=== PATIENT | male | born 1945 | race Caucasian/White ===

== ENCOUNTER 2017-07-15 05:43 | Inpatient (IN) ==
[2017-07-11 17:36] LABS: Basophils # (Auto) 0 K/mcL (0.0-0.3); Basophils % (Auto) 0.1 % (0.0-2.0); Eosinophils # (Auto) 0.5 K/mcL (0.0-0.7); Eosinophils % (Auto) 6.1 % (0.0-7.0); Granulocytes % (Auto) 73.8 % (38.0-78.0); Lymphocytes # (Auto) 0.8 K/mcL (1.5-4.8); Lymphocytes % (Auto) 9.9 % (15.5-49.0); Mean Cell Volume 88.7 fL (80.0-100.0); Mean Corpuscular HGB Conc 33.7 g/dL (31.0-36.0); Mean Corpuscular Hemoglobin 29.9 pg (26.0-34.0); Monocytes # (Auto) 0.8 K/mcL (0.1-0.9); Monocytes % (Auto) 10.1 % (1.0-12.0); Platelet Count 211 K/mcL (140-440); RBC 4.86 M/mcL (4.50-5.90); Red Cell Distribution Width 15.6 % (11.5-14.5)
[2017-07-11 18:02] LABS: Blood Urea Nitrogen 44 mg/dl (8-23)
[2017-07-12 18:26] LABS: Appearance,Urine CLEAR; Bacteria,Urine 0 /hpf (0); Bilirubin,Urine NEG (NEG); Color,Urine YELLOW; Glucose,Urine (UA) >=500 mg/dL (NEG); Leukocyte Esterase,Urine NEG /uL (NEG); Mucus,Urine FEW /hpf (0); Nitrate,Urine NEG (NEG); Protein,Urine NEG (NEG); Specific Gravity,Urine 1.013 (1.000-1.035); Urine Blood NEG mg/dL (<0.03); Urine RBC < 1 /hpf (0-1); Urine Squamous Epithelial Cell < 1 /hpf (0-4); Urine WBC 0 /hpf (0-4); Urobilinogen,Urine NEG (NEG)
[~2017-07-15 05:43] MED LIST: ACETAMINOPHEN 500 MG TABLET PO SCH; CELECOXIB 200 MG CAPSULE PO SCH; PREGABALIN 75 MG CAPSULE PO SCH; ceFAZolin 1 GM VIAL IV SCH; oxyCODONE 10 MG TAB.ER.12H PO SCH
[2017-07-15] MEDS ORDERED: KETOROLAC 30 MG, ROPIVACAINE HCL/PF 49.5 ML, EPINEPHrine 0.5 MG, 0.9 % SODIUM CHLORIDE ... IJ SCH (06:30)
[2017-07-15] MEDS ORDERED: TRANEXAMIC ACID 1,000 MG/10 ML VIAL IV ONE (10:00)
[2017-07-15] MEDS ORDERED: KETAMINE 100 MG/ML ML IV ONE (10:00)
[2017-07-15] MEDS ORDERED: PROPOFOL 200 MG/20 ML VIAL IV ONE (10:00)
[2017-07-15] MEDS ORDERED: ROPIVACAINE HCL/PF 30 ML VIAL IJ ONE (10:00)
[2017-07-15] MEDS ORDERED: ONDANSETRON 4 MG/2 ML VIAL IV ONE (10:00)
[2017-07-15] MEDS ORDERED: PHENYLEPHRINE 10 MG/ML VIAL IV ONE (10:00)
[2017-07-15] MEDS ORDERED: MIDAZOLAM 2 MG/2 ML VIAL IV ONE (10:00)
[2017-07-15] MEDS ORDERED: GLYCOPYRROLATE 0.2 MG/ML VIAL IV ONE (10:00)
[2017-07-15] MEDS ORDERED: LIDOCAINE HCL/PF 100 MG/5 ML SYRINGE IV ONE (10:00)
[2017-07-15] MEDS ORDERED: BENZOCAINE/MENTHOL 1 LOZENGE PO PRN ×2 (10:49→11:29)
[2017-07-15] MEDS ORDERED: diphenhydrAMINE 50 MG/ML VIAL IV PRN (10:49)
[2017-07-15] MEDS ORDERED: METHOCARBAMOL 1,000 MG/10 ML VIAL IV PRN (10:49)
[2017-07-15] MEDS ORDERED: ONDANSETRON 4 MG/2 ML VIAL IV PRN ×2 (10:49→11:29)
[2017-07-15] MEDS ORDERED: fentaNYL 100 MCG/2 ML VIAL IV PRN (10:49)
[2017-07-15] MEDS ORDERED: IPRATROPIUM/ALBUTEROL 3 ML AMPUL.NEB NEB PRN (10:49)
[2017-07-15] MEDS ORDERED: MEPERIDINE 25 MG/ML SYRINGE IV PRN (10:49)
[2017-07-15] MEDS ORDERED: GENTAMICIN SULFATE 800 MG/20 ML VIAL IR ONE (10:53)
[2017-07-15] MEDS ORDERED: LACTATED RINGERS 1,000 ML IV SCH (11:00)
[2017-07-15] MEDS ORDERED: HYDROcodone/APAP 10/325MG TABLET PO PRN (11:29)
[2017-07-15] MEDS ORDERED: ACETAMINOPHEN 325 MG TABLET PO PRN (11:29)
[2017-07-15] MEDS ORDERED: TRANEXAMIC ACID 1,000 MG/10 ML VIAL IV SCH (11:29)
[2017-07-15] MEDS ORDERED: HYDROmorphone 2 MG/ML SYRINGE IV PRN (11:29)
[2017-07-15] MEDS ORDERED: POLYETHYLENE GLYCOL 3350 17 GM PACKET PO PRN (11:29)
[2017-07-15] MEDS ORDERED: BISACODYL 10 MG SUPP.RECT PR PRN (11:29)
[2017-07-15] MEDS ORDERED: FLEETS ADULT ENEMA PR PRN (11:29)
[2017-07-15] MEDS ORDERED: MAGNESIUM HYDROXIDE 30 ML ORAL.SUSP PO PRN (11:29)
--- NOTE | 2017-07-15 11:29 | Brief Operative Note ---
Date of procedure: 07/15/17 Pre-op diagnosis: Left knee djd severe Post-op diagnosis: same Procedure: Left tka cemented Grafts/Implants: Yes Anesthesia: GETA Complications Description: 07/15/17 11:28 none Surgeon: Iraj Ricci [employer]spring Winder And Oiler: Navneet Glass Estimated blood loss (cc): 50 Tourniquet Time (Minutes): 45 Specimens Removed/Pathology: none sent Condition: stable Disposition: PACU
[2017-07-15] MEDS: ePHEDrine 50 MG/ML AMPUL IV PRN ×2 (12:13→12:23)
--- NOTE | 2017-07-15 12:37 | XRay Report ---
HISTORY: Reason for Exam:Post-Op Total Knee FINDINGS: There is a well positioned total knee prosthesis. No fracture is present. There is a small soft tissue calcification inferior to the patella. IMPRESSION: Well-positioned left knee prosthesis Interpreted and Authenticated by: Chacho Caballero 07/15/17
--- NOTE | 2017-07-15 13:00 | Operative Note ---
DATE OF OPERATION: 07/15/2017 PREOPERATIVE DIAGNOSIS: Left knee severe degenerative arthritis. POSTOPERATIVE DIAGNOSIS: Left knee severe degenerative arthritis. PROCEDURE: Left total knee arthroplasty, cemented components with a posterior stabilized design with ODC components. SURGEON: Iraj Ricci M.D. SUSTAINABILITY COMMUNICATOR: Navneet Glass PA-C. ANESTHESIA: General LMA anesthesia. COMPLICATIONS: None. TOTAL TOURNIQUET TIME: 45 minutes. ESTIMATED BLOOD LOSS: About 50 mL. IMPLANTS PLACED: A size 6 femur, size 6 tibial baseplate with a 10 mm thick poly with a 38 mm patellar button. DESCRIPTION OF PROCEDURE: The patient was brought to the operating room and put to sleep with general LMA anesthesia. Once asleep, the patient had the left leg sterilely prepped and draped in the usual sterile fashion after confirmed as the operative site and preop antibiotics and tranexamic acid had been given. We exsanguinated the leg and inflated the tourniquet to 250 pounds of pressure. Midline incision made, mid vastus approach performed. We subluxed the patella laterally showing severe arthritis of all three compartments. We then placed an intramedullary guide shanita, made our distal femoral cut at 9 mm and sized the knee to a size 6 component. We made anterior and posterior chamfer cuts, and the tibia was cut at neutral with a 3 degree posterior slope. Once this was done, I then removed the meniscus. Posterior osteophytes were all removed. I then made the box cut for the femur, trialed the size 6 tibial baseplate, set rotation as well as the femoral component. I irrigated thoroughly and then placed a size 10 poly. This was a little tight in extension. We then proceeded with preparing the patella. It measured 24 mm in total thickness. This was cut to 14 mm and then cemented into place a size 38 mm patellar button with a small chamfer cut laterally. I then cemented into place a size 6 tibia, size 6 femur. A 10 mm poly was placed. All excess cement was removed. On a secondary inspection we removed any additional cement. We then closed the capsule with #1 Stratafix. Two of these sutures were used. We closed the skin with 2-0 Vicryl and adhesive closure. The patient tolerated this well without complication. Tourniquet time was 45 minutes. VENKATESH:gaurav Job ID: [id number] Doc ID: [id number] Iraj Ricci MD
[2017-07-15] MEDS: 0.45 % SODIUM CHLORIDE 1,000 ML IV SCH ×2 (13:01→21:46)
[2017-07-15] MEDS: ACETAMINOPHEN 1,000 MG/100 ML BOTTLE IV SCH ×2 (14:13→19:15)
[2017-07-15] MEDS: 0.9 % SODIUM CHLORIDE 10 ML SYRINGE IV SCH ×2 (14:13→21:47)
[2017-07-15] MEDS: KETOROLAC 15 MG/ML VIAL IV SCH ×3 (14:13→23:54)
[2017-07-15] MEDS ORDERED: DEXTROSE 50% 50 ML VIAL IV PRN (16:11)
[2017-07-15] MEDS ORDERED: INSULIN LISPRO SQ SCH (17:00)
[2017-07-15] MEDS: ceFAZolin 1 GM VIAL IV SCH (17:12)
[2017-07-15] MEDS: INSULIN LISPRO 1 UNIT/0.01 ML UNIT SQ SCH ×2 (17:12→20:41)
[2017-07-15] MEDS: FISH OIL 1,000 MG CAPSULE PO SCH (20:38)
[2017-07-15] MEDS: VITAMIN E (DL,TOCOPHERYL ACET) 400 UNIT CAPSULE PO SCH (20:38)
[2017-07-15] MEDS: ASPIRIN 325 MG ENTERIC COATED TABLET PO SCH (20:40)
[2017-07-15] MEDS: ATENOLOL 50 MG TABLET PO SCH (20:40)
[2017-07-15] MEDS: DOCUSATE SODIUM 100 MG CAPSULE PO SCH (20:41)
[2017-07-15] MEDS: BRIMONIDINE OPHTH DROPS 1 GTT BOTTLE 5ML OU SCH (20:41)
[2017-07-15] MEDS: PYRIDOXINE 100 MG TABLET PO SCH (20:42)
[2017-07-15] MEDS ORDERED: SAW PALMETTO FRUIT 450 MG PO SCH (21:00)
[2017-07-15] MEDS ORDERED: ALPHA LIPOIC ACID 200 MG PO SCH (21:00)
[2017-07-15] MEDS ORDERED: RED YEAST RICE 600 MG PO SCH (21:00)
[2017-07-15] MEDS ORDERED: SENNOSIDES 1 TABLET PO SCH (21:00)
[2017-07-15] MEDS ORDERED: TEMAZEPAM 15 MG CAPSULE PO PRN (21:00)
[2017-07-15] MEDS ORDERED: UBIDECARENONE 100 MG PO SCH (21:00)
[2017-07-15] MEDS ORDERED: INSULIN GLARGINE, HUMAN 1 UNIT/0.01 ML SQ SCH (21:00)
[2017-07-15] MEDS ORDERED: LEVOCARNITINE TARTRATE 500 MG PO SCH (21:00)
[2017-07-16] MEDS: ACETAMINOPHEN 1,000 MG/100 ML BOTTLE IV SCH ×2 (01:08→08:02)
[2017-07-16] MEDS: ceFAZolin 1 GM VIAL IV SCH (01:08)
[2017-07-16] MEDS: KETOROLAC 15 MG/ML VIAL IV SCH (05:25)
[2017-07-16] MEDS: 0.9 % SODIUM CHLORIDE 10 ML SYRINGE IV SCH (05:26)
[2017-07-16] MEDS: INSULIN LISPRO 1 UNIT/0.01 ML UNIT SQ SCH (08:01)
[2017-07-16] MEDS: 0.45 % SODIUM CHLORIDE 1,000 ML IV SCH (08:03)
[2017-07-16] MEDS ORDERED: ASPIRIN 325 MG TABLET.DR PO SCH (09:00)
[2017-07-16] MEDS ORDERED: LOSARTAN 50 MG TABLET PO SCH (09:00)
[2017-07-16] MEDS ORDERED: sitaGLIPtin 50 MG TABLET PO SCH (09:00)
[2017-07-16] MEDS ORDERED: CHROMIUM PICOLINATE PO SCH (09:00)
[2017-07-16] MEDS ORDERED: CYANOCOBALAMIN (VITAMIN B-12) 500 MCG TABLET PO SCH (09:00)
[2017-07-16] MEDS ORDERED: HYDROCHLOROTHIAZIDE 25 MG TABLET PO SCH (09:00)
[2017-07-16] MEDS: FISH OIL 1,000 MG CAPSULE PO SCH (09:15)
[2017-07-16] MEDS: PYRIDOXINE 100 MG TABLET PO SCH (09:15)
[2017-07-16] MEDS: VITAMIN E (DL,TOCOPHERYL ACET) 400 UNIT CAPSULE PO SCH (09:16)
[2017-07-16] MEDS: ASPIRIN 325 MG ENTERIC COATED TABLET PO SCH (09:16)
[2017-07-16] MEDS: ATENOLOL 50 MG TABLET PO SCH (09:16)
[2017-07-16] MEDS: DOCUSATE SODIUM 100 MG CAPSULE PO SCH (09:16)
[2017-07-16] MEDS: BRIMONIDINE OPHTH DROPS 1 GTT BOTTLE 5ML OU SCH (09:18)
--- NOTE | 2017-07-16 10:40 | Discharge Summary ---
Ortho Discharge - TSA - Patient Instructions Diet: Regular Diet Activity: activity as tolerated, weight bearing as tolerated Total Shoulder Protocol: Leave immobilizer in place except for bathing and ROM. Abduction pillow. Continue to wear sling until seen by physician. Codman Pendulum : These exercises use momentum produced by your body to move your shoulder joint. Bend your knees and shift your weight to your front leg, then back, allowing your arm to swing in the same directions. Using the same technique, alternately shift your weight between your right and left legs, allowing your arm to swing from side to side. These exercises are also performed in counterclockwise and clockwise circular motions. Typically these exercises are performed several times per day, for a set number repetitions or minutes, such as 20 times in a row or 5 minutes at a time. Dressing Care: Aquacel Ag - leave on for 5 days Patient Education: Total Knee Replacement (DC) Additional Instructions: cpm for home use. Discharge Instructions: Do the exercises at home that physical therapy gave you. You are scheduled to start physical therapy at [facility] on Jul.18 at 2:00 pm, please arrive 15 minutes early for paperwork. Take your prescription, photo ID, insurance cards, and current medication list with you to your first physical therapy appointment. Take your prescription to corn picker any medication or equipment (such as walker, crutches, toilet riser or C.P.M.) Wear comfortable clothing for your physical therapy. Weight bearing as tolerated. You have Dermabond (a dressing with a mesh-like appearance), leave open to air. Do not remove this dressing. You may start showering on post op day #2. The Dermabond dressing can get wet, do not scrub dressing. Pat dry. To avoid constipation while taking any narcotic pain medication, take an over the counter stool softener/laxative. Use your Cryocuff or ice packs as directed, on for 20 minutes at a time throughout the day. This and elevation will help with pain and swelling. Call your physician for fevers above 100.5 or pain not controlled by medication. Your prescriptions are with your discharge information. Some medications were electronically transmitted to your pharmacy of choice. - Follow Up Plan Follow Up Appointments: Gerardo Bonilla MD [Physician] - (Follow up as [facility] patient at [facility]) Iraj Ricci MD [Physician] - 07/28/17 10:00 am Disposition: Home, Self-Care Prognosis: Good Rehab Potential: Good I certify that the patient requires SNF services: No Overall status at discharge: patient is progressing back to baseline - Orders For Discharge Additional Discharge Orders: Physical Therapy at Discharge - TKA Location: Determined By Patient Toilet Riser Discharge Order Location: Determined By Patient Walker Location: Determined By Patient
--- NOTE | 2017-07-16 10:54 | Discharge Summary ---
Ortho Discharge - TKA - Patient Instructions Diet: Regular Diet Activity: activity as tolerated, weight bearing as tolerated Total Knee Protocol: For Total Knee: Start ROM LESLIE with stationary bike or rocking chair. Work on gaining full extension of knee. Posterior dislocation precautions provided. Hip abductor strengthening and gait training instructions provided. Apply Cryocuff as instructed. Dressing Care: May shower in 2 days Patient Education: Total Knee Replacement (DC) Additional Instructions: cpm for home use. Discharge Instructions: Do the exercises at home that physical therapy gave you. You are scheduled to start physical therapy at [facility] on Jul.18 at 2:00 pm, please arrive 15 minutes early for paperwork. Take your prescription, photo ID, insurance cards, and current medication list with you to your first physical therapy appointment. Take your prescription to potato picker any medication or equipment (such as walker, crutches, toilet riser or C.P.M.) Wear comfortable clothing for your physical therapy. Weight bearing as tolerated. You have Dermabond (a dressing with a mesh-like appearance), leave open to air. Do not remove this dressing. You may start showering on post op day #2. The Dermabond dressing can get wet, do not scrub dressing. Pat dry. To avoid constipation while taking any narcotic pain medication, take an over the counter stool softener/laxative. Use your Cryocuff or ice packs as directed, on for 20 minutes at a time throughout the day. This and elevation will help with pain and swelling. Call your physician for fevers above 100.5 or pain not controlled by medication. Your prescriptions are with your discharge information. Some medications were electronically transmitted to your pharmacy of choice. - Follow Up Plan Follow Up Appointments: Gerardo Bonilla MD [Physician] - (Follow up as new patient at [facility]) Iraj Ricci MD [Physician] - 07/28/17 10:00 am Disposition: Home, Self-Care Prognosis: Good Rehab Potential: Good I certify that the patient requires SNF services: No - Orders For Discharge Prescriptions: Aspirin [Ecotrin] 325 mg PO DAILY #14 tab.ec oxyCODONE/APAP [Percocet 5-325 mg] 1 - 2 tab PO Q4H PRN #60 tab PRN Reason: Pain Additional Discharge Orders: Physical Therapy at Discharge - TKA Location: Determined By Patient Toilet Riser Discharge Order Location: Determined By Patient Walker Location: Determined By Patient
== END 2017-07-16 12:15 | disposition home or self-care (01) | DRG 470 ==
LOC: MEDSUR 05:43
PROVIDERS: ADMIT Orthopaedic Surgery; ATTEND Orthopaedic Surgery

== ENCOUNTER 2017-10-31 10:52 | Inpatient (IN) ==
[2017-10-25 14:25] LABS: Appearance,Urine CLEAR; Bilirubin,Urine NEG (NEG); Color,Urine YELLOW; Glucose,Urine (UA) 50 mg/dL (NEG); Leukocyte Esterase,Urine NEG /uL (NEG); Nitrate,Urine NEG (NEG); Protein,Urine NEG (NEG); Specific Gravity,Urine 1.011 (1.000-1.035); Urine Blood NEG mg/dL (<0.03); Urobilinogen,Urine NEG (NEG)
[2017-10-25 15:37] LABS: Basophils # (Auto) 0 K/mcL (0.0-0.3); Basophils % (Auto) 0 % (0.0-2.0); Eosinophils # (Auto) 0.4 K/mcL (0.0-0.7); Granulocytes % (Auto) 79.5 % (38.0-78.0); Lymphocytes # (Auto) 0.7 K/mcL (1.5-4.8); Lymphocytes % (Auto) 8.3 % (15.5-49.0); Mean Cell Volume 87.3 fL (80.0-100.0); Mean Corpuscular HGB Conc 33.1 g/dL (31.0-36.0); Mean Corpuscular Hemoglobin 28.9 pg (26.0-34.0); Monocytes # (Auto) 0.7 K/mcL (0.1-0.9); Monocytes % (Auto) 8.2 % (1.0-12.0); Platelet Count 233 K/mcL (140-440); RBC 5.08 M/mcL (4.50-5.90); Red Cell Distribution Width 15.9 % (11.5-14.5)
[2017-10-25 15:51] LABS: Blood Urea Nitrogen 33 mg/dl (8-23)
[~2017-10-31 10:52] MED LIST changes: +KETOROLAC 30 MG, ROPIVACAINE HCL/PF 49.5 ML, EPINEPHrine 0.5 MG, 0.9 % SODIUM CHLORIDE ... IJ SCH
[2017-10-31] MEDS ORDERED: BUPIVACAINE W/EPI 0.5% 50 ML VIAL IJ ONE (14:30)
[2017-10-31] MEDS ORDERED: GLYCOPYRROLATE 0.2 MG/ML VIAL IV ONE (14:30)
[2017-10-31] MEDS ORDERED: ONDANSETRON 4 MG/2 ML VIAL IV ONE (14:30)
[2017-10-31] MEDS ORDERED: TRANEXAMIC ACID 1,000 MG/10 ML VIAL IV ONE ×2 (14:30→15:56)
[2017-10-31] MEDS ORDERED: MIDAZOLAM 2 MG/2 ML VIAL IV ONE (14:30)
[2017-10-31] MEDS ORDERED: KETAMINE 100 MG/ML ML IV ONE (14:30)
[2017-10-31] MEDS ORDERED: PROPOFOL 200 MG/20 ML VIAL IV ONE (14:30)
[2017-10-31] MEDS ORDERED: LIDOCAINE HCL/PF 100 MG/5 ML SYRINGE IV ONE (14:30)
[2017-10-31] MEDS ORDERED: GENTAMICIN SULFATE 800 MG/20 ML VIAL IR ONE (14:52)
[2017-10-31] MEDS ORDERED: ePHEDrine 50 MG/ML AMPUL IV PRN (15:28)
[2017-10-31] MEDS ORDERED: ONDANSETRON 4 MG/2 ML VIAL IV PRN ×2 (15:28→15:56)
[2017-10-31] MEDS ORDERED: MEPERIDINE 25 MG/ML SYRINGE IV PRN (15:28)
[2017-10-31] MEDS ORDERED: diphenhydrAMINE 50 MG/ML VIAL IV PRN (15:28)
[2017-10-31] MEDS ORDERED: IPRATROPIUM/ALBUTEROL 3 ML AMPUL.NEB NEB PRN (15:28)
[2017-10-31] MEDS ORDERED: METHOCARBAMOL 1,000 MG/10 ML VIAL IV PRN (15:28)
[2017-10-31] MEDS ORDERED: fentaNYL 100 MCG/2 ML VIAL IV PRN (15:28)
[2017-10-31] MEDS ORDERED: LACTATED RINGERS 1,000 ML IV SCH (15:30)
[2017-10-31] MEDS ORDERED: ACETAMINOPHEN 325 MG TABLET PO PRN (15:56)
[2017-10-31] MEDS ORDERED: BISACODYL 10 MG SUPP.RECT PR PRN (15:56)
[2017-10-31] MEDS ORDERED: MAGNESIUM HYDROXIDE 30 ML ORAL.SUSP PO PRN (15:56)
[2017-10-31] MEDS ORDERED: POLYETHYLENE GLYCOL 3350 17 GM PACKET PO PRN (15:56)
[2017-10-31] MEDS ORDERED: TEMAZEPAM 15 MG CAPSULE PO PRN (15:56)
[2017-10-31] MEDS ORDERED: FLEETS ADULT ENEMA PR PRN (15:56)
[2017-10-31] MEDS ORDERED: HYDROmorphone 2 MG/ML SYRINGE IV PRN (15:56)
[2017-10-31] MEDS ORDERED: BENZOCAINE/MENTHOL 1 LOZENGE PO PRN (15:56)
--- NOTE | 2017-10-31 15:56 | Brief Operative Note ---
Date of procedure: 10/31/17 Pre-op diagnosis: right knee djd Post-op diagnosis: same Procedure: right tka with odc components Grafts/Implants: Yes Anesthesia: GETA Complications Description: 10/31/17 15:56 none Surgeon: Iraj Ricci Orthopedic Physical Therapist: Navneet Glass Estimated blood loss (cc): 50 Tourniquet Time (Minutes): 45 Specimens Removed/Pathology: none sent Condition: stable Disposition: PACU
--- NOTE | 2017-10-31 16:20 | Operative Note ---
DATE OF OPERATION: 10/31/2017 PREOPERATIVE DIAGNOSIS: Right knee degenerative arthritis. POSTOPERATIVE DIAGNOSIS: Right knee degenerative arthritis. PROCEDURE: Right total knee arthroplasty. SURGEON: Iraj Ricci M.D. SURVEY RESEARCH CENTER DIRECTOR: Navneet Glass PA-C. ANESTHESIA: General LMA anesthesia. COMPLICATIONS: None. DESCRIPTION OF PROCEDURE: The patient was brought to the operating room and put to sleep with general LMA anesthesia. Once asleep, the patient had the right leg sterilely prepped and draped in the usual sterile fashion. Once this was confirmed as the operative site, we then made a midline incision, a mid vastus approach performed. Preop antibiotics and tranexamic had been given. A midline incision made, mid vastus approach showed severe arthritis in all three compartments with cysts within the lateral tibia and posterior tibia. Once this was done, we placed an intramedullary guide shanita into the femur. Our distal femoral cut was made at 9.5 mm. We made our anterior and posterior chamfer cuts. I then placed a shanita centrally in the tibial canal. Our tibial cut was cut at 8 mm from the most prominent side which in this case was posterior medial. Once done, we then removed the bony fragments, removed the remnants of the meniscus, removed osteophytes posteriorly and curetted the cyst within the tibia. We then placed the tibial baseplate size 6. This was externally rotated in line with the medial third of the tibial tubercle. Once identified, we tapped the tibial component into place and punched the rotational alignment. Once this was done, we then prepared the femur. The box cut was created using a guide, lateralized the component as far lateral as possible. This was trialed with a size 6 femoral component. A 9 mm poly was inserted. This gave excellent stability through the range of motion in both full extension, mid flexion and flexion. It all seemed to balance nicely with 1 mm of play medially and laterally. We irrigated thoroughly and prepared the patella. It measured a total thickness of 26 mm. This was cut to 16 mm and cemented into place a 38 mm patellar button. A small chamfer cut was created. We cemented into place a 38 patella, size 6 femur, and size 6 tibial baseplate after preparing the bony surface both with irrigation, pulse lavage and CarboJet to dry the bone. A 9 mm poly was inserted. We kept the knee at 45 degrees until all cement was dried. Excess cement had been removed. We reinspected the joint, took it through the range of motion to make sure there was no impinging cement or bone. After we were satisfied with the alignment and the patellar tracking, we irrigated thoroughly and then repaired the anterior medial capsule with #1 Stratafix x2 sutures. We closed the skin with 2-0 Vicryl and adhesive closure. The patient tolerated this well without complication. RBH:gaurav Job ID: [id number] Doc ID: [id number] Iraj Ricci MD
[2017-10-31] MEDS: 0.45 % SODIUM CHLORIDE 1,000 ML IV SCH (17:00)
--- NOTE | 2017-10-31 17:01 | XRay Report ---
CLINICAL INFORMATION: Post-Op Total Knee COMPARISON: None. FINDINGS: Total knee prostheses is anatomically aligned. No osseous abnormality. Periarticular gas and soft tissue swelling seen as expected. IMPRESSION: Negative Interpreted and Authenticated by: Rashi Laguna 10/31/17
[2017-10-31] MEDS: INSULIN LISPRO 1 UNIT/0.01 ML UNIT SQ SCH ×2 (17:03→21:13)
[2017-10-31] MEDS: KETOROLAC 15 MG/ML VIAL IV SCH (17:09)
[2017-10-31] MEDS: ATENOLOL 50 MG TABLET PO SCH ×2 (18:11→21:15)
[2017-10-31] MEDS: oxyCODONE/APAP 5/325MG TABLET PO PRN (19:58)
[2017-10-31] MEDS ORDERED: SENNOSIDES 1 TABLET PO SCH (21:00)
[2017-10-31] MEDS ORDERED: INSULIN GLARGINE, HUMAN 1 UNIT/0.01 ML SQ SCH (21:00)
[2017-10-31] MEDS: DOCUSATE SODIUM 100 MG CAPSULE PO SCH (21:12)
[2017-10-31] MEDS: BRIMONIDINE OPHTH DROPS 1 GTT BOTTLE 5ML OU SCH (21:12)
[2017-10-31] MEDS: ASPIRIN 325 MG ENTERIC COATED TABLET PO SCH (21:13)
[2017-10-31] MEDS: FISH OIL 1,000 MG CAPSULE PO SCH (21:13)
[2017-10-31] MEDS: SAW PALMETTO FRUIT 450 MG PO SCH (21:14)
[2017-10-31] MEDS: UBIDECARENONE 100 MG PO SCH (21:14)
[2017-10-31] MEDS: LEVOCARNITINE TARTRATE 500 MG PO SCH (21:14)
[2017-10-31] MEDS: Red Yeast Rice 600 mg Tab PO SCH (21:14)
[2017-10-31] MEDS: PYRIDOXINE 100 MG TABLET PO SCH (21:15)
[2017-10-31] MEDS: VITAMIN E (DL,TOCOPHERYL ACET) 400 UNIT CAPSULE PO SCH (21:16)
[2017-10-31] MEDS: 0.9 % SODIUM CHLORIDE 10 ML SYRINGE IV SCH (21:16)
[2017-10-31] MEDS: ceFAZolin 1 GM VIAL IV SCH (22:10)
[2017-11-01] MEDS: KETOROLAC 15 MG/ML VIAL IV SCH ×3 (00:15→11:34)
[2017-11-01] MEDS: oxyCODONE/APAP 5/325MG TABLET PO PRN ×2 (01:53→14:17)
[2017-11-01] MEDS: 0.45 % SODIUM CHLORIDE 1,000 ML IV SCH ×2 (03:02→11:35)
[2017-11-01] MEDS: 0.9 % SODIUM CHLORIDE 10 ML SYRINGE IV SCH (05:43)
[2017-11-01] MEDS: ceFAZolin 1 GM VIAL IV SCH (05:49)
--- NOTE | 2017-11-01 07:38 | Orthopedic Progress Note ---
Subjective Patient information: Note initiated : 11/01/17 at 7:38 am Service Date, if different from initiated Date: [] Patient: Daljit Quintanilla 71 y/o M admitted on 10/31/17 for Right Total Knee Arthroplasty. Chief Complaint: [Pt is stable this morning on post operative day 1 without any significant concerns or complaints. Patients vital signs have remained stable. Patients dressing is dry and is grossly instact from a neurovascular and motor standpoint. Patients 10 point ROS is otherwise negative. ] Objective Vital signs: Vital Signs Temp Pulse Resp BP Pulse Ox 11/01/17 06:45 96.2 F L 16 142/58 93 11/01/17 04:00 97.4 F 59 L 16 164/77 94 11/01/17 00:00 97.1 F 51 L 16 148/66 96 10/31/17 20:45 95 10/31/17 20:22 98 10/31/17 19:10 97.6 F 56 L 14 157/64 97 10/31/17 18:48 55 L 152/79 96 10/31/17 18:19 53 L 139/70 97 10/31/17 18:04 182/82 98 10/31/17 17:49 167/70 99 10/31/17 17:33 169/92 96 10/31/17 17:20 186/102 96 10/31/17 17:14 96 10/31/17 17:03 193/95 97 10/31/17 16:48 172/79 97 10/31/17 16:35 97.8 F 64 16 175/54 98 10/31/17 16:20 98.4 F 71 16 175/54 100 10/31/17 16:15 98.4 F 69 13 148/76 100 10/31/17 16:10 98.4 F 76 13 148/76 100 10/31/17 16:05 98.4 F 69 13 139/75 100 10/31/17 10:54 98.4 F 48 L 18 135/76 95 10/31/17 10:52 24 H Intake and Output 10/31/17 11/01/17 11/01/17 21:59 05:59 13:59 Intake Total 2450 / 2450 1999 / 1999 800 / 800 Output Total 300 / 300 275 / 275 Balance 2150 / 2150 1725 / 1725 800 / 800 Intake: Oral 550 / 550 1999 800 / 800 IV - Manual Only 1900 Output: Void Amount 300 / 300 275 / 275 Other: Weight 334 lb Intake & Output: Intake & Output 10/31/17 11/01/17 11/01/17 21:59 05:59 13:59 Intake Total 2450 / 2450 1999 800 / 800 Output Total 300 / 300 275 / 275 Balance 2150 / 2150 1725 / 1725 800 / 800 Weight 334 lb Intake: Oral 550 / 550 1999 800 / 800 IV - Manual Only 1900 / 1900 Output: Void Amount 300 / 300 275 / 275 Incision: Yes healing Incision clean and dry: Yes Dressing: Yes clean, Yes dry Weight bearing status: as tolerated Neurological exam IM: Yes motor sensory intact, Yes neurovascular intact Extremities exam IM: Yes Foot pink and warm, Yes neurovascular intact - Labs CBC & BMP: 11/01/17 04:22 10/25/17 11:55 Labs: Orthopedic Labs 10/25/17 11:55 PT 13.6 INR 1.0 APTT 28 11/01/17 10/25/17 04:22 11:55 Hgb 14.7 Hct 38.6 L 44.3 Assessment and Plan (1) Hx of total knee arthroplasty The patient has been educated regarding dressing care, Physical Therapy recommendations, home exercises, restrictions, and follow up appointments. The patient has had all necessary DME prescribed. The patient has remained stable during their hospital course. The patient was discharge with a stable exam. Leave Dermabond patch intact until followup Status: Acute
[2017-11-01] MEDS: INSULIN LISPRO 1 UNIT/0.01 ML UNIT SQ SCH ×2 (07:40→11:45)
--- NOTE | 2017-11-01 07:41 | Discharge Summary ---
Ortho Discharge - TKA - Patient Instructions Diet: Regular Diet Activity: activity as tolerated, weight bearing as tolerated Total Knee Protocol: For Total Knee: Start ROM LESLIE with stationary bike or rocking chair. Work on gaining full extension of knee. Posterior dislocation precautions provided. Hip abductor strengthening and gait training instructions provided. Apply Cryocuff as instructed. Dressing Care: May shower in 2 days Additional Instructions: cpm for home use - Problem Maintenance (1) Hx of total knee arthroplasty Status: Acute - Follow Up Plan Disposition: Home, Self-Care Prognosis: Good Rehab Potential: Good I certify that the patient requires SNF services: No Overall status at discharge: patient is progressing back to baseline - Orders For Discharge Prescriptions: Aspirin [Ecotrin] 325 mg PO BID #60 tab.ec Docusate Sodium [Colace] 100 mg PO BID #60 cap oxyCODONE/APAP [Percocet 5-325 mg] 1 - 2 tab PO Q4HP PRN #75 tab PRN Reason: Pain Level 3-6
[2017-11-01] MEDS: ATENOLOL 50 MG TABLET PO SCH (08:19)
[2017-11-01] MEDS: ASPIRIN 325 MG ENTERIC COATED TABLET PO SCH (08:21)
[2017-11-01] MEDS: BRIMONIDINE OPHTH DROPS 1 GTT BOTTLE 5ML OU SCH (08:21)
[2017-11-01] MEDS: FISH OIL 1,000 MG CAPSULE PO SCH (08:21)
[2017-11-01] MEDS: PYRIDOXINE 100 MG TABLET PO SCH (08:21)
[2017-11-01] MEDS: DOCUSATE SODIUM 100 MG CAPSULE PO SCH (08:21)
[2017-11-01] MEDS: VITAMIN E (DL,TOCOPHERYL ACET) 400 UNIT CAPSULE PO SCH (08:21)
[2017-11-01] MEDS: UBIDECARENONE 100 MG PO SCH (08:24)
[2017-11-01] MEDS: SAW PALMETTO FRUIT 450 MG PO SCH (08:24)
[2017-11-01] MEDS: LEVOCARNITINE TARTRATE 500 MG PO SCH (08:24)
[2017-11-01] MEDS: Red Yeast Rice 600 mg Tab PO SCH (08:24)
[2017-11-01] MEDS ORDERED: LOSARTAN 50 MG TABLET PO SCH (09:00)
[2017-11-01] MEDS ORDERED: sitaGLIPtin 100 MG TABLET PO SCH (09:00)
[2017-11-01] MEDS ORDERED: HYDROCHLOROTHIAZIDE 25 MG TABLET PO SCH (09:00)
== END 2017-11-01 14:48 | disposition home or self-care (01) | DRG 470 ==
LOC: MEDSUR 10:52
PROVIDERS: ADMIT Orthopaedic Surgery; ATTEND Orthopaedic Surgery

== ENCOUNTER 2021-02-16 07:03 | Inpatient (IN) ==
[2021-02-16 07:44] LABS: POC Blood Urea Nitrogen 41 mg/dL (6-20); POC CO2 24 mmol/L (22-30); POC Calcium, Ionized 1.15 mmEq/L (1.16-1.32); POC Chloride 100 mEq/L (96-108); POC Creatinine 1.7 mg/dL (0.6-1.2); POC Glucose, Random 172 mg/dL (70-105); POC Hematocrit 39 % (41-55); POC Sodium 136 mEq/L (133-145)
--- NOTE | 2021-02-16 07:52 | Emergency Department Note ---
HPI General Chief complaint: Extremity Injury, Lower Stated complaint: right knee pain, unable to walk. Time Seen by Provider: 02/16/21 07:22 Source: patient and EMS Mode of arrival: EMS Limitations: no limitations History of Present Illness HPI Narrative: Patient is a 75-year-old gentleman who arrives to the emergency department by ambulance accompanied by his complaining of knee pain. She is provided by the patient and his . He says he started having pain in his right knee about 3 days ago. This is gradual in onset and progressively worsening. He is also been having intermittent fever and chills. This morning, when he awoke he was too weak to get out of bed. He was also having too much pain in his knee to move it. He called 911 was transported to the hospital. His suspects he may have had an aspiration event a few days ago. He denies any shortness of breath chest pain or cough at this time. He has never had anything like this before. Related Data Home Medications Medication Instructions Recorded Confirmed alpha lipoic acid 200 mg PO BID 08/29/15 10/31/17 atenolol 25 mg PO BID 08/29/15 10/31/17 chromium picolinate 800 mg PO DAILY 08/29/15 10/31/17 coenzyme Q10 100 mg PO BID 08/29/15 10/31/17 hydrochlorothiazide 25 mg PO DAILY 08/29/15 10/31/17 insulin glargine [Lantus U-100 40 unit SQ HS 08/29/15 10/31/17 Insulin] insulin lispro [Humalog KwikPen 0 unit SQ AC 08/29/15 10/25/17 Insulin] levocarnitine tartrate 500 mg PO BID 08/29/15 10/31/17 losartan 100 mg PO DAILY 08/29/15 10/31/17 omega-3 fatty acids-fish oil [Fish 1,000 mg PO BID 08/29/15 10/31/17 Oil] red yeast rice 600 mg PO BID 08/29/15 10/31/17 saw palmetto 450 mg PO BID 08/29/15 10/31/17 vitamin E succinate 400 unit PO BID 08/29/15 10/31/17 brimonidine 1 gtt OU BID 07/11/17 10/31/17 cyanocobalamin (vitamin B-12) 100 mcg PO BID 07/11/17 10/31/17 [Vitamin B-12] pyridoxine (vitamin B6) [Vitamin 100 mg PO BID 07/11/17 10/31/17 B-6] sitagliptin [Januvia] 100 mg PO DAILY 07/11/17 10/31/17 Previous Rx's Medication Instructions Recorded aspirin 325 mg PO DAILY #14 tab.ec 07/16/17 aspirin 325 mg PO BID #60 tab.ec 11/01/17 docusate sodium 100 mg PO BID #60 cap 11/01/17 oxycodone-acetaminophen 1 - 2 tab PO Q4HP PRN #75 tab 11/01/17 Allergies Allergy/AdvReac Type Severity Reaction Status Date / Time hydrocodone AdvReac Mild Itching Verified 02/16/21 07:06 Review of Systems ROS ROS Narrative: Narrative: All systems ED: reviewed and negative except as stated. Constitutional: Reports fever and chills Cardiovascular: Denies chest pain Respiratory: Denies shortness of breath Gastrointestinal: Denies abdominal pain, nausea, vomiting and diarrhea Genitourinary: Denies dysuria PFSH Narrative Patient History Narrative: Narrative: Medical/Surgical/Family History All Active Problems (Updated 02/16/21 @ 12:51 by Laz Phelan DO) Dog bite of multiple sites of hand and fingers (Acute) Bite by animal (Acute) Hip sprain (Acute) Laceration of finger (Acute) Laceration of lip (Acute) Rib fracture (Acute) Hx of total knee arthroplasty (Acute) Septic arthritis (Acute) Congestive heart failure (Acute) Medical History (Updated 02/16/21 @ 12:51 by Laz Phelan DO) Bite by animal Dog bite of multiple sites of hand and fingers Hip sprain Laceration of finger Laceration of lip Rib fracture Social History Smoking Status: Former smoker Alcohol Intake Frequency: does not drink Substance Use: does not use Exam Narrative Narrative: Gen -patient is awake and alert and in no acute distress. HEENT -head is atraumatic. There is no conjunctival pallor or scleral icterus. Mucous membranes are dry CV -S1-S2 regular rate and rhythm. Peripheral pulses are palpable. Resp -breathing is nonlabored. Lungs are clear to auscultation bilaterally. There is no cyanosis. GI - Abdomen is soft and nontender to palpation. There is no guarding or rebound tenderness. Derm -skin is warm and dry. MSK -there is a linear scar over the anterior right knee consistent with the patient's reported history of total joint arthroplasty. Patient has significantly limited flexion of the knee due to pain. There is no palpable effusion but patient's body habitus limits examination sensitivity for this. There is palpable warmth and edema to the soft tissues surrounding the knee and slight erythema of the knee. Psych -patient has appropriate affect. Neuro -patient answers questions appropriately with fluent speech. Patient moves all present extremities equally. General Limitations: no limitations Course Vital Signs Vital signs: Vital Signs Temperature 99.3 F H 02/16/21 07:04 Pulse Rate 72 02/16/21 07:04 Respiratory Rate 22 02/16/21 07:04 Blood Pressure 155/52 02/16/21 07:04 Pulse Oximetry (%) 93 02/16/21 07:04 Temperature 99.3 F H 02/16/21 07:04 Pulse Rate 58 L 02/16/21 12:31 Respiratory Rate 20 02/16/21 12:31 Blood Pressure 125/70 02/16/21 12:31 Pulse Oximetry (%) 98 02/16/21 12:31 MDM MDM Narrative Medical decision making narrative: Patient with a history of right knee arthroplasty presents with neurolysed weakness worsening knee pain fever and chills. Labs remarkable for significant leukocytosis and elevated inflammatory markers. Chest x-ray shows bibasilar infiltrates. His BNP is significantly elevated as well. As he has no other infectious symptoms such as cough or chest pain I do not think the infiltrates visualized on chest x-ray are pneumonia I think is much more likely decompensated heart failure. Given this he was given IV furosemide. He has significantly limited range of motion of his knee. I discussed his history examination diagnostic findings with Dr. Philippe who agrees with the plan to proceed with an arthrocentesis. This was performed as detailed separately. Given his need for possible washout and continued diuresis I recommended he be admitted and he is agreeable. I discussed the patient's history examination and diagnostic findings with Dr. Adler, who agrees with the plan of care and accepts admission. Lab Data Lab results reviewed: Yes I reviewed the patient's lab results. Result diagrams: 02/16/21 07:33 02/16/21 07:33 Labs: Lab Results 02/16/21 02/16/21 02/16/21 Range/Units 07:33 07:33 07:33 WBC 16.8 H (4.5-11.0) K/mcL RBC 4.17 L (4.50-5.90) M/mcL Hgb 12.6 L (13.5-16.5) g/dL Hct 38.5 L (41.0-55.0) % POC Hct 39 L (41-55) % MCV 92.3 (80.0-100.0) fL MCH 30.2 (26.0-34.0) pg MCHC 32.7 (31.0-36.0) g/dL RDW 15.0 H (11.5-14.5) % Plt Count 231 (140-440) K/mcL MPV 10.7 H (7.4-10.4) fL Neut % (Auto) 89.0 H (38.0-78.0) % Lymph % (Auto) 2.1 L (15.0-49.0) % Bee % (Auto) 8.7 (1.0-12.0) % Eos % (Auto) 0.1 (0.0-7.0) % Baso % (Auto) 0.1 (0.0-2.0) % Lymph # (Auto) 0.35 L (1.50-4.80) K/mcL Bee # (Auto) 1.47 H (0.10-0.90) K/mcL Eos # (Auto) 0.01 (0.00-0.70) K/mcL Baso # (Auto) 0.02 (0.00-0.20) K/mcL Absolute Neutrophils 14.96 H (1.80-8.00) K/mcL ESR 94 H (0-15) mm/hr VBG Lactic Acid (0.5-2.0) mmol/L POC Sodium 136 (133-145) mEq/L Sodium 134 (133-145) mmol/L POC Potassium 4.0 (3.3-5.1) mEql/L Potassium 4.0 (3.3-5.1) mmol/L POC Chloride 100 (96-108) mEq/L Chloride 99 (96-108) mmol/L Carbon Dioxide 24 (22-30) mmol/L POC Total CO2 24 (22-30) mmol/L Anion Gap 11.0 (8.0-16.0) POC BUN 41 H (6-20) mg/dL BUN 44 H (8-23) mg/dL Creatinine 1.4 H (0.7-1.2) mg/dL POC Creatinine 1.7 H (0.6-1.2) mg/dL GFR Calculation 48 Glucose 170 H (70-105) mg/dL POC Glucose 172 H (70-105) mg/dL Calcium 9.2 (8.6-10.4) mg/dL POC WB Ioniz Calcium 1.15 L (1.16-1.32) mmEq/L Total Bilirubin 1.3 H (0.1-1.0) mg/dL AST 14 (<40) U/L ALT 17 (<40) U/L Alkaline Phosphatase 104 (39-117) U/L C-Reactive Protein 33.60 H (0.03-0.80) mg/dL NT-Pro-B Natriuret Pep (<450.0) pg/mL Total Protein 6.1 (5.9-8.4) gm/dL Albumin 3.1 L (3.2-5.2) gm/dL Globulin 3.0 (2.2-3.7) gm/dL Albumin/Globulin Ratio 1.0 (1.0-2.3) Urine Color Urine Appearance (Clear) Urine pH (5.0-9.0) Ur Specific [place] (1.000-1.035) Urine Protein (Negative) mg/dL Urine Glucose (UA) (Negative) mg/dL Urine Ketones (Negative) mg/dL Urine Occult Blood (Negative) mg/dL Urine Nitrate (Negative) Urine Bilirubin (Negative) mg/dL Urine Urobilinogen mg/dL Ur Leukocyte Esterase (Negative) /ug Urine RBC (0-3) /hpf Urine WBC (0-4) /hpf Ur Squamous Epith Cells (0-4) /hpf Urine Bacteria (0) /hpf Granular Casts (0-0) /lph Urine Mucus (None) /hpf Ur Culture Indicated? 02/16/21 02/16/21 02/16/21 Range/Units 07:33 08:25 10:20 WBC (4.5-11.0) K/mcL RBC (4.50-5.90) M/mcL Hgb (13.5-16.5) g/dL Hct (41.0-55.0) % POC Hct (41-55) % MCV (80.0-100.0) fL MCH (26.0-34.0) pg MCHC (31.0-36.0) g/dL RDW (11.5-14.5) % Plt Count (140-440) K/mcL MPV (7.4-10.4) fL Neut % (Auto) (38.0-78.0) % Lymph % (Auto) (15.0-49.0) % Bee % (Auto) (1.0-12.0) % Eos % (Auto) (0.0-7.0) % Baso % (Auto) (0.0-2.0) % Lymph # (Auto) (1.50-4.80) K/mcL Bee # (Auto) (0.10-0.90) K/mcL Eos # (Auto) (0.00-0.70) K/mcL Baso # (Auto) (0.00-0.20) K/mcL Absolute Neutrophils (1.80-8.00) K/mcL ESR (0-15) mm/hr VBG Lactic Acid 1.1 (0.5-2.0) mmol/L POC Sodium (133-145) mEq/L Sodium (133-145) mmol/L POC Potassium (3.3-5.1) mEql/L Potassium (3.3-5.1) mmol/L POC Chloride (96-108) mEq/L Chloride (96-108) mmol/L Carbon Dioxide (22-30) mmol/L POC Total CO2 (22-30) mmol/L Anion Gap (8.0-16.0) POC BUN (6-20) mg/dL BUN (8-23) mg/dL Creatinine (0.7-1.2) mg/dL POC Creatinine (0.6-1.2) mg/dL GFR Calculation Glucose (70-105) mg/dL POC Glucose (70-105) mg/dL Calcium (8.6-10.4) mg/dL POC WB Ioniz Calcium (1.16-1.32) mmEq/L Total Bilirubin (0.1-1.0) mg/dL AST (<40) U/L ALT (<40) U/L Alkaline Phosphatase (39-117) U/L C-Reactive Protein (0.03-0.80) mg/dL NT-Pro-B Natriuret Pep 53960.0 H (<450.0) pg/mL Total Protein (5.9-8.4) gm/dL Albumin (3.2-5.2) gm/dL Globulin (2.2-3.7) gm/dL Albumin/Globulin Ratio (1.0-2.3) Urine Color Yellow Urine Appearance Hazy A (Clear) Urine pH 5.0 (5.0-9.0) Ur Specific [place] 1.013 (1.000-1.035) Urine Protein 100 A (Negative) mg/dL Urine Glucose (UA) Negative (Negative) mg/dL Urine Ketones Negative (Negative) mg/dL Urine Occult Blood Negative (Negative) mg/dL Urine Nitrate Negative (Negative) Urine Bilirubin Negative (Negative) mg/dL Urine Urobilinogen Negative mg/dL Ur Leukocyte Esterase Negative (Negative) /ug Urine RBC 2 (0-3) /hpf Urine WBC 3 (0-4) /hpf Ur Squamous Epith Cells 0 (0-4) /hpf Urine Bacteria None (0) /hpf Granular Casts 7 H (0-0) /lph Urine Mucus Few A (None) /hpf Ur Culture Indicated? No ED POC Tests ED POC Tests: MARIAH - SARS Antigen Negative EKG Data EKG #1: EKG attestation: Yes I reviewed and interpreted this EKG. EKG results narrative: EKG performed at 8:10 AM: Atrial fibrillation, rate 67. Normal QRS and T wave morphology. No ST segment deviation. Normal QRS and QTc duration. No old EKG immediately available for comparison. EKG was interpreted by me. Procedures Other Procedure: Arthrocentesis Right knee I discussed the risks and potential benefits of the procedure with the patient and his prior to the procedure. An effusion was palpated in the lateral joint line. The knee was prepped with Betadine and draped in a sterile fashion. Local anesthesia was provided with infiltration of 1% lidocaine. An 18-gauge needle was then advanced into the joint space and 10 mL of nonviscous cloudy yellow fluid was aspirated. A clean dressing was applied and the fluid was sent for analysis. No complications were observed. Discharge Plan Patient/Caregiver Discharge Instructions Pt seen by [employer]INE[employer]/PA only: No Clinical Impression: Septic arthritis, Congestive heart failure Patient Disposition: Xfer As Inpt ([facility]) Condition: Fair Follow up with: Vivi Jack ARNP [Primary Care Provider] - Prescriptions: No Action atenolol 25 MG Tablet 25 mg PO BID RF: 0 losartan 100 MG Tablet 100 mg PO DAILY RF: 0 hydrochlorothiazide 25 MG Tablet 25 mg PO DAILY RF: 0 insulin lispro [Humalog KwikPen Insulin] 200 UNIT/ML Insuln.Pen 0 unit SQ AC RF: 0 insulin glargine [Lantus U-100 Insulin] 1 UNIT/0.01 ML Unit 40 unit SQ HS RF: 0 saw palmetto 450 MG Capsule 450 mg PO BID RF: 0 alpha lipoic acid 200 MG Tablet 200 mg PO BID RF: 0 coenzyme Q10 50 MG Tab.Chew 100 mg PO BID RF: 0 levocarnitine tartrate 500 MG Capsule 500 mg PO BID RF: 0 omega-3 fatty acids-fish oil [Fish Oil] 1 EACH Capsule 1,000 mg PO BID RF: 0 vitamin E succinate 400 UNIT Tablet 400 unit PO BID RF: 0 chromium picolinate 400 MCG Tablet 800 mg PO DAILY RF: 0 red yeast rice 600 MG Capsule 600 mg PO BID RF: 0 cyanocobalamin (vitamin B-12) [Vitamin B-12] 100 MCG Tablet 100 mcg PO BID RF: 0 brimonidine 1 GTT Bottle 1 gtt OU BID RF: 0 sitagliptin [Januvia] 100 MG Tablet 100 mg PO DAILY RF: 0 pyridoxine (vitamin B6) [Vitamin B-6] 50 MG Capsule 100 mg PO BID RF: 0 aspirin 325 MG tablet,delayed release (DR/EC) 325 mg PO DAILY Qty: 14 RF: 0 oxycodone-acetaminophen 1 TAB tablet 1 - 2 tab PO Q4HP PRN (Reason: Pain Level 3-6) Qty: 75 RF: 0 aspirin 325 MG tablet,delayed release (DR/EC) 325 mg PO BID Qty: 60 RF: 0 docusate sodium 100 MG capsule 100 mg PO BID Qty: 60 RF: 0
--- NOTE | 2021-02-16 08:23 | XRay Report ---
HISTORY: Pneumonia FINDINGS: There is a generalized haziness lung parenchyma bilaterally, right worse than left. This could be due to widespread pneumonia or pulmonary edema. Lung volumes are normal. There is no pleural effusion. The heart is borderline enlarged but magnified by portable technique. There is a mass in the right side of the mediastinum, extending from the thoracic inlet down to the level of azygos arch. Patient has a prior history of laryngeal carcinoma and large bulky necrotic lymph nodes were seen in the right side of the neck and at the thoracic inlet on prior CT scans done on 12/31/2015 and 07/10/2013. IMPRESSION: Infiltrates in both lungs which could be due to pulmonary edema or pneumonia Lymphadenopathy in the right side of the mediastinum which may be related to the prior laryngeal cancer Interpreted and Authenticated by: Chacho Caballero 02/16/21
--- NOTE | 2021-02-16 08:27 | XRay Report ---
HISTORY: Knee pain, unable to walk, prior knee replacement four years ago FINDINGS: Patient is a well-positioned knee prosthesis. There is no fracture and no reabsorption of bone around the hardware. There may be a suprapatellar joint effusion. On the lateral view a 2 x 5 mm dystrophic soft tissue calcification is seen anterior to the distal shaft of the femur. Another small dystrophic calcification is seen lateral to the prosthetic lateral tibial plateau. There are few vascular calcifications in the upper calf. IMPRESSION: Possible joint effusion and no evidence of bone injury Interpreted and Authenticated by: Chacho Caballero 02/16/21
[2021-02-16 08:43] LABS: Basophils # (Auto) 0.02 K/mcL (0.00-0.20); Basophils % (Auto) 0.1 % (0.0-2.0); Eosinophils # (Auto) 0.01 K/mcL (0.00-0.70); Eosinophils % (Auto) 0.1 % (0.0-7.0); Hematocrit 38.5 % (41.0-55.0); Hemoglobin 12.6 g/dL (13.5-16.5); Lymphocytes # (Auto) 0.35 K/mcL (1.50-4.80); Lymphocytes % (Auto) 2.1 % (15.0-49.0); Mean Cell Volume 92.3 fL (80.0-100.0); Mean Corpuscular HGB Conc 32.7 g/dL (31.0-36.0); Mean Platelet Volume 10.7 fL (7.4-10.4); Monocytes # (Auto) 1.47 K/mcL (0.10-0.90); Monocytes % (Auto) 8.7 % (1.0-12.0); Platelet Count 231 K/mcL (140-440); RBC 4.17 M/mcL (4.50-5.90); WBC 16.8 K/mcL (4.5-11.0)
[2021-02-16 09:25] LABS: ALT/SGPT 17 U/L (<40); AST/SGOT 14 U/L (<40); Albumin 3.1 gm/dL (3.2-5.2); Alkaline Phosphatase 104 U/L (39-117); Bilirubin,Total 1.3 mg/dL (0.1-1.0); Blood Urea Nitrogen 44 mg/dL (8-23); Calcium 9.2 mg/dL (8.6-10.4); Carbon Dioxide 24 mmol/L (22-30); Chloride 99 mmol/L (96-108); Glomerular Filtration Rate 48; Glucose 170 mg/dL (70-105)
[2021-02-16 09:52] LABS: Erythrocyte Sedimentation Rate 94 mm/hr (0-15)
[2021-02-16] MEDS ORDERED: FUROSEMIDE 40 MG/4 ML VIAL IV ONE (09:52)
[2021-02-16 11:33] LABS: Appearance,Urine HAZY (Clear); Bilirubin,Urine Negative (Negative); Color,Urine YELLOW; Culture Indicated,Urine No; Glucose,Urine (UA) Negative (Negative); Ketones,Urine Negative (Negative); Leukocyte Esterase,Urine Negative /ug (Negative); Mucus,Urine FEW /hpf; Nitrate,Urine Negative (Negative); Protein,Urine 100 mg/dL (Negative); Specific Gravity,Urine 1.013 (1.000-1.035); Urine Blood Negative (Negative); Urine Granular Cast 7 /lph (0-0); Urine RBC 2 /hpf (0-3); Urine Squamous Epithelial Cell 0 /hpf (0-4); Urine WBC 3 /hpf (0-4); Urobilinogen,Urine Negative
[2021-02-16] MEDS ORDERED: cefTRIAXone 1 GM VIAL IV ONE (12:13)
[2021-02-16] MEDS ORDERED: VANCOMYCIN PER PHARMACY IV ONE (12:13)
[2021-02-16] MEDS ORDERED: VANCOMYCIN 2,000 MG in 0.9 % SODIUM CHLORIDE 500 ML IV ONE (12:30)
--- NOTE | 2021-02-16 13:01 | Internal Med History&Physical ---
HPI History of Present Illness Patient information: Note initiated : 02/16/21 at 12:58 pm Service Date, if different from initiated Date: [] Patient: Daljit Quintanilla a 75 y/o M admitted on for Rt Knee Pain, Unable To Walk. Chief Complaint: Shortness of breath/right knee pain History of present illness: Mr. Quintanilla is a 75 year old morbidly obese male with a history of HTN/A. fib/DM type II/CAD/COPD on 3 L oxygen/JOELLEN/P HTN/DJD who presents to the ER with increasing shortness of breath/fatigue/inability to function over the last 4 days. Symptoms are progressed with subjective fever since yesterday along with right knee pain swelling and difficulty ambulating and bearing weight. He denies trauma or fall. Initial work-up in the ER was consistent with right knee septic arthritis/bilateral chest infiltrates/88% sats on 4 L oxygen and a white count over 16,000. Patient underwent arthrocentesis, cultures were drawn and antibiotics initiated. Dr. Ricci orthopedics was consulted for evaluation of septic arthritis. Hospital service was requested for admission in light of above At the time of my evaluation patient is accompanied with his . He was able to answer most the questions. Is currently on 4 L oxygen. Feeling short of janett ath. Endorses history as above. Denies shaking chills or sweats but endorses to fever along with weakness fatigue and elevated function. He normally uses CPAP and has been able to perform ADLs but over the last 4 days have gradually deteriorated to the point he is unable to move around or even get out of bed due to extreme fatigue and weakness. He denies productive sputum, denies rash, diarrhea, headache photophobia Review of systems 10 point review system was performed and is negative except for ones discussed above PFSH PFSH All Active Problems (Updated 02/16/21 @ 12:51 by Laz Phelan DO) Dog bite of multiple sites of hand and fingers (Acute) Bite by animal (Acute) Hip sprain (Acute) Laceration of finger (Acute) Laceration of lip (Acute) Rib fracture (Acute) Hx of total knee arthroplasty (Acute) Septic arthritis (Acute) Congestive heart failure (Acute) Medical History (Updated 02/16/21 @ 12:51 by Laz Phelan DO) Bite by animal Dog bite of multiple sites of hand and fingers Hip sprain Laceration of finger Laceration of lip Rib fracture Social History alcohol intake frequency: does not drink substance use type: does not use MEDS/ALLERGIES Home Medications and Allergies Home Medications Medication Instructions Recorded Confirmed Type Humalog KwikPen Insulin 0 unit SQ AC 08/29/15 02/16/21 History Lantus U-100 Insulin 53 - 55 unit SQ HS 08/29/15 02/16/21 History alpha lipoic acid 200 mg PO BID 08/29/15 02/16/21 History atenolol 25 mg PO BID 08/29/15 02/16/21 History coenzyme Q10 200 mg PO BID 08/29/15 02/16/21 History levocarnitine tartrate 500 mg PO BID 08/29/15 02/16/21 History losartan 100 mg PO DAILY 08/29/15 02/16/21 History red yeast rice 120 mg PO BID 08/29/15 02/16/21 History saw palmetto 450 mg PO BID 08/29/15 02/16/21 History Januvia 100 mg PO DAILY 07/11/17 02/16/21 History albuterol sulfate 2 puff INHALATION QID PRN 02/16/21 02/16/21 History aspirin 81 mg PO DAILY 02/16/21 02/16/21 History brinzolamide-brimonidine 1 drp OPHTHALMIC (EYE) BID 02/16/21 02/16/21 History [Simbrinza] fenugreek seed extract 610 mg PO BID 02/16/21 02/16/21 History furosemide [Lasix] 40 mg PO QDAY 02/16/21 02/16/21 History latanoprost 1 drp OPHTHALMIC (EYE) QPM 02/16/21 02/16/21 History potassium chloride 20 meq PO QDAY 02/16/21 02/16/21 History spironolactone 25 mg PO QDAY 02/16/21 02/16/21 History timolol 1 drp OPHTHALMIC (EYE) BID 02/16/21 02/16/21 History tiotropium-olodaterol [Stiolto 2 puff INHALATION BID 02/16/21 02/16/21 History Respimat] aspirin 81 mg PO BID #60 tab 02/17/21 Rx docusate sodium [DOK] 100 mg PO BID #60 cap 02/17/21 Rx oxycodone-acetaminophen 1 - 2 tab PO Q4HP PRN #75 tab 02/17/21 Rx Allergies Allergy/AdvReac Type Severity Reaction Status Date / Time hydrocodone AdvReac Mild Itching Verified 02/16/21 07:06 EXAM Constitutional Vitals: Temp Pulse Resp BP Pulse Ox 99.3 F H 58 L 20 125/70 98 02/16/21 07:04 02/16/21 12:31 02/16/21 12:31 02/16/21 12:31 02/16/21 12:31 morbidly obese and anxious Head normocephalic Oral cavity moist No ear or nose discharge Eye no subconjunctival pallor, movement symmetrical Irregular rhythm Labored breathing on 4 L oxygen Pendulous abdomen Lymphedema noted bilateral lower extremity, right knee swollen and tender to passive motion. Effusion noted Skin no suspicious lesion Psych anxious but no hallucination Neuro normal higher function on limited neuro exam, GCS 15 DATA Data Completed and Pending Labs: Labs from last 24 hours 02/16/21 02/16/21 02/16/21 10:39 10:39 10:20 WBC RBC Hgb Hct POC Hct MCV MCH MCHC RDW Plt Count MPV Neut % (Auto) Lymph % (Auto) Mower % (Auto) Eos % (Auto) Baso % (Auto) Lymph # (Auto) Mower # (Auto) Eos # (Auto) Baso # (Auto) Absolute Neutrophils ESR VBG Lactic Acid POC Sodium Sodium POC Potassium Potassium POC Chloride Chloride Carbon Dioxide POC Total CO2 Anion Gap POC BUN BUN Creatinine POC Creatinine GFR Calculation Glucose POC Glucose Calcium POC WB Ioniz Calcium Total Bilirubin AST ALT Alkaline Phosphatase C-Reactive Protein NT-Pro-B Natriuret Pep Total Protein Albumin Globulin Albumin/Globulin Ratio Urine Color Yellow Urine Appearance Hazy A Urine pH 5.0 Ur Specific [place] 1.013 Urine Protein 100 A Urine Glucose (UA) Negative Urine Ketones Negative Urine Occult Blood Negative Urine Nitrate Negative Urine Bilirubin Negative Urine Urobilinogen Negative Ur Leukocyte Esterase Negative Urine RBC 2 Urine WBC 3 Ur Squamous Epith Cells 0 Urine Bacteria None Granular Casts 7 H Urine Mucus Few A Ur Culture Indicated? No Fluid Source Pending Fluid Color Pending Fluid Appearance Pending Fluid RBC Pending Fluid Nucleated Cells Pending Synovial Source Pending Synovial Color Pending Synovial Appearance Pending Synovial Nuc Cells Pending 02/16/21 02/16/2102/16/21 08:25 07:33 07:33 WBC RBC Hgb Hct POC Hct MCV MCH MCHC RDW Plt Count MPV Neut % (Auto) Lymph % (Auto) Mower % (Auto) Eos % (Auto) Baso % (Auto) Lymph # (Auto) Mower # (Auto) Eos # (Auto) Baso # (Auto) Absolute Neutrophils ESR VBG Lactic Acid 1.1 POC Sodium Sodium 134 POC Potassium Potassium 4.0 POC Chloride Chloride 99 Carbon Dioxide 24 POC Total CO2 Anion Gap 11.0 POC BUN BUN 44 H Creatinine 1.4 H POC Creatinine GFR Calculation 48 Glucose 170 H POC Glucose Calcium 9.2 POC WB Ioniz Calcium Total Bilirubin 1.3 H AST 14 ALT 17 Alkaline Phosphatase 104 C-Reactive Protein 33.60 H NT-Pro-B Natriuret Pep 68726.0 H Total Protein 6.1 Albumin 3.1 L Globulin 3.0 Albumin/Globulin Ratio 1.0 Urine Color Urine Appearance Urine pH Ur Specific [place] Urine Protein Urine Glucose (UA) Urine Ketones Urine Occult Blood Urine Nitrate Urine Bilirubin Urine Urobilinogen Ur Leukocyte Esterase Urine RBC Urine WBC Ur Squamous Epith Cells Urine Bacteria Granular Casts Urine Mucus Ur Culture Indicated? Fluid Source Fluid Color Fluid Appearance Fluid RBC Fluid Nucleated Cells Synovial Source Synovial Color Synovial Appearance Synovial Nuc Cells 02/16/21 02/16/21 07:33 07:33 WBC 16.8 H RBC 4.17 L Hgb 12.6 L Hct 38.5 L POC Hct 39 L MCV 92.3 MCH 30.2 MCHC 32.7 RDW 15.0 H Plt Count 231 MPV 10.7 H Neut % (Auto) 89.0 H Lymph % (Auto) 2.1 L Mower % (Auto) 8.7 Eos % (Auto) 0.1 Baso % (Auto) 0.1 Lymph # (Auto) 0.35 L Mower # (Auto) 1.47 H Eos # (Auto) 0.01 Baso # (Auto) 0.02 Absolute Neutrophils 14.96 H ESR 94 H VBG Lactic Acid POC Sodium 136 Sodium POC Potassium 4.0 Potassium POC Chloride 100 Chloride Carbon Dioxide POC Total CO2 24 Anion Gap POC BUN 41 H BUN Creatinine POC Creatinine 1.7 H GFR Calculation Glucose POC Glucose 172 H Calcium POC WB Ioniz Calcium 1.15 L Total Bilirubin AST ALT Alkaline Phosphatase C-Reactive Protein NT-Pro-B Natriuret Pep Total Protein Albumin Globulin Albumin/Globulin Ratio Urine Color Urine Appearance Urine pH Ur Specific [place] Urine Protein Urine Glucose (UA) Urine Ketones Urine Occult Blood Urine Nitrate Urine Bilirubin Urine Urobilinogen Ur Leukocyte Esterase Urine RBC Urine WBC Ur Squamous Epith Cells Urine Bacteria Granular Casts Urine Mucus Ur Culture Indicated? Fluid Source Fluid Color Fluid Appearance Fluid RBC Fluid Nucleated Cells Synovial Source Synovial Color Synovial Appearance Synovial Nuc Cells A/P Narrative A/P Narrative: * Right prosthetic knee septic arthritis-Gram stain/culture obtained. Await orthopedics intervention. Empiric vancomycin/Rocephin and de-escalate based on culture sensitivities. * Sepsis secondary to above-management per guidelines. Antibiotic coverage/cultures * Multifocal bibasilar pneumonia-rule out Covid, aspiration precautions. Empiric antibiotic coverage for community-acquired pathogens * Hypoxic respiratory failure on 4 L oxygen * Obstructive sleep apnea continue home CPAP * History atrial fibrillation * History of CHF continue diuresis/home medications, previous echo 55% EF 2010. Follows up with [place] [facility]. Repeat echo * History hypertension restart antihypertensives with holding parameters once sepsis resolves * DM type II continue basal prandial insulin * Chronic pain continue oxycodone * History of CAD * History of glaucoma continue brimonidine * BPH * History of thrombocytopenia. Stable * Prophylax SCDs Plan * Inpatient admission * Keep n.p.o. until surgery * Empiric antibiotic coverage * ID consult * Pre-existing medical condition management as above * Echocardiogram * PT OT Time Spent With Patient Time: Management history and physical in excess of 95 minutes on management of septic arthritis/pneumonia/sepsis and hypoxic respiratory failure
[2021-02-16 16:18] LABS: Appearance,Synovial Fluid Turbid; Color,Synovial Fluid Yellow; Neutrophils,Synovial Fluid 97 % (0-25); Nucleated Cells,Synovial Fld 215745 /cumm; Other Cells,Synovial Fluid 3 %
[2021-02-16] MEDS ORDERED: PHENYLEPHRINE 10 MG/ML VIAL ONE (16:25)
[2021-02-16] MEDS ORDERED: KETAMINE 50 MG/ML ML ONE (16:25)
[2021-02-16] MEDS ORDERED: GLYCOPYRROLATE 0.2 MG/ML VIAL IV ONE (16:25)
[2021-02-16] MEDS ORDERED: MAGNESIUM SULFATE 2 GM/50 ML BAG IV ONE (16:25)
[2021-02-16] MEDS ORDERED: HYDROmorphone 1 MG/ML SYRINGE ONE (16:25)
[2021-02-16] MEDS ORDERED: DEXAMETHASONE 10 MG/ML VIAL ONE (16:25)
[2021-02-16] MEDS ORDERED: ONDANSETRON 4 MG/2 ML VIAL ONE (16:25)
[2021-02-16] MEDS ORDERED: TRANEXAMIC ACID 1,000 MG/10 ML VIAL IV ONE ×3 (16:25→18:11)
[2021-02-16] MEDS ORDERED: ePHEDrine 50 MG/ML AMPUL IV ONE (16:25)
[2021-02-16] MEDS ORDERED: LIDOCAINE HCL/PF 100 MG/5 ML SYRINGE IV ONE (16:25)
[2021-02-16] MEDS ORDERED: PROPOFOL 200 MG/20 ML VIAL IV ONE (16:25)
[2021-02-16] MEDS ORDERED: ceFAZolin 3 GM in DEXTROSE 5% IN WATER 50 ML IV SCH (16:30)
[2021-02-16] MEDS ORDERED: GENTAMICIN SULFATE 800 MG/20 ML VIAL IR ONE (16:58)
[2021-02-16] MEDS ORDERED: POLYETHYLENE GLYCOL 3350 17 GM PACKET PO PRN ×3 (17:32→19:23)
[2021-02-16] MEDS ORDERED: oxyCODONE/APAP 5/325MG TABLET PO PRN ×2 (17:32→19:23)
[2021-02-16] MEDS ORDERED: HYDROmorphone 1 MG/ML SYRINGE IV PRN ×2 (17:32→19:23)
[2021-02-16] MEDS ORDERED: MAGNESIUM HYDROXIDE 30 ML ORAL.SUSP PO PRN ×2 (17:32→19:23)
[2021-02-16] MEDS ORDERED: TEMAZEPAM 15 MG CAPSULE PO PRN (17:32)
[2021-02-16] MEDS ORDERED: ONDANSETRON 4 MG/2 ML VIAL IV PRN ×4 (17:32→19:23)
[2021-02-16] MEDS ORDERED: BISACODYL 10 MG SUPP.RECT PR PRN ×3 (17:32→19:23)
[2021-02-16] MEDS ORDERED: FLEETS ADULT ENEMA PR PRN ×2 (17:32→19:23)
[2021-02-16] MEDS ORDERED: BENZOCAINE/MENTHOL 1 LOZENGE PO PRN ×2 (17:32→19:23)
--- NOTE | 2021-02-16 17:32 | Brief Operative Note ---
Brief Operative Note Date of procedure: 02/16/21 Pre-op diagnosis: Right septic knee Post-op diagnosis: same Procedure: right knee Incision and synovectomy and polyliner exchange revision Grafts/Implants: Yes Anesthesia: GETA Complications: none Surgeon: Iraj Ricci [employer] Driver: Navneet Glass Estimated blood loss (cc): 50 Tourniquet Time (Minutes): 40 Specimens Removed/Pathology: none sent Condition: stable Disposition: PACU
[2021-02-16] MEDS ORDERED: PROMETHAZINE 25 MG/ML VIAL IV PRN (17:33)
[2021-02-16] MEDS ORDERED: MEPERIDINE 25 MG/ML VIAL IV PRN (17:33)
[2021-02-16] MEDS ORDERED: ACETAMINOPHEN 1,000 MG/100 ML BAG IV ONE (17:33)
[2021-02-16] MEDS ORDERED: LACTATED RINGERS 250 ML IV PRN (17:33)
[2021-02-16] MEDS ORDERED: IPRATROPIUM/ALBUTEROL 3 ML AMPUL.NEB NEB PRN (17:33)
[2021-02-16] MEDS ORDERED: NALOXONE HCL 0.4 MG/ML VIAL IV PRN (17:33)
[2021-02-16] MEDS ORDERED: fentaNYL 100 MCG/2 ML VIAL IV PRN (17:33)
[2021-02-16] MEDS ORDERED: diphenhydrAMINE 50 MG/ML VIAL IV PRN (17:33)
[2021-02-16] MEDS ORDERED: LACTATED RINGERS 1,000 ML IV SCH (17:45)
[2021-02-16] MEDS ORDERED: KETOROLAC 15 MG/ML VIAL IV SCH (18:00)
[2021-02-16] MEDS ORDERED: METOPROLOL TARTRATE 5 MG/5 ML VIAL IV PRN (19:23)
[2021-02-16] MEDS ORDERED: ONDANSETRON 4 MG ODT TABLET SL PRN (19:23)
[2021-02-16] MEDS ORDERED: ACETAMINOPHEN 650 MG/65 ML BAG IV PRN (19:23)
[2021-02-16] MEDS ORDERED: DEXTROSE 31 GM ORAL.SUSP PO PRN (19:23)
[2021-02-16] MEDS ORDERED: DEXTROSE 50% 50 ML VIAL IV PRN (19:23)
[2021-02-16] MEDS ORDERED: MAGNESIUM SULFATE 2 GM/50 ML BAG IV PRN (19:23)
[2021-02-16] MEDS ORDERED: VANCOMYCIN PER PHARMACY IV SCH (19:23)
[2021-02-16] MEDS ORDERED: MELATONIN 3 MG TABLET PO PRN (19:23)
[2021-02-16] MEDS ORDERED: POTASSIUM CHLORIDE 40 MEQ in DEXTROSE 5% IN WATER 500 ML IV PRN (19:23)
[2021-02-16] MEDS ORDERED: guaiFENesin/CODEINE 10 ML UDC PO PRN (19:23)
[2021-02-16] MEDS ORDERED: cefTRIAXone 2 GM in DEXTROSE 5% IN WATER 50 ML IV SCH (19:23)
[2021-02-16] MEDS ORDERED: DOCUSATE SODIUM 100 MG CAPSULE PO SCH ×2 (21:00)
[2021-02-16] MEDS ORDERED: ASPIRIN 81 MG TAB.CHEW PO SCH (21:00)
[2021-02-16] MEDS: SENNOSIDES/DOCUSATE SODIUM 1 TAB TABLET PO SCH (21:09)
[2021-02-16] MEDS: CYANOCOBALAMIN (VITAMIN B-12) 500 MCG TABLET PO SCH (21:09)
[2021-02-16] MEDS: ASPIRIN 81 MG TAB.CHEW PO SCH (21:09)
[2021-02-16] MEDS: KETOROLAC 15 MG/ML VIAL IV SCH (21:10)
[2021-02-16] MEDS: INSULIN LISPRO 1 UNIT/0.01 ML UNIT SQ SCH (21:11)
[2021-02-16] MEDS: FUROSEMIDE 40 MG/4 ML VIAL IV SCH (21:12)
[2021-02-16] MEDS: 0.9 % SODIUM CHLORIDE 10 ML SYRINGE IV SCH (21:13)
[2021-02-16] MEDS ORDERED: 0.9 % SODIUM CHLORIDE 10 ML SYRINGE IV SCH (22:00)
[2021-02-16] MEDS ORDERED: ceFAZolin 1 GM VIAL IV SCH (22:00)
[2021-02-16] MEDS: VANCOMYCIN 1,500 MG in 0.9 % SODIUM CHLORIDE 500 ML IV SCH (22:33)
[2021-02-17] MEDS: 0.9 % SODIUM CHLORIDE 10 ML SYRINGE IV SCH ×4 (00:28→21:43)
[2021-02-17] MEDS: DOCUSATE SODIUM 100 MG CAPSULE PO SCH ×3 (00:31→21:43)
[2021-02-17] MEDS: INSULIN LISPRO 1 UNIT/0.01 ML UNIT SQ SCH ×5 (00:31→21:35)
[2021-02-17] MEDS: KETOROLAC 15 MG/ML VIAL IV SCH ×2 (04:28→04:29)
[2021-02-17 05:28] LABS: Basophils # (Auto) 0.01 K/mcL (0.00-0.20); Basophils % (Auto) 0.1 % (0.0-2.0); Eosinophils # (Auto) 0 K/mcL (0.00-0.70); Eosinophils % (Auto) 0 % (0.0-7.0); Hematocrit 39.8 % (41.0-55.0); Hemoglobin 12.1 g/dL (13.5-16.5); Lymphocytes # (Auto) 0.22 K/mcL (1.50-4.80); Lymphocytes % (Auto) 1.7 % (15.0-49.0); Mean Cell Volume 96.6 fL (80.0-100.0); Mean Corpuscular HGB Conc 30.4 g/dL (31.0-36.0); Mean Platelet Volume 10.9 fL (7.4-10.4); Monocytes # (Auto) 0.66 K/mcL (0.10-0.90); Monocytes % (Auto) 5.1 % (1.0-12.0); Neutrophils % (Auto) 93.1 % (38.0-78.0); Platelet Count 204 K/mcL (140-440); RBC 4.12 M/mcL (4.50-5.90); WBC 12.8 K/mcL (4.5-11.0)
--- NOTE | 2021-02-17 07:45 | Orthopedic Progress Note ---
SUBJECTIVE Subjective Patient information: Note initiated : 02/17/21 at 7:42 am Service Date, if different from initiated Date: [] Patient: Daljit Quintanilla 75 y/o M admitted on 02/16/21 for Rt Knee Pain, Unable To Walk. Chief Complaint: [Pt is stable this morning on post operative day without any significant concerns or complaints. Patients vital signs have remained stable. Patients dressing is dry and is grossly intact from a neurovascular and motor standpoint. Patients 10 point ROS is otherwise negative. ] Constitutional Vitals: Vital Signs Temp Pulse Resp BP Pulse Ox 98.5 F 56 L 12 139/63 100 02/16/21 20:00 02/17/21 05:45 02/17/21 05:45 02/17/21 05:31 02/17/21 05:45 Period Temp Pulse Resp BP Sys/Pichardo Pulse Ox Last 24 Hr 96.5 F-98.5 F 38-100 8-28 96-183/40-114 89-100 Intake and Output 02/16/21 02/17/21 02/17/21 21:59 05:59 13:59 Intake Total 1950 1040 Output Total 475 1100 Balance 1475 -60 Weight 360 lb 352 lb 1.6 oz Intake & Output: Intake & Output 02/16/21 02/17/21 02/17/21 21:59 05:59 13:59 Intake Total 1950 1040 Output Total 475 1100 Balance 1475 -60 Weight 360 lb 352 lb 1.6 oz Intake: IV 650 500 Vancomycin 1,500 mg In Sodium 500 500 Chloride 0.9% 500 ml @ 333.3 mls/hr IV Q12H NICKIE Rx#: [id number] Ancef 3 gm In Dextrose 5% in 50 Water 50 ml @ 100 mls/hr IV PREOP NICKIE Rx#:[id number] Oral 540 IV - Manual Only 1300 Output: Urine Catheter Amount 1100 Void Amount 475 Other: Urine Appearance Cloudy Clear Uretheral (Dobbs) Clear Urine Color Dark Yellow Dark Daya Uretheral (Dobbs) Dark Daay Extremities Exam Extremities exam: Present normal capillary refill, normal inspection, tenderness, Foot pink and warm and neurovascular intact OBJ DATA Labs CBC & Chem 7: 02/17/21 04:25 02/16/21 07:33 Labs: Abnormal Lab Results 02/17/21 02/17/21 02/16/21 04:25 04:25 19:53 WBC 12.8 H RBC 4.12 L Hgb 12.1 L Hct 39.8 L POC Hct MCHC 30.4 L RDW 15.0 H MPV 10.9 H Neut % (Auto) 93.1 H Lymph % (Auto) 1.7 L Lymph # (Auto) 0.22 L [place] # (Auto) Absolute Neutrophils 11.94 H ESR POC BUN BUN Creatinine POC Creatinine Glucose POC Glucose POC WB Ioniz Calcium Total Bilirubin C-Reactive Protein 42.10 H NT-Pro-B Natriuret Pep Albumin Procalcitonin 9.32 H Urine Appearance Urine Protein Granular Casts Urine Mucus Synovial Neutrophils 02/16/21 02/16/21 02/16/21 19:53 19:53 10:39 WBC RBC Hgb Hct POC Hct MCHC RDW MPV Neut % (Auto) Lymph % (Auto) Lymph # (Auto) [place] # (Auto) Absolute Neutrophils ESR 93 H POC BUN BUN Creatinine POC Creatinine Glucose POC Glucose POC WB Ioniz Calcium Total Bilirubin C-Reactive Protein 36.40 H NT-Pro-B Natriuret Pep Albumin Procalcitonin Urine Appearance Urine Protein Granular Casts Urine Mucus Synovial Neutrophils 97 H 02/16/21 02/16/21 02/16/21 10:20 07:33 07:33 WBC RBC Hgb Hct POC Hct MCHC RDW MPV Neut % (Auto) Lymph % (Auto) Lymph # (Auto) [place] # (Auto) Absolute Neutrophils ESR POC BUN BUN 44 H Creatinine 1.4 H POC Creatinine Glucose 170 H POC Glucose POC WB Ioniz Calcium Total Bilirubin 1.3 H C-Reactive Protein 33.60 H NT-Pro-B Natriuret Pep 12322.0 H Albumin 3.1 L Procalcitonin Urine Appearance Hazy A Urine Protein 100 A Granular Casts 7 H Urine Mucus Few A Synovial Neutrophils 02/16/21 02/16/21 07:33 07:33 WBC 16.8 H RBC 4.17 L Hgb 12.6 L Hct 38.5 L POC Hct 39 L MCHC RDW 15.0 H MPV 10.7 H Neut % (Auto) 89.0 H Lymph % (Auto) 2.1 L Lymph # (Auto) 0.35 L [place] # (Auto) 1.47 H Absolute Neutrophils 14.96 H ESR 94 H POC BUN 41 H BUN Creatinine POC Creatinine 1.7 H Glucose POC Glucose 172 H POC WB Ioniz Calcium 1.15 L Total Bilirubin C-Reactive Protein NT-Pro-B Natriuret Pep Albumin Procalcitonin Urine Appearance Urine Protein Granular Casts Urine Mucus Synovial Neutrophils Meds: Medications Acetaminophen (Acetaminophen 325 Mg Tablet) 650 mg PO Q4-6HP PRN; Protocol PRN Reason: Per Pain Protocol/Fever > 101 Aspirin (Aspirin 81 Mg Tab.Chew) 81 mg PO BID [facility] Last Admin: 02/16/21 21:09 Dose: 81 mg Documented by: Bisacodyl (Bisacodyl 10 Mg Supp.Rect) 10 mg ME Q2-3DAYS PRN PRN Reason: Constipation Cefazolin Sodium (Cefazolin 1 Gm Vial) 2 gm IV Q8H [facility]; Protocol Stop: 02/17/21 01:46 Cyanocobalamin (Cyanocobalamin (Vitamin B-12) 500 Mcg Tablet) 1,000 mcg PO BID [facility] Stop: 02/21/21 09:01 Last Admin: 02/16/21 21:09 Dose: 1,000 mcg Documented by: Dextrose (Dextrose 50% 50 Ml Vial) 0 ml IV UD PRN PRN Reason: Hypoglycemia Diagnostic Test (Pha) (Accu-Chek 1 Each Strip) 1 each FS ACHS [facility] Last Admin: 02/17/21 00:31 Dose: Not Given Documented by: Docusate Sodium (Docusate Sodium 100 Mg Capsule) 100 mg PO BID [facility] Last Admin: 02/17/21 00:31 Dose: Not Given Documented by: Furosemide (Furosemide 40 Mg/4 Ml Vial) 20 mg IV DAILY [facility] Last Admin: 02/16/21 21:12 Dose: 20 mg Documented by: Glucose (Dextrose 31 Gm Oral.Susp) 15 gm PO PRN PRN PRN Reason: Hypoglycemia Guaifenesin/Codeine Phosphate (Guaifenesin/Codeine 10 Ml Udc) 10 ml PO Q4HP PRN PRN Reason: Cough Hydromorphone HCl (Hydromorphone 1 Mg/Ml Syringe) 0.5 - 2 mg IV Q2HP PRN; Protocol PRN Reason: Per Pain Protocol Potassium Chloride 40 meq/ (Dextrose) 520 mls @ 130 mls/hr IV UD PRN PRN Reason: K+ = or < 3.5 Acetaminophen (Ofirmev) 650 mg in 65 mls @ 130 mls/hr IV Q6HP PRN; Protocol PRN Reason: Per Pain Protocol/Fever > 101 Magnesium Sulfate (Magnesium Sulfate) 2 gm in 50 mls @ 50 mls/hr IV UD PRN PRN Reason: MG = or < 1.7 Ceftriaxone Sodium 2 gm/ (Dextrose) 50 mls @ 100 mls/hr IV Q24H [facility]; Protocol Vancomycin HCl 1,500 mg/ (Sodium Chloride) 500 mls @ 333.3 mls/hr IV Q12H [facility] Last Infusion: 02/17/21 00:10 Dose: Infused Documented by: Insulin Human Lispro (Insulin Lispro 1 Unit/0.01 Ml Unit) 0 unit SQ ACHS [facility]; Protocol Last Admin: 02/17/21 00:31 Dose: Not Given Documented by: Iron Carb/Multivit/[place]/Folic Acid (Multivit,Ther Iron,Ca,Fa & Min 1 Tablet) 1 tab PO DAILY [facility] Ketorolac Tromethamine (Ketorolac 15 Mg/Ml Vial) 15 mg IV Q6 [facility] Stop: 02/18/21 12:01 Last Admin: 02/17/21 04:29 Dose: Not Given Documented by: Magnesium Hydroxide (Magnesium Hydroxide 30 Ml Oral.Susp) 30 ml PO BIDP PRN PRN Reason: Constipation Melatonin (Melatonin 3 Mg Tablet) 3 mg PO HSP PRN PRN Reason: Insomnia Metoprolol Tartrate (Metoprolol Tartrate 5 Mg/5 Ml Vial) 5 mg IV Q5M PRN PRN Reason: Heart Rate > 140 bpm Ondansetron HCl (Ondansetron 4 Mg/2 Ml Vial) 4 mg IV Q4HP PRN PRN Reason: Nausea And Vomiting Ondansetron HCl (Ondansetron 4 Mg Odt Tablet) 4 mg SL Q4-6HP PRN; Protocol PRN Reason: Nausea And Vomiting Oxycodone/Acetaminophen (Oxycodone/Apap 5/325mg Tablet) 1 - 2 tab PO Q4HP PRN; Protocol PRN Reason: Per Pain Protocol Polyethylene Glycol (Polyethylene Glycol 3350 17 Gm Packet) 17 gm PO DAILYP PRN PRN Reason: Constipation Senna/Docusate Sodium (Sennosides/Docusate Sodium 1 Tab Tablet) 1 tab PO [facility] Last Admin: 02/16/21 21:09 Dose: 1 tab Documented by: Sodium Biphosphate/Sodium Phosphate (Fleets Adult Enema) 1 dose ME Q3-4DAYS PRN PRN Reason: Constipation Sodium Chloride (0.9 % Sodium Chloride 10 Ml Syringe) 10 ml IV Q8 [facility] Last Admin: 02/17/21 04:28 Dose: 10 ml Documented by: Temazepam (Temazepam 15 Mg Capsule) 15 mg PO HSP PRN PRN Reason: Insomnia Thiamine HCl (Thiamine 100 Mg Tablet) 100 mg PO DAILY [facility] Throat Lozenges (Benzocaine/Menthol 1 Lozenge) 1 lozenge PO PRN PRN PRN Reason: Sore Throat Vancomycin HCl (Vancomycin Per Pharmacy) 1 order IV UD [facility]IE; Protocol A/P Narrative A/P Narrative: The patient has been educated regarding dressing care, Physical Therapy recommendations, home exercises, restrictions, and follow up appointments. The patient has had all necessary DME prescribed. The patient has remained relatively stable during their hospital course from an orthopaedic standpoint. Pt is admitted under hospitalist and is cleared for SNF D/C when cleared by hospitalist. Pt needs outpatient IV ABX infusion therapy and ID Consult with Dr Pugh at [facility]. Time Spent With Patient Time: Total time spent is greater than 50% in coordination of care (as documented) at patient's floor/unit and/or counseling patient: Total time spent with greater than 50% in coordination of care (as documented) at patient's floor/unit and/or counseling patient:: less than 15 minutes
[2021-02-17 07:46] LABS: ALT/SGPT 13 U/L (<40); AST/SGOT 15 U/L (<40); Albumin 2.7 gm/dL (3.2-5.2); Albumin/Globulin Ratio 0.8 (1.0-2.3); Alkaline Phosphatase 103 U/L (39-117); Bilirubin,Direct 0.3 mg/dL (<0.3); Bilirubin,Total 0.6 mg/dL (0.1-1.0); Blood Urea Nitrogen 57 mg/dL (8-23); Carbon Dioxide 24 mmol/L (22-30); Chloride 98 mmol/L (96-108); Globulin 3.6 gm/dL (2.2-3.7); Glomerular Filtration Rate 33; Glucose 222 mg/dL (70-105); Lactate Dehydrogenase 252 U/L (135-225); Phosphorous 6.4 mg/dL (2.5-4.5); Triglycerides 91 mg/dL (<150); Uric Acid 9.3 mg/dL (2.5-8.0)
--- NOTE | 2021-02-17 07:46 | Discharge Plan ---
Discharge Instructions - [facility]KA Patient Instructions Total Knee Protocol: For Total Knee: Start ROM LESLIE with stationary bike or rocking chair. Work on gaining full extension of knee. Posterior dislocation precautions provided. Hip abductor strengthening and gait training instructions provided. Apply Cryocuff as instructed. Discharge Plan Patient/Caregiver Discharge Instructions Activity: ambulate only with your walker and as per physical therapy Diet: Cardiac Prescriptions: New oxycodone-acetaminophen 5-325 mg Tablet 1 - 2 tab PO Q4HP PRN (Reason: Per Pain Protocol) Qty: 75 RF: 0 docusate sodium [DOK] 100 mg Capsule 100 mg PO BID Qty: 60 RF: 0 aspirin 81 mg Tablet,Chewable 81 mg PO BID Qty: 60 RF: 0 No Action atenolol 25 MG tablet 25 mg PO BID RF: 0 losartan 100 MG tablet 100 mg PO DAILY RF: 0 Humalog KwikPen Insulin 200 UNIT/ML insulin pen 0 unit SQ AC RF: 0 Lantus U-100 Insulin 1 UNIT/0.01 ML solution 53 - 55 unit SQ HS RF: 0 saw palmetto 450 MG capsule 450 mg PO BID RF: 0 alpha lipoic acid 200 MG tablet 200 mg PO BID RF: 0 coenzyme Q10 50 MG tablet,chewable 200 mg PO BID RF: 0 levocarnitine tartrate 500 MG capsule 500 mg PO BID RF: 0 red yeast rice 600 MG capsule 120 mg PO BID RF: 0 Januvia 100 MG tablet 100 mg PO DAILY RF: 0 aspirin 325 MG tablet,delayed release (DR/EC) 81 mg PO DAILY RF: 0 fenugreek seed extract 500 mg Capsule 610 mg PO BID RF: 0 furosemide [Lasix] 40 mg Tablet 40 mg PO QDAY RF: 0 latanoprost 0.005 % Drops, Emulsion 1 drp OPHTHALMIC (EYE) QPM RF: 0 potassium chloride 20 mEq Tablet Extended Release 20 meq PO QDAY RF: 0 Simbrinza 1-0.2 % Drops,Suspension 1 drp OPHTHALMIC (EYE) BID RF: 0 spironolactone 25 mg Tablet 25 mg PO QDAY RF: 0 Stiolto Respimat 2.5-2.5 mcg/actuation Mist 2 puff INHALATION BID RF: 0 albuterol sulfate 90 mcg/actuation Hfa Aerosol Inhaler 2 puff INHALATION QID PRN (Reason: Shortness Of Breath Or Wheezing) RF: 0 timolol 0.5 % Drops 1 drp OPHTHALMIC (EYE) BID RF: 0 Other Ambulatory Orders: CPM Discharge Order (ONCE) Location: None Selected Ordered By: Navneet Glass Physical Therapy DC - [facility]KA (Routine) Location: None Selected Ordered By: Navneet Glass Toilet Riser Discharge Order (ONCE) Location: None Selected Ordered By: Navneet Glass Walker (ONCE) Location: None Selected Ordered By: Navneet Glass Follow Up Plan Follow up with: Vivi Jack ARNP [Primary Care Provider] - Navneet Glass PA-C [Physician Plant Chief] - Patient Disposition: Xfer SNF Prognosis: Fair Rehab Potential: Fair I certify that the patient requires SNF services: Yes Overall status at discharge: patient is not back to baseline
--- NOTE | 2021-02-17 08:00 | Internal Med Progress Note ---
SUBJECTIVE Subjective Patient information: Note initiated : 02/17/21 at 7:55 am Service Date, if different from initiated Date: [] Patient: Daljit Quintanilla 75 y/o M admitted on 02/16/21 for Rt Knee Pain, Unable To Walk. Chief Complaint: [] Interval history: Mr. Quintanilla is a 75 year old morbidly obese male with a history of HTN/A. fib/DM type II/CAD/COPD on 3 L oxygen/JOELLEN/P HTN/DJD who presents to the ER with increasing shortness of breath/fatigue/inability to function over the last 4 days. Symptoms are progressed with subjective fever since yesterday along with right knee pain swelling and difficulty ambulating and bearing weight. He denies trauma or fall. Initial work-up in the ER was consistent with right knee septic arthritis/bilateral chest infiltrates/88% sats on 4 L oxygen and a white count over 16,000. Patient underwent arthrocentesis, cultures were drawn and antibiotics initiated. Dr. Ricci orthopedics was consulted for evaluation of septic arthritis. Hospital service was requested for admission in light of above At the time of my evaluation patient is accompanied with his . He was able to answer most the questions. Is currently on 4 L oxygen. Feeling short of breath. Endorses history as above. Denies shaking chills or sweats but endorses to fever along with weakness fatigue and elevated function. He no rmally uses CPAP and has been able to perform ADLs but over the last 4 days have gradually deteriorated to the point he is unable to move around or even get out of bed due to extreme fatigue and weakness. He denies productive sputum, denies rash, diarrhea, headache photophobia 02/17-patient clinically improving. Now on 2 L oxygen. White count downtrending from 16.8-12.8. Gram-positive cocci in blood cultures. Surveillance cultures pending. Echocardiogram ordered. No clear source identified except for the lower extremity sequential compressive device that he uses at home with resultant skin breakdown and leakage. Wound care/infectious disease consulted. Worsening renal function at 1.9. Nephrology consult. CRP 42. Continue Rocephin/vancomycin and de-escalate based on culture sensitivities. Constitutional Vitals: Vital Signs Temp Pulse Resp BP Pulse Ox 98.5 F 56 L 12 139/63 100 02/16/21 20:00 02/17/21 05:45 02/17/21 05:45 02/17/21 05:31 02/17/21 05:45 Period Temp Pulse Resp BP Sys/Pichardo Pulse Ox Last 24 Hr 96.5 F-98.5 F 38-100 8-28 96-183/40-114 89-100 Intake and Output 02/16/21 02/17/21 02/17/21 21:59 05:59 13:59 Intake Total 1950 1040 Output Total 475 1100 Balance 1475 -60 Weight 163.293 kg 159.71 kg Morbidly obese Nonlabored breathing currently on 2 L oxygen Manageable mental status No anxiety Intake & Output: Intake & Output 02/16/21 02/17/21 02/17/21 21:59 05:59 13:59 Intake Total 1950 1040 Output Total 475 1100 Balance 1475 -60 Weight 163.293 kg 159.71 kg Intake: IV 650 500 Vancomycin 1,500 mg In Sodium 500 500 Chloride 0.9% 500 ml @ 333.3 mls/hr IV Q12H [facility] Rx#: [id number] Ancef 3 gm In Dextrose 5% in 50 Water 50 ml @ 100 mls/hr IV PREOP NICKIE Rx#:[id number] Oral 540 IV - Manual Only 1300 Output: Urine Catheter Amount 1100 Void Amount 475 Other: Urine Appearance Cloudy Clear Uretheral (Dobbs) Clear Urine Color Dark Yellow Dark Daya Uretheral (Dobbs) Dark Daya OBJ DATA Labs CBC & Chem 7: 02/17/21 04:25 02/17/21 04:25 Labs: Abnormal Lab Results 02/17/21 02/17/21 02/16/21 04:25 04:25 19:53 WBC 12.8 H RBC 4.12 L Hgb 12.1 L Hct 39.8 L POC Hct MCHC 30.4 L RDW 15.0 H MPV 10.9 H Neut % (Auto) 93.1 H Lymph % (Auto) 1.7 L Lymph # (Auto) 0.22 L Amador # (Auto) Absolute Neutrophils 11.94 H ESR POC BUN BUN 57 H Creatinine 1.9 H POC Creatinine Glucose 222 H POC Glucose Uric Acid 9.3 H POC WB Ioniz Calcium Phosphorus 6.4 H* Total Bilirubin Direct Bilirubin 0.3 H Lactate Dehydrogenase 252 H C-Reactive Protein 42.10 H NT-Pro-B Natriuret Pep Albumin 2.7 L Albumin/Globulin Ratio 0.8 L Procalcitonin 9.32 H Urine Appearance Urine Protein Granular Casts Urine Mucus Synovial Neutrophils 02/16/21 02/16/21 02/16/21 19:53 19:53 10:39 WBC RBC Hgb Hct POC Hct MCHC RDW MPV Neut % (Auto) Lymph % (Auto) Lymph # (Auto) Amador # (Auto) Absolute Neutrophils ESR 93 H POC BUN BUN Creatinine POC Creatinine Glucose POC Glucose Uric Acid POC WB Ioniz Calcium Phosphorus Total Bilirubin Direct Bilirubin Lactate Dehydrogenase C-Reactive Protein 36.40 H NT-Pro-B Natriuret Pep Albumin Albumin/Globulin Ratio Procalcitonin Urine Appearance Urine Protein Granular Casts Urine Mucus Synovial Neutrophils 97 H 02/16/21 02/16/21 02/16/21 10:20 07:33 07:33 WBC RBC Hgb Hct POC Hct MCHC RDW MPV Neut % (Auto) Lymph % (Auto) Lymph # (Auto) Amador # (Auto) Absolute Neutrophils ESR POC BUN BUN 44 H Creatinine 1.4 H POC Creatinine Glucose 170 H POC Glucose Uric Acid POC WB Ioniz Calcium Phosphorus Total Bilirubin 1.3 H Direct Bilirubin Lactate Dehydrogenase C-Reactive Protein 33.60 H NT-Pro-B Natriuret Pep 49514.0 H Albumin 3.1 L Albumin/Globulin Ratio Procalcitonin Urine Appearance Hazy A Urine Protein 100 A Granular Casts 7 H Urine Mucus Few A Synovial Neutrophils 02/16/21 02/16/21 07:33 07:33 WBC 16.8 H RBC 4.17 L Hgb 12.6 L Hct 38.5 L POC Hct 39 L MCHC RDW 15.0 H MPV 10.7 H Neut % (Auto) 89.0 H Lymph % (Auto) 2.1 L Lymph # (Auto) 0.35 L Amador # (Auto) 1.47 H Absolute Neutrophils 14.96 H ESR 94 H POC BUN 41 H BUN Creatinine POC Creatinine 1.7 H Glucose POC Glucose 172 H Uric Acid POC WB Ioniz Calcium 1.15 L Phosphorus Total Bilirubin Direct Bilirubin Lactate Dehydrogenase C-Reactive Protein NT-Pro-B Natriuret Pep Albumin Albumin/Globulin Ratio Procalcitonin Urine Appearance Urine Protein Granular Casts Urine Mucus Synovial Neutrophils Meds: Medications Acetaminophen (Acetaminophen 325 Mg Tablet) 650 mg PO Q4-6HP PRN; Protocol PRN Reason: Per Pain Protocol/Fever > 101 Aspirin (Aspirin 81 Mg Tab.Chew) 81 mg PO BID [facility] Last Admin: 02/16/21 21:09 Dose: 81 mg Documented by: Bisacodyl (Bisacodyl 10 Mg Supp.Rect) 10 mg AK Q2-3DAYS PRN PRN Reason: Constipation Cefazolin Sodium (Cefazolin 1 Gm Vial) 2 gm IV Q8H [facility]; Protocol Stop: 02/17/21 01:46 Cyanocobalamin (Cyanocobalamin (Vitamin B-12) 500 Mcg Tablet) 1,000 mcg PO BID [facility] Stop: 02/21/21 09:01 Last Admin: 02/16/21 21:09 Dose: 1,000 mcg Documented by: Dextrose (Dextrose 50% 50 Ml Vial) 0 ml IV UD PRN PRN Reason: Hypoglycemia Diagnostic Test (Pha) (Accu-Chek 1 Each Strip) 1 each FS ACHS [facility] Last Admin: 02/17/21 00:31 Dose: Not Given Documented by: Docusate Sodium (Docusate Sodium 100 Mg Capsule) 100 mg PO BID [facility] Last Admin: 02/17/21 00:31 Dose: Not Given Documented by: Furosemide (Furosemide 40 Mg/4 Ml Vial) 20 mg IV DAILY [facility] Last Admin: 02/16/21 21:12 Dose: 20 mg Documented by: Glucose (Dextrose 31 Gm Oral.Susp) 15 gm PO PRN PRN PRN Reason: Hypoglycemia Guaifenesin/Codeine Phosphate (Guaifenesin/Codeine 10 Ml Udc) 10 ml PO Q4HP PRN PRN Reason: Cough Hydromorphone HCl (Hydromorphone 1 Mg/Ml Syringe) 0.5 - 2 mg IV Q2HP PRN; Protocol PRN Reason: Per Pain Protocol Potassium Chloride 40 meq/ (Dextrose) 520 mls @ 130 mls/hr IV UD PRN PRN Reason: K+ = or < 3.5 Acetaminophen (Ofirmev) 650 mg in 65 mls @ 130 mls/hr IV Q6HP PRN; Protocol PRN Reason: Per Pain Protocol/Fever > 101 Magnesium Sulfate (Magnesium Sulfate) 2 gm in 50 mls @ 50 mls/hr IV UD PRN PRN Reason: MG = or < 1.7 Ceftriaxone Sodium 2 gm/ (Dextrose) 50 mls @ 100 mls/hr IV Q24H [facility]; Protocol Vancomycin HCl 1,500 mg/ (Sodium Chloride) 500 mls @ 333.3 mls/hr IV Q12H [facility] Last Infusion: 02/17/21 00:10 Dose: Infused Documented by: Insulin Human Lispro (Insulin Lispro 1 Unit/0.01 Ml Unit) 0 unit SQ ACHS [facility]; Protocol Last Admin: 02/17/21 00:31 Dose: Not Given Documented by: Iron Carb/Multivit/Kettle Hand/Folic Acid (Multivit,Ther Iron,Ca,Fa & Min 1 Tablet) 1 tab PO DAILY [facility] Ketorolac Tromethamine (Ketorolac 15 Mg/Ml Vial) 15 mg IV Q6 [facility] Stop: 02/18/21 12:01 Last Admin: 02/17/21 04:29 Dose: Not Given Documented by: Magnesium Hydroxide (Magnesium Hydroxide 30 Ml Oral.Susp) 30 ml PO BIDP PRN PRN Reason: Constipation Melatonin (Melatonin 3 Mg Tablet) 3 mg PO HSP PRN PRN Reason: Insomnia Metoprolol Tartrate (Metoprolol Tartrate 5 Mg/5 Ml Vial) 5 mg IV Q5M PRN PRN Reason: Heart Rate > 140 bpm Ondansetron HCl (Ondansetron 4 Mg/2 Ml Vial) 4 mg IV Q4HP PRN PRN Reason: Nausea And Vomiting Ondansetron HCl (Ondansetron 4 Mg Odt Tablet) 4 mg SL Q4-6HP PRN; Protocol PRN Reason: Nausea And Vomiting Oxycodone/Acetaminophen (Oxycodone/Apap 5/325mg Tablet) 1 - 2 tab PO Q4HP PRN; Protocol PRN Reason: Per Pain Protocol Polyethylene Glycol (Polyethylene Glycol 3350 17 Gm Packet) 17 gm PO DAILYP PRN PRN Reason: Constipation Senna/Docusate Sodium (Sennosides/Docusate Sodium 1 Tab Tablet) 1 tab PO [facility] Last Admin: 02/16/21 21:09 Dose: 1 tab Documented by: Sodium Biphosphate/Sodium Phosphate (Fleets Adult Enema) 1 dose AK Q3-4DAYS PRN PRN Reason: Constipation Sodium Chloride (0.9 % Sodium Chloride 10 Ml Syringe) 10 ml IV Q8 [facility] Last Admin: 02/17/21 04:28 Dose: 10 ml Documented by: Temazepam (Temazepam 15 Mg Capsule) 15 mg PO HSP PRN PRN Reason: Insomnia Thiamine HCl (Thiamine 100 Mg Tablet) 100 mg PO DAILY [facility] Throat Lozenges (Benzocaine/Menthol 1 Lozenge) 1 lozenge PO PRN PRN PRN Reason: Sore Throat Vancomycin HCl (Vancomycin Per Pharmacy) 1 order IV UD [facility]IE; Protocol A/P Narrative A/P Narrative: * Right prosthetic knee septic arthritis-Gram stain/culture obtained. Status post joint washout. ID consulted * Severe sepsis with endorgan dysfunction. Continue management per guidelines. Continue antibiotic * Gram-positive bacteremia-continue surveillance cultures/echocardiogram/de- escalation of antibiotics based on cultures * Multifocal bibasilar pneumonia-Covid negative empiric antibiotic coverage for community-acquired pathogens * Hypoxic respiratory failure -secondary to pneumonia/sepsis on 1 dysfunction. Clinically improving. On 2 L oxygen * Acute kidney injury-creatinine worsened now at 1.9. Likely sepsis endorgan dysfunction. Nephrology consult. * Obstructive sleep apnea continue home CPAP * History atrial fibrillation * History of CHF continue home medications, previous echo 55% EF 2010. Follows up with [place] [facility]. Repeat echo * History hypertension restart antihypertensives with holding parameters once sepsis resolves * DM type II continue basal prandial insulin * Chronic pain continue oxycodone * History of CAD * History of glaucoma continue brimonidine * BPH * History of thrombocytopenia. Stable * Prophylax SCDs Plan * Surveillance cultures/echocardiogram * Wound care/nephrology/ID consult * Postop care per orthopedics * Empiric antibiotic coverage for GPC bacteremia * Pre-existing medical condition management as above * PT OT * Nutrition support Time Spent With Patient Time: Total time spent is greater than 50% in coordination of care (as documented) at patient's floor/unit and/or counseling patient:
--- NOTE | 2021-02-17 08:35 | Nephrology Consult Note ---
HPI Data of Consult Patient: new to practice Consult date: 02/17/21 Requesting physician: Asa Adler Primary Care Provider: Vivi Jack Consult Narrative Patient Information: Note initiated : 02/17/21 at 8:32 am Patient: Daljit Quintanilla 75 y/o M admitted on 02/16/21 for Rt Knee Pain, Unable To Walk. Chief Complaint: Right knee pain Daljit Quintanilla is a 75-year-old male with coronary artery disease, atrial fibrillation, hypertension, chronic obstructive pulmonary disease, diabetes mellitus type 2, chronic kidney disease stage 3a, morbid obesity (BMI 40), obstructive sleep apnea admitted on 02/16/21. He presented to the ED for shortness of breath and right knee pain and swelling. In ED, workup was consistent with right knee septic arthritis/bilateral chest infiltrates/88% sats on 4 L oxygen and a white count over 16,000. The patient underwent arthrocentesis. Baseline serum creatinine: 1.3 (eGFR 54) 1.3 on 10/25/17 and 1.4 (eGFR 48) on 02/16/21. Nephrology consultation was requested for acute kidney injury. Chief complaint: Right knee pain Reason for consult: Acute kidney injury cc:: CC: Asa Adler Constitutional Constitutional: Present fatigue and fever(s) EENT Nose, mouth and throat: Absent nasal discharge and sore throat Cardiovascular Cardiovascular: Present dyspnea on exertion and leg edema Respiratory Respiratory: Present dyspnea and wheezing Gastrointestinal Gastrointestinal: Absent nausea and vomiting Musculoskeletal Musculoskeletal: Present joint swelling Integumentary Integumentary: Absent rash and wounds Neurological Neurological: Present weakness; Absent confusion Psychiatric Psychiatric: Absent anxiety and panic attacks Hematologic/Lymphatic Hematologic/Lymphatic: Absent easy bleeding and easy bruising Allergic/Immunologic Allergic/Immunologic: Absent tongue swelling and uticaria PFSH PFSH All Active Problems (Updated 02/17/21 @ 08:33 by Mayank Mir MD) Acute renal failure superimposed on stage 3a chronic kidney disease (Acute) Dog bite of multiple sites of hand and fingers (Acute) Bite by animal (Acute) Hip sprain (Acute) Laceration of finger (Acute) Laceration of lip (Acute) Rib fracture (Acute) Hx of total knee arthroplasty (Acute) Septic arthritis (Acute) Congestive heart failure (Acute) Medical History (Updated 02/17/21 @ 08:33 by Mayank Mir MD) Bite by animal Dog bite of multiple sites of hand and fingers Hip sprain Laceration of finger Laceration of lip Rib fracture Social History alcohol intake frequency: does not drink substance use type: does not use MEDS/ALLERGIES Home Medications and Allergies Home Medications Medication Instructions Recorded Confirmed Type Humalog KwikPen Insulin 0 unit SQ AC 08/29/15 02/16/21 History Lantus U-100 Insulin 53 - 55 unit SQ HS 08/29/15 02/16/21 History alpha lipoic acid 200 mg PO BID 08/29/15 02/16/21 History atenolol 25 mg PO BID 08/29/15 02/16/21 History coenzyme Q10 200 mg PO BID 08/29/15 02/16/21 History levocarnitine tartrate 500 mg PO BID 08/29/15 02/16/21 History losartan 100 mg PO DAILY 08/29/15 02/16/21 History red yeast rice 120 mg PO BID 08/29/15 02/16/21 History saw palmetto 450 mg PO BID 08/29/15 02/16/21 History Januvia 100 mg PO DAILY 07/11/17 02/16/21 History albuterol sulfate 2 puff INHALATION QID PRN 02/16/21 02/16/21 History aspirin 81 mg PO DAILY 02/16/21 02/16/21 History brinzolamide-brimonidine 1 drp OPHTHALMIC (EYE) BID 02/16/21 02/16/21 History [Simbrinza] fenugreek seed extract 610 mg PO BID 02/16/21 02/16/21 History furosemide [Lasix] 40 mg PO QDAY 02/16/21 02/16/21 History latanoprost 1 drp OPHTHALMIC (EYE) QPM 02/16/21 02/16/21 History potassium chloride 20 meq PO QDAY 02/16/21 02/16/21 History spironolactone 25 mg PO QDAY 02/16/21 02/16/21 History timolol 1 drp OPHTHALMIC (EYE) BID 02/16/21 02/16/21 History tiotropium-olodaterol [Stiolto 2 puff INHALATION BID 02/16/21 02/16/21 History Respimat] aspirin 81 mg PO BID #60 tab 02/17/21 Rx docusate sodium [DOK] 100 mg PO BID #60 cap 02/17/21 Rx oxycodone-acetaminophen 1 - 2 tab PO Q4HP PRN #75 tab 02/17/21 Rx Allergies Allergy/AdvReac Type Severity Reaction Status Date / Time hydrocodone AdvReac Mild Itching Verified 02/16/21 07:06 Physical Examination Vital Signs Vital signs: Temp Pulse Resp BP Pulse Ox 98.5 F 56 L 12 139/63 100 02/16/21 20:00 02/17/21 05:45 02/17/21 05:45 02/17/21 05:31 02/17/21 05:45 General Appearance General appearance: well-developed and obese EENT EENT: mucous membranes moist Respiratory Respiratory: wheezing Cardiovascular Cardiology: edema Gastrointestinal Gastrointestinal: obese Integumentary Integumentary: no rash Neurologic Neurologic: no focal deficit and alert and oriented x3 Musculoskeletal Musculoskeletal: joint swelling Psychiatric Psychiatric: mood/affect appropriate and cooperative Results Lab Results Result Diagrams: 02/17/21 04:25 02/17/21 04:25 Lab results: Most recent lab results Calcium 9.0 mg/dL (8.6-10.4) 02/17/21 04:25 Phosphorus 6.4 mg/dL (2.5-4.5) H* 02/17/21 04:25 Magnesium 2.4 mg/dL (1.6-2.5) 02/17/21 04:25 A/P Assessment and plan (1) Acute renal failure superimposed on stage 3a chronic kidney disease: Assessment and plan: Daljit Quintanilla is a 75-year-old male with coronary artery disease, atrial fibrillation, hypertension, chronic obstructive pulmonary disease, diabetes mellitus type 2, chronic kidney disease stage 3a, morbid obesity (BMI 40), obstructive sleep apnea admitted on 02/16/21. He presented to the ED for shortness of breath and right knee pain and swelling. In ED, workup was consistent with right knee septic arthritis/bilateral chest infiltrates/88% sats on 4 L oxygen and a white count over 16,000. The patient underwent arthrocentesis. Baseline serum creatinine: 1.3 (eGFR 54) 1.3 on 10/25/17 and 1.4 (eGFR 48) on 02/16/21. Nephrology consultation was requested for acute kidney injury. Acute kidney injury on chronic kidney disease stage 3a associated with sepsis, present on arrival. There is no recent history of IV contrast administration. He took Aspirin 325 mg daily for knee pain at home and has been receiving Toradol in the hospital. There is no recent history of IV contrast administ ration. Acute postinfectious glomerulonephritis, acute interstitial nephritis or acute toxic nephropathy due to medications are considered, but unlikely per work up. Sepsis associated with right prosthetic knee septic arthritis and pneumonia. Right knee incision and synovectomy and polyliner exchange revision on 02/16/21. Work up: Urinalysis on 02/16/21: Yellow, hazy, pH 5.0, SG 1.013, protein 100, blood negative, leukocyte esterase negative. No renal imaging. Progress: Serum creatinine increased from 1.4 to 1.9 in the past 24 hours. Baseline serum creatinine: 1.3 (eGFR 54) 1.3 on 10/25/17 and 1.4 (eGFR 48) on 02/16/21. Urine output: 1,600 ml reported in the past 24 hours. No significant fluid overload. No uremic symptoms. Recommendations/Plan: No urgent acute hemodialysis need. Toradol discontinued. Diuretics as needed. Avoid NSAIDs, nephrotoxic medications and IV contrast. Hold CASI/ARB. Monitor BMP and urine output. Status: Acute Time Spent With Patient Time: Total time spent is greater than 50% in coordination of care (as documented) at patient's floor/unit and/or counseling patient:
--- NOTE | 2021-02-17 08:41 | XRay Report ---
HISTORY: Postop right knee surgery, knee pain and unable to walk FINDINGS: There is a well-positioned right total knee prosthesis. There is no reabsorption of bone around the hardware. The hardware appears unchanged from the prior x-ray done on 02/16/21. On the previous study there was a joint effusion and a small dystrophic calcification anterior to the shaft of the femur. This calcification has been removed. There is a persistent small calcification adjacent to the lateral prosthetic tibial plateau. There is no evidence of a fracture or osteomyelitis. Multiple skin benjamin are located anterior to the knee which were not present yesterday. IMPRESSION: Postoperative changes following removal of a small dystrophic calcification or loose body from the region of the suprapatellar bursa Interpreted and Authenticated by: Chacho Caballero 02/17/21
[2021-02-17] MEDS ORDERED: ASPIRIN 325 MG ENTERIC COATED TABLET PO SCH (09:00)
[2021-02-17] MEDS ORDERED: COENZYME Q10 50 MG PO SCH (09:00)
--- NOTE | 2021-02-17 10:04 | Operative Note ---
DATE OF OPERATION: 02/16/2021 PREOPERATIVE DIAGNOSIS: Right septic knee from remote cause of a total knee. POSTOPERATIVE DIAGNOSIS: Right septic knee from remote cause of a total knee. PROCEDURE: Right knee revision with poly liner exchange with incision and drainage and synovectomy, revision of one component. SURGEON: Iraj Ricci M.D. CONSULTANT RN: Navneet Glass PA-C. This providers expertise and technical skill were required throughout the case. The [facility] assisted with preoperative coordination, intraoperative retraction, wound closure, and dressing and splint application, as well as postoperative documentation and care coordination. ANESTHESIA: General LMA anesthesia. COMPLICATIONS: None. TOURNIQUET TIME: 40 minutes. ESTIMATED BLOOD LOSS: About 50 mL. No blood products given. IV ANTIBIOTICS: Given. DISPOSITION: To PACU. SPECIMENS: None. DESCRIPTION OF PROCEDURE: The patient was brought to the operating room, put to sleep with general LMA anesthesia. Once asleep, the patient had the right leg sterilely prepped and draped in the usual sterile fashion. This revealed cellulitis around the foot and ankle, chronic venous stasis, with sores on the dorsum of his toes as the most likely source. After being sterilely prepped and draped, the leg was exsanguinated and tourniquet inflated to 280 pounds of pressure. Once done, we made a midline incision through the prior scar. We performed a midvastus approach, exposing the joint and significant amount of purulent drainage was encountered. We performed a complete synovectomy of the knee, removing the poly liner, which was then replaced with another 9 mm, size 6 tibial baseplate with an e-poly liner. We thoroughly irrigated the joint with IrriSept as well as 9 liters of irrigation. Once done, we were able to place the pulse lavage throughout all compartments of the knee and closed the midvastus approach with #1 Stratafix x2, closed the skin with Stratafix and adhesive closure. The patient tolerated this well without complication. RBH:thai Job ID: [id number] Doc ID: [id number] Iraj Ricci MD
[2021-02-17] MEDS: FUROSEMIDE 40 MG/4 ML VIAL IV SCH (10:34)
[2021-02-17] MEDS: THIAMINE 100 MG TABLET PO SCH (10:34)
[2021-02-17] MEDS: ASPIRIN 81 MG TAB.CHEW PO SCH ×2 (10:34→21:30)
[2021-02-17] MEDS: CYANOCOBALAMIN (VITAMIN B-12) 500 MCG TABLET PO SCH ×2 (10:34→21:30)
[2021-02-17] MEDS: MULTIVIT,THER IRON,CA,FA & MIN 1 TABLET PO SCH (10:34)
[2021-02-17] MEDS: ATENOLOL 25 MG TABLET PO SCH ×2 (10:34→21:29)
[2021-02-17] MEDS: TIOTROPIUM OLODATEROL INH SCH (10:50)
[2021-02-17] MEDS: VANCOMYCIN 1,500 MG in 0.9 % SODIUM CHLORIDE 500 ML IV SCH ×2 (10:50→21:36)
[2021-02-17] MEDS: sitaGLIPtin 100 MG TABLET PO SCH (10:50)
[2021-02-17] MEDS: ceFAZolin 1 GM VIAL IV SCH ×3 (10:52→21:37)
[2021-02-17] MEDS: TIMOLOL 0.5% OPHTH DROPS BOTTLE 5ML OU SCH ×2 (10:53→21:37)
[2021-02-17] MEDS: BRINZOLAMIDE BRIMONIDINE OU SCH ×2 (11:24→21:29)
--- NOTE | 2021-02-17 12:19 | Internal Med Progress Note ---
SUBJECTIVE Subjective Patient information: Note initiated : 02/18/21 at 12:18 pm Service Date, if different from initiated Date: [] Patient: Daljit Quintanilla 75 y/o M admitted on 02/16/21 for Rt Knee Pain, Unable To Walk. Chief Complaint: [] Interval history: Mr. Quintanilla is a 75 year old morbidly obese male with a history of HTN/A. fib/DM type II/CAD/COPD on 3 L oxygen/JOELLEN/P HTN/DJD who presents to the ER with increasing shortness of breath/fatigue/inability to function over the last 4 days. Symptoms are progressed with subjective fever since yesterday along with right knee pain swelling and difficulty ambulating and bearing weight. He denies trauma or fall. Initial work-up in the ER was consistent with right knee septic arthritis/bilateral chest infiltrates/88% sats on 4 L oxygen and a white count over 16,000. Patient underwent arthrocentesis, cultures were drawn and antibiotics initiated. Dr. Ricci orthopedics was consulted for evaluation of septic arthritis. Hospital service was requested for admission in light of above At the time of my evaluation patient is accompanied with his . He was able to answer most the questions. Is currently on 4 L oxygen. Feeling short of breath. Endorses history as above. Denies shaking chills or sweats but endorses to fever along with weakness fatigue and elevated function. He n ormally uses CPAP and has been able to perform ADLs but over the last 4 days have gradually deteriorated to the point he is unable to move around or even get out of bed due to extreme fatigue and weakness. He denies productive sputum, denies rash, diarrhea, headache photophobia 02/17-patient clinically improving. Now on 2 L oxygen. White count downtrending from 16.8-12.8. Gram-positive cocci in blood cultures. Surveillance cultures pending. Echocardiogram ordered. No clear source identified except for the lower extremity sequential compressive device that he uses at home with resultant skin breakdown and leakage. Wound care/infectious disease consulted. Worsening renal function at 1.9. Nephrology consult. CRP 42. Continue Rocephin/vancomycin and de-escalate based on culture sensitivities. 02/18-Awaiting cultures, continues on Vancomycin IV for now.ID plans 6 weeks IV antibiotic treatment course via PICC-awaiting negative cultures before PICC placement. Awaiting ECHO report. Chest xray shows improving bilateral infiltrates. Creatinine appears to have plateaued, nephrology following. Vancomycin trough elevated so holding dose today. Head: Atraumatic, normal inspection. Eyes: normal appearance, no scleral icterus. Neck: full ROM Respiratory: on nasal canula oxygen, no respiratory distress. Cardiovascular: normal rate and rhythm, S1, S2. GI/Abdominal: central obesity, soft, nontender, no guarding. Extremities: tender right knee, bilateral lower extremity edema Neurological: CN II-XII intact, intact motor, intact sensation. Psychiatric: normal mood. Skin: warm, normal color Constitutional Vitals: Vital Signs Temp Pulse Resp BP Pulse Ox 98.2 F 55 L 16 151/76 94 02/17/21 08:57 02/17/21 08:57 02/17/21 08:57 02/17/21 08:32 02/17/21 08:57 Period Temp Pulse Resp BP Sys/Pichardo Pulse Ox Last 24 Hr 96.5 F-98.5 F 46-100 8-26 96-183/44-114 89-100 Intake and Output 02/16/21 02/17/21 02/17/21 21:59 05:59 13:59 Intake Total 1950 1040 240 Output Total 475 1100 Balance 1475 -60 240 Weight 163.293 kg 159.71 kg Intake & Output: Intake & Output 02/16/21 02/17/21 02/17/21 21:59 05:59 13:59 Intake Total 1950 1040 240 Output Total 475 1100 Balance 1475 -60 240 Weight 163.293 kg 159.71 kg Intake: IV 650 500 Vancomycin 1,500 mg In Sodium 500 500 Chloride 0.9% 500 ml @ 333.3 mls/hr IV Q12H NICKIE Rx#: [id number] Ancef 3 gm In Dextrose 5% in 50 Water 50 ml @ 100 mls/hr IV PREOP NICKIE Rx#:[id number] Oral 540 240 IV - Manual Only 1300 Output: Urine Catheter Amount 1100 Void Amount 475 Other: Meal Breakfast Percent of Meal Consumed 100% Feeding Ability Independent Urine Appearance Cloudy Clear Uretheral (Bellamy) Clear Urine Color Dark Yellow Dark Daya Uretheral (Bellamy) Dark Daya OBJ DATA Labs CBC & Chem 7: 02/18/21 06:17 02/18/21 06:17 Labs: Abnormal Lab Results 02/17/21 02/17/21 02/16/21 04:25 04:25 19:53 WBC 12.8 H RBC 4.12 L Hgb 12.1 L Hct 39.8 L POC Hct MCHC 30.4 L RDW 15.0 H MPV 10.9 H Neut % (Auto) 93.1 H Lymph % (Auto) 1.7 L Lymph # (Auto) 0.22 L Pacific # (Auto) Absolute Neutrophils 11.94 H ESR POC BUN BUN 57 H Creatinine 1.9 H POC Creatinine Glucose 222 H POC Glucose Uric Acid 9.3 H POC WB Ioniz Calcium Phosphorus 6.4 H* Total Bilirubin Direct Bilirubin 0.3 H Lactate Dehydrogenase 252 H C-Reactive Protein 42.10 H NT-Pro-B Natriuret Pep Albumin 2.7 L Albumin/Globulin Ratio 0.8 L Procalcitonin 9.32 H Urine Appearance Urine Protein Granular Casts Urine Mucus Synovial Neutrophils 02/16/21 02/16/21 02/16/21 19:53 19:53 10:39 WBC RBC Hgb Hct POC Hct MCHC RDW MPV Neut % (Auto) Lymph % (Auto) Lymph # (Auto) Pacific # (Auto) Absolute Neutrophils ESR 93 H POC BUN BUN Creatinine POC Creatinine Glucose POC Glucose Uric Acid POC WB Ioniz Calcium Phosphorus Total Bilirubin Direct Bilirubin Lactate Dehydrogenase C-Reactive Protein 36.40 H NT-Pro-B Natriuret Pep Albumin Albumin/Globulin Ratio Procalcitonin Urine Appearance Urine Protein Granular Casts Urine Mucus Synovial Neutrophils 97 H 02/16/21 02/16/21 02/16/21 10:20 07:33 07:33 WBC RBC Hgb Hct POC Hct MCHC RDW MPV Neut % (Auto) Lymph % (Auto) Lymph # (Auto) Pacific # (Auto) Absolute Neutrophils ESR POC BUN BUN 44 H Creatinine 1.4 H POC Creatinine Glucose 170 H POC Glucose Uric Acid POC WB Ioniz Calcium Phosphorus Total Bilirubin 1.3 H Direct Bilirubin Lactate Dehydrogenase C-Reactive Protein 33.60 H NT-Pro-B Natriuret Pep 28413.0 H Albumin 3.1 L Albumin/Globulin Ratio Procalcitonin Urine Appearance Hazy A Urine Protein 100 A Granular Casts 7 H Urine Mucus Few A Synovial Neutrophils 02/16/21 02/16/21 07:33 07:33 WBC 16.8 H RBC 4.17 L Hgb 12.6 L Hct 38.5 L POC Hct 39 L MCHC RDW 15.0 H MPV 10.7 H Neut % (Auto) 89.0 H Lymph % (Auto) 2.1 L Lymph # (Auto) 0.35 L Pacific # (Auto) 1.47 H Absolute Neutrophils 14.96 H ESR 94 H POC BUN 41 H BUN Creatinine POC Creatinine 1.7 H Glucose POC Glucose 172 H Uric Acid POC WB Ioniz Calcium 1.15 L Phosphorus Total Bilirubin Direct Bilirubin Lactate Dehydrogenase C-Reactive Protein NT-Pro-B Natriuret Pep Albumin Albumin/Globulin Ratio Procalcitonin Urine Appearance Urine Protein Granular Casts Urine Mucus Synovial Neutrophils Meds: Medications Acetaminophen (Acetaminophen 325 Mg Tablet) 650 mg PO Q4-6HP PRN; Protocol PRN Reason: Per Pain Protocol/Fever > 101 Albuterol Sulfate (Albuterol Sulfate 200 Puff Inhaler) 2 puff INH QIDP PRN PRN Reason: Shortness Of Breath Or Wheezin Aspirin (Aspirin 81 Mg Tab.Chew) 81 mg PO BID [facility] Last Admin: 02/17/21 10:34 Dose: 81 mg Documented by: Atenolol (Atenolol 25 Mg Tablet) 25 mg PO BID [facility] Last Admin: 02/17/21 10:34 Dose: 25 mg Documented by: Bisacodyl (Bisacodyl 10 Mg Supp.Rect) 10 mg HI Q2-3DAYS PRN PRN Reason: Constipation Cefazolin Sodium (Cefazolin 1 Gm Vial) 2 gm IV Q8H [facility]; Protocol Last Admin: 02/17/21 10:52 Dose: 2 gm Documented by: Cyanocobalamin (Cyanocobalamin (Vitamin B-12) 500 Mcg Tablet) 1,000 mcg PO BID [facility] Stop: 02/21/21 09:01 Last Admin: 02/17/21 10:34 Dose: 1,000 mcg Documented by: Dextrose (Dextrose 50% 50 Ml Vial) 0 ml IV UD PRN PRN Reason: Hypoglycemia Diagnostic Test (Pha) (Accu-Chek 1 Each Strip) 1 each FS ACHS [facility] Last Admin: 02/17/21 11:43 Dose: 1 each Documented by: Docusate Sodium (Docusate Sodium 100 Mg Capsule) 100 mg PO BID [facility] Last Admin: 02/17/21 10:34 Dose: 100 mg Documented by: Furosemide (Furosemide 40 Mg/4 Ml Vial) 20 mg IV DAILY [facility] Last Admin: 02/17/21 10:34 Dose: 20 mg Documented by: Glucose (Dextrose 31 Gm Oral.Susp) 15 gm PO PRN PRN PRN Reason: Hypoglycemia Guaifenesin/Codeine Phosphate (Guaifenesin/Codeine 10 Ml Udc) 10 ml PO Q4HP PRN PRN Reason: Cough Hydromorphone HCl (Hydromorphone 1 Mg/Ml Syringe) 0.5 - 2 mg IV Q2HP PRN; Protocol PRN Reason: Per Pain Protocol Potassium Chloride 40 meq/ (Dextrose) 520 mls @ 130 mls/hr IV UD PRN PRN Reason: K+ = or < 3.5 Acetaminophen (Ofirmev) 650 mg in 65 mls @ 130 mls/hr IV Q6HP PRN; Protocol PRN Reason: Per Pain Protocol/Fever > 101 Magnesium Sulfate (Magnesium Sulfate) 2 gm in 50 mls @ 50 mls/hr IV UD PRN PRN Reason: MG = or < 1.7 Vancomycin HCl 1,500 mg/ (Sodium Chloride) 500 mls @ 333.3 mls/hr IV Q12H [facility] Last Admin: 02/17/21 10:50 Dose: 333 mls/hr Documented by: Insulin Glargine (Insulin Glargine, Human 1 Unit/0.01 Ml) 50 unit SQ HS [facility] Insulin Human Lispro (Insulin Lispro 1 Unit/0.01 Ml Unit) 0 unit SQ ACHS [facility]; Protocol Last Admin: 02/17/21 11:47 Dose: 6 units Documented by: Iron Carb/Multivit/Amador/Folic Acid (Multivit,Ther Iron,Ca,Fa & Min 1 Tablet) 1 tab PO DAILY [facility] Last Admin: 02/17/21 10:34 Dose: 1 tab Documented by: Latanoprost (Latanoprost Ophth Drops 2.5ml Bottle) 1 gtt OU HS [facility] Magnesium Hydroxide (Magnesium Hydroxide 30 Ml Oral.Susp) 30 ml PO BIDP PRN PRN Reason: Constipation Melatonin (Melatonin 3 Mg Tablet) 3 mg PO HSP PRN PRN Reason: Insomnia Metoprolol Tartrate (Metoprolol Tartrate 5 Mg/5 Ml Vial) 5 mg IV Q5M PRN PRN Reason: Heart Rate > 140 bpm Ondansetron HCl (Ondansetron 4 Mg/2 Ml Vial) 4 mg IV Q4HP PRN PRN Reason: Nausea And Vomiting Ondansetron HCl (Ondansetron 4 Mg Odt Tablet) 4 mg SL Q4-6HP PRN; Protocol PRN Reason: Nausea And Vomiting Oxycodone/Acetaminophen (Oxycodone/Apap 5/325mg Tablet) 1 - 2 tab PO Q4HP PRN; Protocol PRN Reason: Per Pain Protocol Brinzolamide- Brimonidine [ Simbrinza] 1-0.2 % Drop 1 dose OU BID [facility] Last Admin: 02/17/21 11:24 Dose: 1 dose Documented by: Tiotropium- Olodaterol [Stiolto Respimat] 2.5-2.5 Mcg/Act Inhaler 2 dose INH DAILY [facility] Last Admin: 02/17/21 10:50 Dose: 2 dose Documented by: Polyethylene Glycol (Polyethylene Glycol 3350 17 Gm Packet) 17 gm PO DAILYP PRN PRN Reason: Constipation Senna/Docusate Sodium (Sennosides/Docusate Sodium 1 Tab Tablet) 1 tab PO HS [facility] Last Admin: 02/16/21 21:09 Dose: 1 tab Documented by: Sitagliptin Phosphate (Sitagliptin 100 Mg Tablet) 100 mg PO DAILY [facility] Last Admin: 02/17/21 10:50 Dose: 100 mg Documented by: Sodium Biphosphate/Sodium Phosphate (Fleets Adult Enema) 1 dose HI Q3-4DAYS PRN PRN Reason: Constipation Sodium Chloride (0.9 % Sodium Chloride 10 Ml Syringe) 10 ml IV Q8 [facility] Last Admin: 02/17/21 12:04 Dose: 10 ml Documented by: Temazepam (Temazepam 15 Mg Capsule) 15 mg PO HSP PRN PRN Reason: Insomnia Thiamine HCl (Thiamine 100 Mg Tablet) 100 mg PO DAILY [facility] Last Admin: 02/17/21 10:34 Dose: 100 mg Documented by: Throat Lozenges (Benzocaine/Menthol 1 Lozenge) 1 lozenge PO PRN PRN PRN Reason: Sore Throat Timolol Maleate (Timolol 0.5% Ophth Drops Bottle 5ml) 1 gtt OU BID [facility] Last Admin: 02/17/21 10:53 Dose: 1 drop Documented by: Vancomycin HCl (Vancomycin Per Pharmacy) 1 order IV UD [facility]; Protocol A/P Narrative A/P Narrative: Assessment: 75 year old morbidly obese male with a history of HTN/A. fib/DM type II/CAD/COPD on 3 L oxygen/JOELLEN/P HTN/DJD admitted for severe sepsis secondary to gram positive bacteremia complicated by septic right prosthetic knee (now s/p right knee incision and synovectomy and polyliner exchange on 02/16/21), acute hypoxic respiratory failure, multifocal pneumonia, and acute kidney injury. #Right prosthetic knee septic arthritis-Gram stain/culture obtained. Status post joint washout. ID consulted #Severe sepsis with end organ dysfunction. Continue management per guidelines. Continue antibiotic #Gram-positive bacteremia-continue surveillance cultures/echocardiogram/de- escalation of antibiotics based on cultures #Multifocal bibasilar pneumonia-Covid negative empiric antibiotic coverage for community-acquired pathogens #Hypoxic respiratory failure -secondary to pneumonia/sepsis on 1 dysfunction. Clinically improving. On 2 L oxygen #Acute kidney injury-creatinine worsened now at 1.9. Likely sepsis endorgan dysfunction. Nephrology consult. #Obstructive sleep apnea continue home CPAP #History atrial fibrillation #History of CHF continue home medications, previous echo 55% EF 2010. Follows up with [facility]. Repeat echo #History hypertension restart antihypertensives with holding parameters once sepsis resolves #DM type II continue basal prandial insulin #Chronic pain continue oxycodone #History of CAD #History of glaucoma continue brimonidine #BPH #History of thrombocytopenia. Stable Plan Surveillance cultures/echocardiogram Wound care/nephrology/ID consult Postop care per orthopedics Empiric antibiotic coverage for GPC bacteremia Increased Lantus to 60 units HS. Start prandial Humalog 10 units. Continue SSI. Start Flomax. Remove bellamy tomorrow w/ voiding trial. Pre-existing medical condition management as above PT OT Nutrition support DVT ppx: heparin SQ Code status: Full Disposition: SNF on IV antibiotic via PICC with ID and orthopedic surgery follow up. Time Spent With Patient Time: Total time spent is greater than 50% in coordination of care (as documented) at patient's floor/unit and/or counseling patient:
--- NOTE | 2021-02-17 17:40 | Infectious Disease Consult ---
HPI Data of Consult Primary Care Provider: Vivi Jack Consult Narrative Patient Information: Note initiated : 02/17/21 at 5:27 pm Service Date, if different from initiated Date: [Today's date February 17, 2021] Patient: Daljit Quintanilla 75 y/o M admitted on 02/16/21 for Rt Knee Pain, Unable To Walk. Chief Complaint: [Right knee pain with movement] Daljit is a pleasant 75-year-old man who was admitted in the hospital for right knee pain. He has had bilateral total knee arthroplasties completed approximately 4 years ago 2016. He has chronic lower extremity edema. He uses lymphatic devices for compression. He began to have increased swelling in his right leg approximately 3 months ago. At approximately the same time, he was having difficulty with his compression devices. With loss of compression devices he had increased swelling in the right leg as well as right knee. He had significant increase in right knee pain and swelling over the last 2 weeks. He denies fevers at home. T-max yesterday 99.3. He has a history of throat cancer requiring surgery radiation and chemotherapy 2012. He has since been to ld since that time that he is at risk for aspiration. He has received pneumococcal vaccination two and 3 years ago. He has a distant history of pneumonia but no pneumonia since throat cancer. He reports that he is very careful with food and drink. He discontinued tobacco was in the 80s. He star tianna 2 L by nasal cannula 2 weeks ago at home. He speaks with a hoarse voice. It appears that he has difficulties catching his breath when he speaks. He currently denies right knee pain at rest but does have right knee pain with movement. Dr. Philippe took him to the operating room yesterday for septic right total knee arthroplasty and polyexchange. Currently postop day one. Blood cultures yesterday are positive for staph aureus sensitivities pending. MRSA screen negative. Aspiration of the right knee yesterday revealed 215,745 white cells with 97% segs. Staph aureus has also grown from right knee. ID and sensitivity pending. No previous history of MRSA. Probable MSSA. He has a dis tant history of having toenail problems but has had regular toenail care. He denies recent ingrown toenail infections. He has underlying diabetes and A. fib requiring Coumadin. He has been started on Vanco and Rocephin. Dr. Perez asked for consultation. He has chronic kidney disease with a creatinine yesterday of 1.4 with a creatinine today of 1.9. Nephrology consulted. cc:: CC: Asa Adler Review of Systems Review of systems: General: No fevers or chills. HEENT: Hoarse voice. No headaches no sore throat. 2 L by nasal cannula started 2 weeks ago. No neck complaints. Pulmonary: No current cough. He does have shortness of breath. At risk for aspiration pneumonia. Cardiac: He reports having murmur as a child with loss of murmur in his 20s. No history of rheumatic fever. GI: No abdominal pain or diarrhea. Extremities: Right leg as above. PFSH PFSH All Active Problems (Updated 02/17/21 @ 17:40 by Wenceslao Kim MD) Diabetes mellitus (Acute) Morbid obesity (Acute) Staphylococcus aureus bacteremia (Acute) Infection of prosthetic right knee joint (Acute) Acute renal failure superimposed on stage 3a chronic kidney disease (Acute) Dog bite of multiple sites of hand and fingers (Acute) Bite by animal (Acute) Hip sprain (Acute) Laceration of finger (Acute) Laceration of lip (Acute) Rib fracture (Acute) Hx of total knee arthroplasty (Acute) Septic arthritis (Acute) Congestive heart failure (Acute) Medical History Bite by animal Dog bite of multiple sites of hand and fingers Hip sprain Laceration of finger Laceration of lip Rib fracture Social History alcohol intake frequency: does not drink substance use type: does not use MEDS/ALLERGIES Home Medications and Allergies Home Medications Medication Instructions Recorded Confirmed Type Humalog KwikPen Insulin 0 unit SQ AC 08/29/15 02/16/21 History Lantus U-100 Insulin 53 - 55 unit SQ HS 08/29/15 02/16/21 History alpha lipoic acid 200 mg PO BID 08/29/15 02/16/21 History atenolol 25 mg PO BID 08/29/15 02/16/21 History coenzyme Q10 200 mg PO BID 08/29/15 02/16/21 History levocarnitine tartrate 500 mg PO BID 08/29/15 02/16/21 History losartan 100 mg PO DAILY 08/29/15 02/16/21 History red yeast rice 120 mg PO BID 08/29/15 02/16/21 History saw palmetto 450 mg PO BID 08/29/15 02/16/21 History Januvia 100 mg PO DAILY 07/11/17 02/16/21 History albuterol sulfate 2 puff INHALATION QID PRN 02/16/21 02/16/21 History aspirin 81 mg PO DAILY 02/16/21 02/16/21 History brinzolamide-brimonidine 1 drp OPHTHALMIC (EYE) BID 02/16/21 02/16/21 History [Simbrinza] fenugreek seed extract 610 mg PO BID 02/16/21 02/16/21 History furosemide [Lasix] 40 mg PO QDAY 02/16/21 02/16/21 History latanoprost 1 drp OPHTHALMIC (EYE) QPM 02/16/21 02/16/21 History potassium chloride 20 meq PO QDAY 02/16/21 02/16/21 History spironolactone 25 mg PO QDAY 02/16/21 02/16/21 History timolol 1 drp OPHTHALMIC (EYE) BID 02/16/21 02/16/21 History tiotropium-olodaterol [Stiolto 2 puff INHALATION BID 02/16/21 02/16/21 History Respimat] aspirin 81 mg PO BID #60 tab 02/17/21 Rx docusate sodium [DOK] 100 mg PO BID #60 cap 02/17/21 Rx oxycodone-acetaminophen 1 - 2 tab PO Q4HP PRN #75 tab 02/17/21 Rx Allergies Allergy/AdvReac Type Severity Reaction Status Date / Time hydrocodone AdvReac Mild Itching Verified 02/16/21 07:06 Physical Examination Vital Signs Vital signs: Temp Pulse Resp BP Pulse Ox 98.4 F 65 20 136/63 94 02/17/21 16:01 02/17/21 16:18 02/17/21 16:18 02/17/21 16:01 02/17/21 16:18 T-max 99.3 yesterday. Additional Exam Additional exam: General: He is sitting up in bed preparing to eat dinner. He does appear short of breath but able to answer questions in short sentences. HEENT: No thrush or lip lesions neck is full. Lungs: Clear without wheezing. Heart: Regular rate and rhythm without murmur. Abdomen: Morbidly obese. Extremities: Right knee with Jareth wrap. I did not remove the dressing. Skin dry. Results Laboratory Findings CBC and BMP: 02/17/21 04:25 02/17/21 04:25 Abnormal lab findings: Abnormal Labs 02/16/21 02/16/21 02/16/21 07:33 07:33 07:33 WBC 16.8 H RBC 4.17 L Hgb 12.6 L Hct 38.5 L POC Hct 39 L MCHC RDW 15.0 H MPV 10.7 H Neut % (Auto) 89.0 H Lymph % (Auto) 2.1 L Lymph # (Auto) 0.35 L Ferry # (Auto) 1.47 H Absolute Neutrophils 14.96 H ESR 94 H POC BUN 41 H BUN 44 H Creatinine 1.4 H POC Creatinine 1.7 H Glucose 170 H POC Glucose 172 H Uric Acid POC WB Ioniz Calcium 1.15 L Phosphorus Total Bilirubin 1.3 H Direct Bilirubin Lactate Dehydrogenase C-Reactive Protein 33.60 H NT-Pro-B Natriuret Pep Albumin 3.1 L Albumin/Globulin Ratio Procalcitonin Urine Appearance Urine Protein Granular Casts Urine Mucus Synovial Neutrophils 02/16/21 02/16/21 02/16/21 07:33 10:20 10:39 WBC RBC Hgb Hct POC Hct MCHC RDW MPV Neut % (Auto) Lymph % (Auto) Lymph # (Auto) Ferry # (Auto) Absolute Neutrophils ESR POC BUN BUN Creatinine POC Creatinine Glucose POC Glucose Uric Acid POC WB Ioniz Calcium Phosphorus Total Bilirubin Direct Bilirubin Lactate Dehydrogenase C-Reactive Protein NT-Pro-B Natriuret Pep 67349.0 H Albumin Albumin/Globulin Ratio Procalcitonin Urine Appearance Hazy A Urine Protein 100 A Granular Casts 7 H Urine Mucus Few A Synovial Neutrophils 97 H 02/16/21 02/16/21 02/16/21 19:53 19:53 19:53 WBC RBC Hgb Hct POC Hct MCHC RDW MPV Neut % (Auto) Lymph % (Auto) Lymph # (Auto) Ferry # (Auto) Absolute Neutrophils ESR 93 H POC BUN BUN Creatinine POC Creatinine Glucose POC Glucose Uric Acid POC WB Ioniz Calcium Phosphorus Total Bilirubin Direct Bilirubin Lactate Dehydrogenase C-Reactive Protein 36.40 H NT-Pro-B Natriuret Pep Albumin Albumin/Globulin Ratio Procalcitonin 9.32 H Urine Appearance Urine Protein Granular Casts Urine Mucus Synovial Neutrophils 02/17/21 02/17/21 04:25 04:25 WBC 12.8 H RBC 4.12 L Hgb 12.1 L Hct 39.8 L POC Hct MCHC 30.4 L RDW 15.0 H MPV 10.9 H Neut % (Auto) 93.1 H Lymph % (Auto) 1.7 L Lymph # (Auto) 0.22 L Ferry # (Auto) Absolute Neutrophils 11.94 H ESR POC BUN BUN 57 H Creatinine 1.9 H POC Creatinine Glucose 222 H POC Glucose Uric Acid 9.3 H POC WB Ioniz Calcium Phosphorus 6.4 H* Total Bilirubin Direct Bilirubin 0.3 H Lactate Dehydrogenase 252 H C-Reactive Protein 42.10 H NT-Pro-B Natriuret Pep Albumin 2.7 L Albumin/Globulin Ratio 0.8 L Procalcitonin Urine Appearance Urine Protein Granular Casts Urine Mucus Synovial Neutrophils Microbiology: Microbiology 02/16/21 10:39 Aspirate - Knee Gram Stain - Preliminary 02/16/21 10:39 Aspirate - Knee Body Fluid Culture - Preliminary Staphylococcus aureus 02/16/21 08:25 Blood Blood Culture - Preliminary Gram positive cocci 02/16/21 08:25 Blood Blood Culture - Preliminary Gram positive cocci 02/16/21 15:05 Nose - Both Right and Left MRSA (PCR) - Final A/P Assessment and plan (1) Infection of prosthetic right knee joint: Status: Acute Comment: Daljit is a 75-year-old morbidly obese diabetic with chronic kidney disease. He was admitted yesterday currently postop day one for right septic total knee arthroplasty with staph aureus. Polyexchange completed. He had 2 weeks of symptoms prior to admission of increasing right knee pain. No previous history of MRSA. Probable MSSA. (2) Staphylococcus aureus bacteremia: Status: Acute Comment: Follow-up on sensitivities. I am expecting to transition to IV Ancef 2 g IV every 8 hours. This would be considered dose adjustment for his acute on chronic kidney disease and associated morbid obesity. (3) Acute renal failure superimposed on stage 3a chronic kidney disease: Status: Acute Comment: Continue to monitor to baseline creatinine clearance. (4) Morbid obesity: Status: Acute Comment: Comorbid risk factor. (5) Diabetes mellitus: Status: Acute Comment: Comorbid risk factor. Recommendations #1. Repeat blood cultures tomorrow for clearance. Echocardiogram has been completed. I do not hear heart murmur. #2. Place a PICC line once blood cultures negative. Anticipating 6 weeks of IV Ancef. DC vancomycin once MSSA identified and not MRSA. Check weekly labs. I would be happy to see him in clinic follow-up. Thank you very much. Time Spent With Patient Time: Total time spent is greater than 50% in coordination of care (as documented) at patient's floor/unit and/or counseling patient:
[2021-02-17] MEDS ORDERED: LATANOPROST OPHTH DROPS 2.5ML BOTTLE OU SCH (21:00)
[2021-02-17] MEDS ORDERED: INSULIN GLARGINE, HUMAN 1 UNIT/0.01 ML SQ SCH (21:00)
[2021-02-17] MEDS: SENNOSIDES/DOCUSATE SODIUM 1 TAB TABLET PO SCH (21:31)
[2021-02-18] MEDS: ceFAZolin 1 GM VIAL IV SCH ×3 (05:53→21:24)
[2021-02-18] MEDS: 0.9 % SODIUM CHLORIDE 10 ML SYRINGE IV SCH ×3 (05:53→21:24)
[2021-02-18 07:22] LABS: Basophils # (Auto) 0.01 K/mcL (0.00-0.20); Basophils % (Auto) 0.1 % (0.0-2.0); Eosinophils # (Auto) 0.01 K/mcL (0.00-0.70); Eosinophils % (Auto) 0.1 % (0.0-7.0); Hematocrit 34.6 % (41.0-55.0); Lymphocytes # (Auto) 0.21 K/mcL (1.50-4.80); Lymphocytes % (Auto) 1.6 % (15.0-49.0); Mean Corpuscular HGB Conc 31.8 g/dL (31.0-36.0); Mean Platelet Volume 10.8 fL (7.4-10.4); Monocytes # (Auto) 0.89 K/mcL (0.10-0.90); Monocytes % (Auto) 6.7 % (1.0-12.0); Neutrophils % (Auto) 91.5 % (38.0-78.0); Platelet Count 278 K/mcL (140-440); RBC 3.68 M/mcL (4.50-5.90); Red Cell Distribution Width 15.1 % (11.5-14.5); WBC 13.3 K/mcL (4.5-11.0)
[2021-02-18] MEDS: INSULIN LISPRO 1 UNIT/0.01 ML UNIT SQ SCH ×5 (07:51→21:27)
[2021-02-18 08:20] LABS: ALT/SGPT 14 U/L (<40); AST/SGOT 31 U/L (<40); Albumin 2.7 gm/dL (3.2-5.2); Albumin/Globulin Ratio 0.8 (1.0-2.3); Alkaline Phosphatase 112 U/L (39-117); Bilirubin,Direct < 0.2 mg/dL (0-0.3); Bilirubin,Total 0.4 mg/dL (0.1-1.0); Blood Urea Nitrogen 83 mg/dL (8-23); Calcium 8.6 mg/dL (8.6-10.4); Carbon Dioxide 20 mmol/L (22-30); Chloride 97 mmol/L (96-108); Globulin 3.4 gm/dL (2.2-3.7); Glomerular Filtration Rate 33; Glucose 349 mg/dL (70-105); Lactate Dehydrogenase 263 U/L (135-225); Phosphorous 6.5 mg/dL (2.5-4.5); Triglycerides 130 mg/dL (<150); Uric Acid 10.2 mg/dL (2.5-8.0)
--- NOTE | 2021-02-18 08:30 | Nephrology Progress Note ---
SUBJECTIVE Subjective Patient information: Note initiated : 02/18/21 at 8:29 am Patient: Daljit Quintanilla 75 y/o M admitted on 02/16/21 for Rt Knee Pain, Unable To Walk. Chief Complaint: Right knee pain Pertinent ROS: Right knee pain Dobbs catheter Constitutional Vitals: Vital Signs Temp Pulse Resp BP Pulse Ox 98.4 F 61 17 132/97 97 02/18/21 08:02 02/18/21 08:25 02/18/21 08:25 02/18/21 08:02 02/18/21 08:25 Period Temp Pulse Resp BP Sys/Pichardo Pulse Ox Last 24 Hr 97.0 F-98.4 F 44-76 12-26 103-162/46-97 90-100 Intake and Output 02/17/21 02/18/21 02/18/21 21:59 05:59 13:59 Intake Total 1150 Output Total 1225 625 Balance -1225 525 Weight 352 lb 4.8 oz Intake & Output: Intake & Output 02/17/21 02/18/21 02/18/21 21:59 05:59 13:59 Intake Total 1150 Output Total 1225 625 Balance -1225 525 Weight 352 lb 4.8 oz Intake: IV 500 Vancomycin 1,500 mg In Sodium 500 Chloride 0.9% 500 ml @ 333.3 mls/hr IV Q12H [facility] Rx#: [id number] Oral 650 Output: Urine Catheter Amount 1225 625 Other: Urine Appearance Clear Urine Color Bright Yellow Bright Yellow General appearance: cooperative and no acute distress Head Head exam: Present normal inspection Eye Eye exam: Present normal appearance ENT ENT exam: Present mucous membranes moist Respiratory Respiratory exam: Absent respiratory distress Cardiovascular Cardiovascular exam: Present normal rate and rhythm GI/Abdominal GI/Abdominal exam: Present soft; Absent tenderness Extremities Exam Extremities exam: Present joint swelling and pedal edema Neurological Exam Neurological exam: Present alert and oriented X3 Psychiatric Psychiatric exam: Present normal affect and normal mood Skin Skin exam: Present warm; Absent rash A/P Assessment and plan (1) Acute renal failure superimposed on stage 3a chronic kidney disease: Assessment and plan: Daljit Quintanilla is a 75-year-old male with coronary artery disease, atrial fibrillation, hypertension, chronic obstructive pulmonary disease, diabetes mellitus type 2, chronic kidney disease stage 3a, morbid obesity (BMI 40), obstructive sleep apnea admitted on 02/16/21. He presented to the ED for shortness of breath and right knee pain and swelling. In ED, workup was consistent with right knee septic arthritis/bilateral chest infiltrates/88% sats on 4 L oxygen and a white count over 16,000. The patient underwent arthrocentesis. Baseline serum creatinine: 1.3 (eGFR 54) 1.3 on 10/25/17 and 1.4 (eGFR 48) on 02/16/21. Nephrology consultation was requested for acute kidney injury. Acute kidney injury on chronic kidney disease stage 3a associated with sepsis, present on arrival. There is no recent history of IV contrast administration. He took Aspirin 325 mg daily for knee pain at home and has been receiving Toradol in the hospital. There is no recent history of IV contrast administration. Acute postinfectious glomerulonephritis, acute interstitial nephritis or acute toxic nephropathy due to medications are considered, but unlikely per work up. Sepsis associated with right prosthetic knee septic arthritis and pneumonia. Right knee incision and synovectomy and polyliner exchange revision on 02/16/21. Work up: Urinalysis on 02/16/21: Yellow, hazy, pH 5.0, SG 1.013, protein 100, blood negative, leukocyte esterase negative. No renal imaging. Progress: Serum creatinine 1.9, did not change in the past 24 hours. Baseline serum creatinine: 1.3 (eGFR 54) 1.3 on 10/25/17 and 1.4 (eGFR 48) on 02/16/21. Urine output: 1,850 ml reported in the past 24 hours. No uremic symptoms. Recommendations/Plan: Anticipate no acute hemodialysis need. Diuretics as needed. Avoid NSAIDs, nephrotoxic medications and IV contrast. Hold CASI/ARB. Monitor BMP and urine output. Status: Acute Comment: Continue to monitor to baseline creatinine clearance. Time Spent With Patient Time: Total time spent is greater than 50% in coordination of care (as documented) at patient's floor/unit and/or counseling patient:
--- NOTE | 2021-02-18 09:05 | XRay Report ---
HISTORY: Congestive heart failure and pneumonia FINDINGS: The heart is mildly enlarged. It is magnified by portable technique. The diffuse ill-defined alveolar opacities seen in both lungs on 02/16/21 have improved but not resolved. There is no lobar consolidation or evidence of a pleural effusion. 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 IMPRESSION: Stable cardiomegaly with improving infiltrates in both lungs. This could be a combination of congestive heart failure and pneumonia. Interpreted and Authenticated by: Chacho Caballero 02/18/21
[2021-02-18] MEDS: sitaGLIPtin 100 MG TABLET PO SCH (10:12)
[2021-02-18] MEDS: ATENOLOL 25 MG TABLET PO SCH ×2 (10:12→21:25)
[2021-02-18] MEDS: ASPIRIN 81 MG TAB.CHEW PO SCH (10:12)
[2021-02-18] MEDS: MULTIVIT,THER IRON,CA,FA & MIN 1 TABLET PO SCH (10:12)
[2021-02-18] MEDS: DOCUSATE SODIUM 100 MG CAPSULE PO SCH ×2 (10:12→21:25)
[2021-02-18] MEDS: FUROSEMIDE 40 MG/4 ML VIAL IV SCH (10:12)
[2021-02-18] MEDS: THIAMINE 100 MG TABLET PO SCH (10:13)
[2021-02-18] MEDS: CYANOCOBALAMIN (VITAMIN B-12) 500 MCG TABLET PO SCH ×2 (10:13→21:25)
[2021-02-18] MEDS: BRINZOLAMIDE BRIMONIDINE OU SCH ×2 (10:16→21:26)
[2021-02-18] MEDS: TIMOLOL 0.5% OPHTH DROPS BOTTLE 5ML OU SCH ×2 (10:16→21:27)
[2021-02-18] MEDS: TIOTROPIUM OLODATEROL INH SCH (10:17)
[2021-02-18] MEDS: VANCOMYCIN 1,500 MG in 0.9 % SODIUM CHLORIDE 500 ML IV SCH (10:58)
[2021-02-18] MEDS: HEPARIN 5,000 UNIT/ML VIAL SQ SCH (21:23)
[2021-02-18] MEDS: TAMSULOSIN 0.4 MG CAPSULE PO SCH (21:25)
[2021-02-18] MEDS: SENNOSIDES/DOCUSATE SODIUM 1 TAB TABLET PO SCH (21:25)
[2021-02-18] MEDS: ROCKLATAN OU SCH (21:27)
[2021-02-18] MEDS: INSULIN GLARGINE, HUMAN 1 UNIT/0.01 ML SQ SCH (21:28)
[2021-02-19] MEDS: HEPARIN 5,000 UNIT/ML VIAL SQ SCH ×3 (06:04→22:22)
[2021-02-19] MEDS: ceFAZolin 1 GM VIAL IV SCH ×3 (06:04→22:22)
[2021-02-19] MEDS: 0.9 % SODIUM CHLORIDE 10 ML SYRINGE IV SCH ×3 (06:05→20:34)
[2021-02-19 07:10] LABS: Basophils # (Auto) 0.01 K/mcL (0.00-0.20); Basophils % (Auto) 0.1 % (0.0-2.0); Eosinophils # (Auto) 0.07 K/mcL (0.00-0.70); Eosinophils % (Auto) 0.6 % (0.0-7.0); Hematocrit 37.5 % (41.0-55.0); Hemoglobin 11.9 g/dL (13.5-16.5); Lymphocytes # (Auto) 0.23 K/mcL (1.50-4.80); Lymphocytes % (Auto) 2.1 % (15.0-49.0); Mean Corpuscular HGB Conc 31.7 g/dL (31.0-36.0); Mean Platelet Volume 10.3 fL (7.4-10.4); Monocytes # (Auto) 0.86 K/mcL (0.10-0.90); Monocytes % (Auto) 7.9 % (1.0-12.0); Neutrophils % (Auto) 89.3 % (38.0-78.0); Platelet Count 277 K/mcL (140-440); RBC 3.99 M/mcL (4.50-5.90); WBC 10.9 K/mcL (4.5-11.0)
[2021-02-19 07:36] LABS: ALT/SGPT 9 U/L (<40); AST/SGOT 22 U/L (<40); Albumin 2.7 gm/dL (3.2-5.2); Albumin/Globulin Ratio 0.8 (1.0-2.3); Alkaline Phosphatase 112 U/L (39-117); Bilirubin,Direct < 0.2 mg/dL (0-0.3); Bilirubin,Total 0.3 mg/dL (0.1-1.0); Blood Urea Nitrogen 87 mg/dL (8-23); Carbon Dioxide 24 mmol/L (22-30); Chloride 102 mmol/L (96-108); Globulin 3.3 gm/dL (2.2-3.7); Glomerular Filtration Rate 31; Glucose 218 mg/dL (70-105); Lactate Dehydrogenase 234 U/L (135-225); Phosphorous 4.9 mg/dL (2.5-4.5); Triglycerides 116 mg/dL (<150); Uric Acid 10.4 mg/dL (2.5-8.0)
--- NOTE | 2021-02-19 07:52 | Nephrology Progress Note ---
SUBJECTIVE Subjective Patient information: Note initiated : 02/19/21 at 7:50 am Patient: Daljit Quintanilla 75 y/o M admitted on 02/16/21 for Rt Knee Pain, Unable To Walk. Chief Complaint: Right knee pain Pertinent ROS: Confused today Dobbs catheter Right knee pain Constitutional Vitals: Vital Signs Temp Pulse Resp BP Pulse Ox 97.8 F 46 L 20 142/69 99 02/19/21 02:53 02/19/21 04:01 02/19/21 04:31 02/19/21 04:01 02/19/21 04:01 Period Temp Pulse Resp BP Sys/Pichardo Pulse Ox Last 24 Hr 96.9 F-98.8 F 46-64 12-27 123-164/51-141 92-100 Intake and Output 02/18/21 02/19/21 02/19/21 21:59 05:59 13:59 Intake Total 640 530 Output Total 450 1400 Balance 190 -870 Weight 356 lb 4.8 oz Intake & Output: Intake & Output 02/18/21 02/19/21 02/19/21 21:59 05:59 13:59 Intake Total 640 530 Output Total 450 1400 Balance 190 -870 Weight 356 lb 4.8 oz Intake: Oral 640 500 IV - Manual Only 30 Output: Urine Catheter Amount 450 1125 Void Amount 275 Other: Meal Dinner Percent of Meal Consumed 50% Feeding Ability Assist with Tray Set Up Urine Appearance Clear Uretheral (Dobbs) Cloudy Urine Color Bright Yellow Uretheral (Dobbs) Light Daya Urine Odor Normal General appearance: cooperative and no acute distress Head Head exam: Present normal inspection Eye Eye exam: Present normal appearance ENT ENT exam: Present mucous membranes moist Respiratory Respiratory exam: Absent respiratory distress Cardiovascular Cardiovascular exam: Present normal rate and rhythm GI/Abdominal GI/Abdominal exam: Present soft and tenderness Extremities Exam Extremities exam: Present joint swelling and pedal edema Neurological Exam Neurological exam: Present alert Skin Skin exam: Present warm; Absent rash A/P Assessment and plan (1) Acute renal failure superimposed on stage 3a chronic kidney disease: Assessment and plan: Daljit Quintanilla is a 75-year-old male with coronary artery disease, atrial fibrillation, hypertension, chronic obstructive pulmonary disease, diabetes mellitus type 2, chronic kidney disease stage 3a, morbid obesity (BMI 40), obstructive sleep apnea admitted on 02/16/21. He presented to the ED for shortness of breath and right knee pain and swelling. In ED, workup was consistent with right knee septic arthritis/bilateral chest infiltrates/88% sats on 4 L oxygen and a white count over 16,000. The patient underwent arthrocentesis. Baseline serum creatinine: 1.3 (eGFR 54) 1.3 on 10/25/17 and 1.4 (eGFR 48) on 02/16/21. Nephrology consultation was requested for acute kidney injury. Acute kidney injury on chronic kidney disease stage 3a associated with sepsis, present on arrival. There is no recent history of IV contrast administration. He took Aspirin 325 mg daily for knee pain at home and has been receiving Toradol in the hospital. There is no recent history of IV contrast administration. Acute postinfectious glomerulonephritis, acute interstitial nephritis or acute toxic nephropathy due to medications are considered, but unlikely per work up. Sepsis associated with right prosthetic knee septic arthritis and pneumonia. Right knee incision and synovectomy and polyliner exchange revision on 02/16/21. Work up: Urinalysis on 02/16/21: Yellow, hazy, pH 5.0, SG 1.013, protein 100, blood negative, leukocyte esterase negative. No renal imaging. Progress: Serum creatinine increased from 1.9 to 2.0 in the past 24 hours. Baseline serum creatinine: 1.3 (eGFR 54) 1.3 on 10/25/17 and 1.4 (eGFR 48) on 02/16/21. Urine output: 2,675 ml reported in the past 24 hours. No uremic symptoms. Recommendations/Plan: Anticipate no acute hemodialysis need. Diuretics as needed. Avoid NSAIDs, nephrotoxic medications and IV contrast. Hold CASI/ARB. Monitor BMP and urine output. Status: Acute Comment: Continue to monitor to baseline creatinine clearance. Time Spent With Patient Time: Total time spent is greater than 50% in coordination of care (as documented) at patient's floor/unit and/or counseling patient:
[2021-02-19] MEDS: INSULIN LISPRO 1 UNIT/0.01 ML UNIT SQ SCH ×7 (08:57→20:33)
[2021-02-19] MEDS: CYANOCOBALAMIN (VITAMIN B-12) 500 MCG TABLET PO SCH ×2 (10:48→20:33)
[2021-02-19] MEDS: THIAMINE 100 MG TABLET PO SCH (10:48)
[2021-02-19] MEDS: ATENOLOL 25 MG TABLET PO SCH ×2 (10:48→20:33)
[2021-02-19] MEDS: FUROSEMIDE 40 MG/4 ML VIAL IV SCH ×5 (10:48→20:32)
[2021-02-19] MEDS: sitaGLIPtin 100 MG TABLET PO SCH (10:48)
[2021-02-19] MEDS: MULTIVIT,THER IRON,CA,FA & MIN 1 TABLET PO SCH (10:48)
[2021-02-19] MEDS: TIMOLOL 0.5% OPHTH DROPS BOTTLE 5ML OU SCH ×2 (10:50→20:36)
[2021-02-19] MEDS: ALBUTEROL SULFATE 200 PUFF INHALER INH PRN (10:51)
[2021-02-19] MEDS: BRINZOLAMIDE BRIMONIDINE OU SCH ×2 (10:51→20:36)
[2021-02-19] MEDS: DOCUSATE SODIUM 100 MG CAPSULE PO SCH ×2 (11:49→20:34)
[2021-02-19] MEDS: TIOTROPIUM OLODATEROL INH SCH (11:50)
--- NOTE | 2021-02-19 12:50 | Internal Med Progress Note ---
SUBJECTIVE Subjective Patient information: Note initiated : 02/19/21 at 12:49 pm Service Date, if different from initiated Date: [] Patient: Daljit Quintanilla 75 y/o M admitted on 02/16/21 for Rt Knee Pain, Unable To Walk. Chief Complaint: [] Interval history: Mr. Quintanilla is a 75 year old morbidly obese male with a history of HTN/A. fib/DM type II/CAD/COPD on 3 L oxygen/JOELLEN/P HTN/DJD who presents to the ER with increasing shortness of breath/fatigue/inability to function over the last 4 days. Symptoms are progressed with subjective fever since yesterday along with right knee pain swelling and difficulty ambulating and bearing weight. He denies trauma or fall. Initial work-up in the ER was consistent with right knee septic arthritis/bilateral chest infiltrates/88% sats on 4 L oxygen and a white count over 16,000. Patient underwent arthrocentesis, cultures were drawn and antibiotics initiated. Dr. Ricci orthopedics was consulted for evaluation of septic arthritis. Hospital service was requested for admission in light of above At the time of my evaluation patient is accompanied with his . He was able to answer most the questions. Is currently on 4 L oxygen. Feeling short of breath. Endorses history as above. Denies shaking chills or sweats but endorses to fever along with weakness fatigue and elevated function. He n ormally uses CPAP and has been able to perform ADLs but over the last 4 days have gradually deteriorated to the point he is unable to move around or even get out of bed due to extreme fatigue and weakness. He denies productive sputum, denies rash, diarrhea, headache photophobia 02/17-patient clinically improving. Now on 2 L oxygen. White count downtrending from 16.8-12.8. Gram-positive cocci in blood cultures. Surveillance cultures pending. Echocardiogram ordered. No clear source identified except for the lower extremity sequential compressive device that he uses at home with resultant skin breakdown and leakage. Wound care/infectious disease consulted. Worsening renal function at 1.9. Nephrology consult. CRP 42. Continue Rocephin/vancomycin and de-escalate based on culture sensitivities. 02/18-Awaiting cultures, continues on IV antibiotic. ID plans 6 weeks IV antibiotic treatment course via PICC-awaiting negative cultures before PICC placement. Awaiting ECHO report. Chest xray shows improving bilateral infiltrates. Creatinine appears to have plateaued, nephrology following. Vancomycin trough elevated so holding dose today. 02/19-increased lasix for diuresis, blood cultures sensitivities pending, ECHO report pending Head: Atraumatic, normal inspection. Eyes: normal appearance, no scleral icterus. Neck: full ROM Respiratory: on nasal canula oxygen, no respiratory distress. Cardiovascular: normal rate and rhythm, S1, S2. GI/Abdominal: central obesity, soft, nontender, no guarding. Extremities: tender right knee, bilateral lower extremity edema Neurological: CN II-XII intact, intact motor, intact sensation. Psychiatric: normal mood. Skin: warm, normal color Constitutional Vitals: Vital Signs Temp Pulse Resp BP Pulse Ox 97.6 F 54 L 17 157/119 98 02/19/21 08:07 02/19/21 08:07 02/19/21 09:07 02/19/21 09:01 02/19/21 08:07 Period Temp Pulse Resp BP Sys/Pichardo Pulse Ox Last 24 Hr 96.9 F-97.8 F 46-93 12-27 123-164/51-141 92-100 Intake and Output 02/18/21 02/19/21 02/19/21 21:59 05:59 13:59 Intake Total 640 530 Output Total 450 1400 1025 Balance 190 -870 -1025 Weight 161.615 kg Intake & Output: Intake & Output 02/18/21 02/19/21 02/19/21 21:59 05:59 13:59 Intake Total 640 530 Output Total 450 1400 1025 Balance 190 -870 -1025 Weight 161.615 kg Intake: Oral 640 500 IV - Manual Only 30 Output: Urine Catheter Amount 450 1125 1025 Void Amount 275 Other: Meal Dinner Percent of Meal Consumed 50% Feeding Ability Assist with Tray Set Up Urine Appearance Clear Uretheral (Bellamy) Cloudy Urine Color Bright Yellow Light Daya Uretheral (Bellamy) Light Daya Urine Odor Normal OBJ DATA Labs CBC & Chem 7: 02/19/21 06:09 02/19/21 06:09 Labs: Abnormal Lab Results 02/19/21 02/19/21 02/19/21 06:09 06:09 06:09 WBC RBC 3.99 L Hgb 11.9 L Hct 37.5 L MCHC RDW 15.0 H MPV Neut % (Auto) 89.3 H Lymph % (Auto) 2.1 L Lymph # (Auto) 0.23 L Absolute Neutrophils 9.73 H ESR Sodium Carbon Dioxide BUN 87 H Creatinine 2.0 H Glucose 218 H Uric Acid 10.4 H Phosphorus 4.9 H Magnesium 2.6 H Direct Bilirubin GGT 67 H Lactate Dehydrogenase 234 H C-Reactive Protein Albumin 2.7 L Albumin/Globulin Ratio 0.8 L Procalcitonin Synovial Neutrophils Vancomycin Trough 20.1 H* 02/18/21 02/18/21 02/18/21 08:17 06:17 06:17 WBC 13.3 H RBC 3.68 L Hgb 11.0 L Hct 34.6 L MCHC RDW 15.1 H MPV 10.8 H Neut % (Auto) 91.5 H Lymph % (Auto) 1.6 L Lymph # (Auto) 0.21 L Absolute Neutrophils 12.21 H ESR Sodium 131 L Carbon Dioxide 20 L BUN 83 H Creatinine 1.9 H Glucose 349 H Uric Acid 10.2 H Phosphorus 6.5 H* Magnesium Direct Bilirubin GGT Lactate Dehydrogenase 263 H C-Reactive Protein Albumin 2.7 L Albumin/Globulin Ratio 0.8 L Procalcitonin Synovial Neutrophils Vancomycin Trough 30.8 H* 02/17/21 02/17/21 02/16/21 04:25 04:25 19:53 WBC 12.8 H RBC 4.12 L Hgb 12.1 L Hct 39.8 L MCHC 30.4 L RDW 15.0 H MPV 10.9 H Neut % (Auto) 93.1 H Lymph % (Auto) 1.7 L Lymph # (Auto) 0.22 L Absolute Neutrophils 11.94 H ESR Sodium Carbon Dioxide BUN 57 H Creatinine 1.9 H Glucose 222 H Uric Acid 9.3 H Phosphorus 6.4 H* Magnesium Direct Bilirubin 0.3 H GGT Lactate Dehydrogenase 252 H C-Reactive Protein 42.10 H Albumin 2.7 L Albumin/Globulin Ratio 0.8 L Procalcitonin 9.32 H Synovial Neutrophils Vancomycin Trough 02/16/21 02/16/21 02/16/21 19:53 19:53 10:39 WBC RBC Hgb Hct MCHC RDW MPV Neut % (Auto) Lymph % (Auto) Lymph # (Auto) Absolute Neutrophils ESR 93 H Sodium Carbon Dioxide BUN Creatinine Glucose Uric Acid Phosphorus Magnesium Direct Bilirubin GGT Lactate Dehydrogenase C-Reactive Protein 36.40 H Albumin Albumin/Globulin Ratio Procalcitonin Synovial Neutrophils 97 H Vancomycin Trough Meds: Medications Acetaminophen (Acetaminophen 325 Mg Tablet) 650 mg PO Q4-6HP PRN; Protocol PRN Reason: Per Pain Protocol/Fever > 101 Albuterol Sulfate (Albuterol Sulfate 200 Puff Inhaler) 2 puff INH QIDP PRN PRN Reason: Shortness Of Breath Or Wheezin Last Admin: 02/19/21 10:51 Dose: 2 puff Documented by: Atenolol (Atenolol 25 Mg Tablet) 25 mg PO BID [facility] Last Admin: 02/19/21 10:48 Dose: 25 mg Documented by: Bisacodyl (Bisacodyl 10 Mg Supp.Rect) 10 mg AZ Q2-3DAYS PRN PRN Reason: Constipation Cefazolin Sodium (Cefazolin 1 Gm Vial) 2 gm IV Q8H [facility]; Protocol Last Admin: 02/19/21 06:04 Dose: 2 gm Documented by: Cyanocobalamin (Cyanocobalamin (Vitamin B-12) 500 Mcg Tablet) 1,000 mcg PO BID [facility] Stop: 02/21/21 09:01 Last Admin: 02/19/21 10:48 Dose: 1,000 mcg Documented by: Dextrose (Dextrose 50% 50 Ml Vial) 0 ml IV UD PRN PRN Reason: Hypoglycemia Diagnostic Test (Pha) (Accu-Chek 1 Each Strip) 1 each FS ACHS [facility] Last Admin: 02/19/21 11:49 Dose: 1 each Documented by: Docusate Sodium (Docusate Sodium 100 Mg Capsule) 100 mg PO BID [facility] Last Admin: 02/19/21 11:49 Dose: Not Given Documented by: Furosemide (Furosemide 40 Mg/4 Ml Vial) 40 mg IV TID [facility] Glucose (Dextrose 31 Gm Oral.Susp) 15 gm PO PRN PRN PRN Reason: Hypoglycemia Guaifenesin/Codeine Phosphate (Guaifenesin/Codeine 10 Ml Udc) 10 ml PO Q4HP PRN PRN Reason: Cough Heparin Sodium (Porcine) (Heparin 5,000 Unit/Ml Vial) 5,000 unit SQ Q8H [facility] Last Admin: 02/19/21 06:04 Dose: 5,000 unit Documented by: Hydromorphone HCl (Hydromorphone 1 Mg/Ml Syringe) 0.5 - 2 mg IV Q2HP PRN; Pr otocol PRN Reason: Per Pain Protocol Potassium Chloride 40 meq/ (Dextrose) 520 mls @ 130 mls/hr IV UD PRN PRN Reason: K+ = or < 3.5 Acetaminophen (Ofirmev) 650 mg in 65 mls @ 130 mls/hr IV Q6HP PRN; Protocol PRN Reason: Per Pain Protocol/Fever > 101 Magnesium Sulfate (Magnesium Sulfate) 2 gm in 50 mls @ 50 mls/hr IV UD PRN PRN Reason: MG = or < 1.7 Insulin Glargine (Insulin Glargine, Human 1 Unit/0.01 Ml) 60 unit SQ [facility] Last Admin: 02/18/21 21:28 Dose: 60 unit Documented by: Insulin Human Lispro (Insulin Lispro 1 Unit/0.01 Ml Unit) 0 unit SQ [facility]; Protocol Last Admin: 02/19/21 12:14 Dose: 6 units Documented by: Insulin Human Lispro (Insulin Lispro 1 Unit/0.01 Ml Unit) 15 unit SQ [facility] Iron Carb/Multivit/[place]/Folic Acid (Multivit,Ther Iron,Ca,Fa & Min 1 Tablet) 1 tab PO DAILY [facility] Last Admin: 02/19/21 10:48 Dose: 1 tab Documented by: Magnesium Hydroxide (Magnesium Hydroxide 30 Ml Oral.Susp) 30 ml PO BIDP PRN PRN Reason: Constipation Melatonin (Melatonin 3 Mg Tablet) 3 mg PO HSP PRN PRN Reason: Insomnia Metoprolol Tartrate (Metoprolol Tartrate 5 Mg/5 Ml Vial) 5 mg IV Q5M PRN PRN Reason: Heart Rate > 140 bpm Ondansetron HCl (Ondansetron 4 Mg/2 Ml Vial) 4 mg IV Q4HP PRN PRN Reason: Nausea And Vomiting Ondansetron HCl (Ondansetron 4 Mg Odt Tablet) 4 mg SL Q4-6HP PRN; Protocol PRN Reason: Nausea And Vomiting Oxycodone/Acetaminophen (Oxycodone/Apap 5/325mg Tablet) 1 - 2 tab PO Q4HP PRN; Protocol PRN Reason: Per Pain Protocol Brinzolamide- Brimonidine [ Simbrinza] 1-0.2 % Drop 1 dose OU BID [facility] Last Admin: 02/19/21 10:51 Dose: 1 dose Documented by: Tiotropium- Olodaterol [Stiolto Respimat] 2.5-2.5 Mcg/Act Inhaler 2 dose INH DAILY [facility] Last Admin: 02/19/21 11:50 Dose: Not Given Documented by: Rocklatan ( Netarsudil And Latanoprost) 0.02%/0 .005% Ophthalmic Solution 1 dose OU [facility] Last Admin: 02/18/21 21:27 Dose: 1 dose Documented by: Polyethylene Glycol (Polyethylene Glycol 3350 17 Gm Packet) 17 gm PO DAILYP PRN PRN Reason: Constipation Senna/Docusate Sodium (Sennosides/Docusate Sodium 1 Tab Tablet) 1 tab PO [facility] Last Admin: 02/18/21 21:25 Dose: 1 tab Documented by: Sitagliptin Phosphate (Sitagliptin 100 Mg Tablet) 100 mg PO DAILY [facility] Last Admin: 02/19/21 10:48 Dose: 100 mg Documented by: Sodium Biphosphate/Sodium Phosphate (Fleets Adult Enema) 1 dose AZ Q3-4DAYS PRN PRN Reason: Constipation Sodium Chloride (0.9 % Sodium Chloride 10 Ml Syringe) 10 ml IV Q8 [facility] Last Admin: 02/19/21 06:05 Dose: 10 ml Documented by: Tamsulosin HCl (Tamsulosin 0.4 Mg Capsule) 0.4 mg PO [facility] Last Admin: 02/18/21 21:25 Dose: 0.4 mg Documented by: Temazepam (Temazepam 15 Mg Capsule) 15 mg PO HSP PRN PRN Reason: Insomnia Thiamine HCl (Thiamine 100 Mg Tablet) 100 mg PO DAILY [facility] Last Admin: 02/19/21 10:48 Dose: 100 mg Documented by: Throat Lozenges (Benzocaine/Menthol 1 Lozenge) 1 lozenge PO PRN PRN PRN Reason: Sore Throat Timolol Maleate (Timolol 0.5% Ophth Drops Bottle 5ml) 1 gtt OU BID [facility] Last Admin: 02/19/21 10:50 Dose: 1 drop Documented by: Vancomycin HCl (Vancomycin Per Pharmacy) 1 order IV UD [facility]; Protocol A/P Narrative A/P Narrative: Assessment: 75 year old morbidly obese male with a history of HTN/A. fib/DM type II/CAD/COPD on 3 L oxygen/JOELLEN/P HTN/DJD admitted for severe sepsis secondary to gram positive bacteremia complicated by septic right prosthetic knee (now s/p right knee incision and synovectomy and polyliner exchange on 02/16/21), acute hypoxic respiratory failure, multifocal pneumonia, and acute kidney injury. #Right prosthetic knee septic arthritis-Gram stain/culture obtained-growing staph. Status post joint washout. ID following. #Gram-positive bacteremia-continue surveillance cultures/echocardiogram/de- escalation of antibiotics based on cultures #Multifocal bibasilar pneumonia-Covid negative empiric antibiotic coverage for community-acquired pathogens #Hypoxic respiratory failure-likely due to pneumonia and CHF #Acute kidney injury w/ volume overload-possible ATN #Acute on chronic CHF-previous echo 55% EF 2010. Follows up with [place] [facility]. #Obstructive sleep apnea continue home CPAP #History atrial fibrillation #History hypertension #DM type II #Chronic pain #History of CAD #History of glaucoma continue brimonidine #BPH Plan Surveillance cultures/echocardiogram pending Wound care/nephrology/ID consult Continue IV antibiotics, anticipate retirement treatment. Start lasix 40 mg IV TID-follow renal function and diuresis parameters. Lantus 60 units HS. Increase prandial Humalog to 15 units. Continue SSI. Continue Flomax. Remove bellamy when able. Pre-existing medical condition management as above CPAP at bedtime PT/OT Nutrition support DVT ppx: heparin SQ Code status: Full Disposition: SNF on IV antibiotic via PICC with ID and orthopedic surgery follow up. Time Spent With Patient Time: Total time spent is greater than 50% in coordination of care (as documented) at patient's floor/unit and/or counseling patient:
--- NOTE | 2021-02-19 16:14 | General Surgery Consult Note ---
HPI Data of Consult Consult date: 02/17/21 Requesting physician: Asa Adler Primary Care Provider: Vivi Jack Consult Narrative Patient Information: Note initiated : 02/19/21 at 4:06 pm Service Date, if different from initiated Date: [] Patient: Daljit Quintanilla 75 y/o M admitted on 02/16/21 for Rt Knee Pain, Unable To Walk. Chief Complaint: Patient admitted via ER with acute medial cardiac, respiratory, renal problems and is being treated for same. Currently in ICU 120/C I saw this gentleman along with María Pinon RN In Patient wound care nurse, for evaluation of skin lesions over toes. I reviewed details of his presentation and treatment since hospitalization. Discussed his wound care management with Dr. Vazquez, Hospitalist MD ] cc:: CC: Asa Adler PFSH PFSH All Active Problems Diabetes mellitus (Acute) Morbid obesity (Acute) Staphylococcus aureus bacteremia (Acute) Infection of prosthetic right knee joint (Acute) Acute renal failure superimposed on stage 3a chronic kidney disease (Acute) Dog bite of multiple sites of hand and fingers (Acute) Bite by animal (Acute) Hip sprain (Acute) Laceration of finger (Acute) Laceration of lip (Acute) Rib fracture (Acute) Hx of total knee arthroplasty (Acute) Septic arthritis (Acute) Congestive heart failure (Acute) Medical History Bite by animal Dog bite of multiple sites of hand and fingers Hip sprain Laceration of finger Laceration of lip Rib fracture Social History alcohol intake frequency: does not drink substance use type: does not use MEDS/ALLERGIES Home Medications and Allergies Home Medications Medication Instructions Recorded Confirmed Type Humalog KwikPen Insulin 0 unit SQ AC 08/29/15 02/16/21 History Lantus U-100 Insulin 53 - 55 unit SQ HS 08/29/15 02/16/21 History alpha lipoic acid 200 mg PO BID 08/29/15 02/16/21 History atenolol 25 mg PO BID 08/29/15 02/16/21 History coenzyme Q10 200 mg PO BID 08/29/15 02/16/21 History levocarnitine tartrate 500 mg PO BID 08/29/15 02/16/21 History losartan 100 mg PO DAILY 08/29/15 02/16/21 History red yeast rice 120 mg PO BID 08/29/15 02/16/21 History saw palmetto 450 mg PO BID 08/29/15 02/16/21 History Januvia 100 mg PO DAILY 07/11/17 02/16/21 History albuterol sulfate 2 puff INHALATION QID PRN 02/16/21 02/16/21 History aspirin 81 mg PO DAILY 02/16/21 02/16/21 History brinzolamide-brimonidine 1 drp OPHTHALMIC (EYE) BID 02/16/21 02/16/21 History [Simbrinza] fenugreek seed extract 610 mg PO BID 02/16/21 02/16/21 History furosemide [Lasix] 40 mg PO QDAY 02/16/21 02/16/21 History potassium chloride 20 meq PO QDAY 02/16/21 02/16/21 History spironolactone 25 mg PO QDAY 02/16/21 02/16/21 History timolol 1 drp OPHTHALMIC (EYE) BID 02/16/21 02/16/21 History tiotropium-olodaterol [Stiolto 2 puff INHALATION BID 02/16/21 02/16/21 History Respimat] aspirin 81 mg PO BID #60 tab 02/17/21 Rx docusate sodium [DOK] 100 mg PO BID #60 cap 02/17/21 Rx oxycodone-acetaminophen 1 - 2 tab PO Q4HP PRN #75 tab 02/17/21 Rx netarsudil-latanoprost [Rocklatan] 1 drp OPHTHALMIC (EYE) QPM 02/18/21 02/18/21 History Allergies Allergy/AdvReac Type Severity Reaction Status Date / Time hydrocodone AdvReac Mild Itching Verified 02/16/21 07:06 Physical Examination Vital Signs Vital signs: Temp Pulse Resp BP Pulse Ox 97.6 F 46 L 17 155/76 100 02/19/21 12:01 02/19/21 12:52 02/19/21 12:52 02/19/21 12:52 02/19/21 12:52 General physical appearance General physical exam: well developed, well nourished, moderate distress, obese and other (SOB and on supplemental oxygen by mask. Saturating over 96%) Eyes Eye exam: PERRL and normal ocular movement ENT ENT exam: normal pinna, normal nares and normal mucosa Head Head exam IM: Present atraumatic and normocephalic Neck Neck exam: no masses and no venous distension Cardiovascular Cardiovascular exam IM: Present irregular rhythm and tachycardia Respiratory Respiratory exam: other (Talking in full sentences. SOB in few seconds. Tachypnea and Tachycardia resolving. ALERT and oriented. ) Abdomen Abdomen: Present soft and non tender Integumentary Integumentary: Present other (Dry callosities over pressure areas of both feet / toes. No signs of acute infection or inflammation.) Neurologic Neurologic: Present other (Sitting in bed. NO focal neurological deficits. Moves all extremities. ) Musculoskeletal Musculoskeletal: Present normal posture and other Results Labs Result diagrams: 02/20/21 04:52 02/20/21 04:52 Labs: Abnormal lab results 02/19/21 02/19/21 02/19/21 Range/Units 06:09 06:09 06:09 RBC 3.99 L (4.50-5.90) M/mcL Hgb 11.9 L (13.5-16.5) g/dL Hct 37.5 L (41.0-55.0) % RDW 15.0 H (11.5-14.5) % Neut % (Auto) 89.3 H (38.0-78.0) % Lymph % (Auto) 2.1 L (15.0-49.0) % Lymph # (Auto) 0.23 L (1.50-4.80) K/mcL Absolute Neutrophils 9.73 H (1.80-8.00) K/mcL BUN 87 H (8-23) mg/dL Creatinine 2.0 H (0.7-1.2) mg/dL Glucose 218 H (70-105) mg/dL Uric Acid 10.4 H (2.5-8.0) mg/dL Phosphorus 4.9 H (2.5-4.5) mg/dL Magnesium 2.6 H (1.6-2.5) mg/dL GGT 67 H (8-61) U/L Lactate Dehydrogenase 234 H (135-225) U/L Albumin 2.7 L (3.2-5.2) gm/dL Albumin/Globulin Ratio 0.8 L (1.0-2.3) Vancomycin Trough 20.1 H* ug/mL Diabetes panel 02/19/21 Range/Units 06:09 Sodium 135 (133-145) mmol/L Potassium 4.7 (3.3-5.1) mmol/L Chloride 102 (96-108) mmol/L Carbon Dioxide 24 (22-30) mmol/L BUN 87 H (8-23) mg/dL Creatinine 2.0 H (0.7-1.2) mg/dL Glucose 218 H (70-105) mg/dL Calcium 9.0 (8.6-10.4) mg/dL AST 22 (<40) U/L ALT 9 (<40) U/L Alkaline Phosphatase 112 (39-117) U/L Total Protein 6.0 (5.9-8.4) gm/dL Albumin 2.7 L (3.2-5.2) gm/dL Triglycerides 116 (<150) mg/dL Calcium panel 02/19/21 Range/Units 06:09 Calcium 9.0 (8.6-10.4) mg/dL Phosphorus 4.9 H (2.5-4.5) mg/dL Albumin 2.7 L (3.2-5.2) gm/dL Pituitary panel 02/19/21 Range/Units 06:09 Sodium 135 (133-145) mmol/L Potassium 4.7 (3.3-5.1) mmol/L Chloride 102 (96-108) mmol/L Carbon Dioxide 24 (22-30) mmol/L BUN 87 H (8-23) mg/dL Creatinine 2.0 H (0.7-1.2) mg/dL Glucose 218 H (70-105) mg/dL Calcium 9.0 (8.6-10.4) mg/dL Adrenal panel 02/19/21 Range/Units 06:09 Sodium 135 (133-145) mmol/L Potassium 4.7 (3.3-5.1) mmol/L Chloride 102 (96-108) mmol/L Carbon Dioxide 24 (22-30) mmol/L BUN 87 H (8-23) mg/dL Creatinine 2.0 H (0.7-1.2) mg/dL Glucose 218 H (70-105) mg/dL Calcium 9.0 (8.6-10.4) mg/dL Total Bilirubin 0.3 (0.1-1.0) mg/dL AST 22 (<40) U/L ALT 9 (<40) U/L Alkaline Phosphatase 112 (39-117) U/L Total Protein 6.0 (5.9-8.4) gm/dL Albumin 2.7 L (3.2-5.2) gm/dL All other labs normal. A/P Narrative A/P Narrative: Assessment: Dry callosities over dorsal aspect of toes. Clean and adherent to underlying skin. Moisture dermatitis between toes. NO evidence of acute infection or inflammation. NO need for debridement at this time. Plan: Conservative management at this time. See wound care orders. Discussed with nursing staff and Hospitalist Physician. AWAIT resolution of acute medical problems. F/U at wound care center, when stable and discharged. Time Spent With Patient Time: Total time spent is greater than 50% in coordination of care (as documented) at patient's floor/unit and/or counseling patient: Total time spent with greater than 50% in coordination of care (as documented) at patient's floor/unit and/or counseling patient:: 15 - 24 minutes
[2021-02-19] MEDS: ACETAMINOPHEN 325 MG TABLET PO PRN (18:03)
[2021-02-19] MEDS: INSULIN GLARGINE, HUMAN 1 UNIT/0.01 ML SQ SCH (20:33)
[2021-02-19] MEDS: TAMSULOSIN 0.4 MG CAPSULE PO SCH (20:33)
[2021-02-19] MEDS: SENNOSIDES/DOCUSATE SODIUM 1 TAB TABLET PO SCH (20:33)
[2021-02-19] MEDS: ROCKLATAN OU SCH (20:36)
[2021-02-20] MEDS: 0.9 % SODIUM CHLORIDE 10 ML SYRINGE IV SCH ×3 (05:38→21:48)
[2021-02-20] MEDS: HEPARIN 5,000 UNIT/ML VIAL SQ SCH ×3 (05:38→21:47)
[2021-02-20] MEDS: ceFAZolin 1 GM VIAL IV SCH ×3 (05:39→21:47)
[2021-02-20] MEDS: ACETAMINOPHEN 325 MG TABLET PO PRN ×2 (05:49→14:56)
[2021-02-20 06:16] LABS: Basophils # (Auto) 0.02 K/mcL (0.00-0.20); Basophils % (Auto) 0.2 % (0.0-2.0); Eosinophils # (Auto) 0.17 K/mcL (0.00-0.70); Eosinophils % (Auto) 1.7 % (0.0-7.0); Hematocrit 39.5 % (41.0-55.0); Hemoglobin 12.4 g/dL (13.5-16.5); Lymphocytes # (Auto) 0.25 K/mcL (1.50-4.80); Lymphocytes % (Auto) 2.5 % (15.0-49.0); Mean Cell Volume 93.8 fL (80.0-100.0); Mean Corpuscular HGB Conc 31.4 g/dL (31.0-36.0); Mean Platelet Volume 10.5 fL (7.4-10.4); Neutrophils % (Auto) 87.6 % (38.0-78.0); Platelet Count 278 K/mcL (140-440); RBC 4.21 M/mcL (4.50-5.90); Red Cell Distribution Width 14.8 % (11.5-14.5)
[2021-02-20 07:09] LABS: ALT/SGPT < 5 U/L (<40); AST/SGOT 15 U/L (<40); Albumin 2.8 gm/dL (3.2-5.2); Albumin/Globulin Ratio 0.9 (1.0-2.3); Alkaline Phosphatase 106 U/L (39-117); Bilirubin,Direct < 0.2 mg/dL (0-0.3); Bilirubin,Total 0.4 mg/dL (0.1-1.0); Blood Urea Nitrogen 80 mg/dL (8-23); Calcium 9.1 mg/dL (8.6-10.4); Carbon Dioxide 28 mmol/L (22-30); Chloride 105 mmol/L (96-108); Globulin 3.1 gm/dL (2.2-3.7); Glomerular Filtration Rate 44; Glucose 87 mg/dL (70-105); Lactate Dehydrogenase 258 U/L (135-225); Phosphorous 3.9 mg/dL (2.5-4.5); Triglycerides 105 mg/dL (<150)
--- NOTE | 2021-02-20 07:23 | Nephrology Progress Note ---
SUBJECTIVE Subjective Patient information: Note initiated : 02/20/21 at 7:21 am Patient: Daljit Quintanilla 75 y/o M admitted on 02/16/21 for Rt Knee Pain, Unable To Walk. Chief Complaint: Right knee pain Pertinent ROS: at bedside Confusion improved Weakness Right knee pain Constitutional Vitals: Vital Signs Temp Pulse Resp BP Pulse Ox 97.5 F 52 L 18 141/66 97 02/20/21 04:03 02/20/21 06:01 02/20/21 06:01 02/20/21 06:01 02/20/21 06:01 Period Temp Pulse Resp BP Sys/Pichardo Pulse Ox Last 24 Hr 96.1 F-97.6 F 38-114 12-27 86-166/46-119 90-100 Intake and Output 02/19/21 02/20/21 02/20/21 21:59 05:59 13:59 Intake Total 120 120 Output Total 2224 2150 Balance -2104 Weight 342 lb 9.6 oz Intake & Output: Intake & Output 02/19/21 02/20/21 02/20/21 21:59 05:59 13:59 Intake Total 120 120 Output Total 5 2150 Balance -2104 Weight 342 lb 9.6 oz Intake: Oral 120 120 Output: Urine Catheter Amount 2224 2150 Other: Meal Dinner Percent of Meal Consumed 100% Feeding Ability Assist with Tray Set Up Urine Appearance Sediment Clear Uretheral (Dobbs) Sediment Urine Color Bright Yellow Bright Yellow Uretheral (Dobbs) Bright Yellow Urine Odor Uretheral (Dobbs) Normal Stool Size Moderate Stool Color Brown Green Stool Consistency Soft Formed # Bowel Movements 1 General appearance: cooperative and no acute distress Head Head exam: Present normal inspection Eye Eye exam: Present normal appearance ENT ENT exam: Present mucous membranes moist Respiratory Respiratory exam: Absent respiratory distress Cardiovascular Cardiovascular exam: Present normal rate and rhythm GI/Abdominal GI/Abdominal exam: Present soft; Absent tenderness Extremities Exam Extremities exam: Present joint swelling and pedal edema Neurological Exam Neurological exam: Present alert Psychiatric Psychiatric exam: Present normal affect and normal mood Skin Skin exam: Present pallor and warm A/P Assessment and plan (1) Acute renal failure superimposed on stage 3a chronic kidney disease: Assessment and plan: Daljit Quintanilla is a 75-year-old male with coronary artery disease, atrial fibrillation, hypertension, chronic obstructive pulmonary disease, diabetes mellitus type 2, chronic kidney disease stage 3a, morbid obesity (BMI 40), obstructive sleep apnea admitted on 02/16/21. He presented to the ED for shortness of breath and right knee pain and swelling. In ED, workup was consistent with right knee septic arthritis/bilateral chest infiltrates/88% sats on 4 L oxygen and a white count over 16,000. The patient underwent arthrocentesis. Baseline serum creatinine: 1.3 (eGFR 54) 1.3 on 10/25/17 and 1.4 (eGFR 48) on 02/16/21. Nephrology consultation was requested for acute kidney injury. Acute kidney injury on chronic kidney disease stage 3a associated with sepsis, present on arrival. There is no recent history of IV contrast administration. He took Aspirin 325 mg daily for knee pain at home and has been receiving Toradol in the hospital. There is no recent history of IV contrast administration. Acute postinfectious glomerulonephritis, acute interstitial nephritis or acute toxic nephropathy due to medications are considered, but unlikely per work up. Sepsis associated with right prosthetic knee septic arthritis and pneumonia. Right knee incision and synovectomy and polyliner exchange revision on 02/16/21. Work up: Urinalysis on 02/16/21: Yellow, hazy, pH 5.0, SG 1.013, protein 100, blood negative, leukocyte esterase negative. No renal imaging. Progress: Serum creatinine decreased from 2.0 to 1.5 in the past 24 hours. Baseline serum creatinine: 1.3 (eGFR 54) 1.3 on 10/25/17 and 1.4 (eGFR 48) on 02/16/21. Urine output: 6,150 ml reported in the past 24 hours. No uremic symptoms. Recommendations/Plan: Anticipate no acute hemodialysis need. Diuretics as needed. Nephrology will sign off. Outpatient nephrology follow up if needed. Status: Acute Comment: Continue to monitor to baseline creatinine clearance. Time Spent With Patient Time: Total time spent is greater than 50% in coordination of care (as documented) at patient's floor/unit and/or counseling patient:
[2021-02-20] MEDS: INSULIN LISPRO 1 UNIT/0.01 ML UNIT SQ SCH ×5 (08:05→20:22)
[2021-02-20 08:37] LABS: Vancomycin,Random 16.3 ug/mL
[2021-02-20] MEDS: MULTIVIT,THER IRON,CA,FA & MIN 1 TABLET PO SCH (09:16)
[2021-02-20] MEDS: CYANOCOBALAMIN (VITAMIN B-12) 500 MCG TABLET PO SCH ×2 (09:16→20:21)
[2021-02-20] MEDS: THIAMINE 100 MG TABLET PO SCH (09:16)
[2021-02-20] MEDS: sitaGLIPtin 100 MG TABLET PO SCH (09:16)
[2021-02-20] MEDS: DOCUSATE SODIUM 100 MG CAPSULE PO SCH ×2 (09:16→20:16)
[2021-02-20] MEDS: FUROSEMIDE 40 MG/4 ML VIAL IV SCH ×3 (09:17→20:21)
[2021-02-20] MEDS: BRINZOLAMIDE BRIMONIDINE OU SCH ×2 (09:17→20:23)
[2021-02-20] MEDS: ALBUTEROL SULFATE 200 PUFF INHALER INH PRN (09:17)
[2021-02-20] MEDS: TIOTROPIUM OLODATEROL INH SCH (09:17)
[2021-02-20] MEDS: TIMOLOL 0.5% OPHTH DROPS BOTTLE 5ML OU SCH ×2 (09:17→20:23)
[2021-02-20] MEDS ORDERED: DEXTROSE 31 GM ORAL.SUSP PO PRN (11:18)
[2021-02-20] MEDS ORDERED: DEXTROSE 50% 50 ML VIAL IV PRN (11:18)
[2021-02-20] MEDS: ATENOLOL 25 MG TABLET PO SCH (12:20)
--- NOTE | 2021-02-20 12:54 | Internal Med Progress Note ---
SUBJECTIVE Subjective Patient information: Note initiated : 02/20/21 at 12:49 pm Service Date, if different from initiated Date: [] Patient: Daljit Quintanilla 75 y/o M admitted on 02/16/21 for Rt Knee Pain, Unable To Walk. Chief Complaint: [] Interval history: Mr. Quintanilla is a 75 year old morbidly obese male with a history of HTN/A. fib/DM type II/CAD/COPD on 3 L oxygen/JOELLEN/P HTN/DJD who presents to the ER with increasing shortness of breath/fatigue/inability to function over the last 4 days. Symptoms are progressed with subjective fever since yesterday along with right knee pain swelling and difficulty ambulating and bearing weight. He denies trauma or fall. Initial work-up in the ER was consistent with right knee septic arthritis/bilateral chest infiltrates/88% sats on 4 L oxygen and a white count over 16,000. Patient underwent arthrocentesis, cultures were drawn and antibiotics initiated. Dr. Ricci orthopedics was consulted for evaluation of septic arthritis. Hospital service was requested for admission in light of above At the time of my evaluation patient is accompanied with his . He was able to answer most the questions. Is currently on 4 L oxygen. Feeling short of breath. Endorses history as above. Denies shaking chills or sweats but endorses to fever along with weakness fatigue and elevated function. He n ormally uses CPAP and has been able to perform ADLs but over the last 4 days have gradually deteriorated to the point he is unable to move around or even get out of bed due to extreme fatigue and weakness. He denies productive sputum, denies rash, diarrhea, headache photophobia 02/17-patient clinically improving. Now on 2 L oxygen. White count downtrending from 16.8-12.8. Gram-positive cocci in blood cultures. Surveillance cultures pending. Echocardiogram ordered. No clear source identified except for the lower extremity sequential compressive device that he uses at home with resultant skin breakdown and leakage. Wound care/infectious disease consulted. Worsening renal function at 1.9. Nephrology consult. CRP 42. Continue Rocephin/vancomycin and de-escalate based on culture sensitivities. 02/18-Awaiting cultures, continues on IV antibiotic. ID plans 6 weeks IV antibiotic treatment course via PICC-awaiting negative cultures before PICC placement. Awaiting ECHO report. Chest xray shows improving bilateral infiltrates. Creatinine appears to have plateaued, nephrology following. Vancomycin trough elevated so holding dose today. 02/19-increased lasix for diuresis, blood cultures sensitivities pending, ECHO report pending, Vancomycin trough elevated again today in spite of held dose yesterday. 02/20-diuresing well, renal function has improved. Improved sleep last night with diuresis and was able to maintain CPAP. Initial blood culture sensitivities showing MSSA.. Blood culture from 02/19 resulted positive for gram positive cocci, repeated surveillance blood cultures. Holding Atenolol for bradycardia. ECHO results show LV EF 45-50%, grade III diastolic dysfunction, mildly reduced RV systolic function, evidence of increased right atrial pressure. Head: Atraumatic, normal inspection. Eyes: normal appearance, no scleral icterus. Neck: full ROM Respiratory: on nasal canula oxygen, no respiratory distress. Cardiovascular: irregular bradycardia S1, S2. GI/Abdominal: central obesity, soft, nontender, no guarding. Extremities: tender right knee, bilateral lower extremity edema, left toe wound covered in clean bandages Neurological: CN II-XII intact, intact motor, intact sensation. Psychiatric: normal mood. Skin: warm, normal color Constitutional Vitals: Vital Signs Temp Pulse Resp BP Pulse Ox 97.1 F 55 L 28 H 129/77 98 02/20/21 08:01 02/20/21 10:02/20/21 10:02/20/21 10:02/20/21 12:00 Period Temp Pulse Resp BP Sys/Pichardo Pulse Ox Last 24 Hr 96.1 F-97.5 F 38-114 12-28 86-166/46-88 90-100 Intake and Output 02/19/21 02/20/21 02/20/21 21:59 05:59 13:59 Intake Total 120 120 Output Total 2224 2149 Balance -2104 Weight 155.401 kg Intake & Output: Intake & Output 02/19/21 02/20/21 02/20/21 21:59 05:59 13:59 Intake Total 120 120 Output Total 2224 2149 Balance -2104 Weight 155.401 kg Intake: Oral 120 120 Output: Urine Catheter Amount 2224 2149 Other: Meal Dinner Percent of Meal Consumed 100% Feeding Ability Assist with Tray Set Up Urine Appearance Sediment Clear Sediment Uretheral (Bellamy) Sediment Urine Color Bright Yellow Bright Yellow Straw Uretheral (Bellamy) Bright Yellow Urine Odor Uretheral (Bellamy) Normal Stool Size Moderate Stool Color Brown Green Stool Consistency Soft Formed # Bowel Movements 1 OBJ DATA Labs CBC & Chem 7: 02/20/21 04:52 02/20/21 04:52 Labs: Abnormal Lab Results 02/20/21 02/20/21 02/19/21 04:52 04:52 06:09 WBC RBC 4.21 L Hgb 12.4 L Hct 39.5 L RDW 14.8 H MPV 10.5 H Neut % (Auto) 87.6 H Lymph % (Auto) 2.5 L Lymph # (Auto) 0.25 L Absolute Neutrophils 8.75 H Sodium Carbon Dioxide BUN 80 H Creatinine 1.5 H Glucose Uric Acid 11.0 H Phosphorus Magnesium GGT 62 H Lactate Dehydrogenase 258 H Albumin 2.8 L Albumin/Globulin Ratio 0.9 L Vancomycin Trough 20.1 H* 02/19/21 02/19/21 02/18/21 06:09 06:09 08:17 WBC RBC 3.99 L Hgb 11.9 L Hct 37.5 L RDW 15.0 H MPV Neut % (Auto) 89.3 H Lymph % (Auto) 2.1 L Lymph # (Auto) 0.23 L Absolute Neutrophils 9.73 H Sodium Carbon Dioxide BUN 87 H Creatinine 2.0 H Glucose 218 H Uric Acid 10.4 H Phosphorus 4.9 H Magnesium 2.6 H GGT 67 H Lactate Dehydrogenase 234 H Albumin 2.7 L Albumin/Globulin Ratio 0.8 L Vancomycin Trough 30.8 H* 02/18/21 02/18/21 06:17 06:17 WBC 13.3 H RBC 3.68 L Hgb 11.0 L Hct 34.6 L RDW 15.1 H MPV 10.8 H Neut % (Auto) 91.5 H Lymph % (Auto) 1.6 L Lymph # (Auto) 0.21 L Absolute Neutrophils 12.21 H Sodium 131 L Carbon Dioxide 20 L BUN 83 H Creatinine 1.9 H Glucose 349 H Uric Acid 10.2 H Phosphorus 6.5 H* Magnesium GGT Lactate Dehydrogenase 263 H Albumin 2.7 L Albumin/Globulin Ratio 0.8 L Vancomycin Trough Meds: Medications Acetaminophen (Acetaminophen 325 Mg Tablet) 650 mg PO Q4-6HP PRN; Protocol PRN Reason: Per Pain Protocol/Fever > 101 Last Admin: 02/20/21 05:49 Dose: 650 mg Documented by: Albuterol Sulfate (Albuterol Sulfate 200 Puff Inhaler) 2 puff INH QIDP PRN PRN Reason: Shortness Of Breath Or Wheezin Last Admin: 02/19/21 10:51 Dose: 2 puff Documented by: Bisacodyl (Bisacodyl 10 Mg Supp.Rect) 10 mg WA Q2-3DAYS PRN PRN Reason: Constipation Cefazolin Sodium (Cefazolin 1 Gm Vial) 2 gm IV Q8H [facility]; Protocol Last Admin: 02/20/21 05:39 Dose: 2 gm Documented by: Cyanocobalamin (Cyanocobalamin (Vitamin B-12) 500 Mcg Tablet) 1,000 mcg PO BID [facility] Stop: 02/21/21 09:01 Last Admin: 02/20/21 09:16 Dose: 1,000 mcg Documented by: Dextrose (Dextrose 50% 50 Ml Vial) 0 ml IV UD PRN PRN Reason: Hypoglycemia Dextrose (Dextrose 50% 50 Ml Vial) 0 ml IV UD PRN PRN Reason: Hypoglycemia Diagnostic Test (Pha) (Accu-Chek 1 Each Strip) 1 each FS ACHS [facility] Last Admin: 02/20/21 08:05 Dose: 1 each Documented by: Diagnostic Test (Pha) (Accu-Chek 1 Each Strip) 1 each FS ACHS [facility] Last Admin: 02/20/21 12:19 Dose: Not Given Documented by: Docusate Sodium (Docusate Sodium 100 Mg Capsule) 100 mg PO BID [facility] Last Admin: 02/20/21 09:16 Dose: 100 mg Documented by: Furosemide (Furosemide 40 Mg/4 Ml Vial) 40 mg IV TID [facility] Last Admin: 02/20/21 09:17 Dose: 40 mg Documented by: Glucose (Dextrose 31 Gm Oral.Susp) 15 gm PO PRN PRN PRN Reason: Hypoglycemia Glucose (Dextrose 31 Gm Oral.Susp) 15 gm PO PRN PRN PRN Reason: Hypoglycemia Guaifenesin/Codeine Phosphate (Guaifenesin/Codeine 10 Ml Udc) 10 ml PO Q4HP PRN PRN Reason: Cough Heparin Sodium (Porcine) (Heparin 5,000 Unit/Ml Vial) 5,000 unit SQ Q8H [facility] Last Admin: 02/20/21 05:38 Dose: 5,000 unit Documented by: Hydromorphone HCl (Hydromorphone 1 Mg/Ml Syringe) 0.5 - 2 mg IV Q2HP PRN; Protocol PRN Reason: Per Pain Protocol Potassium Chloride 40 meq/ (Dextrose) 520 mls @ 130 mls/hr IV UD PRN PRN Reason: K+ = or < 3.5 Acetaminophen (Ofirmev) 650 mg in 65 mls @ 130 mls/hr IV Q6HP PRN; Protocol PRN Reason: Per Pain Protocol/Fever > 101 Magnesium Sulfate (Magnesium Sulfate) 2 gm in 50 mls @ 50 mls/hr IV UD PRN PRN Reason: MG = or < 1.7 Insulin Glargine (Insulin Glargine, Human 1 Unit/0.01 Ml) 50 unit SQ HS NICKIE Insulin Human Lispro (Insulin Lispro 1 Unit/0.01 Ml Unit) 0 unit SQ ACHS [facility]; Protocol Iron Carb/Multivit/Bouse/Folic Acid (Multivit,Ther Iron,Ca,Fa & Min 1 Tablet) 1 tab PO DAILY [facility] Last Admin: 02/20/21 09:16 Dose: 1 tab Documented by: Magnesium Hydroxide (Magnesium Hydroxide 30 Ml Oral.Susp) 30 ml PO BIDP PRN PRN Reason: Constipation Last Admin: 02/20/21 09:16 Dose: 30 ml Documented by: Melatonin (Melatonin 3 Mg Tablet) 3 mg PO HSP PRN PRN Reason: Insomnia Metoprolol Tartrate (Metoprolol Tartrate 5 Mg/5 Ml Vial) 5 mg IV Q5M PRN PRN Reason: Heart Rate > 140 bpm Ondansetron HCl (Ondansetron 4 Mg/2 Ml Vial) 4 mg IV Q4HP PRN PRN Reason: Nausea And Vomiting Ondansetron HCl (Ondansetron 4 Mg Odt Tablet) 4 mg SL Q4-6HP PRN; Protocol PRN Reason: Nausea And Vomiting Oxycodone/Acetaminophen (Oxycodone/Apap 5/325mg Tablet) 1 - 2 tab PO Q4HP PRN; Protocol PRN Reason: Per Pain Protocol Brinzolamide- Brimonidine [ Simbrinza] 1-0.2 % Drop 1 dose OU BID [facility] Last Admin: 02/20/21 09:17 Dose: 1 dose Documented by: Tiotropium- Olodaterol [Stiolto Respimat] 2.5-2.5 Mcg/Act Inhaler 2 dose INH DAILY [facility] Last Admin: 02/20/21 09:17 Dose: 2 dose Documented by: Rocklatan ( Netarsudil And Latanoprost) 0.02%/0 .005% Ophthalmic Solution 1 dose OU HS [facility] Last Admin: 02/19/21 20:36 Dose: 1 dose Documented by: Polyethylene Glycol (Polyethylene Glycol 3350 17 Gm Packet) 17 gm PO DAILYP PRN PRN Reason: Constipation Senna/Docusate Sodium (Sennosides/Docusate Sodium 1 Tab Tablet) 1 tab PO [facility] Last Admin: 02/19/21 20:33 Dose: 1 tab Documented by: Sitagliptin Phosphate (Sitagliptin 100 Mg Tablet) 100 mg PO DAILY [facility] Last Admin: 02/20/21 09:16 Dose: 100 mg Documented by: Sodium Biphosphate/Sodium Phosphate (Fleets Adult Enema) 1 dose WA Q3-4DAYS PRN PRN Reason: Constipation Last Admin: 02/19/21 13:58 Dose: 1 dose Documented by: Sodium Chloride (0.9 % Sodium Chloride 10 Ml Syringe) 10 ml IV Q8 [facility] Last Admin: 02/20/21 05:38 Dose: 10 ml Documented by: Tamsulosin HCl (Tamsulosin 0.4 Mg Capsule) 0.4 mg PO [facility] Last Admin: 02/19/21 20:33 Dose: 0.4 mg Documented by: Temazepam (Temazepam 15 Mg Capsule) 15 mg PO HSP PRN PRN Reason: Insomnia Thiamine HCl (Thiamine 100 Mg Tablet) 100 mg PO DAILY [facility] Last Admin: 02/20/21 09:16 Dose: 100 mg Documented by: Throat Lozenges (Benzocaine/Menthol 1 Lozenge) 1 lozenge PO PRN PRN PRN Reason: Sore Throat Timolol Maleate (Timolol 0.5% Ophth Drops Bottle 5ml) 1 gtt OU BID [facility] Last Admin: 02/20/21 09:17 Dose: 1 drop Documented by: A/P Narrative A/P Narrative: Assessment: 75 year old morbidly obese male with a history of HTN/A. fib/DM type II/CAD/COPD on 3 L oxygen/JOELLEN/P HTN/DJD admitted for severe sepsis secondary to gram positive bacteremia complicated by septic right prosthetic knee (now s/p right knee incision and synovectomy and polyliner exchange on 02/16/21), acute hypoxic respiratory failure secondary to CHF and possibly multifocal pneumonia, and and acute kidney injury. #Right prosthetic knee septic arthritis-Gram stain/culture obtained-growing MSSA. Status post joint washout. On Cefazolin. #Sustained MSSA bacteremia-source was probably the patient's left foot wounds #Acute on chronic CHF-previous echo 55% EF (2010) now 45-50%, grade III diastolic dysfunction. #Acute kidney injury w/ volume overload-improving reneal function, possible ATN vs cardiorenal #Obstructive sleep apnea on CPAP #Bradycardia #History atrial fibrillation #History hypertension #DM type II #Chronic pain #History of CAD #BPH #Obesity #History of glaucoma continue brimonidine #History of laryngeal cancer s/p multimodality treatment to cure-no recurrence after multiple years of surveillance Plan On Cefazolin- ID following. 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 Surveillance blood cultures until sustained no growth. Start lasix 40 mg IV TID-follow renal function and diuresis parameters. Decrease Lantus to 50 units HS. Discontinued prandial Humalog. Increase SSI to medium. Continue Flomax. Remove bellamy when able. Pre-existing medical condition management as above CPAP at bedtime PT/OT Nutrition support Wound care DVT ppx: heparin SQ Code status: Full Disposition: SNF on IV antibiotic via PICC with ID and orthopedic surgery follow up. Time Spent With Patient Time: Total time spent is greater than 50% in coordination of care (as documented) at patient's floor/unit and/or counseling patient:
[2021-02-20] MEDS: TAMSULOSIN 0.4 MG CAPSULE PO SCH (20:16)
[2021-02-20] MEDS: SENNOSIDES/DOCUSATE SODIUM 1 TAB TABLET PO SCH (20:21)
[2021-02-20] MEDS: ROCKLATAN OU SCH (20:23)
[2021-02-20] MEDS ORDERED: INSULIN GLARGINE, HUMAN 1 UNIT/0.01 ML SQ SCH (21:00)
[2021-02-21] MEDS: ACETAMINOPHEN 325 MG TABLET PO PRN (02:37)
[2021-02-21] MEDS: HEPARIN 5,000 UNIT/ML VIAL SQ SCH ×3 (05:21→21:57)
[2021-02-21] MEDS: 0.9 % SODIUM CHLORIDE 10 ML SYRINGE IV SCH ×3 (05:21→20:34)
[2021-02-21] MEDS: ceFAZolin 1 GM VIAL IV SCH ×3 (05:21→21:57)
[2021-02-21 06:30] LABS: Basophils # (Auto) 0.02 K/mcL (0.00-0.20); Basophils % (Auto) 0.2 % (0.0-2.0); Eosinophils % (Auto) 1.6 % (0.0-7.0); Hematocrit 40.2 % (41.0-55.0); Hemoglobin 12.8 g/dL (13.5-16.5); Lymphocytes # (Auto) 0.36 K/mcL (1.50-4.80); Mean Cell Volume 93.3 fL (80.0-100.0); Mean Corpuscular HGB Conc 31.8 g/dL (31.0-36.0); Mean Platelet Volume 10.5 fL (7.4-10.4); Monocytes # (Auto) 0.94 K/mcL (0.10-0.90); Monocytes % (Auto) 7.7 % (1.0-12.0); Neutrophils % (Auto) 87.5 % (38.0-78.0); Platelet Count 327 K/mcL (140-440); RBC 4.31 M/mcL (4.50-5.90); Red Cell Distribution Width 14.6 % (11.5-14.5); WBC 12.2 K/mcL (4.5-11.0)
[2021-02-21 06:34] LABS: ALT/SGPT < 5 U/L (<40); AST/SGOT 14 U/L (<40); Albumin 2.8 gm/dL (3.2-5.2); Albumin/Globulin Ratio 0.9 (1.0-2.3); Alkaline Phosphatase 123 U/L (39-117); Bilirubin,Direct < 0.2 mg/dL (0-0.3); Bilirubin,Total 0.5 mg/dL (0.1-1.0); Blood Urea Nitrogen 71 mg/dL (8-23); Calcium 9.5 mg/dL (8.6-10.4); Carbon Dioxide 31 mmol/L (22-30); Chloride 101 mmol/L (96-108); Globulin 3.2 gm/dL (2.2-3.7); Glomerular Filtration Rate 41; Glucose 155 mg/dL (70-105); Lactate Dehydrogenase 277 U/L (135-225); Phosphorous 3.2 mg/dL (2.5-4.5); Triglycerides 115 mg/dL (<150); Uric Acid 10.1 mg/dL (2.5-8.0)
--- NOTE | 2021-02-21 07:19 | Internal Med Progress Note ---
SUBJECTIVE Subjective Patient information: Note initiated : 02/21/21 at 7:16 am Service Date, if different from initiated Date: [] Patient: Daljit Quintanilla 75 y/o M admitted on 02/16/21 for Rt Knee Pain, Unable To Walk. Chief Complaint: [] Interval history: Mr. Quintanilla is a 75 year old morbidly obese male with a history of HTN/A. fib/DM type II/CAD/COPD on 3 L oxygen/JOELLEN/P HTN/DJD who presents to the ER with increasing shortness of breath/fatigue/inability to function over the last 4 days. Symptoms are progressed with subjective fever since yesterday along with right knee pain swelling and difficulty ambulating and bearing weight. He denies trauma or fall. Initial work-up in the ER was consistent with right knee septic arthritis/bilateral chest infiltrates/88% sats on 4 L oxygen and a white count over 16,000. Patient underwent arthrocentesis, cultures were drawn and antibiotics initiated. Dr. Ricci orthopedics was consulted for evaluation of septic arthritis. Hospital service was requested for admission in light of above At the time of my evaluation patient is accompanied with his . He was able to answer most the questions. Is currently on 4 L oxygen. Feeling short of breath. Endorses history as above. Denies shaking chills or sweats but endorses to fever along with weakness fatigue and elevated function. He no rmally uses CPAP and has been able to perform ADLs but over the last 4 days have gradually deteriorated to the point he is unable to move around or even get out of bed due to extreme fatigue and weakness. He denies productive sputum, denies rash, diarrhea, headache photophobia 02/17-patient clinically improving. Now on 2 L oxygen. White count downtrending from 16.8-12.8. Gram-positive cocci in blood cultures. Surveillance cultures pending. Echocardiogram ordered. No clear source identified except for the lower extremity sequential compressive device that he uses at home with resultant skin breakdown and leakage. Wound care/infectious disease consulted. Worsening renal function at 1.9. Nephrology consult. CRP 42. Continue Rocephin/vancomycin and de-escalate based on culture sensitivities. 02/18-Awaiting cultures, continues on IV antibiotic. ID plans 6 weeks IV antibiotic treatment course via PICC-awaiting negative cultures before PICC placement. Awaiting ECHO report. Chest xray shows improving bilateral infiltrates. Creatinine appears to have plateaued, nephrology following. Vancomycin trough elevated so holding dose today. 02/19-increased lasix for diuresis, blood cultures sensitivities pending, ECHO report pending, Vancomycin trough elevated again today in spite of held dose yesterday. 02/20-diuresing well, renal function has improved. Improved sleep last night with diuresis and was able to maintain CPAP. Initial blood culture sensitivities showing MSSA.. Blood culture from 02/19 resulted positive for gram positive cocci, repeated surveillance blood cultures. Holding Atenolol for bradycardia. ECHO results show LV EF 45-50%, grade III diastolic dysfunction, mildly reduced RV systolic function, evidence of increased right atrial pressure. Decreased basal/bolus insulin for lower blood glucose. 02/21-slept better last night, creatinine about the same as yesterday and appears to be at CKD baseline, decreased IV lasix 40 mg from TID to BID, fluctuating blood sugar after decrease insulin yesterday. Concern for aspiration with food, speech following and recommending thickened liquids diet. Considering CT neck as patient has a history of neck cancer previously treated according to his and felt to be cured. Head: Atraumatic, normal inspection. Eyes: normal appearance, no scleral icterus. Neck: full ROM Respiratory: on nasal canula oxygen, no respiratory distress. Cardiovascular: irregular bradycardia S1, S2. GI/Abdominal: central obesity, soft, nontender, no guarding. Extremities: tender right knee, bilateral lower extremity edema improved, left toe wound covered in clean bandages Neurological: CN II-XII intact, intact motor, intact sensation. Psychiatric: normal mood. Skin: warm, normal color Constitutional Vitals: Vital Signs Temp Pulse Resp BP Pulse Ox 96.0 F L 55 L 18 114/93 96 02/21/21 04:03 02/21/21 06:01 02/21/21 06:01 02/21/21 06:01 02/21/21 06:01 Period Temp Pulse Resp BP Sys/Pichardo Pulse Ox Last 24 Hr 96.0 F-97.1 F 44-63 15-28 101-166/53-139 90-99 Intake and Output 02/20/21 02/21/21 02/21/21 21:59 05:59 13:59 Intake Total 720 Output Total 2375 1475 Balance -1655 -1475 Weight 151.318 kg Intake & Output: Intake & Output 02/20/21 02/21/21 02/21/21 21:59 05:59 13:59 Intake Total 720 Output Total 0492 8474 Balance -3636 -1043 Weight 151.318 kg Intake: Oral 720 Output: Urine Catheter Amount 5874 [id number] Other: Meal Dinner Percent of Meal Consumed 100% Feeding Ability Needs Supervision Urine Appearance Small Blood Clots Clear Uretheral (Bellamy) Small Blood Clots Urine Color Bright Yellow Bright Yellow Uretheral (Bellamy) Bright Yellow Urine Odor Normal Normal Uretheral (Bellamy) Normal Stool Size Moderate Stool Color Brown Stool Consistency Formed # Bowel Movements 1 # of times incontinent of 1 Bowels OBJ DATA Labs CBC & Chem 7: 02/21/21 04:55 02/21/21 04:55 Labs: Abnormal Lab Results 02/21/21 02/21/21 02/20/21 04:55 04:55 04:52 WBC 12.2 H RBC 4.31 L Hgb 12.8 L Hct 40.2 L RDW 14.6 H MPV 10.5 H Neut % (Auto) 87.5 H Lymph % (Auto) 3.0 L Lymph # (Auto) 0.36 L Rock # (Auto) 0.94 H Absolute Neutrophils 10.66 H Sodium Carbon Dioxide 31 H BUN 71 H 80 H Creatinine 1.6 H 1.5 H Glucose 155 H Uric Acid 10.1 H 11.0 H Phosphorus Magnesium GGT 72 H 62 H Alkaline Phosphatase 123 H Lactate Dehydrogenase 277 H 258 H Albumin 2.8 L 2.8 L Albumin/Globulin Ratio 0.9 L 0.9 L Vancomycin Trough 02/20/21 02/19/21 02/19/21 04:52 06:09 06:09 WBC RBC 4.21 L Hgb 12.4 L Hct 39.5 L RDW 14.8 H MPV 10.5 H Neut % (Auto) 87.6 H Lymph % (Auto) 2.5 L Lymph # (Auto) 0.25 L Rock # (Auto) Absolute Neutrophils 8.75 H Sodium Carbon Dioxide BUN 87 H Creatinine 2.0 H Glucose 218 H Uric Acid 10.4 H Phosphorus 4.9 H Magnesium 2.6 H GGT 67 H Alkaline Phosphatase Lactate Dehydrogenase 234 H Albumin 2.7 L Albumin/Globulin Ratio 0.8 L Vancomycin Trough 20.1 H* 02/19/21 02/18/21 02/18/21 06:09 08:17 06:17 WBC RBC 3.99 L Hgb 11.9 L Hct 37.5 L RDW 15.0 H MPV Neut % (Auto) 89.3 H Lymph % (Auto) 2.1 L Lymph # (Auto) 0.23 L Rock # (Auto) Absolute Neutrophils 9.73 H Sodium 131 L Carbon Dioxide 20 L BUN 83 H Creatinine 1.9 H Glucose 349 H Uric Acid 10.2 H Phosphorus 6.5 H* Magnesium GGT Alkaline Phosphatase Lactate Dehydrogenase 263 H Albumin 2.7 L Albumin/Globulin Ratio 0.8 L Vancomycin Trough 30.8 H* 02/18/21 06:17 WBC 13.3 H RBC 3.68 L Hgb 11.0 L Hct 34.6 L RDW 15.1 H MPV 10.8 H Neut % (Auto) 91.5 H Lymph % (Auto) 1.6 L Lymph # (Auto) 0.21 L Rock # (Auto) Absolute Neutrophils 12.21 H Sodium Carbon Dioxide BUN Creatinine Glucose Uric Acid Phosphorus Magnesium GGT Alkaline Phosphatase Lactate Dehydrogenase Albumin Albumin/Globulin Ratio Vancomycin Trough Meds: Medications Acetaminophen (Acetaminophen 325 Mg Tablet) 650 mg PO Q4-6HP PRN; Protocol PRN Reason: Per Pain Protocol/Fever > 101 Last Admin: 02/21/21 02:37 Dose: 650 mg Documented by: Albuterol Sulfate (Albuterol Sulfate 200 Puff Inhaler) 2 puff INH QIDP PRN PRN Reason: Shortness Of Breath Or Wheezin Last Admin: 02/19/21 10:51 Dose: 2 puff Documented by: Bisacodyl (Bisacodyl 10 Mg Supp.Rect) 10 mg MI Q2-3DAYS PRN PRN Reason: Constipation Last Admin: 02/20/21 13:54 Dose: 10 mg Documented by: Cefazolin Sodium (Cefazolin 1 Gm Vial) 2 gm IV Q8H NICKIE; Protocol Last Admin: 02/21/21 05:21 Dose: 2 gm Documented by: Cyanocobalamin (Cyanocobalamin (Vitamin B-12) 500 Mcg Tablet) 1,000 mcg PO BID NICKIE Stop: 02/21/21 09:01 Last Admin: 02/20/21 20:21 Dose: 1,000 mcg Documented by: Dextrose (Dextrose 50% 50 Ml Vial) 0 ml IV UD PRN PRN Reason: Hypoglycemia Dextrose (Dextrose 50% 50 Ml Vial) 0 ml IV UD PRN PRN Reason: Hypoglycemia Diagnostic Test (Pha) (Accu-Chek 1 Each Strip) 1 each FS ACHS [facility] Last Admin: 02/20/21 20:22 Dose: 1 each Documented by: Docusate Sodium (Docusate Sodium 100 Mg Capsule) 100 mg PO BID [facility] Last Admin: 02/20/21 20:16 Dose: Not Given Documented by: Furosemide (Furosemide 40 Mg/4 Ml Vial) 40 mg IV BID [facility] Stop: 02/21/21 21:01 Glucose (Dextrose 31 Gm Oral.Susp) 15 gm PO PRN PRN PRN Reason: Hypoglycemia Glucose (Dextrose 31 Gm Oral.Susp) 15 gm PO PRN PRN PRN Reason: Hypoglycemia Guaifenesin/Codeine Phosphate (Guaifenesin/Codeine 10 Ml Udc) 10 ml PO Q4HP PRN PRN Reason: Cough Heparin Sodium (Porcine) (Heparin 5,000 Unit/Ml Vial) 5,000 unit SQ Q8H [facility] Last Admin: 02/21/21 05:21 Dose: 5,000 unit Documented by: Hydromorphone HCl (Hydromorphone 1 Mg/Ml Syringe) 0.5 - 2 mg IV Q2HP PRN; Protocol PRN Reason: Per Pain Protocol Potassium Chloride 40 meq/ (Dextrose) 520 mls @ 130 mls/hr IV UD PRN PRN Reason: K+ = or < 3.5 Acetaminophen (Ofirmev) 650 mg in 65 mls @ 130 mls/hr IV Q6HP PRN; Protocol PRN Reason: Per Pain Protocol/Fever > 101 Magnesium Sulfate (Magnesium Sulfate) 2 gm in 50 mls @ 50 mls/hr IV UD PRN PRN Reason: MG = or < 1.7 Insulin Glargine (Insulin Glargine, Human 1 Unit/0.01 Ml) 50 unit SQ [facility] Last Admin: 02/20/21 20:22 Dose: 50 unit Documented by: Insulin Human Lispro (Insulin Lispro 1 Unit/0.01 Ml Unit) 0 unit SQ [facility]; Protocol Last Admin: 02/20/21 20:22 Dose: 10 units Documented by: Iron Carb/Multivit/[place]/Folic Acid (Multivit,Ther Iron,Ca,Fa & Min 1 Tablet) 1 tab PO DAILY [facility] Last Admin: 02/20/21 09:16 Dose: 1 tab Documented by: Magnesium Hydroxide (Magnesium Hydroxide 30 Ml Oral.Susp) 30 ml PO BIDP PRN PRN Reason: Constipation Last Admin: 02/20/21 09:16 Dose: 30 ml Documented by: Melatonin (Melatonin 3 Mg Tablet) 3 mg PO HSP PRN PRN Reason: Insomnia Metoprolol Tartrate (Metoprolol Tartrate 5 Mg/5 Ml Vial) 5 mg IV Q5M PRN PRN Reason: Heart Rate > 140 bpm Ondansetron HCl (Ondansetron 4 Mg/2 Ml Vial) 4 mg IV Q4HP PRN PRN Reason: Nausea And Vomiting Ondansetron HCl (Ondansetron 4 Mg Odt Tablet) 4 mg SL Q4-6HP PRN; Protocol PRN Reason: Nausea And Vomiting Oxycodone/Acetaminophen (Oxycodone/Apap 5/325mg Tablet) 1 - 2 tab PO Q4HP PRN; Protocol PRN Reason: Per Pain Protocol Brinzolamide- Brimonidine [ Simbrinza] 1-0.2 % Drop 1 dose OU BID [facility] Last Admin: 02/20/21 20:23 Dose: 1 dose Documented by: Tiotropium- Olodaterol [Stiolto Respimat] 2.5-2.5 Mcg/Act Inhaler 2 dose INH DAILY [facility] Last Admin: 02/20/21 09:17 Dose: 2 dose Documented by: Rocklatan ( Netarsudil And Latanoprost) 0.02%/0 .005% Ophthalmic Solution 1 dose OU HS [facility] Last Admin: 02/20/21 20:23 Dose: 1 dose Documented by: Polyethylene Glycol (Polyethylene Glycol 3350 17 Gm Packet) 17 gm PO DAILYP PRN PRN Reason: Constipation Senna/Docusate Sodium (Sennosides/Docusate Sodium 1 Tab Tablet) 1 tab PO [facility] Last Admin: 02/20/21 20:21 Dose: 1 tab Documented by: Sitagliptin Phosphate (Sitagliptin 100 Mg Tablet) 100 mg PO DAILY [facility] Last Admin: 02/20/21 09:16 Dose: 100 mg Documented by: Sodium Biphosphate/Sodium Phosphate (Fleets Adult Enema) 1 dose MI Q3-4DAYS PRN PRN Reason: Constipation Last Admin: 02/19/21 13:58 Dose: 1 dose Documented by: Sodium Chloride (0.9 % Sodium Chloride 10 Ml Syringe) 10 ml IV Q8 [facility] Last Admin: 02/21/21 05:21 Dose: 10 ml Documented by: Tamsulosin HCl (Tamsulosin 0.4 Mg Capsule) 0.4 mg PO HS [facility] Last Admin: 02/20/21 20:16 Dose: Not Given Documented by: Temazepam (Temazepam 15 Mg Capsule) 15 mg PO HSP PRN PRN Reason: Insomnia Thiamine HCl (Thiamine 100 Mg Tablet) 100 mg PO DAILY [facility] Last Admin: 02/20/21 09:16 Dose: 100 mg Documented by: Throat Lozenges (Benzocaine/Menthol 1 Lozenge) 1 lozenge PO PRN PRN PRN Reason: Sore Throat Timolol Maleate (Timolol 0.5% Ophth Drops Bottle 5ml) 1 gtt OU BID [facility] Last Admin: 02/20/21 20:23 Dose: 1 drop Documented by: A/P Narrative A/P Narrative: Assessment: 75 year old morbidly obese male with a history of HTN/A. fib/DM type II/CAD/COPD on 3 L oxygen/JOELLEN/P HTN/DJD admitted for severe sepsis secondary to gram positive bacteremia complicated by septic right prosthetic knee (now s/p right knee incision and synovectomy and polyliner exchange on 02/16/21), acute hypoxic respiratory failure secondary to CHF and possibly multifocal pneumonia, and an acute on chronic kidney injury. The patient has had sustained bacteremia. Suspect the source of infection was the left foot wounds, apparently sustained from an injury according to his . TTE was technically difficult-did not report any valvular vegetations. The patient has been on Vancomycin, now Cefazolin for MSSA. ID has been following. He was diuresed with IV lasix, c urrently has a bellamy catheter for accurate I/O. Blood cultures continue to result positive. #Sustained MSSA bacteremia -initial source of bacteremia was probably the patient's left foot wounds, complicated by septic knee -TTE report did not report valvular vegetations however was a technically difficult exam #Right prosthetic knee septic arthritis -s/p right knee incision and synovectomy and polyliner exchange on 02/16/21 -Gram stain/culture obtained, growing MSSA. #Acute on chronic CHF-previous echo 55% EF (2011) now 45-50%, grade III diastolic dysfunction. -diuresing with lasix IV #Acute on chronic kidney injury w/ volume overload-improved renal function, appears to be near baseline CKD -holding home losartan #Obstructive sleep apnea -on CPAP #Bradycardia -holding home atenolol #History atrial fibrillation -not on anticoagulation prior to admission #DM type II -poorly controlled #Left foot wounds -probable source of bacteremia #Hypertension #Chronic pain #History of CAD #BPH -currently has bellamy catheter for acute urine output with diuresis #Obesity-BMI 42 #History of glaucoma #History of laryngeal cancer s/p multimodality treatment to cure-no recurrence according to family after multiple years of surveillance Plan -On Cefazolin- ID following, 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 -Surveillance blood cultures until sustained no growth, will need PICC line at some point however currently sustained bactermia. -Decrease lasix 40 mg IV from TID to BID-follow renal function and diuresis parameters. -Increase Lantus to 55 units HS. -Start prandial Humalog 5 units AC-will probably need higher dose. -Continue SSI-medium. -Continue Flomax. -May need to consider CUCA for sustained bacteremia, per ID. -Avoid nephrotoxic meds, nephrology consulted-signed -Remove bellamy when able-currently for accurate I/O with diuresis. -CPAP at bedtime -PT/OT -Nutrition support -Wound care -Pre-existing medical condition management as above -DVT ppx: heparin SQ -Code status: Full -Disposition: SNF on IV antibiotic via PICC with ID and orthopedic surgery follow up. Time Spent With Patient Time: Total time spent is greater than 50% in coordination of care (as documented) at patient's floor/unit and/or counseling patient:
[2021-02-21] MEDS: sitaGLIPtin 100 MG TABLET PO SCH (07:51)
[2021-02-21] MEDS: INSULIN LISPRO 1 UNIT/0.01 ML UNIT SQ SCH ×6 (07:51→20:27)
[2021-02-21] MEDS: DOCUSATE SODIUM 100 MG CAPSULE PO SCH ×3 (07:51→20:31)
[2021-02-21] MEDS: MULTIVIT,THER IRON,CA,FA & MIN 1 TABLET PO SCH (07:51)
[2021-02-21] MEDS: FUROSEMIDE 40 MG/4 ML VIAL IV SCH ×2 (07:51→20:33)
[2021-02-21] MEDS: CYANOCOBALAMIN (VITAMIN B-12) 500 MCG TABLET PO SCH (07:51)
[2021-02-21] MEDS: THIAMINE 100 MG TABLET PO SCH (07:51)
[2021-02-21] MEDS: TIMOLOL 0.5% OPHTH DROPS BOTTLE 5ML OU SCH ×2 (07:52→20:34)
[2021-02-21] MEDS: BRINZOLAMIDE BRIMONIDINE OU SCH ×2 (07:52→20:34)
[2021-02-21] MEDS: TIOTROPIUM OLODATEROL INH SCH (07:53)
--- NOTE | 2021-02-21 13:13 | Internal Med Progress Note ---
SUBJECTIVE Subjective Patient information: Note initiated : 02/21/21 at 1:05 pm Service Date, if different from initiated Date: [] Patient: Daljit Quintanilla 75 y/o M admitted on 02/16/21 for Rt Knee Pain, Unable To Walk. Chief Complaint: [] Interval history: Mr. Quintanilla is a 75 year old morbidly obese male with a history of HTN/A. fib/DM type II/CAD/COPD on 3 L oxygen/JOELLEN/P HTN/DJD who presents to the ER with increasing shortness of breath/fatigue/inability to function over the last 4 days. Symptoms are progressed with subjective fever since yesterday along with right knee pain swelling and difficulty ambulating and bearing weight. He denies trauma or fall. Initial work-up in the ER was consistent with right knee septic arthritis/bilateral chest infiltrates/88% sats on 4 L oxygen and a white count over 16,000. Patient underwent arthrocentesis, cultures were drawn and antibiotics initiated. Dr. Ricci orthopedics was consulted for evaluation of septic arthritis. Hospital service was requested for admission in light of above At the time of my evaluation patient is accompanied with his . He was able to answer most the questions. Is currently on 4 L oxygen. Feeling short of breath. Endorses history as above. Denies shaking chills or sweats but endorses to fever along with weakness fatigue and elevated function. He no rmally uses CPAP and has been able to perform ADLs but over the last 4 days have gradually deteriorated to the point he is unable to move around or even get out of bed due to extreme fatigue and weakness. He denies productive sputum, denies rash, diarrhea, headache photophobia 02/17-patient clinically improving. Now on 2 L oxygen. White count downtrending from 16.8-12.8. Gram-positive cocci in blood cultures. Surveillance cultures pending. Echocardiogram ordered. No clear source identified except for the lower extremity sequential compressive device that he uses at home with resultant skin breakdown and leakage. Wound care/infectious disease consulted. Worsening renal function at 1.9. Nephrology consult. CRP 42. Continue Rocephin/vancomycin and de-escalate based on culture sensitivities. 02/18-Awaiting cultures, continues on IV antibiotic. ID plans 6 weeks IV antibiotic treatment course via PICC-awaiting negative cultures before PICC placement. Awaiting ECHO report. Chest xray shows improving bilateral infiltrates. Creatinine appears to have plateaued, nephrology following. Vancomycin trough elevated so holding dose today. 02/19-increased lasix for diuresis, blood cultures sensitivities pending, ECHO report pending, Vancomycin trough elevated again today in spite of held dose yesterday. 02/20-diuresing well, renal function has improved. Improved sleep last night with diuresis and was able to maintain CPAP. Initial blood culture sensitivities showing MSSA.. Blood culture from 02/19 resulted positive for gram positive cocci, repeated surveillance blood cultures. Holding Atenolol for bradycardia. ECHO results show LV EF 45-50%, grade III diastolic dysfunction, mildly reduced RV systolic function, evidence of increased right atrial pressure. Decreased basal/bolus insulin for lower blood glucose. 02/21-slept better last night, creatinine about the same as yesterday and appears to be at CKD baseline, decreased IV lasix 40 mg from TID to BID, fluctuating blood sugar after decrease insulin yesterday. Concern for aspiration with food, speech following and recommending thickened liquids diet. Considering CT neck as patient has a history of neck cancer previously treated according to his and felt to be cured. 02/22 Constitutional Vitals: Vital Signs Temp Pulse Resp BP Pulse Ox 97.6 F 47 L 16 140/86 97 02/21/21 12:01 02/21/21 12:01 02/21/21 12:01 02/21/21 12:01 02/21/21 12:01 Period Temp Pulse Resp BP Sys/Pichardo Pulse Ox Last 24 Hr 96.0 F-97.6 F 44-64 14-28 101-170/59-139 90-99 Intake and Output 02/20/21 02/21/21 02/21/21 21:59 05:59 13:59 Intake Total 720 240 Output Total 2375 1475 Balance -1655 -1475 240 Weight 151.318 kg Intake & Output: Intake & Output 02/20/21 02/21/21 02/21/21 21:59 05:59 13:59 Intake Total 720 240 Output Total 2375 1475 Balance -1655 -1475 240 Weight 151.318 kg Intake: Oral 720 240 Output: Urine Catheter Amount 2375 1475 Other: Meal Dinner Breakfast Percent of Meal Consumed 100% 25% Feeding Ability Needs Supervision Independent Urine Appearance Small Blood Clots Clear Uretheral (Bellamy) Small Blood Clots Urine Color Bright Yellow Bright Yellow Bright Yellow Uretheral (Bellamy) Bright Yellow Pale Urine Odor Normal Normal Uretheral (Bellamy) Normal Stool Size Moderate Stool Color Brown Stool Consistency Formed # Bowel Movements 1 # of times incontinent of 1 Bowels Exam: General: Alert, Awake, No acute Distress, obese Eyes/N/T: EOMI Head/Neck: neck supple, CV: irreg irreg miguel angel, No murmurs, Pulm: Clear b/l, no wheezing/rhonchi/rales Abd: soft, nontender, +BS x4 Ext: right knee tender, b/l LE edema improving, left toe wound Neuro: Alert, no focal deficits, moves all extremities, Skin: warm/dry OBJ DATA Labs CBC & Chem 7: 02/21/21 04:55 02/21/21 04:55 Labs: Abnormal Lab Results 02/21/21 02/21/21 02/20/21 04:55 04:55 04:52 WBC 12.2 H RBC 4.31 L Hgb 12.8 L Hct 40.2 L RDW 14.6 H MPV 10.5 H Neut % (Auto) 87.5 H Lymph % (Auto) 3.0 L Lymph # (Auto) 0.36 L [place] # (Auto) 0.94 H Absolute Neutrophils 10.66 H Carbon Dioxide 31 H BUN 71 H 80 H Creatinine 1.6 H 1.5 H Glucose 155 H Uric Acid 10.1 H 11.0 H Phosphorus Magnesium GGT 72 H 62 H Alkaline Phosphatase 123 H Lactate Dehydrogenase 277 H 258 H Albumin 2.8 L 2.8 L Albumin/Globulin Ratio 0.9 L 0.9 L Vancomycin Trough 02/20/21 02/19/21 02/19/21 04:52 06:09 06:09 WBC RBC 4.21 L Hgb 12.4 L Hct 39.5 L RDW 14.8 H MPV 10.5 H Neut % (Auto) 87.6 H Lymph % (Auto) 2.5 L Lymph # (Auto) 0.25 L [place] # (Auto) Absolute Neutrophils 8.75 H Carbon Dioxide BUN 87 H Creatinine 2.0 H Glucose 218 H Uric Acid 10.4 H Phosphorus 4.9 H Magnesium 2.6 H GGT 67 H Alkaline Phosphatase Lactate Dehydrogenase 234 H Albumin 2.7 L Albumin/Globulin Ratio 0.8 L Vancomycin Trough 20.1 H* 02/19/21 06:09 WBC RBC 3.99 L Hgb 11.9 L Hct 37.5 L RDW 15.0 H MPV Neut % (Auto) 89.3 H Lymph % (Auto) 2.1 L Lymph # (Auto) 0.23 L [place] # (Auto) Absolute Neutrophils 9.73 H Carbon Dioxide BUN Creatinine Glucose Uric Acid Phosphorus Magnesium GGT Alkaline Phosphatase Lactate Dehydrogenase Albumin Albumin/Globulin Ratio Vancomycin Trough Meds: Medications Acetaminophen (Acetaminophen 325 Mg Tablet) 650 mg PO Q4-6HP PRN; Protocol PRN Reason: Per Pain Protocol/Fever > 101 Last Admin: 02/21/21 02:37 Dose: 650 mg Documented by: Albuterol Sulfate (Albuterol Sulfate 200 Puff Inhaler) 2 puff INH QIDP PRN PRN Reason: Shortness Of Breath Or Wheezin Last Admin: 02/19/21 10:51 Dose: 2 puff Documented by: Bisacodyl (Bisacodyl 10 Mg Supp.Rect) 10 mg ND Q2-3DAYS PRN PRN Reason: Constipation Last Admin: 02/20/21 13:54 Dose: 10 mg Documented by: Cefazolin Sodium (Cefazolin 1 Gm Vial) 2 gm IV Q8H [facility]; Protocol Last Admin: 02/21/21 05:21 Dose: 2 gm Documented by: Dextrose (Dextrose 50% 50 Ml Vial) 0 ml IV UD PRN PRN Reason: Hypoglycemia Dextrose (Dextrose 50% 50 Ml Vial) 0 ml IV UD PRN PRN Reason: Hypoglycemia Diagnostic Test (Pha) (Accu-Chek 1 Each Strip) 1 each FS ACHS [facility] Last Admin: 02/21/21 12:22 Dose: 1 each Documented by: Docusate Sodium (Docusate Sodium 100 Mg Capsule) 100 mg PO BID [facility] Last Admin: 02/21/21 07:51 Dose: 100 mg Documented by: Furosemide (Furosemide 40 Mg/4 Ml Vial) 40 mg IV BID [facility] Stop: 02/21/21 21:01 Last Admin: 02/21/21 07:51 Dose: 40 mg Documented by: Glucose (Dextrose 31 Gm Oral.Susp) 15 gm PO PRN PRN PRN Reason: Hypoglycemia Glucose (Dextrose 31 Gm Oral.Susp) 15 gm PO PRN PRN PRN Reason: Hypoglycemia Guaifenesin/Codeine Phosphate (Guaifenesin/Codeine 10 Ml Udc) 10 ml PO Q4HP PRN PRN Reason: Cough Heparin Sodium (Porcine) (Heparin 5,000 Unit/Ml Vial) 5,000 unit SQ Q8H [facility] Last Admin: 02/21/21 05:21 Dose: 5,000 unit Documented by: Hydromorphone HCl (Hydromorphone 1 Mg/Ml Syringe) 0.5 - 2 mg IV Q2HP PRN; Protocol PRN Reason: Per Pain Protocol Potassium Chloride 40 meq/ (Dextrose) 520 mls @ 130 mls/hr IV UD PRN PRN Reason: K+ = or < 3.5 Acetaminophen (Ofirmev) 650 mg in 65 mls @ 130 mls/hr IV Q6HP PRN; Protocol PRN Reason: Per Pain Protocol/Fever > 101 Magnesium Sulfate (Magnesium Sulfate) 2 gm in 50 mls @ 50 mls/hr IV UD PRN PRN Reason: MG = or < 1.7 Insulin Glargine (Insulin Glargine, Human 1 Unit/0.01 Ml) 55 unit SQ HS [facility] Insulin Human Lispro (Insulin Lispro 1 Unit/0.01 Ml Unit) 5 unit SQ AC [facility] Last Admin: 02/21/21 12:22 Dose: 5 unit Documented by: Insulin Human Lispro (Insulin Lispro 1 Unit/0.01 Ml Unit) 0 unit SQ [facility]; Protocol Last Admin: 02/21/21 12:21 Dose: 6 units Documented by: Iron Carb/Multivit/[place]/Folic Acid (Multivit,Ther Iron,Ca,Fa & Min 1 Tablet) 1 tab PO DAILY [facility] Last Admin: 02/21/21 07:51 Dose: 1 tab Documented by: Magnesium Hydroxide (Magnesium Hydroxide 30 Ml Oral.Susp) 30 ml PO BIDP PRN PRN Reason: Constipation Last Admin: 02/20/21 09:16 Dose: 30 ml Documented by: Melatonin (Melatonin 3 Mg Tablet) 3 mg PO HSP PRN PRN Reason: Insomnia Metoprolol Tartrate (Metoprolol Tartrate 5 Mg/5 Ml Vial) 5 mg IV Q5M PRN PRN Reason: Heart Rate > 140 bpm Ondansetron HCl (Ondansetron 4 Mg/2 Ml Vial) 4 mg IV Q4HP PRN PRN Reason: Nausea And Vomiting Ondansetron HCl (Ondansetron 4 Mg Odt Tablet) 4 mg SL Q4-6HP PRN; Protocol PRN Reason: Nausea And Vomiting Oxycodone/Acetaminophen (Oxycodone/Apap 5/325mg Tablet) 1 - 2 tab PO Q4HP PRN; Protocol PRN Reason: Per Pain Protocol Brinzolamide- Brimonidine [ Simbrinza] 1-0.2 % Drop 1 dose OU BID [facility] Last Admin: 02/21/21 07:52 Dose: 1 dose Documented by: Tiotropium- Olodaterol [Stiolto Respimat] 2.5-2.5 Mcg/Act Inhaler 2 dose INH DAILY [facility] Last Admin: 02/21/21 07:53 Dose: 2 dose Documented by: Rocklatan ( Netarsudil And Latanoprost) 0.02%/0 .005% Ophthalmic Solution 1 dose OU HS [facility] Last Admin: 02/20/21 20:23 Dose: 1 dose Documented by: Polyethylene Glycol (Polyethylene Glycol 3350 17 Gm Packet) 17 gm PO DAILYP PRN PRN Reason: Constipation Senna/Docusate Sodium (Sennosides/Docusate Sodium 1 Tab Tablet) 1 tab PO [facility] Last Admin: 02/20/21 20:21 Dose: 1 tab Documented by: Sitagliptin Phosphate (Sitagliptin 100 Mg Tablet) 100 mg PO DAILY [facility] Last Admin: 02/21/21 07:51 Dose: 100 mg Documented by: Sodium Biphosphate/Sodium Phosphate (Fleets Adult Enema) 1 dose ND Q3-4DAYS PRN PRN Reason: Constipation Last Admin: 02/19/21 13:58 Dose: 1 dose Documented by: Sodium Chloride (0.9 % Sodium Chloride 10 Ml Syringe) 10 ml IV Q8 [facility] Last Admin: 02/21/21 05:21 Dose: 10 ml Documented by: Tamsulosin HCl (Tamsulosin 0.4 Mg Capsule) 0.4 mg PO [facility] Last Admin: 02/20/21 20:16 Dose: Not Given Documented by: Temazepam (Temazepam 15 Mg Capsule) 15 mg PO HSP PRN PRN Reason: Insomnia Thiamine HCl (Thiamine 100 Mg Tablet) 100 mg PO DAILY [facility] Last Admin: 02/21/21 07:51 Dose: 100 mg Documented by: Throat Lozenges (Benzocaine/Menthol 1 Lozenge) 1 lozenge PO PRN PRN PRN Reason: Sore Throat Timolol Maleate (Timolol 0.5% Ophth Drops Bottle 5ml) 1 gtt OU BID NICKIE Last Admin: 02/21/21 07:52 Dose: 1 drop Documented by: A/P Narrative A/P Narrative: A: #Sustained MSSA Bacteremia: -initial source of bacteremia was probably the patient's left foot wounds, complicated by septic knee -TTE report did not report valvular vegetations however was a technically difficult exam -02/19 BC with 1/4 bottles positive so far #Right prosthetic knee septic arthritis (MSSA) -s/p right knee incision and synovectomy and polyliner exchange on 02/16/21, Dr. Ricci -Gram stain/culture obtained, growing MSSA. #Acute on chronic CHF: previous echo 55% EF (2010) now 45-50%, grade III diastolic dysfunction. -diuresing well #PAMELA on CKD III w/ volume overload: improved, appears to be near baseline CKD #Obstructive sleep apnea: on CPAP #Bradycardia: #h/o Atrial fibrillation: not on anticoagulation prior to admission #DM type II: poorly controlled #Left foot wounds: probable source of bacteremia #HTN: #Chronic pain #h/o CAD #BPH: currently has bellamy catheter for acute urine output with diuresis. 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 -Surveillance blood cultures until sustained no growth, will need PICC line at some point however currently sustained bactermia. -Decrease lasix 40 mg IV from TID to BID-follow renal function and diuresis parameters. -Increase Lantus to 55 units HS. -Start prandial Humalog 5 units AC-will probably need higher dose, Continue SSI- medium. -May need to consider CUCA for sustained bacteremia, per ID. -Avoid nephrotoxic meds, nephrology consulted, signed-off -hold home ARB for PAMELA, holding home atenolol for Miguel Angel -Remove bellamy when able-currently for accurate I/O with diuresis. -CPAP at bedtime -PT/OT -Nutrition support -Wound care -Disposition: SNF on IV antibiotic via PICC with ID and orthopedic surgery follow up. 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
[2021-02-21] MEDS: TAMSULOSIN 0.4 MG CAPSULE PO SCH ×2 (20:02→20:31)
[2021-02-21] MEDS: INSULIN GLARGINE, HUMAN 1 UNIT/0.01 ML SQ SCH (20:27)
[2021-02-21] MEDS: TEMAZEPAM 15 MG CAPSULE PO PRN (20:28)
[2021-02-21] MEDS: SENNOSIDES/DOCUSATE SODIUM 1 TAB TABLET PO SCH (20:28)
[2021-02-21] MEDS: ROCKLATAN OU SCH (20:34)
[2021-02-22] MEDS: HEPARIN 5,000 UNIT/ML VIAL SQ SCH ×3 (05:35→21:51)
[2021-02-22] MEDS: 0.9 % SODIUM CHLORIDE 10 ML SYRINGE IV SCH ×4 (05:36→21:40)
[2021-02-22] MEDS: ceFAZolin 1 GM VIAL IV SCH ×3 (05:36→21:39)
[2021-02-22 06:37] LABS: Hematocrit 42.6 % (41.0-55.0); Hemoglobin 13.3 g/dL (13.5-16.5); Mean Cell Volume 94.9 fL (80.0-100.0); Mean Corpuscular HGB Conc 31.2 g/dL (31.0-36.0); Mean Platelet Volume 10.4 fL (7.4-10.4); Platelet Count 319 K/mcL (140-440); RBC 4.49 M/mcL (4.50-5.90); Red Cell Distribution Width 14.6 % (11.5-14.5)
[2021-02-22 06:59] LABS: ALT/SGPT < 5 U/L (<40); AST/SGOT 15 U/L (<40); Albumin 2.8 gm/dL (3.2-5.2); Albumin/Globulin Ratio 0.9 (1.0-2.3); Alkaline Phosphatase 118 U/L (39-117); Bilirubin,Direct < 0.2 mg/dL (0-0.3); Bilirubin,Total 0.5 mg/dL (0.1-1.0); Blood Urea Nitrogen 62 mg/dL (8-23); Calcium 9.6 mg/dL (8.6-10.4); Carbon Dioxide 36 mmol/L (22-30); Chloride 103 mmol/L (96-108); Globulin 3.1 gm/dL (2.2-3.7); Glomerular Filtration Rate 44; Glucose 158 mg/dL (70-105); Lactate Dehydrogenase 244 U/L (135-225); Phosphorous 3.3 mg/dL (2.5-4.5); Triglycerides 116 mg/dL (<150); Uric Acid 9.4 mg/dL (2.5-8.0)
--- NOTE | 2021-02-22 07:47 | Internal Med Progress Note ---
SUBJECTIVE Subjective Patient information: Note initiated : 02/22/21 at 7:43 am Service Date, if different from initiated Date: [] Patient: Daljit Quintanilla 75 y/o M admitted on 02/16/21 for Rt Knee Pain, Unable To Walk. Chief Complaint: [] Interval history: Mr. Quintanilla is a 75 year old morbidly obese male with a history of HTN/A. fib/DM type II/CAD/COPD on 3 L oxygen/JOELLEN/P HTN/DJD who presents to the ER with increasing shortness of breath/fatigue/inability to function over the last 4 days. Symptoms are progressed with subjective fever since yesterday along with right knee pain swelling and difficulty ambulating and bearing weight. He denies trauma or fall. Initial work-up in the ER was consistent with right knee septic arthritis/bilateral chest infiltrates/88% sats on 4 L oxygen and a white count over 16,000. Patient underwent arthrocentesis, cultures were drawn and antibiotics initiated. Dr. Ricci orthopedics was consulted for evaluation of septic arthritis. Hospital service was requested for admission in light of above At the time of my evaluation patient is accompanied with his . He was able to answer most the questions. Is currently on 4 L oxygen. Feeling short of breath. Endorses history as above. Denies shaking chills or sweats but endorses to fever along with weakness fatigue and elevated function. He no rmally uses CPAP and has been able to perform ADLs but over the last 4 days have gradually deteriorated to the point he is unable to move around or even get out of bed due to extreme fatigue and weakness. He denies productive sputum, denies rash, diarrhea, headache photophobia 02/17-patient clinically improving. Now on 2 L oxygen. White count downtrending from 16.8-12.8. Gram-positive cocci in blood cultures. Surveillance cultures pending. Echocardiogram ordered. No clear source identified except for the lower extremity sequential compressive device that he uses at home with resultant skin breakdown and leakage. Wound care/infectious disease consulted. Worsening renal function at 1.9. Nephrology consult. CRP 42. Continue Rocephin/vancomycin and de-escalate based on culture sensitivities. 02/18-Awaiting cultures, continues on IV antibiotic. ID plans 6 weeks IV antibiotic treatment course via PICC-awaiting negative cultures before PICC placement. Awaiting ECHO report. Chest xray shows improving bilateral infiltrates. Creatinine appears to have plateaued, nephrology following. Vancomycin trough elevated so holding dose today. 02/19-increased lasix for diuresis, blood cultures sensitivities pending, ECHO report pending, Vancomycin trough elevated again today in spite of held dose yesterday. 02/20-diuresing well, renal function has improved. Improved sleep last night with diuresis and was able to maintain CPAP. Initial blood culture sensitivities showing MSSA.. Blood culture from 02/19 resulted positive for gram positive cocci, repeated surveillance blood cultures. Holding Atenolol for bradycardia. ECHO results show LV EF 45-50%, grade III diastolic dysfunction, mildly reduced RV systolic function, evidence of increased right atrial pressure. Decreased basal/bolus insulin for lower blood glucose. 02/21-slept better last night, creatinine about the same as yesterday and appears to be at CKD baseline, decreased IV lasix 40 mg from TID to BID, fluctuating blood sugar after decrease insulin yesterday. Concern for aspiration with food, speech following and recommending thickened liquids diet. Considering CT neck as patient has a history of neck cancer previously treated according to his and felt to be cured. 02/22 Poor sleep last night. Otherwise no overnight event or new complaints. 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 Review of Systems: denies headache/fever/chills/nausea/vomiting/chest or abdominal pain/cough/dyspnea/diarrhea. Otherwise see above. Constitutional Vitals: Vital Signs Temp Pulse Resp BP Pulse Ox 97.3 F 64 26 H 112/94 98 02/22/21 04:17 02/22/21 06:01 02/22/21 06:01 02/22/21 06:01 02/22/21 06:01 Period Temp Pulse Resp BP Sys/Pichardo Pulse Ox Last 24 Hr 96.6 F-98.2 F 47-71 13-28 112-181/58-103 91-99 Intake and Output 02/21/21 02/22/21 02/22/21 21:59 05:59 13:59 Intake Total 420 580 80 Output Total 1800 1350 Balance -1380 -770 80 Weight 147.69 kg Intake & Output: Intake & Output 02/21/21 02/22/21 02/22/21 21:59 05:59 13:59 Intake Total 420 580 80 Output Total 1800 1350 Balance -1380 -770 80 Weight 147.69 kg Intake: Oral 420 580 80 Output: Urine Catheter Amount 1800 1350 Other: Urine Appearance Clear Clear Uretheral (Bellamy) Clear Urine Color Straw Bright Yellow Uretheral (Bellamy) Bright Yellow Urine Odor Normal Uretheral (Bellamy) Normal Exam: General: Alert, Awake, No acute Distress, obese Eyes/N/T: EOMI Head/Neck: neck supple, CV: irreg irreg, No murmurs, Pulm: Clear b/l, no wheezing/rhonchi/rales Abd: soft, nontender, +BS x4 Ext: right knee tender, RLE 2+ & LLE 1+ edema, left toe wound Neuro: Alert, no focal deficits, moves all extremities, Skin: warm/dry OBJ DATA Labs CBC & Chem 7: 02/22/21 05:16 02/22/21 05:16 Labs: Abnormal Lab Results 02/22/21 02/22/21 02/21/21 05:16 05:16 04:55 WBC 13.0 H RBC 4.49 L Hgb 13.3 L Hct RDW 14.6 H MPV Neut % (Auto) Lymph % (Auto) Lymph # (Auto) [place] # (Auto) Absolute Neutrophils Carbon Dioxide 36 H 31 H Anion Gap 6.0 L BUN 62 H 71 H Creatinine 1.5 H 1.6 H Glucose 158 H 155 H Uric Acid 9.4 H 10.1 H GGT 73 H 72 H Alkaline Phosphatase 118 H 123 H Lactate Dehydrogenase 244 H 277 H Albumin 2.8 L 2.8 L Albumin/Globulin Ratio 0.9 L 0.9 L 02/21/21 02/20/21 02/20/21 04:55 04:52 04:52 WBC 12.2 H RBC 4.31 L 4.21 L Hgb 12.8 L 12.4 L Hct 40.2 L 39.5 L RDW 14.6 H 14.8 H MPV 10.5 H 10.5 H Neut % (Auto) 87.5 H 87.6 H Lymph % (Auto) 3.0 L 2.5 L Lymph # (Auto) 0.36 L 0.25 L [place] # (Auto) 0.94 H Absolute Neutrophils 10.66 H 8.75 H Carbon Dioxide Anion Gap BUN 80 H Creatinine 1.5 H Glucose Uric Acid 11.0 H GGT 62 H Alkaline Phosphatase Lactate Dehydrogenase 258 H Albumin 2.8 L Albumin/Globulin Ratio 0.9 L Meds: Medications Acetaminophen (Acetaminophen 325 Mg Tablet) 650 mg PO Q4-6HP PRN; Protocol PRN Reason: Per Pain Protocol/Fever > 101 Last Admin: 02/21/21 02:37 Dose: 650 mg Documented by: Albuterol Sulfate (Albuterol Sulfate 200 Puff Inhaler) 2 puff INH QIDP PRN PRN Reason: Shortness Of Breath Or Wheezin Last Admin: 02/19/21 10:51 Dose: 2 puff Documented by: Bisacodyl (Bisacodyl 10 Mg Supp.Rect) 10 mg DE Q2-3DAYS PRN PRN Reason: Constipation Last Admin: 02/20/21 13:54 Dose: 10 mg Documented by: Cefazolin Sodium (Cefazolin 1 Gm Vial) 2 gm IV Q8H [facility]; Protocol Last Admin: 02/22/21 05:36 Dose: 2 gm Documented by: Dextrose (Dextrose 50% 50 Ml Vial) 0 ml IV UD PRN PRN Reason: Hypoglycemia Dextrose (Dextrose 50% 50 Ml Vial) 0 ml IV UD PRN PRN Reason: Hypoglycemia Diagnostic Test (Pha) (Accu-Chek 1 Each Strip) 1 each FS ACHS [facility] Last Admin: 02/21/21 20:27 Dose: 1 each Documented by: Docusate Sodium (Docusate Sodium 100 Mg Capsule) 100 mg PO BID [facility] Last Admin: 02/21/21 20:31 Dose: 100 mg Documented by: Glucose (Dextrose 31 Gm Oral.Susp) 15 gm PO PRN PRN PRN Reason: Hypoglycemia Glucose (Dextrose 31 Gm Oral.Susp) 15 gm PO PRN PRN PRN Reason: Hypoglycemia Guaifenesin/Codeine Phosphate (Guaifenesin/Codeine 10 Ml Udc) 10 ml PO Q4HP PRN PRN Reason: Cough Heparin Sodium (Porcine) (Heparin 5,000 Unit/Ml Vial) 5,000 unit SQ Q8H [facility] Last Admin: 02/22/21 05:35 Dose: 5,000 unit Documented by: Hydromorphone HCl (Hydromorphone 1 Mg/Ml Syringe) 0.5 - 2 mg IV Q2HP PRN; Protocol PRN Reason: Per Pain Protocol Last Admin: 02/21/21 16:16 Dose: 1 mg Documented by: Potassium Chloride 40 meq/ (Dextrose) 520 mls @ 130 mls/hr IV UD PRN PRN Reason: K+ = or < 3.5 Acetaminophen (Ofirmev) 650 mg in 65 mls @ 130 mls/hr IV Q6HP PRN; Protocol PRN Reason: Per Pain Protocol/Fever > 101 Magnesium Sulfate (Magnesium Sulfate) 2 gm in 50 mls @ 50 mls/hr IV UD PRN PRN Reason: MG = or < 1.7 Insulin Glargine (Insulin Glargine, Human 1 Unit/0.01 Ml) 55 unit SQ HS [facility] Last Admin: 02/21/21 20:27 Dose: 55 unit Documented by: Insulin Human Lispro (Insulin Lispro 1 Unit/0.01 Ml Unit) 5 unit SQ AC [facility] Last Admin: 02/21/21 17:34 Dose: 5 unit Documented by: Insulin Human Lispro (Insulin Lispro 1 Unit/0.01 Ml Unit) 0 unit SQ ACHS [facility]; Protocol Last Admin: 02/21/21 20:27 Dose: 2 units Documented by: Iron Carb/Multivit/Mac Operator/Folic Acid (Multivit,Ther Iron,Ca,Fa & Min 1 Tablet) 1 tab PO DAILY [facility] Last Admin: 02/21/21 07:51 Dose: 1 tab Documented by: Magnesium Hydroxide (Magnesium Hydroxide 30 Ml Oral.Susp) 30 ml PO BIDP PRN PRN Reason: Constipation Last Admin: 02/20/21 09:16 Dose: 30 ml Documented by: Melatonin (Melatonin 3 Mg Tablet) 3 mg PO HSP PRN PRN Reason: Insomnia Metoprolol Tartrate (Metoprolol Tartrate 5 Mg/5 Ml Vial) 5 mg IV Q5M PRN PRN Reason: Heart Rate > 140 bpm Ondansetron HCl (Ondansetron 4 Mg/2 Ml Vial) 4 mg IV Q4HP PRN PRN Reason: Nausea And Vomiting Ondansetron HCl (Ondansetron 4 Mg Odt Tablet) 4 mg SL Q4-6HP PRN; Protocol PRN Reason: Nausea And Vomiting Oxycodone/Acetaminophen (Oxycodone/Apap 5/325mg Tablet) 1 - 2 tab PO Q4HP PRN; Protocol PRN Reason: Per Pain Protocol Brinzolamide- Brimonidine [ Simbrinza] 1-0.2 % Drop 1 dose OU BID [facility] Last Admin: 02/21/21 20:34 Dose: Not Given Documented by: Tiotropium- Olodaterol [Stiolto Respimat] 2.5-2.5 Mcg/Act Inhaler 2 dose INH DAILY [facility] Last Admin: 02/21/21 07:53 Dose: 2 dose Documented by: Rocklatan ( Netarsudil And Latanoprost) 0.02%/0 .005% Ophthalmic Solution 1 dose OU [facility] Last Admin: 02/21/21 20:34 Dose: Not Given Documented by: Polyethylene Glycol (Polyethylene Glycol 3350 17 Gm Packet) 17 gm PO DAILYP PRN PRN Reason: Constipation Senna/Docusate Sodium (Sennosides/Docusate Sodium 1 Tab Tablet) 1 tab PO [facility] Last Admin: 02/21/21 20:28 Dose: 1 tab Documented by: Sitagliptin Phosphate (Sitagliptin 100 Mg Tablet) 100 mg PO DAILY [facility] Last Admin: 02/21/21 07:51 Dose: 100 mg Documented by: Sodium Biphosphate/Sodium Phosphate (Fleets Adult Enema) 1 dose DE Q3-4DAYS PRN PRN Reason: Constipation Last Admin: 02/19/21 13:58 Dose: 1 dose Documented by: Sodium Chloride (0.9 % Sodium Chloride 10 Ml Syringe) 10 ml IV Q8 [facility] Last Admin: 02/22/21 05:36 Dose: 10 ml Documented by: Tamsulosin HCl (Tamsulosin 0.4 Mg Capsule) 0.4 mg PO [facility] Last Admin: 02/21/21 20:31 Dose: 0.4 mg Documented by: Temazepam (Temazepam 15 Mg Capsule) 15 mg PO HSP PRN PRN Reason: Insomnia Last Admin: 02/21/21 20:28 Dose: 15 mg Documented by: Thiamine HCl (Thiamine 100 Mg Tablet) 100 mg PO DAILY [facility] Last Admin: 02/21/21 07:51 Dose: 100 mg Documented by: Throat Lozenges (Benzocaine/Menthol 1 Lozenge) 1 lozenge PO PRN PRN PRN Reason: Sore Throat Timolol Maleate (Timolol 0.5% Ophth Drops Bottle 5ml) 1 gtt OU BID [facility] Last Admin: 02/21/21 20:34 Dose: Not Given Documented by: A/P Narrative A/P Narrative: A: #Sustained MSSA Bacteremia: -initial source of bacteremia was probably the patient's left foot wounds, complicated by septic knee -TTE report did not report valvular vegetations however was a technically difficult exam -02/19 BC with 1/4 bottles positive so far #Right prosthetic knee septic arthritis (MSSA): s/p I&D/synovectomy/polyliner exchange (02/16/21), Dr. Ricci -Gram stain/culture obtained, growing MSSA. #Acute on chronic CHF: previous echo 55% EF (2010) now 45-50%, grade III diastolic dysfunction. -diuresing well #PAMELA on CKD III w/ volume overload: improved, appears to be near baseline CKD #Obstructive sleep apnea: on CPAP #Bradycardia: improved off BB #h/o Atrial fibrillation: not on anticoagulation prior to admission #DM type II: poorly controlled #Left foot wounds: probable source of bacteremia #HTN: #Chronic pain #h/o CAD #BPH: currently has bellamy catheter for acute urine output with diuresis. 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 -Surveillance blood cultures until sustained no growth, will need PICC line when BC neg -Decrease lasix 40 mg IV from TID to BID-follow renal function and diuresis parameters. -Increase Lantus to 55 units HS, SSI -May need to consider CUCA for sustained bacteremia, per ID. -Avoid nephrotoxic meds, nephrology consulted now signed-off -hold home ARB for PAMELA, holding home atenolol for Miguel Angel -Remove bellamy when able-currently for accurate I/O with diuresis. -CPAP at bedtime -PT/OT/ST -Dysphagia diet, f/u with ST outpt -Nutrition support -Wound care -f/u with Cardiology for bradycardia on BB for Afib -Disposition: SNF on IV antibiotic via PICC with ID and orthopedic surgery follow up. -DVT ppx: heparin SQ Code status: Bulk Mail Technician Spent With Patient Time: Total time spent is greater than 50% in coordination of care (as documented) at patient's floor/unit and/or counseling patient:
[2021-02-22 08:16] LABS: Anisocytosis FEW (None Seen); Band Neutrophils % 4 % (0-10); Eosinophils % (Manual) 1 % (0-7); Lymphocytes % 3 % (15-49); Monocytes % (Manual) 10 % (1-12); Ovalocytes FEW (None Seen); Platelet Estimate NORMAL (Normal); RBC Morphology ABNORMAL (Normal); Segmented Neutrophils % 82 % (38-78)
[2021-02-22] MEDS: MULTIVIT,THER IRON,CA,FA & MIN 1 TABLET PO SCH (09:46)
[2021-02-22] MEDS: THIAMINE 100 MG TABLET PO SCH (09:46)
[2021-02-22] MEDS: TIMOLOL 0.5% OPHTH DROPS BOTTLE 5ML OU SCH ×2 (09:47→21:36)
[2021-02-22] MEDS: ALBUTEROL SULFATE 200 PUFF INHALER INH PRN (09:47)
[2021-02-22] MEDS: BRINZOLAMIDE BRIMONIDINE OU SCH ×2 (09:47→21:37)
[2021-02-22] MEDS: SENNOSIDES 1 TABLET PO SCH (09:47)
[2021-02-22] MEDS: DOCUSATE SODIUM 100 MG CAPSULE PO SCH ×2 (09:47→21:36)
[2021-02-22] MEDS: TIOTROPIUM OLODATEROL INH SCH (09:48)
[2021-02-22] MEDS: INSULIN LISPRO 1 UNIT/0.01 ML UNIT SQ SCH ×7 (09:49→21:49)
[2021-02-22] MEDS: sitaGLIPtin 100 MG TABLET PO SCH (09:54)
--- NOTE | 2021-02-22 10:14 | Discharge Summary ---
Discharge Provider Provider Patient information: Note initiated : 02/22/21 at 10:12 am Service Date, if different from initiated Date: [] Patient: Daljit Quintanilla 75 y/o M admitted on 02/16/21 for Rt Knee Pain, Unable To Walk. Chief Complaint: [] Date of admission: 02/16/21 18:51 Discharge date: 02/25/21 Primary care physician: Vivi Jack Consults: 02/16/21 12:10 Consult to Physician [CONS] Stat Comment: Consulting Provider: Asa Adler Reason For Exam: Physician to Consult 02/17/21 07:23 Consult to Physician [CONS] Routine Comment: Consulting Provider: Wenceslao iKm Reason For Exam: Physician to Consult 02/17/21 08:00 Consult to Physician [CONS] Routine Comment: Consulting Provider: Gerardo Bonilla Reason For Exam: Physician to Consult 02/17/21 08:01 Consult to Physician [CONS] Routine Comment: Consulting Provider: Gerardo Bonilla Reason For Exam: Physician to Consult Consult to Physician [CONS] Routine Comment: Consulting Provider: Mayank Mir Reason For Exam: Physician to Consult Discharge Meds Discharge Medications Home Medications Humalog KwikPen Insulin 0 unit SQ AC 08/29/15 [History Confirmed 02/16/21 Last Taken 02/15/21 21:00] Lantus U-100 Insulin 53 - 55 unit SQ HS 08/29/15 [History Confirmed 02/16/21 Last Taken 02/15/21 21:00] alpha lipoic acid 200 mg PO BID 08/29/15 [History Confirmed 02/16/21 Last Taken 02/15/21 21:00] coenzyme Q10 200 mg PO BID 08/29/15 [History Confirmed 02/16/21 Last Taken 02/15/21 21:00] levocarnitine tartrate 500 mg PO BID 08/29/15 [History Confirmed 02/16/21 Last Taken 02/15/21 21:00] losartan 100 mg PO DAILY 08/29/15 [History Confirmed 02/16/21 Last Taken 02/15/21] red yeast rice 120 mg PO BID 08/29/15 [History Confirmed 02/16/21 Last Taken 02/15/21 21:00] saw palmetto 450 mg PO BID 08/29/15 [History Confirmed 02/16/21 Last Taken 02/15/21 21:00] Januvia 100 mg PO DAILY 07/11/17 [History Confirmed 02/16/21 Last Taken 02/15/21 21:00] Simbrinza 1 drp OPHTHALMIC (EYE) BID 02/16/21 [History Confirmed 02/16/21 Last Taken 02/15/21 21:00] Stiolto Respimat 2 puff INHALATION BID 02/16/21 [History Confirmed 02/16/21 Last Taken 02/15/21] albuterol sulfate 2 puff INHALATION QID PRN 02/16/21 [History Confirmed 02/16/21 Last Taken Unknown] fenugreek seed extract 610 mg PO BID 02/16/21 [History Confirmed 02/16/21 Last Taken 02/15/21 21:00] furosemide [Lasix] 40 mg PO QDAY 02/16/21 [History Confirmed 02/16/21 Last Taken 02/15/21 21:00] potassium chloride 20 meq PO QDAY 02/16/21 [History Confirmed 02/16/21 Last Taken 02/15/21 21:00] spironolactone 25 mg PO QDAY 02/16/21 [History Confirmed 02/16/21 Last Taken 02/15/21 21:00] timolol 1 drp OPHTHALMIC (EYE) BID 02/16/21 [History Confirmed 02/16/21 Last Taken 02/15/21 21:00] aspirin 81 mg PO BID #60 tab 02/17/21 [Rx Last Taken Unknown] docusate sodium [DOK] 100 mg PO BID #60 cap 02/17/21 [Rx Last Taken Unknown] oxycodone-acetaminophen 1 - 2 tab PO Q4HP PRN #75 tab 02/17/21 [Rx Last Taken Unknown] Rocklatan 1 drp OPHTHALMIC (EYE) QPM 02/18/21 [History Confirmed 02/18/21 Last Taken Unknown] atenolol 25 mg PO QDAY #10 tab 02/25/21 [Rx Last Taken Unknown] cefazolin 2 g IV Q8H #1 ea 02/25/21 [Rx Last Taken Unknown] COURSE Hospital Course Hospital course: Interval history: Mr. Quintanilla is a 75 year old morbidly obese male with a history of HTN/A. fib/DM type II/CAD/COPD on 3 L oxygen/JOELLEN/P HTN/DJD who presents to the ER with increasing shortness of breath/fatigue/inability to function over the last 4 days. Symptoms are progressed with subjective fever since yesterday along with right knee pain swelling and difficulty ambulating and bearing weight. He denies trauma or fall. Initial work-up in the ER was consistent with right knee septic arthritis/bilateral chest infiltrates/88% sats on 4 L oxygen and a white count over 16,000. Patient underwent arthrocentesis, cultures were drawn and antibiotics initiated. Dr. Ricci orthopedics was consulted for evaluation of septic arthritis. Hospital service was requested for admission in light of above At the time of my evaluation patient is accompanied with his . He was able to answer most the questions. Is currently on 4 L oxygen. Feeling short of breath. Endorses history as above. Denies shaking chills or sweats but endorses to fever along with weakness fatigue and elevated function. He normally uses CPAP and has been able to perform ADLs but over the last 4 days have gradually deteriorated to the point he is unable to move around or even get out of bed due to extreme fatigue and weakness. He denies productive sputum, denies rash, diarrhea, headache photophobia 02/17-patient clinically improving. Now on 2 L oxygen. White count downtrending from 16.8-12.8. Gram-positive cocci in blood cultures. Surveillance cultures pending. Echocardiogram ordered. No clear source identified except for the lower extremity sequential compressive device that he uses at home with resultant skin breakdown and leakage. Wound care/infectious disease consulted. Worsening renal function at 1.9. Nephrology consult. CRP 42. Continue Rocephin/vancomycin and de-escalate based on culture sensitivities. 02/18-Awaiting cultures, continues on IV antibiotic. ID plans 6 weeks IV antibiotic treatment course via PICC-awaiting negative cultures before PICC placement. Awaiting ECHO report. Chest xray shows improving bilateral infiltrates. Creatinine appears to have plateaued, nephrology following. Vancomycin trough elevated so holding dose today. 02/19-increased lasix for diuresis, blood cultures sensitivities pending, ECHO report pending, Vancomycin trough elevated again today in spite of held dose yesterday. 02/20-diuresing well, renal function has improved. Improved sleep last night with diuresis and was able to maintain CPAP. Initial blood culture sensitivities showing MSSA.. Blood culture from 02/19 resulted positive for gram positive cocci, repeated surveillance blood cultures. Holding Atenolol for bradycardia. ECHO results show LV EF 45-50%, grade III diastolic dysfunction, mildly reduced RV systolic function, evidence of increased right atrial pressure. Decreased basal/bolus insulin for lower blood glucose. 02/21-slept better last night, creatinine about the same as yesterday and appears to be at CKD baseline, decreased IV lasix 40 mg from TID to BID, fluctuating blood sugar after decrease insulin yesterday. Concern for aspiration with food, speech following and recommending thickened liquids diet. Considering CT neck as patient has a history of neck cancer previously treated according to his and felt to be cured. 02/22 Poor sleep last night. Otherwise no overnight event or new complaints. 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 02/23 No changes. No overnight event or new complaints. Is sodium did increase to 152 today we will repeat labs to clarify. And if accurate D5 water and follow- up labs. Patient states he has not been drinking very much at all. Awaiting 48-hour culture results from the 02/21 blood draw 02/24 Slept better and he feels better today. Blood cultures been negative for over 48 hours. PICC line ordered. He has been urinating quite well without. Then has become hypernatremic. Will reconsult nephrology for assistance with hyponatremia and fluid balance A: #Hypernatremia (?DI): #MSSA Bacteremia: -initial source of bacteremia was probably the patient's left foot wounds, complicated by septic knee -TTE report did not report valvular vegetations however was a technically difficult exam -02/19 with 1/4 bottles positive so far #Right prosthetic knee septic arthritis (MSSA): s/p I&D/synovectomy/polyliner exchange (02/16/21), Dr. Ricci -Gram stain/culture obtained, growing MSSA. #Acute on chronic CHF: previous echo 55% EF (2010) now 45-50%, grade III diastolic dysfunction. -diuresing well #PAMELA on CKD III w/ volume overload: improved, appears to be near baseline CKD #Obstructive sleep apnea: on CPAP #Bradycardia: improved off BB #h/o Atrial fibrillation: per not on anticoagulation d/t easily bleeding and it was determined between pt and cardio to forgoe anticoagulation and use only ASA, with the understanding fo stroke risk #COPD (2L O2@home): #DM type II: poorly controlled #Left foot wounds: probable source of bacteremia #HTN: #Chronic pain #h/o CAD #BPH: currently has bellamy catheter for acute urine output with diuresis. 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 fib diabetes left foot wounds hypertension chronic pain history of CAD BPH obesity history of laryngeal cancer and dysphagia Time Spent with Patient Time attestation: Total time spent providing and/or coordinating discharge services: Time spent: Greater than 30 minutes EXAM Constitutional Vitals: Temp Pulse Resp BP Pulse Ox 97.5 F 68 26 H 189/88 98 02/22/21 08:02 02/22/21 08:02 02/22/21 08:02 02/22/21 08:02 02/22/21 08:02 Discharge Data Data Completed and Pending Labs on day of discharge: Labs from last 24 hours 02/22/21 02/22/21 05:16 05:16 WBC 13.0 H RBC 4.49 L Hgb 13.3 L Hct 42.6 MCV 94.9 MCH 29.6 MCHC 31.2 RDW 14.6 H Plt Count 319 MPV 10.4 Seg Neutrophils % 82 H Band Neutrophils % 4 Lymphocytes % 3 L Monocytes % (Manual) 10 Eosinophils % (Manual) 1 Platelet Estimate Normal RBC Morphology Abnormal A Anisocytosis Few A Ovalocytes Few A Sodium 145 Potassium 3.7 Chloride 103 Carbon Dioxide 36 H Anion Gap 6.0 L BUN 62 H Creatinine 1.5 H GFR Calculation 44 Glucose 158 H Uric Acid 9.4 H Calcium 9.6 Phosphorus 3.3 Magnesium 2.1 Total Bilirubin 0.5 Direct Bilirubin < 0.2 GGT 73 H AST 15 ALT < 5 Alkaline Phosphatase 118 H Lactate Dehydrogenase 244 H Total Protein 5.9 Albumin 2.8 L Globulin 3.1 Albumin/Globulin Ratio 0.9 L Triglycerides 116 Preliminary micro results at discharge 02/18/21 06:32 Blood Culture - Preliminary Blood 02/18/21 06:17 Blood Culture - Preliminary Blood 02/19/21 06:09 Blood Culture - Preliminary Blood 02/19/21 06:09 Blood Culture - Preliminary Blood Staphylococcus aureus 02/17/21 07:49 Blood Culture - Preliminary Blood Staphylococcus aureus 02/17/21 07:35 Blood Culture - Preliminary Blood Staphylococcus aureus 02/16/21 10:39 Gram Stain - Preliminary Aspirate - Knee Body Fluid Culture - Preliminary Staphylococcus aureus Discharge Plan Patient/Caregiver Discharge Instructions Activity: ambulate only with your walker and as per physical therapy Diet: Dysphagia Level 5 Minced & Moist Foods and Thickened Liquids Instructions: Heart Failure (DC), Septic Arthritis (DC), Bacteremia (DC) Activity Restrictions/Additional Instructions: place PICC line Outpt PICC line care *mointor heart rate twice daily, if less than 55, then stop taking and call operations and maintenance specialist. *weekly cbc/cmp while on IV abx and send to Dr. Kim *Abx to finish on 04/03/2021 Follow up at wound healing clinic as new patient unless discharging to [facility], where Dr. Bonilla will see patient on rounds. Ambulate with walker. Diet per speech therapy. Call your physician for sustained fever greater than 100.5, increase in pain not controlled by Prescriptions: New oxycodone-acetaminophen 5-325 mg Tablet 1 - 2 tab PO Q4HP PRN (Reason: Per Pain Protocol) Qty: 75 RF: 0 docusate sodium [DOK] 100 mg Capsule 100 mg PO BID Qty: 60 RF: 0 aspirin 81 mg Tablet,Chewable 81 mg PO BID Qty: 60 RF: 0 atenolol 25 mg tablet 25 mg PO QDAY Qty: 10 RF: 0 cefazolin 1 gram Recon Soln 2 g IV Q8H Qty: 1 RF: 0 Continued losartan 100 MG tablet 100 mg PO DAILY RF: 0 Humalog KwikPen Insulin 200 UNIT/ML insulin pen 0 unit SQ AC RF: 0 Lantus U-100 Insulin 1 UNIT/0.01 ML solution 53 - 55 unit SQ HS RF: 0 saw palmetto 450 MG capsule 450 mg PO BID RF: 0 alpha lipoic acid 200 MG tablet 200 mg PO BID RF: 0 coenzyme Q10 50 MG tablet,chewable 200 mg PO BID RF: 0 levocarnitine tartrate 500 MG capsule 500 mg PO BID RF: 0 red yeast rice 600 MG capsule 120 mg PO BID RF: 0 Januvia 100 MG tablet 100 mg PO DAILY RF: 0 fenugreek seed extract 500 mg Capsule 610 mg PO BID RF: 0 furosemide [Lasix] 40 mg Tablet 40 mg PO QDAY RF: 0 potassium chloride 20 mEq Tablet Extended Release 20 meq PO QDAY RF: 0 Simbrinza 1-0.2 % Drops,Suspension 1 drp OPHTHALMIC (EYE) BID RF: 0 spironolactone 25 mg Tablet 25 mg PO QDAY RF: 0 Stiolto Respimat 2.5-2.5 mcg/actuation Mist 2 puff INHALATION BID RF: 0 albuterol sulfate 90 mcg/actuation Hfa Aerosol Inhaler 2 puff INHALATION QID PRN (Reason: Shortness Of Breath Or Wheezing) RF: 0 timolol 0.5 % Drops 1 drp OPHTHALMIC (EYE) BID RF: 0 Rocklatan 0.02-0.005 % Drops 1 drp OPHTHALMIC (EYE) QPM RF: 0 Discontinued atenolol 25 MG tablet 25 mg PO BID RF: 0 aspirin 325 MG tablet,delayed release (DR/EC) 81 mg PO DAILY RF: 0 Other Ambulatory Orders: Basic Metabolic Panel (Routine) Timeframe: 3 Days Facility: [facility] - Location: Laboratory Ordered By: Gino Gaspar CPM Discharge Order (ONCE) Location: None Selected Ordered By: Navneet Glass OT Discharge Order (Routine) Location: None Selected Ordered By: Gino Gaspar Physical Therapy at Discharge - General (Routine) Location: None Selected Ordered By: Gino Gaspar Physical Therapy DC - TKA (Routine) Location: None Selected Ordered By: Navneet Glass ST Discharge Order (Routine) Location: None Selected Ordered By: Gino Gaspar Toilet Riser Discharge Order (ONCE) Location: None Selected Ordered By: Navneet Glass Walker (ONCE) Location: None Selected Ordered By: Navneet Glass Follow Up Plan Follow up with: Vivi Jack ARNP [Primary Care Provider] - Mayank Mir MD [Physician] - Navneet Glass PA-C [Physician Wafer Line Worker] - Wenceslao Kim MD [Physician] - Patient Disposition: Xfer SNF Prognosis: Fair Rehab Potential: Fair I certify that the patient requires SNF services: Yes Overall status at discharge: patient is progressing back to baseline Discharge Orders: Discharge Order (Routine); Ordered 02/25/21 Ordered By: Gino Gaspar
[2021-02-22] MEDS ORDERED: ALBUMIN HUMAN 12.5 GM/50 ML BAG IV ONE (12:00)
[2021-02-22] MEDS ORDERED: FUROSEMIDE 40 MG/4 ML VIAL IV ONE (12:00)
[2021-02-22] MEDS: TAMSULOSIN 0.4 MG CAPSULE PO SCH (21:36)
[2021-02-22] MEDS: SENNOSIDES/DOCUSATE SODIUM 1 TAB TABLET PO SCH (21:36)
[2021-02-22] MEDS: TEMAZEPAM 15 MG CAPSULE PO PRN (21:36)
[2021-02-22] MEDS: ROCKLATAN OU SCH (21:38)
[2021-02-22] MEDS: INSULIN GLARGINE, HUMAN 1 UNIT/0.01 ML SQ SCH (21:49)
[2021-02-22] MEDS: ACETAMINOPHEN 325 MG TABLET PO PRN (22:42)
[2021-02-23] MEDS: ceFAZolin 1 GM VIAL IV SCH ×3 (05:48→21:34)
[2021-02-23] MEDS: HEPARIN 5,000 UNIT/ML VIAL SQ SCH ×3 (05:49→21:33)
[2021-02-23 07:20] LABS: ALT/SGPT < 5 U/L (<40); AST/SGOT 17 U/L (<40); Albumin 2.7 gm/dL (3.2-5.2); Albumin/Globulin Ratio 0.8 (1.0-2.3); Alkaline Phosphatase 128 U/L (39-117); Bilirubin,Direct 0.2 mg/dL (<0.3); Bilirubin,Total 0.7 mg/dL (0.1-1.0); Blood Urea Nitrogen 54 mg/dL (8-23); Calcium 9.8 mg/dL (8.6-10.4); Carbon Dioxide 34 mmol/L (22-30); Chloride 107 mmol/L (96-108); Globulin 3.2 gm/dL (2.2-3.7); Glomerular Filtration Rate 41; Glucose 139 mg/dL (70-105); Lactate Dehydrogenase 301 U/L (135-225); Phosphorous 3.1 mg/dL (2.5-4.5); Triglycerides 131 mg/dL (<150)
--- NOTE | 2021-02-23 07:44 | Internal Med Progress Note ---
SUBJECTIVE Subjective Patient information: Note initiated : 02/23/21 at 7:37 am Service Date, if different from initiated Date: [] Patient: Daljit Quintanilla 75 y/o M admitted on 02/16/21 for Rt Knee Pain, Unable To Walk. Chief Complaint: [] Interval history: Mr. Quintanilla is a 75 year old morbidly obese male with a history of HTN/A. fib/DM type II/CAD/COPD on 3 L oxygen/JOELLEN/P HTN/DJD who presents to the ER with increasing shortness of breath/fatigue/inability to function over the last 4 days. Symptoms are progressed with subjective fever since yesterday along with right knee pain swelling and difficulty ambulating and bearing weight. He denies trauma or fall. Initial work-up in the ER was consistent with right knee septic arthritis/bilateral chest infiltrates/88% sats on 4 L oxygen and a white count over 16,000. Patient underwent arthrocentesis, cultures were drawn and antibiotics initiated. Dr. Ricci orthopedics was consulted for evaluation of septic arthritis. Hospital service was requested for admission in light of above At the time of my evaluation patient is accompanied with his . He was able to answer most the questions. Is currently on 4 L oxygen. Feeling short of breath. Endorses history as above. Denies shaking chills or sweats but endorses to fever along with weakness fatigue and elevated function. He no rmally uses CPAP and has been able to perform ADLs but over the last 4 days have gradually deteriorated to the point he is unable to move around or even get out of bed due to extreme fatigue and weakness. He denies productive sputum, denies rash, diarrhea, headache photophobia 02/17-patient clinically improving. Now on 2 L oxygen. White count downtrending from 16.8-12.8. Gram-positive cocci in blood cultures. Surveillance cultures pending. Echocardiogram ordered. No clear source identified except for the lower extremity sequential compressive device that he uses at home with resultant skin breakdown and leakage. Wound care/infectious disease consulted. Worsening renal function at 1.9. Nephrology consult. CRP 42. Continue Rocephin/vancomycin and de-escalate based on culture sensitivities. 02/18-Awaiting cultures, continues on IV antibiotic. ID plans 6 weeks IV antibiotic treatment course via PICC-awaiting negative cultures before PICC placement. Awaiting ECHO report. Chest xray shows improving bilateral infiltrates. Creatinine appears to have plateaued, nephrology following. Vancomycin trough elevated so holding dose today. 02/19-increased lasix for diuresis, blood cultures sensitivities pending, ECHO report pending, Vancomycin trough elevated again today in spite of held dose yesterday. 02/20-diuresing well, renal function has improved. Improved sleep last night with diuresis and was able to maintain CPAP. Initial blood culture sensitivities showing MSSA.. Blood culture from 02/19 resulted positive for gram positive cocci, repeated surveillance blood cultures. Holding Atenolol for bradycardia. ECHO results show LV EF 45-50%, grade III diastolic dysfunction, mildly reduced RV systolic function, evidence of increased right atrial pressure. Decreased basal/bolus insulin for lower blood glucose. 02/21-slept better last night, creatinine about the same as yesterday and appears to be at CKD baseline, decreased IV lasix 40 mg from TID to BID, fluctuating blood sugar after decrease insulin yesterday. Concern for aspiration with food, speech following and recommending thickened liquids diet. Considering CT neck as patient has a history of neck cancer previously treated according to his and felt to be cured. 02/22 Poor sleep last night. Otherwise no overnight event or new complaints. 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 02/23 No changes. No overnight event or new complaints. Is sodium did increase to 152 today we will repeat labs to clarify. And if accurate D5 water and follow- up labs. Patient states he has not been drinking very much at all. Awaiting 48-hour culture results from the 02/21 blood draw Review of Systems: denies headache/fever/chills/nausea/vomiting/chest or abdominal pain/cough/dyspnea/diarrhea. Otherwise see above. Constitutional Vitals: Vital Signs Temp Pulse Resp BP Pulse Ox 97.0 F 61 20 168/91 98 02/23/21 06:04 02/23/21 06:02 02/23/21 06:02 02/23/21 06:02 02/23/21 06:02 Period Temp Pulse Resp BP Sys/Pichardo Pulse Ox Last 24 Hr 97.0 F-98.7 F 61-95 16-37 143-193/59-101 91-99 Intake and Output 02/22/21 02/23/21 02/23/21 21:59 05:59 13:59 Intake Total 240 Output Total 2600 150 400 Balance -2600 -150 -160 Weight 145.195 kg Intake & Output: Intake & Output 02/22/21 02/23/21 02/23/21 21:59 05:59 13:59 Intake Total 240 Output Total 2600 150 400 Balance -2600 -150 -160 Weight 145.195 kg Intake: Oral 240 Output: Urine Catheter Amount 2600 150 400 Other: Urine Appearance Cloudy Cloudy Cloudy Uretheral (Bellamy) Cloudy Urine Color Bright Yellow Bright Yellow Dark Yellow Uretheral (Bellamy) Bright Yellow Urine Odor Normal Exam: General: Alert, Awake, No acute Distress, obese Eyes/N/T: EOMI Head/Neck: neck supple, CV: irreg irreg, No murmurs, Pulm: Clear b/l, no wheezing/rhonchi/rales Abd: soft, nontender, +BS x4 Ext: right knee tender, RLE 1-2+ & LLE 1+ edema, left toe wound Neuro: Alert, no focal deficits, moves all extremities, Skin: warm/dry OBJ DATA Labs CBC & Chem 7: 02/22/21 05:16 02/23/21 05:21 Labs: Abnormal Lab Results 02/23/21 02/22/21 02/22/21 05:21 05:16 05:16 WBC 13.0 H RBC 4.49 L Hgb 13.3 L Hct RDW 14.6 H MPV Neut % (Auto) Lymph % (Auto) Lymph # (Auto) [place] # (Auto) Seg Neutrophils % 82 H Lymphocytes % 3 L Absolute Neutrophils RBC Morphology Abnormal A Anisocytosis Few A Ovalocytes Few A Sodium 152 H Carbon Dioxide 34 H 36 H Anion Gap 6.0 L BUN 54 H 62 H Creatinine 1.6 H 1.5 H Glucose 139 H 158 H Uric Acid 9.4 H GGT 79 H 73 H Alkaline Phosphatase 128 H 118 H Lactate Dehydrogenase 301 H 244 H Albumin 2.7 L 2.8 L Albumin/Globulin Ratio 0.8 L 0.9 L 02/21/21 02/21/21 04:55 04:55 WBC 12.2 H RBC 4.31 L Hgb 12.8 L Hct 40.2 L RDW 14.6 H MPV 10.5 H Neut % (Auto) 87.5 H Lymph % (Auto) 3.0 L Lymph # (Auto) 0.36 L [place] # (Auto) 0.94 H Seg Neutrophils % Lymphocytes % Absolute Neutrophils 10.66 H RBC Morphology Anisocytosis Ovalocytes Sodium Carbon Dioxide 31 H Anion Gap BUN 71 H Creatinine 1.6 H Glucose 155 H Uric Acid 10.1 H GGT 72 H Alkaline Phosphatase 123 H Lactate Dehydrogenase 277 H Albumin 2.8 L Albumin/Globulin Ratio 0.9 L Meds: Medications Acetaminophen (Acetaminophen 325 Mg Tablet) 650 mg PO Q4-6HP PRN; Protocol PRN Reason: Per Pain Protocol/Fever > 101 Last Admin: 02/22/21 22:42 Dose: 650 mg Documented by: Albuterol Sulfate (Albuterol Sulfate 200 Puff Inhaler) 2 puff INH QIDP PRN PRN Reason: Shortness Of Breath Or Wheezin Last Admin: 02/19/21 10:51 Dose: 2 puff Documented by: Bisacodyl (Bisacodyl 10 Mg Supp.Rect) 10 mg [place] Q2-3DAYS PRN PRN Reason: Constipation Last Admin: 02/20/21 13:54 Dose: 10 mg Documented by: Cefazolin Sodium (Cefazolin 1 Gm Vial) 2 gm IV Q8H [facility]; Protocol Last Admin: 02/23/21 05:48 Dose: 2 gm Documented by: Dextrose (Dextrose 50% 50 Ml Vial) 0 ml IV UD PRN PRN Reason: Hypoglycemia Dextrose (Dextrose 50% 50 Ml Vial) 0 ml IV UD PRN PRN Reason: Hypoglycemia Diagnostic Test (Pha) (Accu-Chek 1 Each Strip) 1 each FS ACHS [facility] Last Admin: 02/22/21 21:44 Dose: 1 each Documented by: Docusate Sodium (Docusate Sodium 100 Mg Capsule) 100 mg PO BID [facility] Last Admin: 02/22/21 21:36 Dose: 100 mg Documented by: Glucose (Dextrose 31 Gm Oral.Susp) 15 gm PO PRN PRN PRN Reason: Hypoglycemia Glucose (Dextrose 31 Gm Oral.Susp) 15 gm PO PRN PRN PRN Reason: Hypoglycemia Guaifenesin/Codeine Phosphate (Guaifenesin/Codeine 10 Ml Udc) 10 ml PO Q4HP PRN PRN Reason: Cough Heparin Sodium (Porcine) (Heparin 5,000 Unit/Ml Vial) 5,000 unit SQ Q8H [facility] Last Admin: 02/23/21 05:49 Dose: 5,000 unit Documented by: Hydromorphone HCl (Hydromorphone 1 Mg/Ml Syringe) 0.5 - 2 mg IV Q2HP PRN; Protocol PRN Reason: Per Pain Protocol Last Admin: 02/21/21 16:16 Dose: 1 mg Documented by: Potassium Chloride 40 meq/ (Dextrose) 520 mls @ 130 mls/hr IV UD PRN PRN Reason: K+ = or < 3.5 Acetaminophen (Ofirmev) 650 mg in 65 mls @ 130 mls/hr IV Q6HP PRN; Protocol PRN Reason: Per Pain Protocol/Fever > 101 Magnesium Sulfate (Magnesium Sulfate) 2 gm in 50 mls @ 50 mls/hr IV UD PRN PRN Reason: MG = or < 1.7 Insulin Glargine (Insulin Glargine, Human 1 Unit/0.01 Ml) 55 unit SQ HS [facility] Last Admin: 02/22/21 21:49 Dose: 55 unit Documented by: Insulin Human Lispro (Insulin Lispro 1 Unit/0.01 Ml Unit) 5 unit SQ AC [facility] Last Admin: 02/22/21 17:31 Dose: 5 unit Documented by: Insulin Human Lispro (Insulin Lispro 1 Unit/0.01 Ml Unit) 0 unit SQ [facility]; Protocol Last Admin: 02/22/21 21:49 Dose: 4 units Documented by: Iron Carb/Multivit/Transfer Professor/Folic Acid (Multivit,Ther Iron,Ca,Fa & Min 1 Tablet) 1 tab PO DAILY [facility] Last Admin: 02/22/21 09:46 Dose: 1 tab Documented by: Magnesium Hydroxide (Magnesium Hydroxide 30 Ml Oral.Susp) 30 ml PO BIDP PRN PRN Reason: Constipation Last Admin: 02/20/21 09:16 Dose: 30 ml Documented by: Melatonin (Melatonin 3 Mg Tablet) 3 mg PO HSP PRN PRN Reason: Insomnia Metoprolol Tartrate (Metoprolol Tartrate 5 Mg/5 Ml Vial) 5 mg IV Q5M PRN PRN Reason: Heart Rate > 140 bpm Ondansetron HCl (Ondansetron 4 Mg/2 Ml Vial) 4 mg IV Q4HP PRN PRN Reason: Nausea And Vomiting Ondansetron HCl (Ondansetron 4 Mg Odt Tablet) 4 mg SL Q4-6HP PRN; Protocol PRN Reason: Nausea And Vomiting Oxycodone/Acetaminophen (Oxycodone/Apap 5/325mg Tablet) 1 - 2 tab PO Q4HP PRN; Protocol PRN Reason: Per Pain Protocol Brinzolamide- Brimonidine [ Simbrinza] 1-0.2 % Drop 1 dose OU BID [facility] Last Admin: 02/22/21 21:37 Dose: 1 dose Documented by: Tiotropium- Olodaterol [Stiolto Respimat] 2.5-2.5 Mcg/Act Inhaler 2 dose INH DAILY [facility] Last Admin: 02/22/21 09:48 Dose: 2 dose Documented by: Rocklatan ( Netarsudil And Latanoprost) 0.02%/0 .005% Ophthalmic Solution 1 dose OU HS [facility] Last Admin: 02/22/21 21:38 Dose: 1 dose Documented by: Polyethylene Glycol (Polyethylene Glycol 3350 17 Gm Packet) 17 gm PO DAILYP PRN PRN Reason: Constipation Senna (Sennosides 1 Tablet) 2 tab PO DAILY [facility] Last Admin: 02/22/21 09:47 Dose: 2 tab Documented by: Senna/Docusate Sodium (Sennosides/Docusate Sodium 1 Tab Tablet) 1 tab PO [facility] Last Admin: 02/22/21 21:36 Dose: 1 tab Documented by: Sitagliptin Phosphate (Sitagliptin 100 Mg Tablet) 100 mg PO DAILY [facility] Last Admin: 02/22/21 09:54 Dose: 100 mg Documented by: Sodium Biphosphate/Sodium Phosphate (Fleets Adult Enema) 1 dose [place] Q3-4DAYS PRN PRN Reason: Constipation Last Admin: 02/19/21 13:58 Dose: 1 dose Documented by: Sodium Chloride (0.9 % Sodium Chloride 10 Ml Syringe) 10 ml IV Q8 [facility] Last Admin: 02/22/21 21:40 Dose: 10 ml Documented by: Tamsulosin HCl (Tamsulosin 0.4 Mg Capsule) 0.4 mg PO [facility] Last Admin: 02/22/21 21:36 Dose: 0.4 mg Documented by: Temazepam (Temazepam 15 Mg Capsule) 15 mg PO HSP PRN PRN Reason: Insomnia Last Admin: 02/22/21 21:36 Dose: 15 mg Documented by: Thiamine HCl (Thiamine 100 Mg Tablet) 100 mg PO DAILY [facility] Last Admin: 02/22/21 09:46 Dose: 100 mg Documented by: Throat Lozenges (Benzocaine/Menthol 1 Lozenge) 1 lozenge PO PRN PRN PRN Reason: Sore Throat Timolol Maleate (Timolol 0.5% Ophth Drops Bottle 5ml) 1 gtt OU BID [facility] Last Admin: 02/22/21 21:36 Dose: 1 drop Documented by: A/P Narrative A/P Narrative: A: #MSSA Bacteremia: -initial source of bacteremia was probably the patient's left foot wounds, complicated by septic knee -TTE report did not report valvular vegetations however was a technically difficult exam -02/19 BC with 1/4 bottles positive so far #Right prosthetic knee septic arthritis (MSSA): s/p I&D/synovectomy/polyliner exchange (02/16/21), Dr. Ricci -Gram stain/culture obtained, growing MSSA. #Acute on chronic CHF: previous echo 55% EF (2010) now 45-50%, grade III diastolic dysfunction. -diuresing well #PAMELA on CKD III w/ volume overload: improved, appears to be near baseline CKD #Obstructive sleep apnea: on CPAP #Bradycardia: improved off BB #h/o Atrial fibrillation: not on anticoagulation prior to admission #DM type II: poorly controlled #Left foot wounds: probable source of bacteremia #HTN: #Chronic pain #h/o CAD #BPH: currently has bellamy catheter for acute urine output with diuresis. 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 -Surveillance blood cultures until sustained no growth, will need PICC line when BC neg -Increased Lantus to 55 units HS, SSI -Avoid nephrotoxic meds, nephrology consulted now signed-off -hold home ARB for PAMELA, holding home atenolol for Miguel Angel -Remove bellamy when able-currently for accurate I/O with diuresis. -CPAP at bedtime -PT/OT/ST -Dysphagia diet, f/u with ST outpt -Nutrition support -Wound care -f/u with Cardiology for bradycardia on BB for Afib -Disposition: SNF on IV antibiotic via PICC with ID and orthopedic surgery fol low up. -DVT ppx: heparin SQ Code status: Wash Driller Spent With Patient Time: Total time spent is greater than 50% in coordination of care (as documented) at patient's floor/unit and/or counseling patient:
[2021-02-23] MEDS ORDERED: DEXTROSE 5% IN WATER 500 ML IV ONE (07:47)
[2021-02-23] MEDS: THIAMINE 100 MG TABLET PO SCH (08:24)
[2021-02-23] MEDS: sitaGLIPtin 100 MG TABLET PO SCH (08:24)
[2021-02-23] MEDS: SENNOSIDES 1 TABLET PO SCH (08:24)
[2021-02-23] MEDS: MULTIVIT,THER IRON,CA,FA & MIN 1 TABLET PO SCH (08:25)
[2021-02-23] MEDS: INSULIN LISPRO 1 UNIT/0.01 ML UNIT SQ SCH ×7 (08:25→20:28)
[2021-02-23] MEDS: DOCUSATE SODIUM 100 MG CAPSULE PO SCH ×2 (08:25→20:19)
[2021-02-23] MEDS: TIOTROPIUM OLODATEROL INH SCH (08:25)
[2021-02-23] MEDS: ALBUTEROL SULFATE 200 PUFF INHALER INH PRN (08:26)
[2021-02-23] MEDS: TIMOLOL 0.5% OPHTH DROPS BOTTLE 5ML OU SCH ×2 (08:26→20:20)
[2021-02-23] MEDS: BRINZOLAMIDE BRIMONIDINE OU SCH ×2 (08:26→20:20)
[2021-02-23] MEDS: 0.9 % SODIUM CHLORIDE 10 ML SYRINGE IV SCH ×4 (08:27→21:34)
[2021-02-23 08:28] LABS: POC Blood Urea Nitrogen 48 mg/dL (6-20); POC CO2 38 mmol/L (22-30); POC Calcium, Ionized 1.04 mmEq/L (1.16-1.32); POC Chloride 105 mEq/L (96-108); POC Creatinine 1.6 mg/dL (0.6-1.2); POC Glucose, Random 133 mg/dL (70-105); POC Hematocrit 38 % (41-55); POC Potassium 3.3 mEql/L (3.3-5.1); POC Sodium 148 mEq/L (133-145)
[2021-02-23 09:54] LABS: Hematocrit 41.2 % (41.0-55.0); Hemoglobin 12.7 g/dL (13.5-16.5); Mean Cell Volume 95.6 fL (80.0-100.0); Mean Corpuscular HGB Conc 30.8 g/dL (31.0-36.0); Mean Platelet Volume 10.5 fL (7.4-10.4); Platelet Count 375 K/mcL (140-440); RBC 4.31 M/mcL (4.50-5.90); Red Cell Distribution Width 14.6 % (11.5-14.5); WBC 14.5 K/mcL (4.5-11.0)
[2021-02-23 10:18] LABS: ALT/SGPT < 5 U/L (<40); AST/SGOT 26 U/L (<40); Albumin 2.8 gm/dL (3.2-5.2); Albumin/Globulin Ratio 0.8 (1.0-2.3); Alkaline Phosphatase 135 U/L (39-117); Bilirubin,Direct < 0.2 mg/dL (0-0.3); Bilirubin,Total 0.6 mg/dL (0.1-1.0); Blood Urea Nitrogen 52 mg/dL (8-23); Calcium 9.7 mg/dL (8.6-10.4); Carbon Dioxide 34 mmol/L (22-30); Chloride 105 mmol/L (96-108); Globulin 3.3 gm/dL (2.2-3.7); Glomerular Filtration Rate 44; Glucose 121 mg/dL (70-105); Lactate Dehydrogenase 367 U/L (135-225); Triglycerides 134 mg/dL (<150); Uric Acid 7.9 mg/dL (2.5-8.0)
[2021-02-23 14:27] LABS: POC Blood Urea Nitrogen 46 mg/dL (6-20); POC CO2 36 mmol/L (22-30); POC Chloride 101 mEq/L (96-108); POC Creatinine 1.5 mg/dL (0.6-1.2); POC Glucose, Random 207 mg/dL (70-105); POC Hematocrit 40 % (41-55); POC Potassium 3.5 mEql/L (3.3-5.1); POC Sodium 146 mEq/L (133-145)
[2021-02-23 17:15] LABS: Eosinophils % (Manual) 3 % (0-7); Lymphocytes % 5 % (15-49); Monocytes % (Manual) 6 % (1-12); Platelet Estimate NORMAL (Normal); RBC Morphology NORMAL (Normal); Segmented Neutrophils % 86 % (38-78)
[2021-02-23] MEDS: ACETAMINOPHEN 325 MG TABLET PO PRN (18:23)
[2021-02-23] MEDS: TAMSULOSIN 0.4 MG CAPSULE PO SCH (20:19)
[2021-02-23] MEDS: SENNOSIDES/DOCUSATE SODIUM 1 TAB TABLET PO SCH (20:19)
[2021-02-23] MEDS: TEMAZEPAM 15 MG CAPSULE PO PRN (20:19)
[2021-02-23] MEDS: ROCKLATAN OU SCH (20:19)
[2021-02-23] MEDS: INSULIN GLARGINE, HUMAN 1 UNIT/0.01 ML SQ SCH (20:28)
[2021-02-24] MEDS: HEPARIN 5,000 UNIT/ML VIAL SQ SCH ×3 (05:45→21:35)
[2021-02-24] MEDS: 0.9 % SODIUM CHLORIDE 10 ML SYRINGE IV SCH ×5 (05:45→22:19)
[2021-02-24] MEDS: ceFAZolin 1 GM VIAL IV SCH ×3 (05:46→21:35)
[2021-02-24 06:50] LABS: Hematocrit 39.8 % (41.0-55.0); Hemoglobin 12.4 g/dL (13.5-16.5); Mean Cell Volume 95.4 fL (80.0-100.0); Mean Corpuscular HGB Conc 31.2 g/dL (31.0-36.0); Mean Platelet Volume 10.6 fL (7.4-10.4); Platelet Count 324 K/mcL (140-440); RBC 4.17 M/mcL (4.50-5.90); Red Cell Distribution Width 14.5 % (11.5-14.5)
[2021-02-24] MEDS ORDERED: 0.9 % SODIUM CHLORIDE 10 ML SYRINGE IV PRN ×2 (07:20→08:15)
[2021-02-24] MEDS: INSULIN LISPRO 1 UNIT/0.01 ML UNIT SQ SCH ×7 (07:23→21:37)
[2021-02-24 07:38] LABS: Blood Urea Nitrogen 46 mg/dL (8-23); Calcium 9.4 mg/dL (8.6-10.4); Carbon Dioxide 35 mmol/L (22-30); Chloride 105 mmol/L (96-108); Glomerular Filtration Rate 53; Glucose 94 mg/dL (70-105)
[2021-02-24 07:39] LABS: ALT/SGPT < 5 U/L (<40); AST/SGOT 19 U/L (<40); Albumin/Globulin Ratio 1.1 (1.0-2.3); Alkaline Phosphatase 108 U/L (39-117); Bilirubin,Direct < 0.2 mg/dL (0-0.3); Bilirubin,Total 0.5 mg/dL (0.1-1.0); Blood Urea Nitrogen 44 mg/dL (8-23); Calcium 9.4 mg/dL (8.6-10.4); Carbon Dioxide 35 mmol/L (22-30); Chloride 105 mmol/L (96-108); Globulin 2.8 gm/dL (2.2-3.7); Glomerular Filtration Rate 53; Glucose 93 mg/dL (70-105); Lactate Dehydrogenase 228 U/L (135-225); Triglycerides 159 mg/dL (<150); Uric Acid 7.1 mg/dL (2.5-8.0)
[2021-02-24] MEDS: sitaGLIPtin 100 MG TABLET PO SCH ×2 (07:45→08:43)
[2021-02-24] MEDS: DOCUSATE SODIUM 100 MG CAPSULE PO SCH ×3 (07:45→21:36)
[2021-02-24] MEDS: TIMOLOL 0.5% OPHTH DROPS BOTTLE 5ML OU SCH ×3 (07:45→21:41)
[2021-02-24] MEDS: TIOTROPIUM OLODATEROL INH SCH ×2 (07:45→08:43)
[2021-02-24] MEDS: SENNOSIDES 1 TABLET PO SCH ×2 (07:45→08:44)
[2021-02-24] MEDS: THIAMINE 100 MG TABLET PO SCH ×2 (07:45→08:44)
[2021-02-24] MEDS: BRINZOLAMIDE BRIMONIDINE OU SCH ×3 (07:45→21:44)
[2021-02-24] MEDS: MULTIVIT,THER IRON,CA,FA & MIN 1 TABLET PO SCH ×2 (07:46→08:43)
--- NOTE | 2021-02-24 08:14 | Nephrology Progress Note ---
SUBJECTIVE Subjective Patient information: Note initiated : 02/24/21 at 8:13 am Patient: Daljit Quintanilla 75 y/o M admitted on 02/16/21 for Rt Knee Pain, Unable To Walk. Chief Complaint: Right knee pain. Pertinent ROS: Reports feeling thirsty, but not able to drink water due to fluid restriction Weakness Constitutional Vitals: Vital Signs Temp Pulse Resp BP Pulse Ox 97.4 F 68 17 161/57 97 02/24/21 04:06 02/23/21 10:33 02/24/21 06:01 02/24/21 06:01 02/24/21 06:01 Period Temp Pulse Resp BP Sys/Pichardo Pulse Ox Last 24 Hr 97.4 F-98.1 F 68 16-25 109-165/54-106 91-99 Intake and Output 02/23/21 02/24/21 02/24/21 21:59 05:59 13:59 Intake Total 425 Output Total 1050 550 Balance -1050 -125 Weight 321 lb 3.2 oz Intake & Output: Intake & Output 02/23/21 02/24/21 02/24/21 21:59 05:59 13:59 Intake Total 425 Output Total 1050 550 Balance -1050 -125 Weight 321 lb 3.2 oz Intake: Oral 425 Output: Urine Catheter Amount 1050 550 Other: Meal 1 applesauce Urine Appearance Clear Cloudy Uretheral (Dobbs) Clear Urine Color Bright Yellow Bright Yellow Uretheral ([place]) Dark Yellow Urine Odor Normal Normal General appearance: cooperative and no acute distress Head Head exam: Present normal inspection Eye Eye exam: Present normal appearance ENT ENT exam: Present mucous membranes dry Respiratory Respiratory exam: Absent respiratory distress Cardiovascular Cardiovascular exam: Present normal rate and rhythm GI/Abdominal GI/Abdominal exam: Present soft; Absent tenderness Extremities Exam Extremities exam: Absent joint swelling and pedal edema Neurological Exam Neurological exam: Present alert and oriented X3 Psychiatric Psychiatric exam: Present normal affect and normal mood Skin Skin exam: Present warm; Absent rash A/P Assessment and plan (1) Acute renal failure superimposed on stage 3a chronic kidney disease: Assessment and plan: Daljit Quintanilla is a 75-year-old male with coronary artery disease, atrial fibrillation, hypertension, chronic obstructive pulmonary disease, diabetes mellitus type 2, chronic kidney disease stage 3a, morbid obesity (BMI 40), obstructive sleep apnea admitted on 02/16/21. He presented to the ED for shortness of breath and right knee pain and swelling. In ED, workup was consistent with right knee septic arthritis/bilateral chest infiltrates/88% sats on 4 L oxygen and a white count over 16,000. The patient underwent arthrocentesis. Baseline serum creatinine: 1.3 (eGFR 54) 1.3 on 10/25/17 and 1.4 (eGFR 48) on 02/16/21. Nephrology consultation was requested for acute kidney injury. Acute kidney injury on chronic kidney disease stage 3a associated with sepsis, present on arrival, resolving. There is no recent history of IV contrast administration. He took Aspirin 325 mg daily for knee pain at home and has been receiving Toradol in the hospital. There is no recent history of IV contrast administration. Acute postinfectious glomerulonephritis, acute interstitial nephritis or acute toxic nephropathy due to medications are considered, but unlikely per work up. Sepsis due to MSSA bacteremia, right prosthetic knee septic arthritis. Hypernatremia with metabolic acidosis associated with diuresis and fluid restriction, new. Work up: Urinalysis on 02/16/21: Yellow, hazy, pH 5.0, SG 1.013, protein 100, blood negative, leukocyte esterase negative. No renal imaging. Progress: Serum creatinine decreased from 1.5 to 1.3 in the past 24 hours. Baseline serum creatinine: 1.3 (eGFR 54) 1.3 on 10/25/17 and 1.4 (eGFR 48) on 02/16/21. I/O's: - 2-5L/day reported in the past 5 days. Urine output: 2-6 L/day reported in the past 5 days. Recommendations/Plan: D5W at 50 ml/hour. Remove fluid restriction. Hold diuretics. Monitor BMP, I/Os, urine output. Status: Acute Comment: Continue to monitor to baseline creatinine clearance. (2) Hypernatremia: Status: Acute (3) Metabolic alkalosis: Status: Acute Time Spent With Patient Time: Total time spent is greater than 50% in coordination of care (as documented) at patient's floor/unit and/or counseling patient:
[2021-02-24] MEDS ORDERED: HYDROmorphone 1 MG/ML SYRINGE IV PRN (08:15)
[2021-02-24] MEDS ORDERED: ONDANSETRON 4 MG/2 ML VIAL IV PRN (08:15)
[2021-02-24] MEDS ORDERED: oxyCODONE/APAP 5/325MG TABLET PO PRN (08:15)
[2021-02-24] MEDS ORDERED: GLYCOPYRROLATE 0.2 MG/ML VIAL IV ONE (08:15)
[2021-02-24] MEDS ORDERED: DEXTROSE 50% 50 ML VIAL IV PRN ×2 (08:15)
[2021-02-24] MEDS ORDERED: TRANEXAMIC ACID 1,000 MG/10 ML VIAL IV ONE (08:15)
[2021-02-24] MEDS ORDERED: BENZOCAINE/MENTHOL 1 LOZENGE PO PRN (08:15)
[2021-02-24] MEDS ORDERED: DEXAMETHASONE 10 MG/ML VIAL ONE (08:15)
[2021-02-24] MEDS ORDERED: HYDROmorphone 1 MG/ML SYRINGE ONE (08:15)
[2021-02-24] MEDS ORDERED: MELATONIN 3 MG TABLET PO PRN (08:15)
[2021-02-24] MEDS ORDERED: ePHEDrine 50 MG/ML AMPUL IV ONE (08:15)
[2021-02-24] MEDS ORDERED: PROPOFOL 200 MG/20 ML VIAL IV ONE (08:15)
[2021-02-24] MEDS ORDERED: BISACODYL 10 MG SUPP.RECT PR PRN (08:15)
[2021-02-24] MEDS ORDERED: guaiFENesin/CODEINE 10 ML UDC PO PRN (08:15)
[2021-02-24] MEDS ORDERED: DEXTROSE 5% IN WATER 500 ML IV SCH (08:15)
[2021-02-24] MEDS ORDERED: ONDANSETRON 4 MG/2 ML VIAL ONE (08:15)
[2021-02-24] MEDS ORDERED: MAGNESIUM SULFATE 2 GM/50 ML BAG IV ONE (08:15)
[2021-02-24] MEDS ORDERED: ACETAMINOPHEN 325 MG TABLET PO PRN (08:15)
[2021-02-24] MEDS ORDERED: FLEETS ADULT ENEMA PR PRN (08:15)
[2021-02-24] MEDS ORDERED: POTASSIUM CHLORIDE 40 MEQ in DEXTROSE 5% IN WATER 500 ML IV PRN (08:15)
[2021-02-24] MEDS ORDERED: ACETAMINOPHEN 650 MG/65 ML BAG IV PRN (08:15)
[2021-02-24] MEDS ORDERED: DEXTROSE 5% IN WATER 1,000 ML IV SCH (08:15)
[2021-02-24] MEDS ORDERED: METOPROLOL TARTRATE 5 MG/5 ML VIAL IV PRN (08:15)
[2021-02-24] MEDS ORDERED: ALBUTEROL SULFATE 200 PUFF INHALER INH PRN (08:15)
[2021-02-24] MEDS ORDERED: MAGNESIUM SULFATE 2 GM/50 ML BAG IV PRN (08:15)
[2021-02-24] MEDS ORDERED: POLYETHYLENE GLYCOL 3350 17 GM PACKET PO PRN (08:15)
[2021-02-24] MEDS ORDERED: DEXTROSE 31 GM ORAL.SUSP PO PRN ×2 (08:15)
[2021-02-24] MEDS ORDERED: LIDOCAINE HCL/PF 100 MG/5 ML SYRINGE IV ONE (08:15)
[2021-02-24] MEDS ORDERED: KETAMINE 50 MG/ML ML ONE (08:15)
[2021-02-24] MEDS ORDERED: TEMAZEPAM 15 MG CAPSULE PO PRN (08:15)
[2021-02-24] MEDS ORDERED: ONDANSETRON 4 MG ODT TABLET SL PRN (08:15)
[2021-02-24] MEDS ORDERED: MAGNESIUM HYDROXIDE 30 ML ORAL.SUSP PO PRN (08:15)
[2021-02-24] MEDS ORDERED: PHENYLEPHRINE 10 MG/ML VIAL ONE (08:15)
--- NOTE | 2021-02-24 08:16 | Internal Med Progress Note ---
SUBJECTIVE Subjective Patient information: Note initiated : 02/24/21 at 8:13 am Service Date, if different from initiated Date: [] Patient: Daljit Quintanilla 75 y/o M admitted on 02/16/21 for Rt Knee Pain, Unable To Walk. Chief Complaint: [] Interval history: Mr. Quintanilla is a 75 year old morbidly obese male with a history of HTN/A. fib/DM type II/CAD/COPD on 3 L oxygen/JOELLEN/P HTN/DJD who presents to the ER with increasing shortness of breath/fatigue/inability to function over the last 4 days. Symptoms are progressed with subjective fever since yesterday along with right knee pain swelling and difficulty ambulating and bearing weight. He denies trauma or fall. Initial work-up in the ER was consistent with right knee septic arthritis/bilateral chest infiltrates/88% sats on 4 L oxygen and a white count over 16,000. Patient underwent arthrocentesis, cultures were drawn and antibiotics initiated. Dr. Ricci orthopedics was consulted for evaluation of septic arthritis. Hospital service was requested for admission in light of above At the time of my evaluation patient is accompanied with his . He was able to answer most the questions. Is currently on 4 L oxygen. Feeling short of breath. Endorses history as above. Denies shaking chills or sweats but endorses to fever along with weakness fatigue and elevated function. He no rmally uses CPAP and has been able to perform ADLs but over the last 4 days have gradually deteriorated to the point he is unable to move around or even get out of bed due to extreme fatigue and weakness. He denies productive sputum, denies rash, diarrhea, headache photophobia 02/17-patient clinically improving. Now on 2 L oxygen. White count downtrending from 16.8-12.8. Gram-positive cocci in blood cultures. Surveillance cultures pending. Echocardiogram ordered. No clear source identified except for the lower extremity sequential compressive device that he uses at home with resultant skin breakdown and leakage. Wound care/infectious disease consulted. Worsening renal function at 1.9. Nephrology consult. CRP 42. Continue Rocephin/vancomycin and de-escalate based on culture sensitivities. 02/18-Awaiting cultures, continues on IV antibiotic. ID plans 6 weeks IV antibiotic treatment course via PICC-awaiting negative cultures before PICC placement. Awaiting ECHO report. Chest xray shows improving bilateral infiltrates. Creatinine appears to have plateaued, nephrology following. Vancomycin trough elevated so holding dose today. 02/19-increased lasix for diuresis, blood cultures sensitivities pending, ECHO report pending, Vancomycin trough elevated again today in spite of held dose yesterday. 02/20-diuresing well, renal function has improved. Improved sleep last night with diuresis and was able to maintain CPAP. Initial blood culture sensitivities showing MSSA.. Blood culture from 02/19 resulted positive for gram positive cocci, repeated surveillance blood cultures. Holding Atenolol for bradycardia. ECHO results show LV EF 45-50%, grade III diastolic dysfunction, mildly reduced RV systolic function, evidence of increased right atrial pressure. Decreased basal/bolus insulin for lower blood glucose. 02/21-slept better last night, creatinine about the same as yesterday and appears to be at CKD baseline, decreased IV lasix 40 mg from TID to BID, fluctuating blood sugar after decrease insulin yesterday. Concern for aspiration with food, speech following and recommending thickened liquids diet. Considering CT neck as patient has a history of neck cancer previously treated according to his and felt to be cured. 02/22 Poor sleep last night. Otherwise no overnight event or new complaints. Uses a walker at home and is primary stock chaser. 02/23 No changes. No overnight event or new complaints. Is sodium did increase to 152 today we will repeat labs to clarify. And if accurate D5 water and follow- up labs. Patient states he has not been drinking very much at all. Awaiting 48-hour culture results from the 02/21 blood draw 02/24 Slept better and he feels better today. Blood cultures been negative for over 48 hours. PICC line ordered. He has been urinating quite well without. Then has become hypernatremic. Will reconsult nephrology for assistance with hyponatremia and fluid balance Review of Systems: denies headache/fever/chills/nausea/vomiting/chest or abdominal pain/cough/dyspnea/diarrhea. Otherwise see above. Constitutional Vitals: Vital Signs Temp Pulse Resp BP Pulse Ox 97.4 F 68 17 161/57 97 02/24/21 04:06 02/23/21 10:33 02/24/21 06:01 02/24/21 06:01 02/24/21 06:01 Period Temp Pulse Resp BP Sys/Pichardo Pulse Ox Last 24 Hr 97.4 F-98.1 F 68 16-25 109-165/54-106 91-99 Intake and Output 02/23/21 02/24/21 02/24/21 21:59 05:59 13:59 Intake Total 425 Output Total 1050 550 Balance -1050 -125 Weight 145.694 kg Intake & Output: Intake & Output 02/23/21 02/24/21 02/24/21 21:59 05:59 13:59 Intake Total 425 Output Total 1050 550 Balance -1050 -125 Weight 145.694 kg Intake: Oral 425 Output: Urine Catheter Amount 1050 550 Other: Meal 1 applesauce Urine Appearance Clear Cloudy Uretheral (Bellamy) Clear Urine Color Bright Yellow Bright Yellow Uretheral (Bellamy) Dark Yellow Urine Odor Normal Normal Exam: General: Alert, Awake, No acute Distress, obese Eyes/N/T: EOMI Head/Neck: neck supple, CV: irreg irreg, No murmurs, Pulm: Clear b/l, no wheezing/rhonchi/rales Abd: soft, nontender, +BS x4 Ext: right knee tender, b/l LE 1+ edema, left toe wound Neuro: Alert, no focal deficits, moves all extremities, Skin: warm/dry OBJ DATA Labs CBC & Chem 7: 02/24/21 05:53 02/24/21 05:53 Labs: Abnormal Lab Results 02/24/21 02/24/21 02/24/21 05:53 05:53 05:53 WBC RBC 4.17 L Hgb 12.4 L Hct 39.8 L POC Hct MCHC RDW MPV 10.6 H Seg Neutrophils % Lymphocytes % RBC Morphology Anisocytosis Ovalocytes POC Sodium Sodium 150 H 149 H Carbon Dioxide 35 H 35 H POC Total CO2 Anion Gap POC BUN BUN 46 H 44 H Creatinine 1.3 H 1.3 H POC Creatinine Glucose POC Glucose Uric Acid POC WB Ioniz Calcium GGT 68 H Alkaline Phosphatase Lactate Dehydrogenase 228 H Total Protein 5.8 L Albumin 3.0 L Albumin/Globulin Ratio Triglycerides 159 H 02/23/21 02/23/21 02/23/21 14:09 08:02 08:02 WBC 14.5 H RBC 4.31 L Hgb 12.7 L Hct POC Hct 40 L 38 L MCHC 30.8 L RDW 14.6 H MPV 10.5 H Seg Neutrophils % 86 H Lymphocytes % 5 L RBC Morphology Anisocytosis Ovalocytes POC Sodium 146 H 148 H Sodium 149 H Carbon Dioxide 34 H POC Total CO2 36 H 38 H Anion Gap POC BUN 46 H 48 H BUN 52 H Creatinine 1.5 H POC Creatinine 1.5 H 1.6 H Glucose 121 H POC Glucose 207 H 133 H Uric Acid POC WB Ioniz Calcium 1.04 L GGT 79 H Alkaline Phosphatase 135 H Lactate Dehydrogenase 367 H Total Protein Albumin 2.8 L Albumin/Globulin Ratio 0.8 L Triglycerides 02/23/21 02/22/21 02/22/21 05:21 05:16 05:16 WBC 13.0 H RBC 4.49 L Hgb 13.3 L Hct POC Hct MCHC RDW 14.6 H MPV Seg Neutrophils % 82 H Lymphocytes % 3 L RBC Morphology Abnormal A Anisocytosis Few A Ovalocytes Few A POC Sodium Sodium 152 H Carbon Dioxide 34 H 36 H POC Total CO2 Anion Gap 6.0 L POC BUN BUN 54 H 62 H Creatinine 1.6 H 1.5 H POC Creatinine Glucose 139 H 158 H POC Glucose Uric Acid 9.4 H POC WB Ioniz Calcium GGT 79 H 73 H Alkaline Phosphatase 128 H 118 H Lactate Dehydrogenase 301 H 244 H Total Protein Albumin 2.7 L 2.8 L Albumin/Globulin Ratio 0.8 L 0.9 L Triglycerides Meds: Medications Acetaminophen (Acetaminophen 325 Mg Tablet) 650 mg PO Q4-6HP PRN; Protocol PRN Reason: Per Pain Protocol/Fever > 101 Last Admin: 02/23/21 18:23 Dose: 650 mg Documented by: Albuterol Sulfate (Albuterol Sulfate 200 Puff Inhaler) 2 puff INH QIDP PRN PRN Reason: Shortness Of Breath Or Wheezin Last Admin: 02/23/21 08:26 Dose: 2 puff Documented by: Bisacodyl (Bisacodyl 10 Mg Supp.Rect) 10 mg MT Q2-3DAYS PRN PRN Reason: Constipation Last Admin: 02/20/21 13:54 Dose: 10 mg Documented by: Cefazolin Sodium (Cefazolin 1 Gm Vial) 2 gm IV Q8H NICKIE; Protocol Last Admin: 02/24/21 05:46 Dose: 2 gm Documented by: Dextrose (Dextrose 50% 50 Ml Vial) 0 ml IV UD PRN PRN Reason: Hypoglycemia Dextrose (Dextrose 50% 50 Ml Vial) 0 ml IV UD PRN PRN Reason: Hypoglycemia Diagnostic Test (Pha) (Accu-Chek 1 Each Strip) 1 each FS ACHS [facility] Last Admin: 02/24/21 07:22 Dose: 1 each Documented by: Docusate Sodium (Docusate Sodium 100 Mg Capsule) 100 mg PO BID [facility] Last Admin: 02/24/21 07:45 Dose: 100 mg Documented by: Glucose (Dextrose 31 Gm Oral.Susp) 15 gm PO PRN PRN PRN Reason: Hypoglycemia Glucose (Dextrose 31 Gm Oral.Susp) 15 gm PO PRN PRN PRN Reason: Hypoglycemia Guaifenesin/Codeine Phosphate (Guaifenesin/Codeine 10 Ml Udc) 10 ml PO Q4HP PRN PRN Reason: Cough Heparin Sodium (Porcine) (Heparin Flush 10 Units/Ml 5 Ml Syringe) 2 ml IV Q12 [facility] Last Admin: 02/24/21 07:46 Dose: Not Given Documented by: Heparin Sodium (Porcine) (Heparin 5,000 Unit/Ml Vial) 5,000 unit SQ Q8H [facility] Last Admin: 02/24/21 05:45 Dose: 5,000 unit Documented by: Hydromorphone HCl (Hydromorphone 1 Mg/Ml Syringe) 0.5 - 2 mg IV Q2HP PRN; Protocol PRN Reason: Per Pain Protocol Last Admin: 02/21/21 16:16 Dose: 1 mg Documented by: Potassium Chloride 40 meq/ (Dextrose) 520 mls @ 130 mls/hr IV UD PRN PRN Reason: K+ = or < 3.5 Acetaminophen (Ofirmev) 650 mg in 65 mls @ 130 mls/hr IV Q6HP PRN; Protocol PRN Reason: Per Pain Protocol/Fever > 101 Magnesium Sulfate (Magnesium Sulfate) 2 gm in 50 mls @ 50 mls/hr IV UD PRN PRN Reason: MG = or < 1.7 Insulin Glargine (Insulin Glargine, Human 1 Unit/0.01 Ml) 55 unit SQ HS [facility] Last Admin: 02/23/21 20:28 Dose: 55 unit Documented by: Insulin Human Lispro (Insulin Lispro 1 Unit/0.01 Ml Unit) 5 unit SQ AC [facility] Last Admin: 02/24/21 07:24 Dose: Not Given Documented by: Insulin Human Lispro (Insulin Lispro 1 Unit/0.01 Ml Unit) 0 unit SQ ACHS [facility]; Protocol Last Admin: 02/24/21 07:23 Dose: Not Given Documented by: Iron Carb/Multivit/[place]ster/Folic Acid (Multivit,Ther Iron,Ca,Fa & Min 1 Tablet) 1 tab PO DAILY [facility] Last Admin: 02/24/21 07:46 Dose: 1 tab Documented by: Magnesium Hydroxide (Magnesium Hydroxide 30 Ml Oral.Susp) 30 ml PO BIDP PRN PRN Reason: Constipation Last Admin: 02/20/21 09:16 Dose: 30 ml Documented by: Melatonin (Melatonin 3 Mg Tablet) 3 mg PO HSP PRN PRN Reason: Insomnia Metoprolol Tartrate (Metoprolol Tartrate 5 Mg/5 Ml Vial) 5 mg IV Q5M PRN PRN Reason: Heart Rate > 140 bpm Ondansetron HCl (Ondansetron 4 Mg/2 Ml Vial) 4 mg IV Q4HP PRN PRN Reason: Nausea And Vomiting Ondansetron HCl (Ondansetron 4 Mg Odt Tablet) 4 mg SL Q4-6HP PRN; Protocol PRN Reason: Nausea And Vomiting Oxycodone/Acetaminophen (Oxycodone/Apap 5/325mg Tablet) 1 - 2 tab PO Q4HP PRN; Protocol PRN Reason: Per Pain Protocol Brinzolamide- Brimonidine [ Simbrinza] 1-0.2 % Drop 1 dose OU BID [facility] Last Admin: 02/24/21 07:45 Dose: 1 dose Documented by: Tiotropium- Olodaterol [Stiolto Respimat] 2.5-2.5 Mcg/Act Inhaler 2 dose INH DAILY [facility] Last Admin: 02/24/21 07:45 Dose: 2 dose Documented by: Rocklatan ( Netarsudil And Latanoprost) 0.02%/0 .005% Ophthalmic Solution 1 dose OU HS [facility] Last Admin: 02/23/21 20:19 Dose: 1 dose Documented by: Polyethylene Glycol (Polyethylene Glycol 3350 17 Gm Packet) 17 gm PO DAILYP PRN PRN Reason: Constipation Senna (Sennosides 1 Tablet) 2 tab PO DAILY [facility] Last Admin: 02/24/21 07:45 Dose: 2 tab Documented by: Senna/Docusate Sodium (Sennosides/Docusate Sodium 1 Tab Tablet) 1 tab PO HS [facility] Last Admin: 02/23/21 20:19 Dose: 1 tab Documented by: Sitagliptin Phosphate (Sitagliptin 100 Mg Tablet) 100 mg PO DAILY [facility] Last Admin: 02/24/21 07:45 Dose: 100 mg Documented by: Sodium Biphosphate/Sodium Phosphate (Fleets Adult Enema) 1 dose MT Q3-4DAYS PRN PRN Reason: Constipation Last Admin: 02/19/21 13:58 Dose: 1 dose Documented by: Sodium Chloride (0.9 % Sodium Chloride 10 Ml Syringe) 10 ml IV UD PRN PRN Reason: FLUSH Sodium Chloride (0.9 % Sodium Chloride 10 Ml Syringe) 10 ml IV Q12 [facility] Last Admin: 02/24/21 07:47 Dose: Not Given Documented by: Sodium Chloride (0.9 % Sodium Chloride 10 Ml Syringe) 10 ml IV Q8 [facility] Last Admin: 02/24/21 05:45 Dose: 10 ml Documented by: Tamsulosin HCl (Tamsulosin 0.4 Mg Capsule) 0.4 mg PO [facility] Last Admin: 02/23/21 20:19 Dose: 0.4 mg Documented by: Temazepam (Temazepam 15 Mg Capsule) 15 mg PO HSP PRN PRN Reason: Insomnia Last Admin: 02/23/21 20:19 Dose: 15 mg Documented by: Thiamine HCl (Thiamine 100 Mg Tablet) 100 mg PO DAILY [facility] Last Admin: 02/24/21 07:45 Dose: 100 mg Documented by: Throat Lozenges (Benzocaine/Menthol 1 Lozenge) 1 lozenge PO PRN PRN PRN Reason: Sore Throat Timolol Maleate (Timolol 0.5% Ophth Drops Bottle 5ml) 1 gtt OU BID [facility] Last Admin: 02/24/21 07:45 Dose: 1 drop Documented by: A/P Narrative A/P Narrative: A: #Hypernatremia (?DI): - #MSSA Bacteremia: -initial source of bacteremia was probably the patient's left foot wounds, complicated by septic knee -TTE report did not report valvular vegetations however was a technically difficult exam -02/19 BC with 1/4 bottles positive so far #Right prosthetic knee septic arthritis (MSSA): s/p I&D/synovectomy/polyliner exchange (02/16/21), Dr. Ricci -Gram stain/culture obtained, growing MSSA. #Acute on chronic CHF: previous echo 55% EF (2011) now 45-50%, grade III diastolic dysfunction. -diuresing well #PAMELA on CKD III w/ volume overload: improved, appears to be near baseline CKD #Obstructive sleep apnea: on CPAP #Bradycardia: improved off BB #h/o Atrial fibrillation: per not on anticoagulation d/t easily bleeding and it was determined between pt and cardio to forgoe anticoagulation and use only ASA, with the understanding fo stroke risk #COPD (2L O2@home): #DM type II: poorly controlled #Left foot wounds: probable source of bacteremia #HTN: #Chronic pain #h/o CAD #BPH: currently has bellamy catheter for acute urine output with diuresis. 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 -CPAP at bedtime -PT/OT/ST -Dysphagia diet, f/u with ST outpt -Nutrition support -Wound care -f/u with Cardiology for bradycardia on BB for Afib -Disposition: SNF on IV antibiotic via PICC with ID and orthopedic surgery follow up. -DVT ppx: heparin SQ Time Spent With Patient Time: Total time spent is greater than 50% in coordination of care (as documented) at patient's floor/unit and/or counseling patient:
[2021-02-24] MEDS ORDERED: 0.9 % SODIUM CHLORIDE 10 ML SYRINGE IV SCH (09:00)
[2021-02-24 10:14] LABS: Band Neutrophils % 1 % (0-10); Eosinophils % (Manual) 4 % (0-7); Lymphocytes % 4 % (15-49); Monocytes % (Manual) 5 % (1-12); Platelet Estimate NORMAL (Normal); RBC Morphology NORMAL (Normal); Segmented Neutrophils % 86 % (38-78)
[2021-02-24 13:21] LABS: POC Blood Urea Nitrogen 39 mg/dL (6-20); POC CO2 35 mmol/L (22-30); POC Calcium, Ionized 1.15 mmEq/L (1.16-1.32); POC Chloride 101 mEq/L (96-108); POC Creatinine 1.3 mg/dL (0.6-1.2); POC Glucose, Random 150 mg/dL (70-105); POC Hematocrit 38 % (41-55); POC Potassium 3.5 mEql/L (3.3-5.1); POC Sodium 146 mEq/L (133-145)
[2021-02-24] MEDS ORDERED: hydrALAZINE 20 MG/ML VIAL IV PRN (13:29)
[2021-02-24 18:21] LABS: POC Blood Urea Nitrogen 38 mg/dL (6-20); POC CO2 32 mmol/L (22-30); POC Calcium, Ionized 1.18 mmEq/L (1.16-1.32); POC Chloride 102 mEq/L (96-108); POC Creatinine 1.3 mg/dL (0.6-1.2); POC Glucose, Random 140 mg/dL (70-105); POC Hematocrit 40 % (41-55); POC Potassium 3.5 mEql/L (3.3-5.1); POC Sodium 145 mEq/L (133-145)
[2021-02-24] MEDS ORDERED: SENNOSIDES/DOCUSATE SODIUM 1 TAB TABLET PO SCH (21:00)
[2021-02-24] MEDS ORDERED: TAMSULOSIN 0.4 MG CAPSULE PO SCH (21:00)
[2021-02-24] MEDS ORDERED: INSULIN GLARGINE, HUMAN 1 UNIT/0.01 ML SQ SCH (21:00)
[2021-02-24] MEDS ORDERED: ROCKLATAN OU SCH (21:00)
[2021-02-25] MEDS: 0.9 % SODIUM CHLORIDE 10 ML SYRINGE IV SCH ×2 (05:32→09:09)
[2021-02-25] MEDS: ceFAZolin 1 GM VIAL IV SCH ×2 (05:32→12:29)
[2021-02-25] MEDS: HEPARIN 5,000 UNIT/ML VIAL SQ SCH (05:32)
[2021-02-25] MEDS: INSULIN LISPRO 1 UNIT/0.01 ML UNIT SQ SCH ×4 (08:05→11:55)
[2021-02-25 08:21] LABS: Blood Urea Nitrogen 38 mg/dL (8-23); Calcium 9.4 mg/dL (8.6-10.4); Carbon Dioxide 35 mmol/L (22-30); Chloride 104 mmol/L (96-108); Glomerular Filtration Rate 53; Glucose 83 mg/dL (70-105)
--- NOTE | 2021-02-25 08:39 | Nephrology Progress Note ---
SUBJECTIVE Subjective Patient information: Note initiated : 02/25/21 at 8:34 am Patient: Daljit Quintanilla 75 y/o M admitted on 02/16/21 for Rt Knee Pain, Unable To Walk. Chief Complaint: Right knee pain Pertinent ROS: Aspiration with swallowing. Edema, mild. Dobbs catheter. Confusion, resolved. Weakness. Constitutional Vitals: Vital Signs Temp Pulse Resp BP Pulse Ox 97.5 F 66 24 H 160/76 91 02/25/21 07:56 02/25/21 07:56 02/25/21 07:56 02/25/21 07:56 02/25/21 07:56 Period Temp Pulse Resp BP Sys/Pichardo Pulse Ox Last 24 Hr 97.5 F-98.4 F 64-71 22-24 142-187/74-83 91-96 Intake and Output 02/24/21 02/25/21 02/25/21 21:59 05:59 13:59 Intake Total 919 240 Output Total 950 625 Balance -31 -385 Weight 333 lb 8 oz Intake & Output: Intake & Output 02/24/21 02/25/21 02/25/21 21:59 05:59 13:59 Intake Total 919 240 Output Total 950 625 Balance -31 -385 Weight 333 lb 8 oz Intake: IV 469 Dextrose 5% in Water 1,000 ml @ 469 50 mls/hr IV .Q20H [facility] Rx#: [id number] Oral 450 240 Output: Urine Catheter Amount 950 625 Other: Urine Appearance Sediment Clear Uretheral (Dobbs) Clear Urine Color Dark Yellow Dark Yellow Light Daya Uretheral (Dobbs) Bright Yellow Urine Odor Normal Strong Stool Size Copious Stool Color Brown Stool Consistency Formed # of times incontinent of 1 Bowels General appearance: cooperative and no acute distress Head Head exam: Present normal inspection Eye Eye exam: Present normal appearance ENT ENT exam: Present mucous membranes dry Respiratory Respiratory exam: Absent respiratory distress Cardiovascular Cardiovascular exam: Present normal rate and rhythm GI/Abdominal GI/Abdominal exam: Present soft; Absent tenderness Extremities Exam Extremities exam: Present joint swelling and pedal edema Neurological Exam Neurological exam: Present alert and oriented X3 Psychiatric Psychiatric exam: Present normal affect and normal mood Skin Skin exam: Present warm; Absent rash A/P Assessment and plan (1) Acute renal failure superimposed on stage 3a chronic kidney disease: Assessment and plan: Daljit Quintanilla is a 75-year-old male with coronary artery disease, atrial fibrillation, hypertension, chronic obstructive pulmonary disease, diabetes mellitus type 2, chronic kidney disease stage 3a, morbid obesity (BMI 40), obstructive sleep apnea admitted on 02/16/21. He presented to the ED for shortness of breath and right knee pain and swelling. In ED, workup was consistent with right knee septic arthritis/bilateral chest infiltrates/88% sats on 4 L oxygen and a white count over 16,000. The patient underwent arthrocentesis. Baseline serum creatinine: 1.3 (eGFR 54) 1.3 on 10/25/17 and 1.4 (eGFR 48) on 02/16/21. Nephrology consultation was requested for acute kidney injury. Acute kidney injury on chronic kidney disease stage 3a associated with sepsis, present on arrival, resolving. There is no recent history of IV contrast administration. He took Aspirin 325 mg daily for knee pain at home and has been receiving Toradol in the hospital. There is no recent history of IV contrast administration. Acute postinfectious glomerulonephritis, acute interstitial nephritis or acute toxic nephropathy due to medications are considered, but unlikely per work up. Sepsis due to MSSA bacteremia, right prosthetic knee septic arthritis. Hypernatremia with metabolic acidosis associated with diuresis and fluid restriction, new, improved. Work up: Urinalysis on 02/16/21: Yellow, hazy, pH 5.0, SG 1.013, protein 100, blood negative, leukocyte esterase negative. No renal imaging. Progress: Serum creatinine 1.3, did not change in the past 24 hours. Baseline serum creatinine: 1.3 (eGFR 54) 1.3 on 10/25/17 and 1.4 (eGFR 48) on 02/16/21. Serum sodium decreased from 150 to 146 in the past 24 hours. I/O's: - 146 mL/day reported in the past 24 hours. Urine output: 1,575ml/day reported in the past 24 hours. Recommendations/Plan: No IVF. No fluid restriction. Home diuretic regimen (Furosemide 40 mg daily and Spironolactone 25 mg daily) resumed. Monitor BMP, I/Os, urine output. Status: Acute Comment: Continue to monitor to baseline creatinine clearance. (2) Hypernatremia: Status: Acute (3) Metabolic alkalosis: Status: Acute Time Spent With Patient Time: Total time spent is greater than 50% in coordination of care (as documented) at patient's floor/unit and/or counseling patient:
[2021-02-25] MEDS ORDERED: FUROSEMIDE 40 MG TABLET PO SCH (09:00)
[2021-02-25] MEDS ORDERED: SPIRONOLACTONE 25 MG TABLET PO SCH (09:00)
[2021-02-25] MEDS: DOCUSATE SODIUM 100 MG CAPSULE PO SCH (09:07)
[2021-02-25] MEDS: sitaGLIPtin 100 MG TABLET PO SCH (09:07)
[2021-02-25] MEDS: MULTIVIT,THER IRON,CA,FA & MIN 1 TABLET PO SCH (09:07)
[2021-02-25] MEDS: SENNOSIDES 1 TABLET PO SCH (09:09)
[2021-02-25] MEDS: THIAMINE 100 MG TABLET PO SCH (09:09)
[2021-02-25] MEDS: BRINZOLAMIDE BRIMONIDINE OU SCH (09:12)
[2021-02-25] MEDS: TIOTROPIUM OLODATEROL INH SCH (09:13)
[2021-02-25] MEDS: TIMOLOL 0.5% OPHTH DROPS BOTTLE 5ML OU SCH (09:14)
== END 2021-02-25 12:55 | DRG 485 ==
LOC: ED 07:03 → SUR 15:19 → ICU 18:51 → MEDSUR 02-24 06:18
PROVIDERS: ADMIT Internal Medicine; ATTEND Internal Medicine

== ENCOUNTER 2021-08-26 13:34 | Inpatient (IN) ==
[2021-08-26] MEDS ORDERED: VANCOMYCIN PER PHARMACY IV ONE ×2 (13:56→19:11)
[2021-08-26] MEDS ORDERED: PIPERACILLIN SODIUM/TAZOBACTAM 3.375 GM in DEXTROSE 5% IN WATER 50 ML IV ONE (13:56)
--- NOTE | 2021-08-26 14:01 | Emergency Department Note ---
HPI General Chief complaint: Wound/Laceration Stated complaint: Right toe wound Time Seen by Provider: 08/26/21 13:37 Source: patient and family Mode of arrival: wheelchair Limitations: no limitations History of Present Illness HPI Narrative: Patient is a 75-year-old gentleman who by his complaining of right toe infection. History is provided by the patient his and discussion with his wound care physician prior to his arrival. Patient has been dealing with an ulcer on his right great toe for several days. This started as a blood blister that then ruptured and has been progressing to diffuse erythema with purulent drainage. He has been treating at home with frequent dressing changes as well as oral amoxicillin. Today, he was evaluated by his wound care team and noted that his wound had significantly more purulent output so he was referred to the emergency department for likely admission and IV antibiotics. Patient denies any pain but notes that he has abnormal sensation in his foot due to longstanding diabetic neuropathy. His blood sugar has been running in the high 100s to low 200s which is actually quite good for him. Related Data Home Medications Medication Instructions Recorded Confirmed alpha lipoic acid 200 mg tablet 200 mg PO BID 08/29/15 08/26/21 coenzyme Q10 50 mg chewable tablet 200 mg PO BID 08/29/15 08/26/21 levocarnitine tartrate 500 mg 500 mg PO BID 08/29/15 08/26/21 capsule losartan 100 mg tablet 100 mg PO DAILY 08/29/15 08/26/21 saw palmetto 450 mg capsule 450 mg PO BID 08/29/15 08/26/21 albuterol sulfate 90 mcg/actuation 2 puff INHALATION QID PRN 02/16/21 08/26/21 aerosol inhaler brinzolamide 1 %-brimonidine 0.2 % 1 drp OPHTHALMIC (EYE) BID 02/16/21 08/26/21 eye drops,suspension (Simbrinza) furosemide 40 mg tablet (Lasix) 40 mg PO QDAY 02/16/21 08/26/21 potassium chloride 20 mEq 20 meq PO QDAY 02/16/21 08/26/21 tablet,extended release spironolactone 25 mg tablet 25 mg PO QDAY 02/16/21 08/26/21 timolol 0.5 % eye drops 1 drp OPHTHALMIC (EYE) BID 02/16/21 08/26/21 tiotropium 2.5 mcg-olodaterol 2.5 2 puff INHALATION BID 02/16/21 08/26/21 mcg/actuation mist for inhalation (Stiolto Respimat) netarsudil 0.02 %-latanoprost 1 drp OPHTHALMIC (EYE) QPM 02/18/21 08/26/21 0.005 % eye drops (Rocklatan) bisoprolol fumarate 5 mg tablet 2.5 mg PO QDAY tab 05/14/21 08/26/21 insulin lispro 200 unit/mL (3 mL) See Rx Instructions SUBCUT TID ml 05/14/21 08/26/21 subcutaneous pen (Humalog KwikPen U-200 Insulin) linagliptin 5 mg tablet (Tradjenta) 5 mg PO QDAY 05/14/21 08/26/21 loratadine 10 mg tablet (Allergy 10 mg PO QDAY 05/14/21 08/26/21 Relief (loratadine)) lysine HCl 1,000 mg tablet 1,000 mg PO BID 05/14/21 08/26/21 insulin glargine 100 unit/mL (3 60 unit SUBCUT QPM ml 06/30/21 08/26/21 mL) subcutaneous pen Previous Rx's Medication Instructions Recorded oxycodone-acetaminophen 5 mg-325 1 - 2 tab PO Q4HP PRN #75 tab 02/17/21 mg tablet blood sugar diagnostic (Blood #100 ea 06/30/21 Glucose Test) pen needles #100 ea 07/02/21 nystatin 100,000 unit/gram topical 1 applic TOPICAL BID #60 g 07/21/21 powder Allergies Allergy/AdvReac Type Severity Reaction Status Date / Time hydrocodone AdvReac Mild Itching Verified 08/26/21 13:34 Review of Systems ROS ROS Narrative: Narrative: All systems ED: reviewed and negative except as stated. 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) Morbid obesity (Chronic) Hypernatremia (Chronic) Hypertension (Chronic) Afib (Chronic) COPD (chronic obstructive pulmonary disease) (Chronic) Squamous cell carcinoma (Chronic) Throat cancer (Chronic) H/O right knee surgery (Chronic ~2020) History of left knee surgery (Chronic ~2016) Glaucoma (Chronic) Pulmonary hypertension (Chronic) Biventricular heart failure (Chronic) Sleep apnea (Chronic) 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) MSSA bacteremia (Chronic) Arthritis (Chronic) [place] (hard of hearing) (Chronic) Hyperlipidemia (Chronic) Range of motion deficit (Chronic) Wears dentures (Chronic) Diabetes mellitus with neuropathy (Chronic) CKD (chronic kidney disease) stage 3, GFR 30-59 ml/min (Chronic) 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) Medicare annual wellness visit, subsequent (Acute) Hematuria (Acute) Medical History Acute renal failure superimposed on stage 3a chronic kidney disease Afib Arthritis Bite by animal Biventricular heart failure Bladder infection (~02/14/21) CKD (chronic kidney disease) stage 3, GFR 30-59 ml/min Congestive heart failure COPD (chronic obstructive pulmonary disease) Diabetes mellitus with neuropathy Dog bite of multiple sites of hand and fingers Glaucoma Hematuria Hip sprain History of fracture of right ankle [place] (hard of hearing) Hyperlipidemia Hypernatremia Hypertension Infection of prosthetic right knee joint Daljit is a 75-year-old morbidly obese diabetic with chronic kidney disease. He was admitted yesterday currently postop day one for right septic total knee arthroplasty with staph aureus. Polyexchange completed. He had 2 weeks of symptoms prior to admission of increasing right knee pain. No previous history of MRSA. Probable MSSA. Laceration of finger Laceration of lip Localized edema due to fluid overload 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 Medicare annual wellness visit, subsequent Metabolic alkalosis Morbid obesity Comorbid risk factor. MSSA bacteremia Peripheral neuropathy due to chemotherapy PNA (pneumonia) Pulmonary hypertension Range of motion deficit left shoulder Rib fracture Sepsis Septic arthritis Sleep apnea Squamous cell carcinoma Head, Neck, Ears Staphylococcus aureus bacteremia Follow-up on sensitivities. I am expecting to transition to IV Ancef 2 g IV every 8 hours. This would be considered dose adjustment for his acute on chronic kidney disease and associated morbid obesity. Throat cancer Stage 4 Wears dentures Surgical History H/O right knee surgery (~2020) History of ankle surgery 03/1966fracture with screws right History of cardiac cath (09/26/20) History of cardioversion 09/2007; 12/26/2007 History of cataract surgery (~09/2019) History of colonoscopy (~2009) History of eye surgery 07/2020 bilateral to release pressure History of left knee surgery (~2016) History of umbilical hernia repair (~2001) with colon resection Hx of total knee arthroplasty Family History Brother Throat cancer Uncle Throat cancer Social History Smoking Status: Never smoker Alcohol Intake Frequency: does not drink Substance Use: does not use Exam Narrative Narrative: I reviewed the vital signs. Gen -patient is awake and alert and in no acute distress. HEENT -head is atraumatic. There is no conjunctival pallor or scleral icterus. CV -S1-S2 regular rate and rhythm. Resp -breathing is nonlabored. Lungs are clear to auscultation bilaterally. There is no cyanosis. Derm -skin is warm and dry. MSK -there is a small ulcer over the plantar surface of the distal first metatarsal of the right foot as well as a small ulcer over the plantar surface of the great toe of the right foot. There is a small amount of purulent dr ainage from both of these ulcers. There is surrounding erythema that extends to involve the entire distal third of the first metatarsal of the foot that blanches with light palpation. There is appreciable underlying induration without definite fluctuance or crepitus of the soft tissues. Capillary refill in the toes is intact. Dorsalis pedis and posterior tibial pulses are palpable. Psych -patient has appropriate affect. Neuro -patient answers questions appropriately with fluent speech. Patient moves all present extremities equally. General Limitations: no limitations Course Vital Signs Vital signs: Vital Signs Temperature 97.5 F 08/26/21 13:34 Pulse Rate 57 L 08/26/21 13:34 Respiratory Rate 18 08/26/21 13:34 Blood Pressure 141/62 08/26/21 13:34 Pulse Oximetry (%) 99 08/26/21 13:34 Temperature 98.7 F 08/27/21 03:10 Pulse Rate 53 L 08/27/21 03:10 Respiratory Rate 16 08/27/21 03:10 Blood Pressure 105/55 08/27/21 03:10 Pulse Oximetry (%) 95 08/27/21 03:10 MDM MDM Narrative Medical decision making narrative: Patient presents with cellulitis persistent despite outpatient antibiotic therapy. Labs remarkable for minimally elevated lactate without leukocytosis. Examination is not suggestive of necrotizing soft tissue infection. I discussed the test results and need for admission with the patient and his and they are agreeable. I discussed the patient's history examination and diagnostic findings with Dr. Gaspar, who agrees with the plan of care and accepts admission. Lab Data Lab results reviewed: Yes I reviewed the patient's lab results. Result diagrams: 08/26/21 13:56 08/27/21 05:25 Labs: Lab Results 08/26/21 08/26/21 08/26/21 Range/Units 13:56 13:56 13:56 WBC 10.7 (4.5-11.0) K/mcL RBC 3.87 L (4.63-6.08) M/mcL Hgb 12.0 L (13.7-17.5) g/dL Hct 36.8 L (40.1-51.0) % POC Hct 35 L (41-55) % MCV 95.1 (80.0-100.0) fL MCH 31.0 (26.0-34.0) pg MCHC 32.6 (31.0-36.0) g/dL RDW 14.9 H (11.5-14.5) % Plt Count 296 (140-440) K/mcL MPV 10.1 (7.4-10.4) fL Neut % (Auto) 80.7 H (38.0-78.0) % Lymph % (Auto) 6.9 L (15.5-49.0) % [place] % (Auto) 8.6 (1.0-12.0) % Eos % (Auto) 3.6 (0.0-7.0) % Baso % (Auto) 0.2 (0.0-2.0) % Lymph # (Auto) 0.74 L (1.50-4.80) K/mcL [place] # (Auto) 0.92 H (0.10-0.90) K/mcL Eos # (Auto) 0.39 (0.00-0.70) K/mcL Baso # (Auto) 0.02 (0.00-0.30) K/mcL Absolute Neutrophils 8.67 H (1.80-8.00) K/mcL ESR (0-15) mm/hr VBG Lactic Acid 2.8 H (0.5-2.0) mmol/L POC Sodium 139 (133-145) mEq/L POC Potassium 4.6 (3.3-5.1) mEql/L POC Chloride 102 (96-108) mEq/L POC Total CO2 25 (22-30) mmol/L POC BUN 49 H (6-20) mg/dL POC Creatinine 1.5 H (0.6-1.2) mg/dL POC Glucose 192 H (70-105) mg/dL Hemoglobin A1c (4.0-6.0) % Hgb Estim Average Glucose mg/dL POC WB Ioniz Calcium 1.17 (1.16-1.32) mmEq/L Procalcitonin (<0.10) ng/mL 08/26/21 08/26/21 08/26/21 Range/Units 13:56 13:56 13:56 WBC (4.5-11.0) K/mcL RBC (4.63-6.08) M/mcL Hgb (13.7-17.5) g/dL Hct (40.1-51.0) % POC Hct (41-55) % MCV (80.0-100.0) fL MCH (26.0-34.0) pg MCHC (31.0-36.0) g/dL RDW (11.5-14.5) % Plt Count (140-440) K/mcL MPV (7.4-10.4) fL Neut % (Auto) (38.0-78.0) % Lymph % (Auto) (15.5-49.0) % [place] % (Auto) (1.0-12.0) % Eos % (Auto) (0.0-7.0) % Baso % (Auto) (0.0-2.0) % Lymph # (Auto) (1.50-4.80) K/mcL [place] # (Auto) (0.10-0.90) K/mcL Eos # (Auto) (0.00-0.70) K/mcL Baso # (Auto) (0.00-0.30) K/mcL Absolute Neutrophils (1.80-8.00) K/mcL ESR 93 H (0-15) mm/hr VBG Lactic Acid (0.5-2.0) mmol/L POC Sodium (133-145) mEq/L POC Potassium (3.3-5.1) mEql/L POC Chloride (96-108) mEq/L POC Total CO2 (22-30) mmol/L POC BUN (6-20) mg/dL POC Creatinine (0.6-1.2) mg/dL POC Glucose (70-105) mg/dL Hemoglobin A1c 7.5 H (4.0-6.0) % Hgb Estim Average Glucose 169 mg/dL POC WB Ioniz Calcium (1.16-1.32) mmEq/L Procalcitonin 0.14 H (<0.10) ng/mL ED POC Tests ED POC Tests: MARIAH - SARS Antigen Negative Discharge Plan Patient/Caregiver Discharge Instructions Pt seen by ARMATURE TESTER/PA only: No Clinical Impression: Cellulitis of foot, right Patient Disposition: Xfer As Inpt ([facility]) Condition: Good Discharge Date/Time: 08/26/21 19:06
[2021-08-26] MEDS ORDERED: VANCOMYCIN 1,500 MG in 0.9 % SODIUM CHLORIDE 500 ML IV ONE (14:15)
[2021-08-26 14:16] LABS: POC Blood Urea Nitrogen 49 mg/dL (6-20); POC CO2 25 mmol/L (22-30); POC Calcium, Ionized 1.17 mmEq/L (1.16-1.32); POC Chloride 102 mEq/L (96-108); POC Creatinine 1.5 mg/dL (0.6-1.2); POC Glucose, Random 192 mg/dL (70-105); POC Hematocrit 35 % (41-55); POC Potassium 4.6 mEql/L (3.3-5.1); POC Sodium 139 mEq/L (133-145)
--- NOTE | 2021-08-26 14:34 | XRay Report ---
CLINICAL INFORMATION: osteomyelitis. Nonhealing diabetic foot ulcer of the right great toe COMPARISON: 07/28/2021 FINDINGS: No evidence of in the right first distal middle phalanx or metatarsal. . Moderate pes planus with partial collapse of the transverse and longitudinal plantar arch. Severe talocalcaneal degeneration noted with moderate heterotopic ossification bone in the adjacent dorsal soft tissues. The navicular appears normal in today's study. Single screw transfixes an old medial malleolar fracture which appears to be solidly unified. IMPRESSION: 1. No evidence of osteomyelitis in the distal first phalanx in the region of infected ulceration. 2. Navicular appears normal on today's exam. 3. Severe talonavicular degeneration. The remaining joint spaces are normal 4. Collapse of the transverse and longitudinal plantar arch resulting in severe pes planus 5. Transfixation old medial malleolar fracture-solidly unified : Interpreted and Authenticated by: Rashi Laguna 08/26/21
[2021-08-26 14:55] LABS: Basophils # (Auto) 0.02 K/mcL (0.00-0.30); Basophils % (Auto) 0.2 % (0.0-2.0); Eosinophils # (Auto) 0.39 K/mcL (0.00-0.70); Eosinophils % (Auto) 3.6 % (0.0-7.0); Hematocrit 36.8 % (40.1-51.0); Lymphocytes # (Auto) 0.74 K/mcL (1.50-4.80); Lymphocytes % (Auto) 6.9 % (15.5-49.0); Mean Cell Volume 95.1 fL (80.0-100.0); Mean Corpuscular HGB Conc 32.6 g/dL (31.0-36.0); Mean Platelet Volume 10.1 fL (7.4-10.4); Monocytes # (Auto) 0.92 K/mcL (0.10-0.90); Monocytes % (Auto) 8.6 % (1.0-12.0); Neutrophils % (Auto) 80.7 % (38.0-78.0); Platelet Count 296 K/mcL (140-440); RBC 3.87 M/mcL (4.63-6.08); Red Cell Distribution Width 14.9 % (11.5-14.5); WBC 10.7 K/mcL (4.5-11.0)
--- NOTE | 2021-08-26 16:49 | Internal Med History&Physical ---
HPI History of Present Illness Patient information: Note initiated : 08/26/21 at 4:36 pm Service Date, if different from initiated Date: [] Patient: Daljit Quintanilla a 75 y/o M admitted on for Right toe wound. Chief Complaint: [] History of present illness: Mr. Quintanilla is a 75 year old M Presents from Dr. Bonilla's office for an nonhealing diabetic right foot wound. It is been worsening over the past few weeks. With increased redness and purulent drainage. Dr. Pedersoned concerned regarding the foot and feels needs IV antibiotics and likely debridement. Foot x-ray did not show evidence of osteomyelitis. Patient denies fever chills. Review of Systems: Remaining 10 point review of system reviewed negative denies headache/fever/chills/nausea/vomiting/chest or abdominal pain/cough/dyspnea/diarrhea. Pertinent positive as above.. PFSH PFSH All Active Problems Toe infection (Acute) Hx of total knee arthroplasty (Chronic) Acute renal failure superimposed on stage 3a chronic kidney disease (Chronic) 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) Morbid obesity (Chronic) Hypernatremia (Chronic) Hypertension (Chronic) Afib (Chronic) COPD (chronic obstructive pulmonary disease) (Chronic) Squamous cell carcinoma (Chronic) Throat cancer (Chronic) H/O right knee surgery (Chronic ~2020) History of left knee surgery (Chronic ~2016) Glaucoma (Chronic) Pulmonary hypertension (Chronic) Biventricular heart failure (Chronic) Sleep apnea (Chronic) 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) MSSA bacteremia (Chronic) Arthritis (Chronic) [place] (hard of hearing) (Chronic) Hyperlipidemia (Chronic) Range of motion deficit (Chronic) Wears dentures (Chronic) Diabetes mellitus with neuropathy (Chronic) CKD (chronic kidney disease) stage 3, GFR 30-59 ml/min (Chronic) 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) Medicare annual wellness visit, subsequent (Acute) Hematuria (Acute) Medical History Acute renal failure superimposed on stage 3a chronic kidney disease Afib Arthritis Bite by animal Biventricular heart failure Bladder infection (~02/14/21) CKD (chronic kidney disease) stage 3, GFR 30-59 ml/min Congestive heart failure COPD (chronic obstructive pulmonary disease) Diabetes mellitus with neuropathy Dog bite of multiple sites of hand and fingers Glaucoma Hematuria Hip sprain History of fracture of right ankle [place] (hard of hearing) Hyperlipidemia Hypernatremia Hypertension Infection of prosthetic right knee joint Daljit is a 75-year-old morbidly obese diabetic with chronic kidney disease. He was admitted yesterday currently postop day one for right septic total knee arthroplasty with staph aureus. Polyexchange completed. He had 2 weeks of symptoms prior to admission of increasing right knee pain. No previous history of MRSA. Probable MSSA. Laceration of finger Laceration of lip Localized edema due to fluid overload 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 Medicare annual wellness visit, subsequent Metabolic alkalosis Morbid obesity Comorbid risk factor. MSSA bacteremia Peripheral neuropathy due to chemotherapy PNA (pneumonia) Pulmonary hypertension Range of motion deficit left shoulder Rib fracture Sepsis Septic arthritis Sleep apnea Squamous cell carcinoma Head, Neck, Ears Staphylococcus aureus bacteremia Follow-up on sensitivities. I am expecting to transition to IV Ancef 2 g IV every 8 hours. This would be considered dose adjustment for his acute on chronic kidney disease and associated morbid obesity. Throat cancer Stage 4 Wears dentures Surgical History H/O right knee surgery (~2020) History of ankle surgery 03/1966fracture with screws right History of cardiac cath (09/26/20) History of cardioversion 09/2007; 12/26/2007 History of cataract surgery (~09/2019) History of colonoscopy (~2009) History of eye surgery 07/2020 bilateral to release pressure History of left knee surgery (~2016) History of umbilical hernia repair (~2001) with colon resection Hx of total knee arthroplasty Family History Brother Throat cancer Uncle Throat cancer Social History marital status: smoking status: Former smoker quit date: 10/10/82 alcohol intake frequency: does not drink substance use type: does not use MEDS/ALLERGIES Home Medications and Allergies Home Medications Medication Instructions Recorded Confirmed Type alpha lipoic acid 200 mg tablet 200 mg PO BID 08/29/15 07/27/21 History coenzyme Q10 50 mg chewable tablet 200 mg PO BID 08/29/15 07/27/21 History levocarnitine tartrate 500 mg 500 mg PO BID 08/29/15 07/27/21 History capsule losartan 100 mg tablet 100 mg PO DAILY 08/29/15 07/27/21 History saw palmetto 450 mg capsule 450 mg PO BID 08/29/15 07/27/21 History albuterol sulfate 90 mcg/actuation 2 puff INHALATION QID PRN 02/16/21 07/27/21 History aerosol inhaler brinzolamide 1 %-brimonidine 0.2 % 1 drp OPHTHALMIC (EYE) BID 02/16/21 07/27/21 History eye drops,suspension (Simbrinza) furosemide 40 mg tablet (Lasix) 40 mg PO QDAY 02/16/21 07/27/21 History potassium chloride 20 mEq 20 meq PO QDAY 02/16/21 07/27/21 History tablet,extended release spironolactone 25 mg tablet 25 mg PO QDAY 02/16/21 07/27/21 History timolol 0.5 % eye drops 1 drp OPHTHALMIC (EYE) BID 02/16/21 07/27/21 History tiotropium 2.5 mcg-olodaterol 2.5 2 puff INHALATION BID 02/16/21 07/27/21 History mcg/actuation mist for inhalation (Stiolto Respimat) oxycodone-acetaminophen 5 mg-325 1 - 2 tab PO Q4HP PRN #75 tab 02/17/21 07/27/21 Rx mg tablet netarsudil 0.02 %-latanoprost 1 drp OPHTHALMIC (EYE) QPM 02/18/21 07/27/21 History 0.005 % eye drops (Rocklatan) bisoprolol fumarate 5 mg tablet 2.5 mg PO QDAY tab 05/14/21 07/27/21 History insulin lispro 200 unit/mL (3 mL) See Rx Instructions SUBCUT TID ml 05/14/21 07/27/21 History subcutaneous pen (Humalog KwikPen U-200 Insulin) linagliptin 5 mg tablet (Tradjenta) 5 mg PO QDAY 05/14/21 07/27/21 History loratadine 10 mg tablet (Allergy 10 mg PO QDAY 05/14/21 07/27/21 History Relief (loratadine)) lysine HCl 1,000 mg tablet 1,000 mg PO QDAY 05/14/21 07/27/21 History blood sugar diagnostic (Blood #100 ea 06/30/21 07/27/21 Rx Glucose Test) insulin glargine 100 unit/mL (3 60 unit SUBCUT QPM ml 06/30/21 07/27/21 History mL) subcutaneous pen pen needles #100 ea 07/02/21 07/27/21 Rx nystatin 100,000 unit/gram topical 1 applic TOPICAL BID #60 g 07/21/21 07/27/21 Rx powder Allergies Allergy/AdvReac Type Severity Reaction Status Date / Time hydrocodone AdvReac Mild Itching Verified 08/26/21 13:34 EXAM Constitutional Vitals: Temp Pulse Resp BP Pulse Ox 97.5 F 48 L 18 134/58 98 08/26/21 13:34 08/26/21 15:32 08/26/21 13:34 08/26/21 15:32 08/26/21 15:32 Exam: General: Alert, Awake, No acute Distress, obese Eyes/N/T: EOMI, PERRL, Head/Neck: neck supple, normocephalic atraumatic CV: reg with occ irreg, No murmurs, normal s1/s2 Pulm: Clear b/l, no wheezing/rhonchi/rales Abd: soft, nontender, +BS x4 Ext: no clubbing/cyanosis, b/l LE 1+ edema, right toe diabetic ulcer with surrounding erythema Neuro: Alert, no focal deficits, moves all extremities, CN 2-12 grossly intact, symmetrical strength b/l upper/lower, sensations intact b/l upper/lower Skin: warm/dry DATA Data Completed and Pending Labs: Labs from last 24 hours 08/26/21 08/26/21 08/26/21 13:56 13:56 13:56 WBC RBC Hgb Hct POC Hct 35 L MCV MCH MCHC RDW Plt Count MPV Neut % (Auto) Lymph % (Auto) [place] % (Auto) Eos % (Auto) Baso % (Auto) Lymph # (Auto) [place] # (Auto) Eos # (Auto) Baso # (Auto) Absolute Neutrophils VBG Lactic Acid 2.8 H POC Sodium 139 POC Potassium 4.6 POC Chloride 102 POC Total CO2 25 POC BUN 49 H POC Creatinine 1.5 H POC Glucose 192 H POC WB Ioniz Calcium 1.17 Procalcitonin 0.14 H 08/26/21 13:56 WBC 10.7 RBC 3.87 L Hgb 12.0 L Hct 36.8 L POC Hct MCV 95.1 MCH 31.0 MCHC 32.6 RDW 14.9 H Plt Count 296 MPV 10.1 Neut % (Auto) 80.7 H Lymph % (Auto) 6.9 L [place] % (Auto) 8.6 Eos % (Auto) 3.6 Baso % (Auto) 0.2 Lymph # (Auto) 0.74 L [place] # (Auto) 0.92 H Eos # (Auto) 0.39 Baso # (Auto) 0.02 Absolute Neutrophils 8.67 H VBG Lactic Acid POC Sodium POC Potassium POC Chloride POC Total CO2 POC BUN POC Creatinine POC Glucose POC WB Ioniz Calcium Procalcitonin A/P Narrative A/P Narrative: A: #Right foot/toe diabetic wound infection: #h/o Right prosthetic knee septic arthritis (MSSA): s/p I&D/synovectomy/polyliner exchange (02/16/21), Dr. 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 Bonilla for further Recs and treatment -basal, SSI -cont home ARB -CPAP at bedtime -PT/OT -Wound care -Medication reconciliation -ppx: heparin Time Spent With Patient Time: Total time spent is greater than 50% in coordination of care (as documented) at patient's floor/unit and/or counseling patient:
[2021-08-26] MEDS ORDERED: ACETAMINOPHEN 325 MG TABLET PO PRN (19:11)
[2021-08-26] MEDS ORDERED: POLYETHYLENE GLYCOL 3350 17 GM PACKET PO PRN (19:11)
[2021-08-26] MEDS ORDERED: SENNOSIDES 1 TABLET PO PRN (19:11)
[2021-08-26] MEDS ORDERED: IPRATROPIUM/ALBUTEROL 3 ML AMPUL.NEB NEB PRN (19:11)
[2021-08-26] MEDS ORDERED: DEXTROSE 50% 50 ML VIAL IV PRN (19:11)
[2021-08-26] MEDS ORDERED: DEXTROSE 31 GM ORAL.SUSP PO PRN (19:11)
[2021-08-26] MEDS ORDERED: POTASSIUM CHLORIDE 40 MEQ in DEXTROSE 5% IN WATER 500 ML IV PRN (19:11)
[2021-08-26] MEDS ORDERED: ONDANSETRON 4 MG/2 ML VIAL IV PRN (19:11)
[2021-08-26] MEDS ORDERED: POTASSIUM CHLORIDE 20 MEQ TABLET PO PRN ×2 (19:11)
[2021-08-26] MEDS ORDERED: MAGNESIUM SULFATE 2 GM/50 ML BAG IV PRN (19:11)
[2021-08-26] MEDS: INSULIN LISPRO 1 UNIT/0.01 ML UNIT SQ SCH ×2 (19:40→21:24)
[2021-08-26 19:55] LABS: Hemoglobin A1C 7.5 % Hgb (4.0-6.0)
[2021-08-26] MEDS ORDERED: VANCOMYCIN PER PHARMACY IV SCH (20:15)
[2021-08-26] MEDS ORDERED: NETARSUDIL LATANOPROST OPHTHALMIC SCH (21:00)
[2021-08-26] MEDS: 0.9 % SODIUM CHLORIDE 10 ML SYRINGE IV SCH (21:07)
[2021-08-26] MEDS: CEFEPIME 2 GM VIAL IV SCH (21:07)
[2021-08-26] MEDS: DOCUSATE SODIUM 100 MG CAPSULE PO SCH (21:07)
[2021-08-26] MEDS: TIOTROPIUM OLODATEROL INH SCH (21:08)
[2021-08-26] MEDS: BRIMONIDINE OPHTHALMIC SCH (21:08)
[2021-08-26] MEDS: BRINZOLAMIDE OPHTHALMIC SCH (21:08)
[2021-08-26] MEDS: TIMOLOL 0.5% OPHTH DROPS BOTTLE 5ML OU SCH (21:08)
[2021-08-26] MEDS: [UNRECOGNIZED DRUG - OTHER] OPHTHALMIC SCH (21:08)
[2021-08-26] MEDS: HEPARIN 5,000 UNIT/ML VIAL SQ SCH (21:23)
[2021-08-26] MEDS: INSULIN GLARGINE, HUMAN 1 UNIT/0.01 ML SQ SCH (21:24)
[2021-08-26] MEDS: oxyCODONE/APAP 5/325MG TABLET PO PRN (23:38)
[2021-08-27] MEDS ORDERED: VANCOMYCIN 1,500 MG in 0.9 % SODIUM CHLORIDE 500 ML IV SCH (03:00)
[2021-08-27] MEDS: 0.9 % SODIUM CHLORIDE 10 ML SYRINGE IV SCH ×3 (05:33→20:32)
[2021-08-27] MEDS: HEPARIN 5,000 UNIT/ML VIAL SQ SCH ×3 (05:33→21:07)
[2021-08-27 07:20] LABS: Hematocrit 33.2 % (40.1-51.0); Hemoglobin 10.8 g/dL (13.7-17.5); Mean Corpuscular HGB Conc 32.5 g/dL (31.0-36.0); Platelet Count 251 K/mcL (140-440); RBC 3.57 M/mcL (4.63-6.08); Red Cell Distribution Width 14.6 % (11.5-14.5); WBC 8.7 K/mcL (4.5-11.0)
--- NOTE | 2021-08-27 08:01 | Internal Med Progress Note ---
SUBJECTIVE Subjective Patient information: Note initiated : 08/27/21 at 7:58 am Service Date, if different from initiated Date: [] Patient: Daljit Quintanilla 75 y/o M admitted on 08/26/21 for Right toe wound. Chief Complaint: [] Interval history: History of present illness: Mr. Quintanilla is a 75 year old M Presents from Dr. Bonilla's office for an nonhealing diabetic right foot wound. It is been worsening over the past few weeks. With increased redness and purulent drainage. Dr. Pedersoned concerned regarding the foot and feels needs IV antibiotics and likely debridement. Foot x-ray did not show evidence of osteomyelitis. Patient denies fever chills. 08/27 No overnight event or new complaints. Awaiting wound surgeon note. Review of Systems: denies headache/fever/chills/nausea/vomiting/chest or abdominal pain/cough/dyspnea/diarrhea. Otherwise see above. Constitutional Vitals: Vital Signs Temp Pulse Resp BP Pulse Ox 96.6 F L 56 L 18 107/54 96 08/27/21 07:53 08/27/21 07:53 08/27/21 07:53 08/27/21 07:53 08/27/21 07:53 Period Temp Pulse Resp BP Sys/Pichardo Pulse Ox Last 24 Hr 96.6 F-98.7 F 42-85 16-20 105-165/54-70 95-100 Intake and Output 08/26/21 08/27/21 08/27/21 21:59 05:59 13:59 Intake Total 550 700 Output Total 2 2 Balance 548 698 Weight 146.374 kg Intake & Output: Intake & Output 08/26/21 08/27/21 08/27/21 21:59 05:59 13:59 Intake Total 550 700 Output Total 2 2 Balance 548 698 Weight 146.374 kg Intake: IV 550 500 Zosyn 3.375 gm In Dextrose 5% 50 in Water 50 ml @ 100 mls/hr IV ONCE ONE Rx#:[id number] Vancomycin 1,500 mg In Sodium 500 500 Chloride 0.9% 500 ml @ 333.3 mls/hr IV Q12H [facility] Rx#: [id number] Oral 200 Output: # of times incontinent of urine 2 2 Other: Meal 2x cheese sticks Percent of Meal Consumed 100% Feeding Ability Independent Exam: General: Alert, Awake, No acute Distress, obese Eyes/N/T: EOMI, , Head/Neck: neck supple, CV: reg with occ irreg, No murmurs, Pulm: Clear b/l, no wheezing/rhonchi/rales Abd: soft, nontender, +BS x4 Ext: no clubbing/cyanosis, b/l LE mild edema, right toe diabetic ulcer with surrounding erythema Neuro: Alert, no focal deficits, moves all extremities, Skin: warm/dry OBJ DATA Labs CBC & Chem 7: 08/27/21 05:25 08/27/21 05:25 Labs: Abnormal Lab Results 08/27/21 08/26/21 08/26/21 05:25 13:56 13:56 RBC 3.57 L Hgb 10.8 L Hct 33.2 L POC Hct RDW 14.6 H Neut % (Auto) Lymph % (Auto) Lymph # (Auto) [place] # (Auto) Absolute Neutrophils ESR 93 H VBG Lactic Acid POC BUN POC Creatinine POC Glucose Hemoglobin A1c 7.5 H Procalcitonin 08/26/21 08/26/21 08/26/21 13:56 13:56 13:56 RBC Hgb Hct POC Hct 35 L RDW Neut % (Auto) Lymph % (Auto) Lymph # (Auto) [place] # (Auto) Absolute Neutrophils ESR VBG Lactic Acid 2.8 H POC BUN 49 H POC Creatinine 1.5 H POC Glucose 192 H Hemoglobin A1c Procalcitonin 0.14 H 08/26/21 13:56 RBC 3.87 L Hgb 12.0 L Hct 36.8 L POC Hct RDW 14.9 H Neut % (Auto) 80.7 H Lymph % (Auto) 6.9 L Lymph # (Auto) 0.74 L [place] # (Auto) 0.92 H Absolute Neutrophils 8.67 H ESR VBG Lactic Acid POC BUN POC Creatinine POC Glucose Hemoglobin A1c Procalcitonin Meds: Medications Acetaminophen (Acetaminophen 325 Mg Tablet) 650 mg PO Q6HP PRN; Protocol PRN Reason: Per Pain Protocol/Fever > 101 Albuterol/Ipratropium (Ipratropium/Albuterol 3 Ml Ampul.Neb) 3 ml NEB Q4HP PRN PRN Reason: Shortness Of Breath Cefepime HCl (Cefepime 2 Gm Vial) 2 gm IV Q12H [facility]; Protocol Last Admin: 08/26/21 21:07 Dose: 2 gm Documented by: Dextrose (Dextrose 50% 50 Ml Vial) 0 ml IV UD PRN PRN Reason: Hypoglycemia Diagnostic Test (Pha) (Accu-Chek 1 Each Strip) 1 each [facility] Last Admin: 08/26/21 21:24 Dose: 1 each Documented by: Docusate Sodium (Docusate Sodium 100 Mg Capsule) 100 mg PO BID [facility] Last Admin: 08/26/21 21:07 Dose: 100 mg Documented by: Furosemide (Furosemide 40 Mg Tablet) 40 mg PO QDAY [facility] Glucose (Dextrose 31 Gm Oral.Susp) 15 gm PO PRN PRN PRN Reason: Hypoglycemia Heparin Sodium (Porcine) (Heparin 5,000 Unit/Ml Vial) 5,000 unit SQ Q8 [facility] Last Admin: 08/27/21 05:33 Dose: 5,000 unit Documented by: Potassium Chloride 40 meq/ (Dextrose) 520 mls @ 130 mls/hr IV UD PRN PRN Reason: Potassium < 3 Magnesium Sulfate (Magnesium Sulfate) 2 gm in 50 mls @ 50 mls/hr IV UD PRN PRN Reason: Magnesium </= 1.6 Vancomycin HCl 1,500 mg/ (Sodium Chloride) 500 mls @ 333.3 mls/hr IV Q12H [facility] Last Infusion: 08/27/21 05:30 Dose: Infused Documented by: Insulin Glargine (Insulin Glargine, Human 1 Unit/0.01 Ml) 60 unit SQ [facility] Last Admin: 08/26/21 21:24 Dose: 60 units Documented by: Insulin Human Lispro (Insulin Lispro 1 Unit/0.01 Ml Unit) 0 unit SQ [facility]; Protocol Last Admin: 08/26/21 21:24 Dose: 2 units Documented by: Losartan Potassium (Losartan 50 Mg Tablet) 100 mg PO DAILY [facility] Non-Formulary Medication (Brinzolamide-Brimonidine [Simbrinza]) 1 drp OPHTHALMIC BID [facility] Last Admin: 08/26/21 21:08 Dose: Not Given Documented by: Non-Formulary Medication (Netarsudil-Latanoprost [Rocklatan]) 1 drp OPHTHALMIC QPM [facility] Last Admin: 08/26/21 21:08 Dose: Not Given Documented by: Ondansetron HCl (Ondansetron 4 Mg/2 Ml Vial) 4 mg IV Q4HP PRN PRN Reason: Nausea And Vomiting Oxycodone/Acetaminophen (Oxycodone/Apap 5/325mg Tablet) 1 - 2 tab PO Q4HP PRN; Protocol PRN Reason: Per Pain Protocol Last Admin: 08/26/21 23:38 Dose: 1 tab Documented by: Tiotropium- Olodaterol [Stiolto Respimat] 2.5 Mcg-2. 5 Mcg Inhaler 2 dose INH BID [facility] Last Admin: 08/26/21 21:08 Dose: Not Given Documented by: Polyethylene Glycol (Polyethylene Glycol 3350 17 Gm Packet) 17 gm PO DAILYP PRN PRN Reason: Constipation Potassium Chloride (Potassium Chloride 20 Meq Tablet) 40 meq PO UD PRN PRN Reason: Potssium is 3-3.5 Potassium Chloride (Potassium Chloride 20 Meq Tablet) 40 meq PO UD PRN PRN Reason: Potassium < 3 Senna (Sennosides 1 Tablet) 2 tab PO DAILYP PRN PRN Reason: Constipation Sodium Chloride (0.9 % Sodium Chloride 10 Ml Syringe) 10 ml IV Q8 [facility] Last Admin: 08/27/21 05:33 Dose: 10 ml Documented by: Spironolactone (Spironolactone 25 Mg Tablet) 25 mg PO QDAY [facility] Timolol Maleate (Timolol 0.5% Ophth Drops Bottle 5ml) 1 gtt OU BID [facility] Last Admin: 08/26/21 21:08 Dose: Not Given Documented by: Vancomycin HCl (Vancomycin Per Pharmacy) 1 order IV UD [facility]; Protocol A/P Narrative A/P Narrative: A: #Right foot/toe diabetic wound infection: - #h/o Right prosthetic knee septic arthritis (MSSA): s/p I&D/synov ectomy/polyliner exchange (02/16/21), Dr. 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 Bonilla for further Recs and treatment -basal, SSI -cont home ARB -CPAP at bedtime -PT/OT -Wound care -ppx: heparin Time Spent With Patient Time: Total time spent is greater than 50% in coordination of care (as documented) at patient's floor/unit and/or counseling patient: QUALITY VTE Deep Vein Thrombosis/Pulmonary Embolism Present on Admission: No
[2021-08-27 08:20] LABS: ALT/SGPT 15 U/L (<40); AST/SGOT 12 U/L (<40); Albumin 3.3 gm/dL (3.2-5.2); Albumin/Globulin Ratio 1.3 (1.0-2.3); Alkaline Phosphatase 84 U/L (39-117); Bilirubin,Direct < 0.2 mg/dL (0-0.3); Bilirubin,Total 0.3 mg/dL (0.1-1.0); Blood Urea Nitrogen 44 mg/dL (8-23); Calcium 9.3 mg/dL (8.6-10.4); Carbon Dioxide 24 mmol/L (22-30); Chloride 104 mmol/L (96-108); Globulin 2.6 gm/dL (2.2-3.7); Glomerular Filtration Rate 52; Glucose 111 mg/dL (70-105); Lactate Dehydrogenase 154 U/L (135-225); Phosphorous 3.4 mg/dL (2.5-4.5); Triglycerides 163 mg/dL (<150); Uric Acid 7.8 mg/dL (2.5-8.0)
[2021-08-27] MEDS: CEFEPIME 2 GM VIAL IV SCH ×2 (08:44→20:32)
[2021-08-27] MEDS: DOCUSATE SODIUM 100 MG CAPSULE PO SCH ×2 (08:45→20:32)
[2021-08-27] MEDS: TIOTROPIUM OLODATEROL INH SCH ×2 (08:46→20:16)
[2021-08-27] MEDS: LOSARTAN 50 MG TABLET PO SCH (08:46)
[2021-08-27] MEDS: TIMOLOL 0.5% OPHTH DROPS BOTTLE 5ML OU SCH ×2 (08:46→20:13)
[2021-08-27] MEDS: INSULIN LISPRO 1 UNIT/0.01 ML UNIT SQ SCH ×4 (08:46→20:33)
[2021-08-27] MEDS: oxyCODONE/APAP 5/325MG TABLET PO PRN (08:58)
[2021-08-27] MEDS: BRIMONIDINE OPHTHALMIC SCH (09:00)
[2021-08-27] MEDS ORDERED: SPIRONOLACTONE 25 MG TABLET PO SCH (09:00)
[2021-08-27] MEDS: [UNRECOGNIZED DRUG - OTHER] OPHTHALMIC SCH (09:00)
[2021-08-27] MEDS: BRINZOLAMIDE OPHTHALMIC SCH (09:00)
[2021-08-27] MEDS ORDERED: FUROSEMIDE 40 MG TABLET PO SCH (09:00)
[2021-08-27 10:07] LABS: Eosinophils % (Manual) 8 % (0-7); Lymphocytes % 16 % (15-49); Monocytes % (Manual) 6 % (1-12); Platelet Estimate NORMAL (Normal); RBC Morphology NORMAL (Normal); Segmented Neutrophils % 70 % (38-78)
--- NOTE | 2021-08-27 11:21 | General Surgery Consult Note ---
HPI Data of Consult Consult date: 08/27/21 Requesting physician: Gino Gaspar Primary Care Provider: Jacobo Guerra MD Consult Narrative Patient Information: Note initiated : 08/27/21 at 11:11 am Service Date, if different from initiated Date: [] Patient: Daljit Quintanilla 75 y/o M admitted on 08/26/21 for Right toe wound. Chief Complaint: [] Reason for consult: Wound and Skin care, CSSSI Right foot great toe with cellulitis. cc:: Patient admitted to hospital after prior encounter at wound clinic and subsequent w/u in ER. I saw him this morning along with Franko Arredondo RN, Inpatient wound care nurse. Reviewed all lab results, and imaging studies and reports. CC: Gino Gaspar Integumentary Integumentary: Present as per HPI, wounds and other Additional comments: Skin and soft tissue infection, ulcerations around RIGHT great toe with cellulitis extending proximally towards ankle. 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) Morbid obesity (Chronic) Hypernatremia (Chronic) Hypertension (Chronic) Afib (Chronic) COPD (chronic obstructive pulmonary disease) (Chronic) Squamous cell carcinoma (Chronic) Throat cancer (Chronic) H/O right knee surgery (Chronic ~2020) History of left knee surgery (Chronic ~2017) Glaucoma (Chronic) Pulmonary hypertension (Chronic) Biventricular heart failure (Chronic) Sleep apnea (Chronic) 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) MSSA bacteremia (Chronic) Arthritis (Chronic) [place] DEHE (hard of hearing) (Chronic) Hyperlipidemia (Chronic) Range of motion deficit (Chronic) Wears dentures (Chronic) Diabetes mellitus with neuropathy (Chronic) CKD (chronic kidney disease) stage 3, GFR 30-59 ml/min (Chronic) 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) Medicare annual wellness visit, subsequent (Acute) Hematuria (Acute) Medical History Acute renal failure superimposed on stage 3a chronic kidney disease Afib Arthritis Bite by animal Biventricular heart failure Bladder infection (~02/14/21) CKD (chronic kidney disease) stage 3, GFR 30-59 ml/min Congestive heart failure COPD (chronic obstructive pulmonary disease) Diabetes mellitus with neuropathy Dog bite of multiple sites of hand and fingers Glaucoma Hematuria Hip sprain History of fracture of right ankle [place] DE[place] (hard of hearing) Hyperlipidemia Hypernatremia Hypertension Infection of prosthetic right knee joint Daljit is a 75-year-old morbidly obese diabetic with chronic kidney disease. He was admitted yesterday currently postop day one for right septic total knee arthroplasty with staph aureus. Polyexchange completed. He had 2 weeks of symptoms prior to admission of increasing right knee pain. No previous history of MRSA. Probable MSSA. Laceration of finger Laceration of lip Localized edema due to fluid overload 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 Medicare annual wellness visit, subsequent Metabolic alkalosis Morbid obesity Comorbid risk factor. MSSA bacteremia Peripheral neuropathy due to chemotherapy PNA (pneumonia) Pulmonary hypertension Range of motion deficit left shoulder Rib fracture Sepsis Septic arthritis Sleep apnea Squamous cell carcinoma Head, Neck, Ears Staphylococcus aureus bacteremia Follow-up on sensitivities. I am expecting to transition to IV Ancef 2 g IV every 8 hours. This would be considered dose adjustment for his acute on chronic kidney disease and associated morbid obesity. Throat cancer Stage 4 Wears dentures Surgical History H/O right knee surgery (~2020) History of ankle surgery 03/1966fracture with screws right History of cardiac cath (09/26/20) History of cardioversion 09/2007; 12/26/2007 History of cataract surgery (~09/2019) History of colonoscopy (~2009) History of eye surgery 07/2020 bilateral to release pressure History of left knee surgery (~2016) History of umbilical hernia repair (~2001) with colon resection Hx of total knee arthroplasty Family History Brother Throat cancer Uncle Throat cancer Social History marital status: smoking status: Former smoker quit date: 10/10/82 alcohol intake frequency: does not drink substance use type: does not use MEDS/ALLERGIES Home Medications and Allergies Home Medications Medication Instructions Recorded Confirmed Type alpha lipoic acid 200 mg tablet 200 mg PO BID 08/29/15 08/26/21 History coenzyme Q10 50 mg chewable tablet 200 mg PO BID 08/29/15 08/26/21 History levocarnitine tartrate 500 mg 500 mg PO BID 08/29/15 08/26/21 History capsule losartan 100 mg tablet 100 mg PO DAILY 08/29/15 08/26/21 History saw palmetto 450 mg capsule 450 mg PO BID 08/29/15 08/26/21 History albuterol sulfate 90 mcg/actuation 2 puff INHALATION QID PRN 02/16/21 08/26/21 H istory aerosol inhaler brinzolamide 1 %-brimonidine 0.2 % 1 drp OPHTHALMIC (EYE) BID 02/16/21 08/26/21 History eye drops,suspension (Simbrinza) furosemide 40 mg tablet (Lasix) 40 mg PO QDAY 02/16/21 08/26/21 History potassium chloride 20 mEq 20 meq PO QDAY 02/16/21 08/26/21 History tablet,extended release spironolactone 25 mg tablet 25 mg PO QDAY 02/16/21 08/26/21 History timolol 0.5 % eye drops 1 drp OPHTHALMIC (EYE) BID 02/16/21 08/26/21 History tiotropium 2.5 mcg-olodaterol 2.5 2 puff INHALATION BID 02/16/21 08/26/21 History mcg/actuation mist for inhalation (Stiolto Respimat) oxycodone-acetaminophen 5 mg-325 1 - 2 tab PO Q4HP PRN #75 tab 02/17/21 08/26/21 Rx mg tablet netarsudil 0.02 %-latanoprost 1 drp OPHTHALMIC (EYE) QPM 02/18/21 08/26/21 History 0.005 % eye drops (Rocklatan) bisoprolol fumarate 5 mg tablet 2.5 mg PO QDAY tab 05/14/21 08/26/21 History insulin lispro 200 unit/mL (3 mL) See Rx Instructions SUBCUT TID ml 05/14/21 08/26/21 History subcutaneous pen (Humalog KwikPen U-200 Insulin) linagliptin 5 mg tablet (Tradjenta) 5 mg PO QDAY 05/14/21 08/26/21 History loratadine 10 mg tablet (Allergy 10 mg PO QDAY 05/14/21 08/26/21 History Relief (loratadine)) lysine HCl 1,000 mg tablet 1,000 mg PO BID 05/14/21 08/26/21 History blood sugar diagnostic (Blood #100 ea 06/30/21 08/26/21 Rx Glucose Test) insulin glargine 100 unit/mL (3 60 unit SUBCUT QPM ml 06/30/21 08/26/21 History mL) subcutaneous pen pen needles #100 ea 07/02/21 08/26/21 Rx nystatin 100,000 unit/gram topical 1 applic TOPICAL BID #60 g 07/21/21 08/26/21 Rx powder Allergies Allergy/AdvReac Type Severity Reaction Status Date / Time hydrocodone AdvReac Mild Itching Verified 08/26/21 13:34 Physical Examination Vital Signs Vital signs: Temp Pulse Resp BP Pulse Ox 96.6 F L 56 L 18 107/54 96 08/27/21 07:53 08/27/21 07:53 08/27/21 07:53 08/27/21 07:53 08/27/21 07:53 Respiratory Respiratory exam: normal expansion and clear to percussion Abdomen Abdomen: Present soft, non tender and bowel sounds Integumentary Integumentary: Present other (Chronic post phlebitis changes both LE. RIGHT great toe moisture dermatitis and Stage 3; ulcerations around nail bed and medial / plantar surface. CELLULITIS spreading to wards ankle. ) Neurologic Neurologic: Present other (Diabetes with mixed peripheral neuropathy) Psychiatric Psychiatric: Present oriented to time, oriented to person, oriented to place, speech is normal and memory intact Additional Findings Additional exam: HOARSENESS of voice . H/O Radiation Therapy for laryngeal cancer. Results Labs Result diagrams: 08/27/21 05:25 08/27/21 05:25 Labs: Abnormal lab results 08/26/21 08/26/21 08/26/21 Range/Units 13:56 13:56 13:56 RBC 3.87 L (4.63-6.08) M/mcL Hgb 12.0 L (13.7-17.5) g/dL Hct 36.8 L (40.1-51.0) % POC Hct 35 L (41-55) % RDW 14.9 H (11.5-14.5) % Neut % (Auto) 80.7 H (38.0-78.0) % Lymph % (Auto) 6.9 L (15.5-49.0) % Lymph # (Auto) 0.74 L (1.50-4.80) K/mcL [place] # (Auto) 0.92 H (0.10-0.90) K/mcL Eosinophils % (Manual) (0-7) % Absolute Neutrophils 8.67 H (1.80-8.00) K/mcL ESR (0-15) mm/hr VBG Lactic Acid 2.8 H (0.5-2.0) mmol/L POC BUN 49 H (6-20) mg/dL BUN (8-23) mg/dL Creatinine (0.7-1.2) mg/dL POC Creatinine 1.5 H (0.6-1.2) mg/dL Glucose (70-105) mg/dL POC Glucose 192 H (70-105) mg/dL Hemoglobin A1c (4.0-6.0) % Hgb Triglycerides (<150) mg/dL Procalcitonin (<0.10) ng/mL 08/26/21 08/26/21 08/26/21 Range/Units 13:56 13:56 13:56 RBC (4.63-6.08) M/mcL Hgb (13.7-17.5) g/dL Hct (40.1-51.0) % POC Hct (41-55) % RDW (11.5-14.5) % Neut % (Auto) (38.0-78.0) % Lymph % (Auto) (15.5-49.0) % Lymph # (Auto) (1.50-4.80) K/mcL [place] # (Auto) (0.10-0.90) K/mcL Eosinophils % (Manual) (0-7) % Absolute Neutrophils (1.80-8.00) K/mcL ESR 93 H (0-15) mm/hr VBG Lactic Acid (0.5-2.0) mmol/L POC BUN (6-20) mg/dL BUN (8-23) mg/dL Creatinine (0.7-1.2) mg/dL POC Creatinine (0.6-1.2) mg/dL Glucose (70-105) mg/dL POC Glucose (70-105) mg/dL Hemoglobin A1c 7.5 H (4.0-6.0) % Hgb Triglycerides (<150) mg/dL Procalcitonin 0.14 H (<0.10) ng/mL 08/27/21 08/27/21 Range/Units 05:25 05:25 RBC 3.57 L (4.63-6.08) M/mcL Hgb 10.8 L (13.7-17.5) g/dL Hct 33.2 L (40.1-51.0) % POC Hct (41-55) % RDW 14.6 H (11.5-14.5) % Neut % (Auto) (38.0-78.0) % Lymph % (Auto) (15.5-49.0) % Lymph # (Auto) (1.50-4.80) K/mcL [place] # (Auto) (0.10-0.90) K/mcL Eosinophils % (Manual) 8 H (0-7) % Absolute Neutrophils (1.80-8.00) K/mcL ESR (0-15) mm/hr VBG Lactic Acid (0.5-2.0) mmol/L POC BUN (6-20) mg/dL BUN 44 H (8-23) mg/dL Creatinine 1.3 H (0.7-1.2) mg/dL POC Creatinine (0.6-1.2) mg/dL Glucose 111 H (70-105) mg/dL POC Glucose (70-105) mg/dL Hemoglobin A1c (4.0-6.0) % Hgb Triglycerides 163 H (<150) mg/dL Procalcitonin (<0.10) ng/mL Diabetes panel 08/26/21 08/27/21 Range/Units 13:56 05:25 Sodium 139 (133-145) mmol/L Potassium 4.0 (3.3-5.1) mmol/L Chloride 104 (96-108) mmol/L Carbon Dioxide 24 (22-30) mmol/L BUN 44 H (8-23) mg/dL Creatinine 1.3 H (0.7-1.2) mg/dL Glucose 111 H (70-105) mg/dL Hemoglobin A1c 7.5 H (4.0-6.0) % Hgb Calcium 9.3 (8.6-10.4) mg/dL AST 12 (<40) U/L ALT 15 (<40) U/L Alkaline Phosphatase 84 (39-117) U/L Total Protein 5.9 (5.9-8.4) gm/dL Albumin 3.3 (3.2-5.2) gm/dL Triglycerides 163 H (<150) mg/dL Calcium panel 08/27/21 Range/Units 05:25 Calcium 9.3 (8.6-10.4) mg/dL Phosphorus 3.4 (2.5-4.5) mg/dL Albumin 3.3 (3.2-5.2) gm/dL Pituitary panel 08/27/21 Range/Units 05:25 Sodium 139 (133-145) mmol/L Potassium 4.0 (3.3-5.1) mmol/L Chloride 104 (96-108) mmol/L Carbon Dioxide 24 (22-30) mmol/L BUN 44 H (8-23) mg/dL Creatinine 1.3 H (0.7-1.2) mg/dL Glucose 111 H (70-105) mg/dL Calcium 9.3 (8.6-10.4) mg/dL Adrenal panel 08/27/21 Range/Units 05:25 Sodium 139 (133-145) mmol/L Potassium 4.0 (3.3-5.1) mmol/L Chloride 104 (96-108) mmol/L Carbon Dioxide 24 (22-30) mmol/L BUN 44 H (8-23) mg/dL Creatinine 1.3 H (0.7-1.2) mg/dL Glucose 111 H (70-105) mg/dL Calcium 9.3 (8.6-10.4) mg/dL Total Bilirubin 0.3 (0.1-1.0) mg/dL AST 12 (<40) U/L ALT 15 (<40) U/L Alkaline Phosphatase 84 (39-117) U/L Total Protein 5.9 (5.9-8.4) gm/dL Albumin 3.3 (3.2-5.2) gm/dL All other labs normal. Imaging Chest x-ray: report reviewed Additional studies: X Ray Right foot reviewed A/P Narrative A/P Narrative: Assessment: CSSSI / Cellulitis RIGHT great toe and foot . IMPROVING RIGHT great toe nail with fungal debris and nail bed infection Multiple comorbid medical conditions; CHF A FIB CKD DM2 HTN JOELLEN Morbid obesity Hoarseness (H/O RT for Larynx CA ) Plan: Will hold off debridement ARGELIA at this time. Await further resolution of CSSSI Continue IV antibiotics / Local skin care Will reassess again in AM for debridement and possible great toe nail extirpation. NAIL trimming. Plan discussed with patient. He concurs. Time Spent With Patient Time: Total time spent is greater than 50% in coordination of care (as documented) at patient's floor/unit and/or counseling patient: Total time spent with greater than 50% in coordination of care (as documented) at patient's floor/unit and/or counseling patient:: Greater than 35 minutes
[2021-08-27] MEDS: BRINZOLAMIDE BRIMONIDINE OU SCH (20:12)
[2021-08-27] MEDS ORDERED: VANCOMYCIN PER PHARMACY IV SCH (20:32)
[2021-08-27] MEDS: INSULIN GLARGINE, HUMAN 1 UNIT/0.01 ML SQ SCH (20:33)
[2021-08-27] MEDS: NETARSUDIL LATANOPROST OU SCH (21:07)
[2021-08-27] MEDS: VANCOMYCIN 1,500 MG in 0.9 % SODIUM CHLORIDE 500 ML IV SCH (23:05)
[2021-08-28] MEDS: oxyCODONE/APAP 5/325MG TABLET PO PRN (01:50)
[2021-08-28] MEDS: HEPARIN 5,000 UNIT/ML VIAL SQ SCH ×3 (05:28→21:11)
[2021-08-28] MEDS: 0.9 % SODIUM CHLORIDE 10 ML SYRINGE IV SCH ×3 (05:29→20:53)
[2021-08-28] MEDS: INSULIN LISPRO 1 UNIT/0.01 ML UNIT SQ SCH ×4 (07:17→21:12)
[2021-08-28] MEDS: LOSARTAN 50 MG TABLET PO SCH (08:18)
[2021-08-28] MEDS: DOCUSATE SODIUM 100 MG CAPSULE PO SCH ×2 (08:19→20:54)
[2021-08-28] MEDS: SPIRONOLACTONE 25 MG TABLET PO SCH (08:19)
[2021-08-28] MEDS: FUROSEMIDE 40 MG TABLET PO SCH (08:19)
[2021-08-28] MEDS: CEFEPIME 2 GM VIAL IV SCH ×2 (09:26→21:11)
[2021-08-28] MEDS: TIOTROPIUM OLODATEROL INH SCH ×2 (09:26→21:13)
[2021-08-28] MEDS: BRINZOLAMIDE BRIMONIDINE OU SCH ×2 (09:27→21:13)
--- NOTE | 2021-08-28 09:29 | Internal Med Progress Note ---
SUBJECTIVE Subjective Patient information: Note initiated : 08/28/21 at 9:25 am Service Date, if different from initiated Date: [] Patient: Daljit Quintanilla 75 y/o M admitted on 08/26/21 for Right toe wound. Chief Complaint: [] Interval history: History of present illness: Mr. Quintanilla is a 75 year old M Presents from Dr. Bonilla's office for an nonhealing diabetic right foot wound. It is been worsening over the past few weeks. With increased redness and purulent drainage. Dr. Pedersoned concerned regarding the foot and feels needs IV antibiotics and likely debridement. Foot x-ray did not show evidence of osteomyelitis. Patient denies fever chills. 08/27 No overnight event or new complaints. Awaiting wound surgeon note. 08/28 No overnight event or new complaints. Patient feeling fine and slept well. Surgeon likely debridement tomorrow. Review of Systems: denies headache/fever/chills/nausea/vomiting/chest or abdominal pain/c ough/dyspnea/diarrhea. Otherwise see above. Constitutional Vitals: Vital Signs Temp Pulse Resp BP Pulse Ox 97.2 F 51 L 16 104/55 97 08/28/21 06:29 08/28/21 06:29 08/28/21 06:29 08/28/21 06:29 08/28/21 06:29 Period Temp Pulse Resp BP Sys/Pichardo Pulse Ox Last 24 Hr 96.7 F-98.1 F 51-96 16-20 104-138/51-64 93-98 Intake and Output 08/27/21 08/28/21 08/28/21 21:59 05:59 13:59 Intake Total 370 800 Output Total 5 13 Balance 365 787 Weight 146.828 kg Intake & Output: Intake & Output 08/27/21 08/28/21 08/28/21 21:59 05:59 13:59 Intake Total 370 800 Output Total 5 13 Balance 365 787 Weight 146.828 kg Intake: IV 500 Vancomycin 1,500 mg In Sodium 500 Chloride 0.9% 500 ml @ 333.3 mls/hr IV Q12H [facility] Rx#: [id number] Oral 370 300 Output: # of times incontinent of urine 5 13 Other: Meal Dinner Percent of Meal Consumed 100% Feeding Ability Assist with Tray Set Up Stool Size Copious Stool Color Brown Stool Consistency Formed Exam: General: Alert, Awake, No acute Distress, obese Eyes/N/T: EOMI, , Head/Neck: neck supple, CV: reg with occ irreg, No murmurs, Pulm: Clear b/l, no wheezing/rhonchi/rales Abd: soft, nontender, +BS x4 Ext: no clubbing/cyanosis, b/l LE mild edema, right toe diabetic ulcer with surrounding erythema Neuro: Alert, no focal deficits, moves all extremities, Skin: warm/dry OBJ DATA Labs CBC & Chem 7: 08/27/21 05:25 08/27/21 05:25 Labs: Abnormal Lab Results 08/27/21 08/27/21 08/26/21 05:25 05:25 13:56 RBC 3.57 L Hgb 10.8 L Hct 33.2 L POC Hct RDW 14.6 H Neut % (Auto) Lymph % (Auto) Lymph # (Auto) [place] # (Auto) Eosinophils % (Manual) 8 H Absolute Neutrophils ESR VBG Lactic Acid POC BUN BUN 44 H Creatinine 1.3 H POC Creatinine Glucose 111 H POC Glucose Hemoglobin A1c 7.5 H Triglycerides 163 H Procalcitonin 08/26/21 08/26/21 08/26/21 13:56 13:56 13:56 RBC Hgb Hct POC Hct 35 L RDW Neut % (Auto) Lymph % (Auto) Lymph # (Auto) [place] # (Auto) Eosinophils % (Manual) Absolute Neutrophils ESR 93 H VBG Lactic Acid POC BUN 49 H BUN Creatinine POC Creatinine 1.5 H Glucose POC Glucose 192 H Hemoglobin A1c Triglycerides Procalcitonin 0.14 H 08/26/21 08/26/21 13:56 13:56 RBC 3.87 L Hgb 12.0 L Hct 36.8 L POC Hct RDW 14.9 H Neut % (Auto) 80.7 H Lymph % (Auto) 6.9 L Lymph # (Auto) 0.74 L [place] # (Auto) 0.92 H Eosinophils % (Manual) Absolute Neutrophils 8.67 H ESR VBG Lactic Acid 2.8 H POC BUN BUN Creatinine POC Creatinine Glucose POC Glucose Hemoglobin A1c Triglycerides Procalcitonin Meds: Medications Acetaminophen (Acetaminophen 325 Mg Tablet) 650 mg PO Q6HP PRN; Protocol PRN Reason: Per Pain Protocol/Fever > 101 Albuterol/Ipratropium (Ipratropium/Albuterol 3 Ml Ampul.Neb) 3 ml NEB Q4HP PRN PRN Reason: Shortness Of Breath Last Admin: 08/27/21 21:22 Dose: 3 ml Documented by: Cefepime HCl (Cefepime 2 Gm Vial) 2 gm IV Q12H [facility]; Protocol Last Admin: 08/27/21 20:32 Dose: 2 gm Documented by: Dextrose (Dextrose 50% 50 Ml Vial) 0 ml IV UD PRN PRN Reason: Hypoglycemia Diagnostic Test (Pha) (Accu-Chek 1 Each Strip) 1 each FS ACHS [facility] Last Admin: 08/28/21 07:16 Dose: 1 each Documented by: Docusate Sodium (Docusate Sodium 100 Mg Capsule) 100 mg PO BID [facility] Last Admin: 08/28/21 08:19 Dose: 100 mg Documented by: Furosemide (Furosemide 40 Mg Tablet) 40 mg PO QDAY [facility] Last Admin: 08/28/21 08:19 Dose: 40 mg Documented by: Glucose (Dextrose 31 Gm Oral.Susp) 15 gm PO PRN PRN PRN Reason: Hypoglycemia Heparin Sodium (Porcine) (Heparin 5,000 Unit/Ml Vial) 5,000 unit SQ Q8 [facility] Last Admin: 08/28/21 05:28 Dose: 5,000 unit Documented by: Potassium Chloride 40 meq/ (Dextrose) 520 mls @ 130 mls/hr IV UD PRN PRN Reason: Potassium < 3 Magnesium Sulfate (Magnesium Sulfate) 2 gm in 50 mls @ 50 mls/hr IV UD PRN PRN Reason: Magnesium </= 1.6 Vancomycin HCl 1,500 mg/ (Sodium Chloride) 500 mls @ 333.3 mls/hr IV Q12H [facility] Last Infusion: 08/28/21 01:20 Dose: Infused Documented by: Insulin Glargine (Insulin Glargine, Human 1 Unit/0.01 Ml) 60 unit SQ HS [facility] Last Admin: 08/27/21 20:33 Dose: 60 units Documented by: Insulin Human Lispro (Insulin Lispro 1 Unit/0.01 Ml Unit) 0 unit SQ ACHS [facility]; Protocol Last Admin: 08/28/21 07:17 Dose: Not Given Documented by: Losartan Potassium (Losartan 50 Mg Tablet) 100 mg PO DAILY [facility] Last Admin: 08/28/21 08:18 Dose: 100 mg Documented by: Ondansetron HCl (Ondansetron 4 Mg/2 Ml Vial) 4 mg IV Q4HP PRN PRN Reason: Nausea And Vomiting Oxycodone/Acetaminophen (Oxycodone/Apap 5/325mg Tablet) 1 - 2 tab PO Q4HP PRN; Protocol PRN Reason: Per Pain Protocol Last Admin: 08/28/21 01:50 Dose: 1 tab Documented by: Tiotropium- Olodaterol [Stiolto Respimat] 2.5 Mcg-2. 5 Mcg Inhaler 2 dose INH BID [facility] Last Admin: 08/27/21 20:16 Dose: 2 dose Documented by: Brinzolamide- Brimonidine [ Simbrinza] 1-0.2 % Drop 1 dose OU BID [facility] Last Admin: 08/27/21 20:12 Dose: 1 dose Documented by: Netarsudil- Latanoprost [ Rocklatan] 0.02-0. 005 % Ophthalmic Drops 1 dose OU HS [facility] Last Admin: 08/27/21 21:07 Dose: 1 dose Documented by: Polyethylene Glycol (Polyethylene Glycol 3350 17 Gm Packet) 17 gm PO DAILYP PRN PRN Reason: Constipation Potassium Chloride (Potassium Chloride 20 Meq Tablet) 40 meq PO UD PRN PRN Reason: Potssium is 3-3.5 Potassium Chloride (Potassium Chloride 20 Meq Tablet) 40 meq PO UD PRN PRN Reason: Potassium < 3 Senna (Sennosides 1 Tablet) 2 tab PO DAILYP PRN PRN Reason: Constipation Sodium Chloride (0.9 % Sodium Chloride 10 Ml Syringe) 10 ml IV Q8 [facility] Last Admin: 08/28/21 05:29 Dose: 10 ml Documented by: Spironolactone (Spironolactone 25 Mg Tablet) 25 mg PO QDAY [facility] Last Admin: 08/28/21 08:19 Dose: 25 mg Documented by: Timolol Maleate (Timolol 0.5% Ophth Drops Bottle 5ml) 1 gtt OU BID [facility] Last Admin: 08/27/21 20:13 Dose: 1 drop Documented by: Vancomycin HCl (Vancomycin Per Pharmacy) 1 order IV UD [facility]; Protocol A/P Narrative A/P Narrative: A: #Right foot/toe diabetic wound infection: - #?Bacteremia (/4 bottles GPC): possible contaminate #h/o Right prosthetic knee septic arthritis (MSSA): s/p I&D/synovectomy/polyliner exchange (02/16/21), Dr. 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 per records pt strongly declined anticoagulation and was only okay with aspirin. with understanding of stroke risk. But now pt says he hasn't been on asa in long time, willing to resart baby asa. #Bradycardia: commonly runs in 40's per pt, is on low-dose BB & follows with cardiology #CKD III: Follows with Dr. 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 Bonilla for further Recs and treatment -basal, SSI -cont home ARB -restart aspirin. mehulenlty on home med list. -CPAP at bedtime -PT/OT -Wound care -ppx: heparin Time Spent With Patient Time: Total time spent is greater than 50% in coordination of care (as documented) at patient's floor/unit and/or counseling patient: QUALITY VTE Deep Vein Thrombosis/Pulmonary Embolism Present on Admission: No
[2021-08-28] MEDS: TIMOLOL 0.5% OPHTH DROPS BOTTLE 5ML OU SCH ×2 (09:33→21:14)
[2021-08-28] MEDS: VANCOMYCIN 1,500 MG in 0.9 % SODIUM CHLORIDE 500 ML IV SCH ×2 (09:35→21:34)
[2021-08-28] MEDS ORDERED: ASPIRIN 81 MG TAB.CHEW PO ONE (10:45)
--- NOTE | 2021-08-28 11:57 | General Surgery Progress Note ---
SUBJECTIVE Subjective Patient information: Note initiated : 08/28/21 at 11:51 am Service Date, if different from initiated Date: [] Patient: Daljit Quintanilla 75 y/o M admitted on 08/26/21 for Right toe wound. Chief Complaint: [] Additional PMFSH (Level 3 Only): Patient seen on rounds with Franko Arredondo RN. Constitutional Vitals: Vital Signs Temp Pulse Resp BP Pulse Ox 97.2 F 51 L 16 104/55 97 08/28/21 06:29 08/28/21 06:29 08/28/21 06:29 08/28/21 06:29 08/28/21 06:29 Period Temp Pulse Resp BP Sys/Pichardo Pulse Ox Last 24 Hr 96.7 F-98.1 F 51-96 16-20 104-138/51-64 93-98 Intake and Output 08/27/21 08/28/21 08/28/21 21:59 05:59 13:59 Intake Total 370 800 500 Output Total 5 13 1 Balance 365 787 499 Weight 323 lb 11.2 oz Intake & Output: Intake & Output 08/27/21 08/28/21 08/28/21 21:59 05:59 13:59 Intake Total 370 800 500 Output Total 5 13 1 Balance 365 787 499 Weight 323 lb 11.2 oz Intake: IV 500 500 Vancomycin 1,500 mg In Sodium 500 500 Chloride 0.9% 500 ml @ 333.3 mls/hr IV Q12H [facility] Rx#: [id number] Oral 370 300 Output: # of times incontinent of urine 5 13 1 Other: Meal Dinner Breakfast Percent of Meal Consumed 100% 75% Feeding Ability Assist with Tray Set Up Independent Stool Size Copious Stool Color Brown Stool Consistency Formed Exam: AVSS.No changes LETY. Significant improvement since admission Resolving inflammatory changes of Cellulitis around RIGHT great toe Toe nail is deformed, dystrophic and brittle. Tissue c/s NO growth thus far. MRSA Negative / Covid Negative Labs reviewed. A/P Narrative A/P Narrative: assessment: Satisfactory progress and resolution of cellulitis / CSSSI Right great toe. Plan: Extirpation / removal of deformed, dystrophic toe nail. Debridement. Spoke with patient about procedure at bedside. Informed consent obtained, Time Spent With Patient Time: Total time spent is greater than 50% in coordination of care (as documented) at patient's floor/unit and/or counseling patient: Total time spent with greater than 50% in coordination of care (as documented) at patient's floor/unit and/or counseling patient:: 15 - 24 minutes
--- NOTE | 2021-08-28 12:00 | Brief Operative Note ---
Brief Operative Note Date of procedure: 08/28/21 Pre-op diagnosis: CSSSI / Cellulitis RIGHT great toe. Open DFU Plantar and def ormed toe nail Post-op diagnosis: same Procedure: Extirpation / Removal of toenail and debridement of wounds. Deep debrided tissue for c/s. Grafts/Implants: No Anesthesia: local Findings: Onychomycosis, Dystrophic deformed brittle toenail Complications: none Surgeon: Gerardo Bonilla Estimated blood loss (cc): 2 Specimens Removed/Pathology: other (Debrided tissue from nail bed.) Condition: stable Disposition: floor
--- NOTE | 2021-08-28 12:44 | Operative Note ---
DATE OF OPERATION: 08/28/2021 PREOPERATIVE DIAGNOSES: Complicated skin and skin structure infection, cellulitis, right great toe; open diabetic foot ulcer, stage III plantar under great toe. No evidence of osteomyelitis on plain x-ray. POSTOPERATIVE DIAGNOSES: Complicated skin and skin structure infection, cellulitis, right great toe open diabetic foot ulcer, stage III plantar under great toe. No evidence of osteomyelitis on plain x-ray. PROCEDURE 1. Extirpation and removal of toenail. 2. Debridement of nail bed and plantar ulcers. SPECIMENS: Debrided tissue sent for culture and sensitivity. ANESTHESIA: Local 1% Xylocaine without epinephrine, 2 mL COMPLICATIONS: None. ESTIMATED BLOOD LOSS: 2 mL. CONDITION: Procedure was well tolerated. INSTRUMENT COUNTS: All counts were correct. INDICATIONS: This is a patient with diabetes, peripheral neuropathy, morbid obesity and multiple other comorbid medical problems. He was admitted emergently via wound care ER to med/surg floor. His acute inflammatory process has responded well to systemic intravenous antibiotics and local wound care. We are now proceeding with debridement of the wounds and removal of the dystrophic deformed brittle toenail at the site of infection. PROCEDURE IN DETAIL: I carried out this procedure at bedside with the help of nursing staff and Franko Davis RN. The toe and the foot was widely cleaned with Chlorhexidine swab. It was prepped and barricaded with the paper drape. Local anesthetic % Xylocaine plain was used to inject skin around the ulcer sites and at the base of the nail. Using a hemostat, the nail was carefully dislodged from nail bed and removed in its entirety. Hemostasis was achieved with pressure and elevation. We used silver nitrate chemical cauterization as was needed to achieve hemostasis, We used a #5 sharp curette to dbride the ulcers on the plantar surface. Hemostasis achieved with silver nitrate. Dressings consisted of Xeroform gauze, 4 x 4 gauze, Webril, Kerlix, [place] and Coban. Procedure was well tolerated. VD:thai Job ID: [id number] Doc ID: [id number] MD PRADEEP Dominguez
[2021-08-28] MEDS: INSULIN GLARGINE, HUMAN 1 UNIT/0.01 ML SQ SCH (21:12)
[2021-08-28] MEDS: NETARSUDIL LATANOPROST OU SCH (21:13)
[2021-08-29] MEDS: oxyCODONE/APAP 5/325MG TABLET PO PRN (01:13)
[2021-08-29] MEDS: HEPARIN 5,000 UNIT/ML VIAL SQ SCH ×3 (05:40→20:05)
[2021-08-29] MEDS: 0.9 % SODIUM CHLORIDE 10 ML SYRINGE IV SCH ×3 (05:40→20:10)
[2021-08-29] MEDS: INSULIN LISPRO 1 UNIT/0.01 ML UNIT SQ SCH ×4 (07:24→20:04)
[2021-08-29] MEDS: FUROSEMIDE 40 MG TABLET PO SCH (08:12)
[2021-08-29] MEDS: LOSARTAN 50 MG TABLET PO SCH (08:12)
[2021-08-29] MEDS: DOCUSATE SODIUM 100 MG CAPSULE PO SCH ×2 (08:12→20:02)
[2021-08-29] MEDS: SPIRONOLACTONE 25 MG TABLET PO SCH (08:12)
[2021-08-29] MEDS: TIMOLOL 0.5% OPHTH DROPS BOTTLE 5ML OU SCH ×2 (08:13→20:11)
[2021-08-29] MEDS: TIOTROPIUM OLODATEROL INH SCH ×2 (08:13→20:08)
[2021-08-29] MEDS: BRINZOLAMIDE BRIMONIDINE OU SCH ×2 (08:13→20:08)
[2021-08-29] MEDS: CEFEPIME 2 GM VIAL IV SCH ×2 (08:18→21:16)
--- NOTE | 2021-08-29 08:20 | Internal Med Progress Note ---
SUBJECTIVE Subjective Patient information: Note initiated : 08/29/21 at 8:20 am Service Date, if different from initiated Date: [] Patient: Daljit Quintanilla 75 y/o M admitted on 08/26/21 for Right toe wound. Chief Complaint: [] Interval history: History of present illness: Mr. Quintanilla is a 75 year old M Presents from Dr. Bonilla's office for an nonhealing diabetic right foot wound. It is been worsening over the past few weeks. With increased redness and purulent drainage. Dr. Pedersoned concerned regarding the foot and feels needs IV antibiotics and likely debridement. Foot x-ray did not show evidence of osteomyelitis. Patient denies fever chills. 08/27 No overnight event or new complaints. Awaiting wound surgeon note. 08/28 No overnight event or new complaints. Patient feeling fine and slept well. Surgeon likely debridement tomorrow. 08/29 Patient said he had a cough since the swallowed some food/drink that went down the wrong pipe several days ago. States that history of throat cancer. He has a weak cough. Awaiting I&D. Blood culture appears to be contaminant Review of Systems: denies headache/fever/chills/nausea/vomiting/chest or abdominal pain/dyspnea/diarrhea. Otherwise see above. Constitutional Vitals: Vital Signs Temp Pulse Resp BP Pulse Ox 98 F 64 20 143/61 95 08/29/21 07:11 08/29/21 07:11 08/29/21 07:11 08/29/21 07:11 08/29/21 07:11 Period Temp Pulse Resp BP Sys/Pichardo Pulse Ox Last 24 Hr 97.4 F-98.7 F 60-73 - 115-143/51-65 94-99 Intake and Output 08/28/21 08/29/21 08/29/21 21:59 05:59 13:59 Intake Total 200 1100 Output Total 3 1 Balance 197 1100 -1 Weight 142.156 kg Intake & Output: Intake & Output 08/28/21 08/29/21 08/29/21 21:59 05:59 13:59 Intake Total 200 1100 Output Total 3 1 Balance 197 1100 -1 Weight 142.156 kg Intake: IV 500 Vancomycin 1,500 mg In Sodium 500 Chloride 0.9% 500 ml @ 333.3 mls/hr IV Q12H [facility] Rx#: [id number] Oral 200 600 Output: # of times incontinent of urine 3 1 Other: Meal Dinner Percent of Meal Consumed 100% Urine Odor Normal # Voids 1 Exam: General: Alert, Awake, No acute Distress, obese Eyes/N/T: EOMI, , Head/Neck: neck supple, CV: reg with occ irreg, No murmurs, Pulm: Clear b/l, no wheezing/rhonchi/rales Abd: soft, nontender, +BS x4 Ext: no clubbing/cyanosis, b/l LE mild edema, right toe diabetic ulcer in dressings Neuro: Alert, no focal deficits, moves all extremities, Skin: warm/dry OBJ DATA Labs CBC & Chem 7: 08/27/21 05:25 08/27/21 05:25 Labs: Abnormal Lab Results 08/27/21 08/27/21 08/26/21 05:25 05:25 13:56 RBC 3.57 L Hgb 10.8 L Hct 33.2 L POC Hct RDW 14.6 H Neut % (Auto) Lymph % (Auto) Lymph # (Auto) [place] # (Auto) Eosinophils % (Manual) 8 H Absolute Neutrophils ESR VBG Lactic Acid POC BUN BUN 44 H Creatinine 1.3 H POC Creatinine Glucose 111 H POC Glucose Hemoglobin A1c 7.5 H Triglycerides 163 H Procalcitonin 08/26/21 08/26/21 08/26/21 13:56 13:56 13:56 RBC Hgb Hct POC Hct 35 L RDW Neut % (Auto) Lymph % (Auto) Lymph # (Auto) [place] # (Auto) Eosinophils % (Manual) Absolute Neutrophils ESR 93 H VBG Lactic Acid POC BUN 49 H BUN Creatinine POC Creatinine 1.5 H Glucose POC Glucose 192 H Hemoglobin A1c Triglycerides Procalcitonin 0.14 H 08/26/21 08/26/21 13:56 13:56 RBC 3.87 L Hgb 12.0 L Hct 36.8 L POC Hct RDW 14.9 H Neut % (Auto) 80.7 H Lymph % (Auto) 6.9 L Lymph # (Auto) 0.74 L [place] # (Auto) 0.92 H Eosinophils % (Manual) Absolute Neutrophils 8.67 H ESR VBG Lactic Acid 2.8 H POC BUN BUN Creatinine POC Creatinine Glucose POC Glucose Hemoglobin A1c Triglycerides Procalcitonin Meds: Medications Acetaminophen (Acetaminophen 325 Mg Tablet) 650 mg PO Q6HP PRN; Protocol PRN Reason: Per Pain Protocol/Fever > 101 Albuterol/Ipratropium (Ipratropium/Albuterol 3 Ml Ampul.Neb) 3 ml NEB Q4HP PRN PRN Reason: Shortness Of Breath Last Admin: 08/27/21 21:22 Dose: 3 ml Documented by: Aspirin (Aspirin 81 Mg Tab.Chew) 81 mg PO DAILY [facility] Last Admin: 08/29/21 08:12 Dose: 81 mg Documented by: Cefepime HCl (Cefepime 2 Gm Vial) 2 gm IV Q12H [facility]; Protocol Last Admin: 08/29/21 08:18 Dose: 2 gm Documented by: Dextrose (Dextrose 50% 50 Ml Vial) 0 ml IV UD PRN PRN Reason: Hypoglycemia Diagnostic Test (Pha) (Accu-Chek 1 Each Strip) 1 each FS ACHS [facility] Last Admin: 08/29/21 07:24 Dose: 1 each Documented by: Docusate Sodium (Docusate Sodium 100 Mg Capsule) 100 mg PO BID [facility] Last Admin: 08/29/21 08:12 Dose: 100 mg Documented by: Furosemide (Furosemide 40 Mg Tablet) 40 mg PO QDAY [facility] Last Admin: 08/29/21 08:12 Dose: 40 mg Documented by: Glucose (Dextrose 31 Gm Oral.Susp) 15 gm PO PRN PRN PRN Reason: Hypoglycemia Heparin Sodium (Porcine) (Heparin 5,000 Unit/Ml Vial) 5,000 unit SQ Q8 [facility] Last Admin: 08/29/21 05:40 Dose: 5,000 unit Documented by: Potassium Chloride 40 meq/ (Dextrose) 520 mls @ 130 mls/hr IV UD PRN PRN Reason: Potassium < 3 Magnesium Sulfate (Magnesium Sulfate) 2 gm in 50 mls @ 50 mls/hr IV UD PRN PRN Reason: Magnesium </= 1.6 Vancomycin HCl 1,500 mg/ (Sodium Chloride) 500 mls @ 333.3 mls/hr IV Q12H [facility] Last Infusion: 08/28/21 23:10 Dose: Infused Documented by: Insulin Glargine (Insulin Glargine, Human 1 Unit/0.01 Ml) 60 unit SQ HS [facility] Last Admin: 08/28/21 21:12 Dose: 60 units Documented by: Insulin Human Lispro (Insulin Lispro 1 Unit/0.01 Ml Unit) 0 unit SQ ACHS [facility]; Protocol Last Admin: 08/29/21 07:24 Dose: Not Given Documented by: Losartan Potassium (Losartan 50 Mg Tablet) 100 mg PO DAILY [facility] Last Admin: 08/29/21 08:12 Dose: 100 mg Documented by: Ondansetron HCl (Ondansetron 4 Mg/2 Ml Vial) 4 mg IV Q4HP PRN PRN Reason: Nausea And Vomiting Oxycodone/Acetaminophen (Oxycodone/Apap 5/325mg Tablet) 1 - 2 tab PO Q4HP PRN; Protocol PRN Reason: Per Pain Protocol Last Admin: 08/29/21 01:13 Dose: 1 tab Documented by: Tiotropium- Olodaterol [Stiolto Respimat] 2.5 Mcg-2. 5 Mcg Inhaler 2 dose INH BID [facility] Last Admin: 08/29/21 08:13 Dose: 2 dose Documented by: Brinzolamide- Brimonidine [ Simbrinza] 1-0.2 % Drop 1 dose OU BID [facility] Last Admin: 08/29/21 08:13 Dose: 1 dose Documented by: Netarsudil- Latanoprost [ Rocklatan] 0.02-0. 005 % Ophthalmic Drops 1 dose OU HS [facility] Last Admin: 08/28/21 21:13 Dose: 1 dose Documented by: Polyethylene Glycol (Polyethylene Glycol 3350 17 Gm Packet) 17 gm PO DAILYP PRN PRN Reason: Constipation Potassium Chloride (Potassium Chloride 20 Meq Tablet) 40 meq PO UD PRN PRN Reason: Potssium is 3-3.5 Potassium Chloride (Potassium Chloride 20 Meq Tablet) 40 meq PO UD PRN PRN Reason: Potassium < 3 Senna (Sennosides 1 Tablet) 2 tab PO DAILYP PRN PRN Reason: Constipation Sodium Chloride (0.9 % Sodium Chloride 10 Ml Syringe) 10 ml IV Q8 [facility] Last Admin: 08/29/21 05:40 Dose: 10 ml Documented by: Spironolactone (Spironolactone 25 Mg Tablet) 25 mg PO QDAY [facility] Last Admin: 08/29/21 08:12 Dose: 25 mg Documented by: Timolol Maleate (Timolol 0.5% Ophth Drops Bottle 5ml) 1 gtt OU BID [facility] Last Admin: 08/29/21 08:13 Dose: 1 drop Documented by: Vancomycin HCl (Vancomycin Per Pharmacy) 1 order IV UD [facility]; Protocol A/P Narrative A/P Narrative: A: #Right foot/toe diabetic wound infection: - #h/o Right prosthetic knee septic arthritis (MSSA): s/p I&D/synovectomy/polyliner exchange (02/16/21), Dr. 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 per records pt strongly declined anticoagulation and was only okay with aspirin. with understanding of stroke risk. But now pt says he hasn't been on asa in long time, willing to resart baby asa. #Bradycardia: commonly runs in 40's per pt, is on low-dose BB & follows with cardiology #CKD III: Follows with Dr. 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 Bonilla for further Recs and treatment -cxr and bedside swallow eval, ST when available -basal, SSI -cont home ARB -aspirin -CPAP at bedtime -PT/OT -Wound care -ppx: heparin Time Spent With Patient Time: Total time spent is greater than 50% in coordination of care (as documented) at patient's floor/unit and/or counseling patient: QUALITY VTE Deep Vein Thrombosis/Pulmonary Embolism Present on Admission: No
[2021-08-29] MEDS ORDERED: ASPIRIN 81 MG TAB.CHEW PO SCH (09:00)
[2021-08-29] MEDS: guaiFENesin 600 MG TAB.SR.12H PO SCH ×2 (09:24→20:02)
[2021-08-29] MEDS: VANCOMYCIN 1,500 MG in 0.9 % SODIUM CHLORIDE 500 ML IV SCH (10:29)
--- NOTE | 2021-08-29 10:58 | XRay Report ---
CLINICAL INFORMATION: Cough COMPARISON: 02/26/2021 TECHNIQUE: Portable FINDINGS: The heart is mildly enlarged. The mediastinum and pulmonary vessels are unremarkable. Mild bibasilar atelectasis noted. No definite infiltrates. There are no effusions. The bones and soft tissues are within normal limits. IMPRESSION: Mild bibasilar atelectasis. Mild stable cardiomegaly. Interpreted and Authenticated by: Rashi Laguna 08/29/21
--- NOTE | 2021-08-29 13:36 | General Surgery Progress Note ---
SUBJECTIVE Subjective Patient information: Note initiated : 08/29/21 at 1:31 pm Service Date, if different from initiated Date: [] Patient: Daljit Quintanilla 75 y/o M admitted on 08/26/21 for Right toe wound. Chief Complaint: [] Additional PMFSH (Level 3 Only): Patient undergoing nebulizer breathing treatment. Right foot dressing is CDI. Constitutional Vitals: Vital Signs Temp Pulse Resp BP Pulse Ox 97.8 F 69 18 145/66 94 08/29/21 12:00 08/29/21 12:00 08/29/21 12:00 08/29/21 12:00 08/29/21 12:00 Period Temp Pulse Resp BP Sys/Pichardo Pulse Ox Last 24 Hr 97.4 F-98.7 F 60-69 - 115-145/51-66 94-99 Intake and Output 08/28/21 08/29/21 08/29/21 21:59 05:59 13:59 Intake Total 200 1100 500 Output Total 3 2 Balance 197 1100 498 Weight 313 lb 6.4 oz Intake & Output: Intake & Output 08/28/21 08/29/21 08/29/21 21:59 05:59 13:59 Intake Total 200 1100 500 Output Total 3 2 Balance 197 1100 498 Weight 313 lb 6.4 oz Intake: IV 500 Vancomycin 1,500 mg In Sodium 500 Chloride 0.9% 500 ml @ 333.3 mls/hr IV Q12H NICKIE Rx#: [id number] Oral 200 600 500 Output: # of times incontinent of urine 3 2 Other: Meal Dinner Lunch Percent of Meal Consumed 100% 100% Feeding Ability Independent Urine Odor Normal # Voids 1 Exam: AVSS. No changes LETY. Right foot dressing CDI Wound c/s NO growth . Final blood c/s 08/28 NO growth. A/P Narrative A/P Narrative: Assessment: Satisfactory progress form wound care point of view. Plan: Change dressing on Tuesday08/31/2021 Am Likely d/c [facility] ( [facility] ) and f/u at clinic later. Time Spent With Patient Time: Total time spent is greater than 50% in coordination of care (as documented) at patient's floor/unit and/or counseling patient: Total time spent with greater than 50% in coordination of care (as documented) at patient's floor/unit and/or counseling patient:: 15 - 24 minutes
[2021-08-29] MEDS: INSULIN GLARGINE, HUMAN 1 UNIT/0.01 ML SQ SCH (20:04)
[2021-08-29] MEDS: NETARSUDIL LATANOPROST OU SCH (20:11)
[2021-08-30] MEDS: HEPARIN 5,000 UNIT/ML VIAL SQ SCH ×3 (05:41→20:24)
[2021-08-30] MEDS: 0.9 % SODIUM CHLORIDE 10 ML SYRINGE IV SCH ×3 (05:42→20:24)
[2021-08-30] MEDS: INSULIN LISPRO 1 UNIT/0.01 ML UNIT SQ SCH ×4 (07:33→20:24)
[2021-08-30] MEDS: DOCUSATE SODIUM 100 MG CAPSULE PO SCH ×2 (08:02→20:19)
[2021-08-30] MEDS: guaiFENesin 600 MG TAB.SR.12H PO SCH ×2 (08:02→20:19)
[2021-08-30] MEDS: LOSARTAN 50 MG TABLET PO SCH (08:03)
[2021-08-30] MEDS: FUROSEMIDE 40 MG TABLET PO SCH (08:03)
[2021-08-30] MEDS: SPIRONOLACTONE 25 MG TABLET PO SCH (08:03)
[2021-08-30] MEDS: ASPIRIN 81 MG TAB.CHEW PO SCH (08:03)
[2021-08-30 08:28] LABS: Vancomycin,Random 20.5 ug/mL
[2021-08-30] MEDS: CEFEPIME 2 GM VIAL IV SCH ×2 (09:10→20:24)
[2021-08-30] MEDS: BRINZOLAMIDE BRIMONIDINE OU SCH ×2 (09:11→19:28)
[2021-08-30] MEDS: TIMOLOL 0.5% OPHTH DROPS BOTTLE 5ML OU SCH ×2 (09:11→19:31)
[2021-08-30] MEDS: TIOTROPIUM OLODATEROL INH SCH ×2 (09:14→19:30)
--- NOTE | 2021-08-30 11:01 | Internal Med Progress Note ---
SUBJECTIVE Subjective Patient information: Note initiated : 08/30/21 at 10:57 am Service Date, if different from initiated Date: [] Patient: Daljit Quintanilla 75 y/o M admitted on 08/26/21 for Right toe wound. Chief Complaint: [] Interval history: History of present illness: Mr. Quintanilla is a 75 year old M Presents from Dr. Bonilla's office for an nonhealing diabetic right foot wound. It is been worsening over the past few weeks. With increased redness and purulent drainage. Dr. Caro concerned regarding the foot and feels needs IV antibiotics and likely debridement. Foot x-ray did not show evidence of osteomyelitis. Patient denies fever chills. 08/27 No overnight event or new complaints. Awaiting wound surgeon note. 08/28 No overnight event or new complaints. Patient feeling fine and slept well. Surgeon likely debridement tomorrow. 08/29 Patient said he had a cough since the swallowed some food/drink that went down the wrong pipe several days ago. States that history of throat cancer. He has a weak cough. Awaiting I&D. Blood culture appears to be contaminant 08/30-patient doing well. No overnight events. No concerns per staff. Ongoing management with Dr. Caro. Continue antibiotic coverage and cefepime/va ncomycin. Repeat CBC, continuing pre-existing medical condition management home medications. Case management to coordinate discharge planning Constitutional Vitals: Vital Signs Temp Pulse Resp BP Pulse Ox 96.5 F L 97 H 18 126/64 97 08/30/21 07:33 08/30/21 07:33 08/30/21 07:33 08/30/21 07:33 08/30/21 07:33 Period Temp Pulse Resp BP Sys/Pichardo Pulse Ox Last 24 Hr 96.5 F-98.5 F 60-97 18-24 126-150/61-71 94-97 Intake and Output 08/29/21 08/30/21 08/30/21 21:59 05:59 13:59 Intake Total 200 800 400 Output Total 5 1 1 Balance 195 799 399 Weight 142.655 kg alert oriented No anxiety Nonlabored breathing Intake & Output: Intake & Output 08/29/21 08/30/21 08/30/21 21:59 05:59 13:59 Intake Total 200 800 400 Output Total 5 1 1 Balance 195 799 399 Weight 142.655 kg Intake: Oral 200 800 400 Output: # of times incontinent of urine 5 1 1 Other: Meal Dinner Breakfast Percent of Meal Consumed 100% 100% Urine Color Bright Yellow Stool Size Large Stool Consistency Soft # Voids 2 # Bowel Movements 1 OBJ DATA Labs CBC & Chem 7: 08/27/21 05:25 08/27/21 05:25 Labs: Abnormal Lab Results 08/29/21 09:10 Vancomycin Trough 30.7 H* Meds: Medications Acetaminophen (Acetaminophen 325 Mg Tablet) 650 mg PO Q6HP PRN; Protocol PRN Reason: Per Pain Protocol/Fever > 101 Albuterol/Ipratropium (Ipratropium/Albuterol 3 Ml Ampul.Neb) 3 ml NEB Q4HP PRN PRN Reason: Shortness Of Breath Last Admin: 08/27/21 21:22 Dose: 3 ml Documented by: Aspirin (Aspirin 81 Mg Tab.Chew) 81 mg PO DAILY [facility] Last Admin: 08/30/21 08:03 Dose: 81 mg Documented by: Cefepime HCl (Cefepime 2 Gm Vial) 2 gm IV Q12H [facility]; Protocol Last Admin: 08/30/21 09:10 Dose: 2 gm Documented by: Dextrose (Dextrose 50% 50 Ml Vial) 0 ml IV UD PRN PRN Reason: Hypoglycemia Diagnostic Test (Pha) (Accu-Chek 1 Each Strip) 1 each FS ACHS [facility] Last Admin: 08/30/21 07:33 Dose: 1 each Documented by: Docusate Sodium (Docusate Sodium 100 Mg Capsule) 100 mg PO BID [facility] Last Admin: 08/30/21 08:02 Dose: 100 mg Documented by: Furosemide (Furosemide 40 Mg Tablet) 40 mg PO QDAY [facility] Last Admin: 08/30/21 08:03 Dose: 40 mg Documented by: Glucose (Dextrose 31 Gm Oral.Susp) 15 gm PO PRN PRN PRN Reason: Hypoglycemia Guaifenesin (Guaifenesin 600 Mg Tab.Sr.12h) 1,200 mg PO BID [facility] Stop: 08/30/21 21:01 Last Admin: 08/30/21 08:02 Dose: 1,200 mg Documented by: Heparin Sodium (Porcine) (Heparin 5,000 Unit/Ml Vial) 5,000 unit SQ Q8 [facility] Last Admin: 08/30/21 05:41 Dose: 5,000 unit Documented by: Potassium Chloride 40 meq/ (Dextrose) 520 mls @ 130 mls/hr IV UD PRN PRN Reason: Potassium < 3 Magnesium Sulfate (Magnesium Sulfate) 2 gm in 50 mls @ 50 mls/hr IV UD PRN PRN Reason: Magnesium </= 1.6 Insulin Glargine (Insulin Glargine, Human 1 Unit/0.01 Ml) 60 unit SQ [facility] Last Admin: 08/29/21 20:04 Dose: 60 units Documented by: Insulin Human Lispro (Insulin Lispro 1 Unit/0.01 Ml Unit) 0 unit SQ ACHS [facility]; Protocol Last Admin: 08/30/21 07:33 Dose: Not Given Documented by: Losartan Potassium (Losartan 50 Mg Tablet) 100 mg PO DAILY [facility] Last Admin: 08/30/21 08:03 Dose: 100 mg Documented by: Ondansetron HCl (Ondansetron 4 Mg/2 Ml Vial) 4 mg IV Q4HP PRN PRN Reason: Nausea And Vomiting Oxycodone/Acetaminophen (Oxycodone/Apap 5/325mg Tablet) 1 - 2 tab PO Q4HP PRN; Protocol PRN Reason: Per Pain Protocol Last Admin: 08/29/21 01:13 Dose: 1 tab Documented by: Tiotropium- Olodaterol [Stiolto Respimat] 2.5 Mcg-2. 5 Mcg Inhaler 2 dose INH BID [facility] Last Admin: 08/30/21 09:14 Dose: 2 dose Documented by: Brinzolamide- Brimonidine [ Simbrinza] 1-0.2 % Drop 1 dose OU BID [facility] Last Admin: 08/30/21 09:11 Dose: 1 dose Documented by: Netarsudil- Latanoprost [ Rocklatan] 0.02-0. 005 % Ophthalmic Drops 1 dose OU HS [facility] Last Admin: 08/29/21 20:11 Dose: 1 dose Documented by: Polyethylene Glycol (Polyethylene Glycol 3350 17 Gm Packet) 17 gm PO DAILYP PRN PRN Reason: Constipation Potassium Chloride (Potassium Chloride 20 Meq Tablet) 40 meq PO UD PRN PRN Reason: Potssium is 3-3.5 Potassium Chloride (Potassium Chloride 20 Meq Tablet) 40 meq PO UD PRN PRN Reason: Potassium < 3 Senna (Sennosides 1 Tablet) 2 tab PO DAILYP PRN PRN Reason: Constipation Last Admin: 08/30/21 08:02 Dose: 2 tab Documented by: Sodium Chloride (0.9 % Sodium Chloride 10 Ml Syringe) 10 ml IV Q8 [facility] Last Admin: 08/30/21 05:42 Dose: 10 ml Documented by: Spironolactone (Spironolactone 25 Mg Tablet) 25 mg PO QDAY [facility] Last Admin: 08/30/21 08:03 Dose: 25 mg Documented by: Timolol Maleate (Timolol 0.5% Ophth Drops Bottle 5ml) 1 gtt OU BID [facility] Last Admin: 08/30/21 09:11 Dose: 1 drop Documented by: A/P Narrative A/P Narrative: #Right foot/toe diabetic wound infection: -Managed per Dr. Bonilla #h/o Right prosthetic knee septic arthritis (MSSA): s/p I&D/synovectomy/polyliner exchange (02/16/21), Dr. 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 per records pt strongly declined anticoagulation and was only okay with aspirin. with understanding of stroke risk. But now pt says he hasn't been on asa in long time, started on low-dose aspirin #Bradycardia: commonly runs in 40's per pt, is on low-dose BB & follows with cardiology #CKD III: Follows with Dr. 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 Bonilla -basal, SSI/CC diet -CPAP at bedtime -Daily therapies as tolerated -DVT prophylaxis on heparin Time Spent With Patient Time: Total time spent is greater than 50% in coordination of care (as documented) at patient's floor/unit and/or counseling patient: Total time spent with greater than 50% in coordination of care (as documented) at patient's floor/unit and/or counseling patient:: Greater than 35 minutes QUALITY VTE Deep Vein Thrombosis/Pulmonary Embolism Present on Admission: No
[2021-08-30] MEDS: INSULIN GLARGINE, HUMAN 1 UNIT/0.01 ML SQ SCH (20:24)
[2021-08-30] MEDS: NETARSUDIL LATANOPROST OU SCH (20:24)
[2021-08-31] MEDS: HEPARIN 5,000 UNIT/ML VIAL SQ SCH (05:54)
[2021-08-31] MEDS: 0.9 % SODIUM CHLORIDE 10 ML SYRINGE IV SCH (05:55)
[2021-08-31 06:59] LABS: Basophils # (Auto) 0.01 K/mcL (0.00-0.30); Basophils % (Auto) 0.1 % (0.0-2.0); Eosinophils # (Auto) 0.51 K/mcL (0.00-0.70); Eosinophils % (Auto) 5.4 % (0.0-7.0); Hemoglobin 10.6 g/dL (13.7-17.5); Lymphocytes # (Auto) 0.58 K/mcL (1.50-4.80); Lymphocytes % (Auto) 6.2 % (15.5-49.0); Mean Cell Volume 94.3 fL (80.0-100.0); Mean Corpuscular HGB Conc 32.1 g/dL (31.0-36.0); Monocytes # (Auto) 0.96 K/mcL (0.10-0.90); Monocytes % (Auto) 10.2 % (1.0-12.0); Neutrophils % (Auto) 78.1 % (38.0-78.0); Platelet Count 242 K/mcL (140-440); Red Cell Distribution Width 14.6 % (11.5-14.5); WBC 9.4 K/mcL (4.5-11.0)
[2021-08-31] MEDS: CEFEPIME 2 GM VIAL IV SCH (08:10)
[2021-08-31] MEDS: LOSARTAN 50 MG TABLET PO SCH (08:11)
[2021-08-31] MEDS: SPIRONOLACTONE 25 MG TABLET PO SCH (08:12)
[2021-08-31] MEDS: ASPIRIN 81 MG TAB.CHEW PO SCH (08:12)
[2021-08-31] MEDS: FUROSEMIDE 40 MG TABLET PO SCH (08:12)
[2021-08-31] MEDS: INSULIN LISPRO 1 UNIT/0.01 ML UNIT SQ SCH ×2 (08:12→12:09)
[2021-08-31] MEDS: DOCUSATE SODIUM 100 MG CAPSULE PO SCH (08:12)
[2021-08-31] MEDS: TIOTROPIUM OLODATEROL INH SCH (08:14)
[2021-08-31] MEDS: BRINZOLAMIDE BRIMONIDINE OU SCH (08:14)
[2021-08-31] MEDS: TIMOLOL 0.5% OPHTH DROPS BOTTLE 5ML OU SCH (08:19)
--- NOTE | 2021-08-31 09:07 | General Surgery Progress Note ---
SUBJECTIVE Subjective Patient information: Note initiated : 08/31/21 at 9:02 am Service Date, if different from initiated Date: [] Patient: Daljit Quintanilla 75 y/o M admitted on 08/26/21 for Right toe wound. Chief Complaint: [] Additional PMFSH (Level 3 Only): Patient seen with María WEINBERG, Inpatient wound care nurse. Patient had an uneventful night and week end. Wound examined. Constitutional Vitals: Vital Signs Temp Pulse Resp BP Pulse Ox 97.8 F 69 22 159/74 97 08/31/21 08:00 08/31/21 08:00 08/31/21 08:00 08/31/21 08:00 08/31/21 08:00 Period Temp Pulse Resp BP Sys/Pichardo Pulse Ox Last 24 Hr 96.2 F-98.0 F 50-69 - 121-159/51-74 96-100 Intake and Output 08/30/21 08/31/21 08/31/21 21:59 05:59 13:59 Intake Total 450 800 Output Total 1 1 Balance 449 799 Weight 314 lb 8 oz Intake & Output: Intake & Output 08/30/21 08/31/21 08/31/21 21:59 05:59 13:59 Intake Total 450 800 Output Total 1 1 Balance 449 799 Weight 314 lb 8 oz Intake: Oral 450 800 Output: # of times incontinent of urine 1 1 Other: Meal Dinner Percent of Meal Consumed 75% # Voids 1 Exam: AVSS. No changes in LETY. He is at his baseline. L/E: Resolved cellulitis Improving CSSSI. Nail bed and plantar DFU sites are clean. Demarcating cauterized areas. 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 A/P Narrative A/P Narrative: Assessment: Satisfactory progress. Plan: Local wound care: HB foam dressing x 3 week OFF loading Darco wedge shoe. Tetracycline 100 mg PO BID for 20 days. HHN to see patient for dressing changes. O K to discharge home. F/U at wound care center one week. Time Spent With Patient Time: Total time spent is greater than 50% in coordination of care (as documented) at patient's floor/unit and/or counseling patient: Total time spent with greater than 50% in coordination of care (as documented) at patient's floor/unit and/or counseling patient:: 15 - 24 minutes
--- NOTE | 2021-08-31 09:19 | Brief Operative Note ---
Brief Operative Note Date of procedure: 08/31/21 Surgeon: Gerardo Bonilla
--- NOTE | 2021-08-31 12:30 | Discharge Summary ---
Discharge Provider Provider Patient information: Note initiated : 08/31/21 at 12:29 pm Service Date, if different from initiated Date: [] Patient: Daljit Quintanilla 75 y/o M admitted on 08/26/21 for Right toe wound. Chief Complaint: [] Date of admission: 08/26/21 19:06 Discharge date: 08/31/21 Primary care physician: Jacobo Guerra MD Consults: 08/26/21 Consult to Physician [CONS] Stat Comment: Consulting Provider: Gino Gaspar Reason For Exam: Physician to Consult 08/26/21 19:11 Consult to Physician [CONS] Routine Comment: Consulting Provider: Gerardo Bonilla Reason For Exam: Physician to Consult Discharge Meds Discharge Medications Home Medications alpha lipoic acid 200 mg tablet 200 mg PO BID 08/29/15 [History Confirmed 08/26/21 Last Taken 08/26/21 06:00] coenzyme Q10 50 mg chewable tablet 200 mg PO BID 08/29/15 [History Confirmed 08/26/21 Last Taken 08/26/21 06:00] levocarnitine tartrate 500 mg capsule 500 mg PO BID 08/29/15 [History Confirmed 08/26/21 Last Taken 08/26/21 06:00] losartan 100 mg tablet 100 mg PO DAILY 08/29/15 [History Confirmed 08/26/21 Last Taken 08/26/21 06:00] saw palmetto 450 mg capsule 450 mg PO BID 08/29/15 [History Confirmed 08/26/21 Last Taken 08/26/21 06:00] albuterol sulfate 90 mcg/actuation aerosol inhaler 2 puff INHALATION QID PRN 02/16/21 [History Confirmed 08/26/21 Last Taken 08/26/21 06:00] brinzolamide 1 %-brimonidine 0.2 % eye drops,suspension (Simbrinza) 1 drp OPHTHALMIC (EYE) BID 02/16/21 [History Confirmed 08/26/21 Last Taken 08/26/21 06:00] furosemide 40 mg tablet (Lasix) 40 mg PO QDAY 02/16/21 [History Confirmed 08/26/21 Last Taken 08/26/21 06:00] potassium chloride 20 mEq tablet,extended release 20 meq PO QDAY 02/16/21 [History Confirmed 08/26/21 Last Taken 08/26/21 06:00] spironolactone 25 mg tablet 25 mg PO QDAY 02/16/21 [History Confirmed 08/26/21 Last Taken 08/26/21 06:00] timolol 0.5 % eye drops 1 drp OPHTHALMIC (EYE) BID 02/16/21 [History Confirmed 08/26/21 Last Taken 08/26/21 06:00] tiotropium 2.5 mcg-olodaterol 2.5 mcg/actuation mist for inhalation (Stiolto Respimat) 2 puff INHALATION BID 02/16/21 [History Confirmed 08/26/21 Last Taken 08/26/21 06:00] oxycodone-acetaminophen 5 mg-325 mg tablet 1 - 2 tab PO Q4HP PRN #75 tab 02/17/21 [Rx Confirmed 08/26/21 Last Taken 08/14/21 22:00] netarsudil 0.02 %-latanoprost 0.005 % eye drops (Rocklatan) 1 drp OPHTHALMIC (EYE) QPM 02/18/21 [History Confirmed 08/26/21 Last Taken 08/25/21 22:00] bisoprolol fumarate 5 mg tablet 2.5 mg PO QDAY tab 05/14/21 [History Confirmed 08/26/21 Last Taken 08/26/21 06:00] insulin lispro 200 unit/mL (3 mL) subcutaneous pen (Humalog KwikPen U-200 Insulin) See Rx Instructions SUBCUT TID ml 05/14/21 [History Confirmed 08/26/21 Last Taken 08/26/21 12:00] linagliptin 5 mg tablet (Tradjenta) 5 mg PO QDAY 05/14/21 [History Confirmed Last Taken 08/26/21 06:00] loratadine 10 mg tablet (Allergy Relief (loratadine)) 10 mg PO QDAY 05/14/21 [History Confirmed 08/26/21 Last Taken 08/26/21 06:00] lysine HCl 1,000 mg tablet 1,000 mg PO BID 05/14/21 [History Confirmed 08/26/21 Last Taken 08/26/21 06:00] blood sugar diagnostic (Blood Glucose Test) #100 ea 06/30/21 [Rx Confirmed 08/26/21 Last Taken Unknown] insulin glargine 100 unit/mL (3 mL) subcutaneous pen 60 unit SUBCUT QPM ml 06/30/21 [History Confirmed 08/26/21 Last Taken 08/25/21 22:00] pen needles #100 ea 07/02/21 [Rx Confirmed 08/26/21 Last Taken Unknown] nystatin 100,000 unit/gram topical powder 1 applic TOPICAL BID #60 g 07/21/21 [Rx Confirmed 08/26/21 Last Taken 08/26/21 06:00] aspirin 81 mg capsule 81 mg PO QDAY #30 cap 08/27/21 [Rx Last Taken Unknown] doxycycline hyclate 100 mg capsule 100 mg PO BID 20 Days #40 cap 08/31/21 [Rx Last Taken Unknown] COURSE Hospital Course Hospital course: Discharge diagnosis #Right foot/toe diabetic wound infection: Discharging home as per recommendations of Dr. Bonilla with wound care/weightbearing/antibiotic instructions #h/o Right prosthetic knee septic arthritis (MSSA): s/p I&D/synovectomy/polyliner exchange (02/16/21), Dr. 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 per records pt strongly declined anticoagulation and was only okay with aspirin. with understanding of stroke risk. But now pt says he hasn't been on asa in long time, started on low-dose aspirin #Bradycardia: commonly runs in 40's per pt, is on low-dose BB & follows with cardiology #CKD III: Follows with Dr. 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 Quintanilla is a 75 year old M Presents from Dr. Bonilla's office for an nonhealing diabetic right foot wound. It is been worsening over the past few weeks. With increased redness and purulent drainage. Dr. Caro concerned regarding the foot and feels needs IV antibiotics and likely debridement. Foot x-ray did not show evidence of osteomyelitis. Patient denies fever chills. 08/27 No overnight event or new complaints. Awaiting wound surgeon note. 08/28 No overnight event or new complaints. Patient feeling fine and slept well. Surgeon likely debridement tomorrow. 08/29 Patient said he had a cough since the swallowed some food/drink that went down the wrong pipe several days ago. States that history of throat cancer. He has a weak cough. Awaiting I&D. Blood culture appears to be contaminant 08/30-patient doing well. No overnight events. No concerns per staff. Ongoing management with Dr. Caro. Continue antibiotic coverage and cefepime/vancomycin. Repeat CBC, continuing pre-existing medical condition management home medications. Case management to coordinate discharge planning 08/31-patient doing well. Discharging as per recommendations of wound care with outpatient wound care follow-up/home dressing with home health services, doxycycline for additional 20 days twice daily per wound care physician Dr. Bonilla. Recommend follow-up with primary care physician in 5 to 7 days. Discharge diagnosis: . Time Spent with Patient Time attestation: Total time spent providing and/or coordinating discharge services: EXAM Constitutional Vitals: Temp Pulse Resp BP Pulse Ox 97.8 F 69 22 159/74 97 08/31/21 08:00 08/31/21 08:00 08/31/21 08:00 08/31/21 08:00 08/31/21 08:00 Discharge Data Data Completed and Pending Labs on day of discharge: Labs from last 24 hours 08/31/21 05:29 WBC 9.4 RBC 3.50 L Hgb 10.6 L Hct 33.0 L MCV 94.3 MCH 30.3 MCHC 32.1 RDW 14.6 H Plt Count 242 MPV 10.0 Neut % (Auto) 78.1 H Lymph % (Auto) 6.2 L Love % (Auto) 10.2 Eos % (Auto) 5.4 Baso % (Auto) 0.1 Lymph # (Auto) 0.58 L Love # (Auto) 0.96 H Eos # (Auto) 0.51 Baso # (Auto) 0.01 Absolute Neutrophils 7.35 Preliminary micro results at discharge 08/28/21 05:31 Blood Culture - Preliminary Blood 08/28/21 05:25 Blood Culture - Preliminary Blood 08/26/21 14:23 Blood Culture - Preliminary Blood 08/26/21 14:15 Blood Culture - Preliminary Blood Coagulase negative staph Discharge Plan Patient/Caregiver Discharge Instructions Activity Restrictions/Additional Instructions: Local wound care: HB foam dressing x 3 week OFF loading Darco wedge shoe. Tetracycline 100 mg PO BID for 20 days. HHN to see patient for dressing changes. F/U at wound care center one week with Dr. Bonilla Prescriptions: New aspirin 81 mg capsule 81 mg PO QDAY Qty: 30 0RF doxycycline hyclate 100 mg capsule 100 mg PO BID 20 Days Qty: 40 0RF Continued nystatin 100,000 unit/gram powder 1 applic topical BID Qty: 60 0RF Rx Instructions: use twice daily, to axilla/groin rash until resolved. loratadine [Allergy Relief (loratadine)] 10 mg tablet 10 mg PO QDAY 0RF bisoprolol fumarate 5 mg tablet 2.5 mg PO QDAY 0RF Tradjenta 5 mg tablet 5 mg PO QDAY 0RF lysine HCl 1,000 mg tablet 1,000 mg PO BID 0RF insulin glargine 100 unit/mL (3 mL) insulin pen 60 unit subcut QPM 0RF (DME) Blood Glucose Test Strip See Rx Instructions .Route Qty: 100 3RF Rx Instructions: use to test blood sugar three times daily and as needed (DME) pen needles See Rx Instructions .Route .MEDSUPPLY Qty: 100 3RF Rx Instructions: use with insulin pen four times daily losartan 100 MG tablet 100 mg PO DAILY 0RF saw palmetto 450 MG capsule 450 mg PO BID 0RF alpha lipoic acid 200 MG tablet 200 mg PO BID 0RF coenzyme Q10 50 MG tablet,chewable 200 mg PO BID 0RF levocarnitine tartrate 500 MG capsule 500 mg PO BID 0RF Humalog KwikPen Insulin 200 unit/mL (3 mL) insulin pen See Rx Instructions subcut TID 0RF Rx Instructions: Three times daily and at HS, sliding scale subcut three times daily; furosemide [Lasix] 40 mg Tablet 40 mg PO QDAY 0RF potassium chloride 20 mEq Tablet Extended Release 20 meq PO QDAY 0RF Simbrinza 1-0.2 % Drops,Suspension 1 drp OPHTHALMIC (EYE) BID 0RF spironolactone 25 mg Tablet 25 mg PO QDAY 0RF Stiolto Respimat 2.5-2.5 mcg/actuation Mist 2 puff INHALATION BID 0RF albuterol sulfate 90 mcg/actuation Hfa Aerosol Inhaler 2 puff INHALATION QID PRN (Reason: Shortness Of Breath Or Wheezing) 0RF timolol 0.5 % Drops 1 drp OPHTHALMIC (EYE) BID 0RF oxycodone-acetaminophen 5-325 mg Tablet 1 - 2 tab PO Q4HP PRN (Reason: Per Pain Protocol) Qty: 75 0RF Rocklatan 0.02-0.005 % Drops 1 drp OPHTHALMIC (EYE) QPM 0RF Other Ambulatory Orders: Wound Care Instructions (CONT) Location: None Selected Ordered By: Gerardo Bonilla Follow Up Plan Follow up with: Gerardo Bonilla MD [Physician] - (follow up in clinic in 1 week) Jacobo Guerra MD [Primary Care Provider] - Patient Disposition: Home Health Service Prognosis: Good Rehab Potential: Fair I certify that the patient requires SNF services: No Overall status at discharge: patient is progressing back to baseline Discharge Orders: Discharge Order (Routine); Ordered 08/31/21 Ordered By: Asa PAGAN VTE Deep Vein Thrombosis/Pulmonary Embolism Present on Admission: No
== END 2021-08-31 13:00 | disposition home health service (06) | DRG 988 ==
LOC: ED 13:34 → MEDSUR 19:06
PROVIDERS: ADMIT Internal Medicine; ATTEND Internal Medicine

== ENCOUNTER 2022-11-23 16:10 | Inpatient (IN) ==
[2022-11-23] MEDS ORDERED: IPRATROPIUM/ALBUTEROL 3 ML AMPUL.NEB NEB ONE ×2 (16:28→21:53)
--- NOTE | 2022-11-23 16:57 | XRay Report ---
CLINICAL INFORMATION: Dyspnea COMPARISON: 08/29/2021 TECHNIQUE: PA and lateral views were obtained. FINDINGS: The heart size, mediastinum and pulmonary vessels are unremarkable. Large patchy right upper lobe and moderate patchy right lower lobe infiltrates appreciated. There may be a small infiltrate developing in the left upper lobe.. There are no effusions. The bones and soft tissues are within normal limits. IMPRESSION: Large right upper lobe and moderate patchy right lower lobe infiltrates. Possible infiltrate developing left upper lobe Interpreted and Authenticated by: Rashi Laguna 11/23/22
[2022-11-23 17:37] LABS: POC Calcium, Ionized 1.29 (1.16-1.32); POC Creatinine 2.5 (0.6-1.2); POC Potassium 4.8 (3.3-5.1)
[2022-11-23] MEDS ORDERED: cefTRIAXone 1 GM VIAL IV ONE (17:50)
[2022-11-23] MEDS ORDERED: 0.9 % SODIUM CHLORIDE 1,000 ML IV ONE (18:18)
[2022-11-23] MEDS ORDERED: AZITHROMYCIN 500 MG in DEXTROSE 5% IN WATER 250 ML IV ONE (18:18)
--- NOTE | 2022-11-23 18:30 | Emergency Department Note ---
SOB HPI General Chief Complaint: Shortness of Breath/Dyspnea Stated Complaint: SOB Time Seen by Provider: 11/23/22 16:27 Source: patient Mode of arrival: wheelchair History of Present Illness HPI Narrative: 76-year-old male with history of COPD, severe pulmonary hypertension, obstructive sleep apnea, atrial fibrillation on chronic Eliquis, history of osteomyelitis from a right knee prosthetic infection on chronic minocycline for suppression, type 2 diabetes, neuropathy, CKD stage III, hypertension, history of throat cancer status post chemotherapy, chronic lymphedema, history of aspiration presents to the ER today with shortness of breath. The patient normally wears 2 L of O2 at home, but is had to bump this up to 3 L from [facility] for shortness of breath. He was seen by home health nursing today for his chronic lower extremity wound and she noted that his lung sounds were diminished with crackles and felt he should be evaluated in the ER. Patient states that he has felt weaker over the last week or two. He denies worsening cough or shortness of breath. Denies F/C/S. Denies aspiration though the wonders if he has been aspirating. He does have some chronic pain at baseline states that he is has a difficult time getting comfortable, which is not new for him. Patient has not had any recent hospital admissions or healthcare related exposures. Related Data Home Medications Medication Instructions Recorded Confirmed alpha lipoic acid 200 mg tablet 200 mg PO BID 08/29/15 08/12/22 levocarnitine tartrate 500 mg 500 mg PO BID 08/29/15 08/12/22 capsule saw palmetto 450 mg capsule 450 mg PO BID 08/29/15 08/12/22 brinzolamide 1 %-brimonidine 0.2 % 1 drp ophthalmic (eye) BID 02/16/21 08/12/22 eye drops,suspension (Simbrinza) spironolactone 25 mg tablet 25 mg PO QDAY 02/16/21 08/12/22 timolol 0.5 % eye drops 1 drp ophthalmic (eye) BID 02/16/21 08/12/22 netarsudil 0.02 %-latanoprost 1 drp ophthalmic (eye) QPM 02/18/21 08/12/22 0.005 % eye drops (Rocklatan) bisoprolol fumarate 5 mg tablet 2.5 mg PO QDAY 05/14/21 08/12/22 lysine HCl 1,000 mg tablet 1,000 mg PO BID 05/14/21 08/12/22 apixaban 5 mg tablet (Eliquis) 5 mg PO BID 12/22/21 08/12/22 atorvastatin 40 mg tablet 40 mg PO QDAY 12/22/21 08/12/22 minocycline 100 mg capsule 100 mg PO QDAY 04/01/22 08/12/22 fenugreek, saurabh, probiotics, PO 04/21/22 08/12/22 magnesium fexofenadine 180 mg tablet 180 mg PO QDAY 04/21/22 08/12/22 (Allergy Relief (fexofenadine)) furosemide 40 mg tablet (Lasix) 40 mg PO BID 04/21/22 08/12/22 Previous Rx's Medication Instructions Recorded pen needles #100 ea 09/16/21 insulin glargine 100 unit/mL (3 62 unit (0.62 mL) subcut QPM #55 mL 05/18/22 mL) subcutaneous pen (Lantus Solostar U-100 Insulin) losartan 100 mg tablet 100 mg PO DAILY #90 tabs 06/03/22 sitagliptin phosphate 100 mg 100 mg PO QDAY #90 tabs 06/03/22 tablet (Januvia) blood sugar diagnostic (Blood #270 ea 07/27/22 Glucose Test strips) tiotropium 2.5 mcg-olodaterol 2.5 2 puff inhalation QDAY #4 grams 09/29/22 mcg/actuation mist for inhalation (Stiolto Respimat) lancets #200 ea 10/20/22 insulin lispro 100 unit/mL 1 sliding scale dose subcut TID 10/22/22 subcutaneous pen (Humalog KwikPen #24 mL (U-100) Insulin) Allergies Allergy/AdvReac Type Severity Reaction Status Date / Time hydrocodone AdvReac Mild Itching Verified 11/23/22 17:14 Review of Systems ROS ROS Narrative: Narrative: All systems ED: reviewed and negative except as stated. 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) Morbid obesity (Chronic) Hypertension (Chronic) Localized edema due to fluid overload (Chronic) Afib (Chronic) COPD (chronic obstructive pulmonary disease) (Chronic) Squamous cell carcinoma (Chronic) Throat cancer (Chronic) H/O right knee surgery (Chronic ~2020) History of left knee surgery (Chronic ~2017) Glaucoma (Chronic) Pulmonary hypertension (Chronic) Biventricular heart failure (Chronic) Sleep apnea (Chronic) 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) MSSA bacteremia (Chronic) Arthritis (Chronic) [place] (hard of hearing) (Chronic) Hyperlipidemia (Chronic) Range of motion deficit (Chronic) Wears dentures (Chronic) 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) Medicare annual wellness visit, subsequent (Acute) Hematuria (Acute) Cellulitis of foot, right (Acute) Chronic kidney disease (CKD) stage G3b/A2, moderately decreased glomerular filtration rate (GFR) between 30-44 mL/min/1.73 square meter and albuminuria creatinine ratio between 30-299 mg/g (Chronic) 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 chronic kidney disease (Chronic) Knee pain, right (Acute) Effusion of knee joint right (Acute) Laceration of ankle (Acute) Meningioma (Chronic) Left shoulder pain (Chronic) Medical History Afib Arthritis Bite by animal Biventricular heart failure Bladder infection (~02/14/21) Congestive heart failure COPD (chronic obstructive pulmonary disease) Diabetes mellitus with neuropathy Dog bite of multiple sites of hand and fingers Glaucoma Hematuria Hip sprain History of fracture of right ankle [place] (hard of hearing) Hyperlipidemia Hypertension Infection of prosthetic right knee joint Daljit is a 75-year-old morbidly obese diabetic with chronic kidney disease. He was admitted yesterday currently postop day one for right septic total knee arthroplasty with staph aureus. Polyexchange completed. He had 2 weeks of symptoms prior to admission of increasing right knee pain. No previous history of MRSA. Probable MSSA. Laceration of finger Laceration of lip Left shoulder pain Localized edema due to fluid overload 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 Medicare annual wellness visit, subsequent Meningioma Metabolic alkalosis Morbid obesity Comorbid risk factor. MSSA bacteremia Peripheral neuropathy due to chemotherapy PNA (pneumonia) Pulmonary hypertension Range of motion deficit left shoulder Rib fracture Sepsis Septic arthritis Sleep apnea Squamous cell carcinoma Head, Neck, Ears Staphylococcus aureus bacteremia Follow-up on sensitivities. I am expecting to transition to IV Ancef 2 g IV every 8 hours. This would be considered dose adjustment for his acute on chronic kidney disease and associated morbid obesity. Throat cancer Stage 4 Wears dentures Surgical History H/O right knee surgery (~2020) History of ankle surgery 03/1966fracture with screws right History of cardiac cath (09/26/20) History of cardioversion 09/2007; 12/26/2007 History of cataract surgery (~09/2019) History of colonoscopy (~2009) History of eye surgery 07/2020 bilateral to release pressure History of left knee surgery (~2016) History of umbilical hernia repair (~2001) with colon resection Hx of total knee arthroplasty Family History Brother Throat cancer Uncle Throat cancer Social History Smoking Status: Former smoker Alcohol Intake Frequency: does not drink Substance Use: does not use Exam Narrative Narrative: General: AOx3, NAD, nontoxic appearing. Pleasant and conversant. HEENT: PERRL, EOMI, normocephalic. Moist mucous membranes. Normal facies and normal dentition. Chest: Symmetric, no pain to palpation Respiratory: Diminished breath sounds right middle and right lower lobe. He has crackles at the bases bilaterally. No respiratory distress. Unlabored breathing. Heart: Irregular rate and rhythm, no murmurs/clicks/rubs. Abdomen: Non-tender, Non distended, normal bowel tones. No organomegaly. Extremities: Warm and well perfused. Bilateral lower extremities with 1-2+ pitting edema, right greater than left. These are wrapped in compression stockings. He appears to have chronic venous stasis. Toes are warm and well- perfused. Neuro: No focal deficits. Cranial nerves II-XII grossly normal. Skin: Warm dry, multiple ecchymotic areas to the upper extremities. Psych: Normal mood and affect Heme/Lymph: Multiple ecchymotic areas to the upper extremities. Course Course Course Narrative: 76-year-old male presents with weakness and shortness of breath Reevaluation(s) Reevaluation #1: Obtain basic labs, chest x-ray, COVID and influenza swab Reevaluation #2: COVID and influenza are negative Chemistry 8 with a creatinine of 2.5 up from 1.7 on 07/05/2022. BUN is elevated at 76. Chest x-ray shows a right upper lobe consolidation and developing bilateral lower lobe pneumonia Patient has been given 1 g of IV ceftriaxone 5 mg of IV azithromycin Vital Signs Vital signs: Vital Signs Temperature 98.0 F 11/23/22 16:11 Pulse Rate 69 11/23/22 16:11 Respiratory Rate 20 11/23/22 16:11 Blood Pressure 150/72 11/23/22 16:11 Pulse Oximetry (%) 88 L 11/23/22 16:11 Oxygen Delivery Method Room Air 11/23/22 16:11 Temperature 98.0 F 11/23/22 16:11 Pulse Rate 62 11/23/22 16:31 Respiratory Rate 22 11/23/22 19:16 Blood Pressure 97/66 11/23/22 19:16 Pulse Oximetry (%) 97 11/23/22 16:31 Oxygen Delivery Method Nasal Cannula 11/23/22 16:15 Oxygen Flow Rate (L/min) 3 11/23/22 16:15 [facility] MDM Narrative Medical decision making narrative: Community-acquired pneumonia COPD exacerbation Acute on chronic renal insufficiency Patient's curb 65 score is 2 moderate risk 6.8% for 30-day mortality. Patient is really wishing to go home, but his notes that he is much weaker and much harder to transfer in and out of the house into the car. She has concerns that his weakness will get worse. At this point given the patient's acute on chronic renal insufficiency, weakness, and moderate curb 65 were scoring I think he is appropriate for admission and I have reached out to the hospitalist for admission and he has been accepted. Lab Data 11/23/22 17:35 Labs: Lab Results 11/23/22 11/23/22 Range/Units 17:33 17:35 WBC 19.4 H (4.5-11.0) K/mcL RBC 3.39 L (4.63-6.08) M/mcL Hgb 10.2 L (13.7-17.5) g/dL Hct 32.7 L (40.1-51.0) % POC Hct 30.0 L (41-55) MCV 96.5 (80.0-100.0) fL MCH 30.1 (26.0-34.0) pg MCHC 31.2 (31.0-36.0) g/dL RDW 15.4 H (11.5-14.5) % Plt Count 314 (140-440) K/mcL MPV 10.3 (8.8-12.5) fL Immature Gran % (Auto) 0.7 H (0.0-0.5) % Neut % (Auto) 88.9 H (38.0-78.0) % Lymph % (Auto) 3.5 L (15.5-49.0) % [place] % (Auto) 5.9 (1.0-12.0) % Eos % (Auto) 0.9 (0.0-7.0) % Baso % (Auto) 0.1 (0.0-2.0) % Lymph # (Auto) 0.68 L (1.50-4.80) K/mcL [place] # (Auto) 1.15 H (0.10-0.90) K/mcL Eos # (Auto) 0.17 (0.00-0.70) K/mcL Baso # (Auto) 0.02 (0.00-0.30) K/mcL Immature Gran # 0.14 H (0.00-0.05) K/mcl Absolute Neutrophils 17.28 H (1.80-8.00) K/mcL POC Sodium 140 (133-145) POC Potassium 4.8 (3.3-5.1) POC Chloride 103 (96-108) POC Total CO2 30.0 (22-30) POC BUN 76 H (6-20) POC Creatinine 2.5 H (0.6-1.2) POC Glucose 198 H (70-105) POC WB Ioniz Calcium 1.29 (1.16-1.32) ED POC Tests ED POC Tests: MARIAH - Influenza A Negative MARIAH - Influenza B Negative MARIAH - SARS Antigen Negative Discharge Plan Patient/Caregiver Discharge Instructions Pt seen by JUVENILE [employer]RECTIONS OFFICER/PA only: Yes Clinical Impression: CAP (community acquired pneumonia), Acute on chronic renal insufficiency, Acute exacerbation of chronic obstructive pulmonary disease (COPD) Patient Disposition: Xfer As Inpt ([facility]) Follow up with: Jacobo Guerra MD [Primary Care Provider] - Prescriptions: No Action Lantus Solostar U-100 Insulin 100 unit/mL (3 mL) insulin pen 62 unit subcut QPM Qty: 55 3RF Rx Instructions: increased dose 10/14/21 losartan 100 mg tablet 100 mg PO DAILY Qty: 90 1RF Januvia 100 mg tablet 100 mg PO QDAY Qty: 90 1RF (DME) Blood Glucose Test Strip See Rx Instructions .Route Qty: 270 4RF Rx Instructions: use to test blood sugar three times daily Stiolto Respimat 2.5-2.5 mcg/actuation mist 2 puff INHALATION QDAY Qty: 4 3RF (DME) lancets Misc See Rx Instructions .ROUTE .MEDSUPPLY Qty: 200 3RF Rx Instructions: use to test blood sugar three times daily insulin lispro [Humalog KwikPen Insulin] 100 unit/mL insulin pen 1 sliding scale dose subcut TID Qty: 24 3RF Rx Instructions: sliding scale, max daily dose 24 units bisoprolol fumarate 5 mg tablet 2.5 mg PO QDAY lysine HCl 1,000 mg tablet 1,000 mg PO BID (DME) pen needles See Rx Instructions .Route .MEDSUPPLY Qty: 100 3RF Rx Instructions: use with insulin pen four times daily Eliquis 5 mg tablet 5 mg PO BID atorvastatin 40 mg tablet 40 mg PO QDAY fexofenadine [Allergy Relief (fexofenadine)] 180 mg tablet 180 mg PO QDAY fenugreek, saurabh, probiotics, magnesium PO minocycline 100 mg capsule 100 mg PO QDAY saw palmetto 450 MG capsule 450 mg PO BID alpha lipoic acid 200 MG tablet 200 mg PO BID levocarnitine tartrate 500 MG capsule 500 mg PO BID Simbrinza 1-0.2 % Drops,Suspension 1 drp OPHTHALMIC (EYE) BID spironolactone 25 mg Tablet 25 mg PO QDAY timolol 0.5 % Drops 1 drp OPHTHALMIC (EYE) BID Rocklatan 0.02-0.005 % Drops 1 drp OPHTHALMIC (EYE) QPM furosemide [Lasix] 40 mg tablet 40 mg PO BID
[2022-11-23 18:51] LABS: Basophils # (Auto) 0.02 K/mcL (0.00-0.30); Basophils % (Auto) 0.1 % (0.0-2.0); Eosinophils # (Auto) 0.17 K/mcL (0.00-0.70); Eosinophils % (Auto) 0.9 % (0.0-7.0); Hematocrit 32.7 % (40.1-51.0); Hemoglobin 10.2 g/dL (13.7-17.5); Lymphocytes # (Auto) 0.68 K/mcL (1.50-4.80); Lymphocytes % (Auto) 3.5 % (15.5-49.0); Mean Cell Volume 96.5 fL (80.0-100.0); Mean Corpuscular HGB Conc 31.2 g/dL (31.0-36.0); Mean Platelet Volume 10.3 fL (8.8-12.5); Monocytes # (Auto) 1.15 K/mcL (0.10-0.90); Monocytes % (Auto) 5.9 % (1.0-12.0); Neutrophils % (Auto) 88.9 % (38.0-78.0); Platelet Count 314 K/mcL (140-440); RBC 3.39 M/mcL (4.63-6.08); Red Cell Distribution Width 15.4 % (11.5-14.5); WBC 19.4 K/mcL (4.5-11.0)
--- NOTE | 2022-11-23 19:48 | Internal Med History&Physical ---
HPI History of Present Illness Patient information: Note initiated : 11/23/22 at 7:34 pm Service Date, if different from initiated Date: [] Patient: Daljit Quintanilla a 76 y/o M admitted on for Shortness of breath. Chief Complaint: [] History of present illness: Mr. Quintanilla is a 76 year old M With a significant past medical history presents today with shortness of breath quite severe for the past 3 days. Weakness is also been quite severe for the past 3 days and the does not feel like she can take care of him at home. says has been a bit weaker over the past week as well. He has had increasing cough as well. He does have a history of aspiration pneumonia and his suspects may be he has been aspirating. He was seen by home health nurse today for his chronic lower extremity wounds and because of the shortness of breath and poor lung sounds with Rales it was felt that he should go to the ER. He denies fever chills. Has some nausea. Denies chest pain or stomach pain. Denies headache. He typically wears 2 L of oxygen day and night but is bumped up to 3 L for dyspnea. In the ED his vital signs were stable although the last blood pressure was low at 97/66. Evaluation in the ED showed a right-sided pneumonia. Laboratory revealed acute kidney injury on chronic kidney disease. He had a leukocytosis of 20,000. Patient started on IV antibiotics and given IV fluids. Review of Systems: Pertinent positives as above. Denies headache/fever/chills/vomiting/chest or abdominal pain/diarrhea. Remaining 10 point review of system reviewed negative PHYSICAL EXAM: General: Alert, Awake, No acute Distress, obese Eyes/N/T: EOMI, no scleral icterus, PERRL, dry MM Head/Neck: neck supple, full ROM, normocephalic atraumatic CV: RRR, No murmurs, normal s1/s2 Pulm: Rales on the right side, diminished breath sounds on the right, no wheezing, no respiratory distress Abd: soft, nontender, +BS x4 Ext: no clubbing/cyanosis, b/l LE Lymphedema, nontender Neuro: Alert, no focal deficits, moves all extremities, CN 2-12 grossly intact, sensations intact b/l upper/lower Psychiatric: Skin: warm/dry, normal color PFSH PFSH All Active Problems (Updated 11/23/22 @ 19:26 by Ariana Alonso PA-C) CAP (community acquired pneumonia) (Acute) Acute on chronic renal insufficiency (Acute) Acute exacerbation of chronic obstructive pulmonary disease (COPD) (Acute) Hx of total knee arthroplasty (Chronic) 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) Morbid obesity (Chronic) Hypertension (Chronic) Localized edema due to fluid overload (Chronic) Afib (Chronic) COPD (chronic obstructive pulmonary disease) (Chronic) Squamous cell carcinoma (Chronic) Throat cancer (Chronic) H/O right knee surgery (Chronic ~2020) History of left knee surgery (Chronic ~2017) Glaucoma (Chronic) Pulmonary hypertension (Chronic) Biventricular heart failure (Chronic) Sleep apnea (Chronic) 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) MSSA bacteremia (Chronic) Arthritis (Chronic) [place] (hard of hearing) (Chronic) Hyperlipidemia (Chronic) Range of motion deficit (Chronic) Wears dentures (Chronic) 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) Medicare annual wellness visit, subsequent (Acute) Hematuria (Acute) Cellulitis of foot, right (Acute) Chronic kidney disease (CKD) stage G3b/A2, moderately decreased glomerular filtration rate (GFR) between 30-44 mL/min/1.73 square meter and albuminuria creatinine ratio between 30-299 mg/g (Chronic) 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 chronic kidney disease (Chronic) Knee pain, right (Acute) Effusion of knee joint right (Acute) Laceration of ankle (Acute) Meningioma (Chronic) Left shoulder pain (Chronic) Medical History Afib Arthritis Bite by animal Biventricular heart failure Bladder infection (~02/14/21) Congestive heart failure COPD (chronic obstructive pulmonary disease) Diabetes mellitus with neuropathy Dog bite of multiple sites of hand and fingers Glaucoma Hematuria Hip sprain History of fracture of right ankle [place] (hard of hearing) Hyperlipidemia Hypertension Infection of prosthetic right knee joint Daljit is a 75-year-old morbidly obese diabetic with chronic kidney disease. He was admitted yesterday currently postop day one for right septic total knee arthroplasty with staph aureus. Polyexchange completed. He had 2 weeks of symptoms prior to admission of increasing right knee pain. No previous history of MRSA. Probable MSSA. Laceration of finger Laceration of lip Left shoulder pain Localized edema due to fluid overload 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 Medicare annual wellness visit, subsequent Meningioma Metabolic alkalosis Morbid obesity Comorbid risk factor. MSSA bacteremia Peripheral neuropathy due to chemotherapy PNA (pneumonia) Pulmonary hypertension Range of motion deficit left shoulder Rib fracture Sepsis Septic arthritis Sleep apnea Squamous cell carcinoma Head, Neck, Ears Staphylococcus aureus bacteremia Follow-up on sensitivities. I am expecting to transition to IV Ancef 2 g IV every 8 hours. This would be considered dose adjustment for his acute on chronic kidney disease and associated morbid obesity. Throat cancer Stage 4 Wears dentures Surgical History H/O right knee surgery (~2020) History of ankle surgery 03/1966fracture with screws right History of cardiac cath (09/26/20) History of cardioversion 09/2007; 12/26/2007 History of cataract surgery (~09/2019) History of colonoscopy (~2009) History of eye surgery 07/2020 bilateral to release pressure History of left knee surgery (~2016) History of umbilical hernia repair (~2001) with colon resection Hx of total knee arthroplasty Family History Brother Throat cancer Uncle Throat cancer Social History marital status: smoking status: Former smoker alcohol intake frequency: does not drink substance use type: does not use MEDS/ALLERGIES Home Medications and Allergies Home Medications Medication Instructions Recorded Confirmed Type alpha lipoic acid 200 mg tablet 200 mg PO BID 08/29/15 08/12/22 History levocarnitine tartrate 500 mg 500 mg PO BID 08/29/15 08/12/22 History capsule saw palmetto 450 mg capsule 450 mg PO BID 08/29/15 08/12/22 History brinzolamide 1 %-brimonidine 0.2 % 1 drp ophthalmic (eye) BID 02/16/21 08/12/22 History eye drops,suspension (Simbrinza) spironolactone 25 mg tablet 25 mg PO QDAY 02/16/21 08/12/22 History timolol 0.5 % eye drops 1 drp ophthalmic (eye) BID 02/16/21 08/12/22 History netarsudil 0.02 %-latanoprost 1 drp ophthalmic (eye) QPM 02/18/21 08/12/22 History 0.005 % eye drops (Rocklatan) bisoprolol fumarate 5 mg tablet 2.5 mg PO QDAY 05/14/21 08/12/22 History lysine HCl 1,000 mg tablet 1,000 mg PO BID 05/14/21 08/12/22 History pen needles #100 ea 09/16/21 08/12/22 Rx apixaban 5 mg tablet (Eliquis) 5 mg PO BID 12/22/21 08/12/22 History atorvastatin 40 mg tablet 40 mg PO QDAY 12/22/21 08/12/22 History minocycline 100 mg capsule 100 mg PO QDAY 04/01/22 08/12/22 History fenugreek, saurabh, probiotics, PO 04/21/22 08/12/22 History magnesium fexofenadine 180 mg tablet 180 mg PO QDAY 04/21/22 08/12/22 History (Allergy Relief (fexofenadine)) furosemide 40 mg tablet (Lasix) 40 mg PO BID 04/21/22 08/12/22 History insulin glargine 100 unit/mL (3 62 unit (0.62 mL) subcut QPM #55 mL 05/18/22 08/12/22 Rx mL) subcutaneous pen (Lantus Solostar U-100 Insulin) losartan 100 mg tablet 100 mg PO DAILY #90 tabs 06/03/22 08/12/22 Rx sitagliptin phosphate 100 mg 100 mg PO QDAY #90 tabs 06/03/22 08/12/22 Rx tablet (Januvia) blood sugar diagnostic (Blood #270 ea 07/27/22 08/12/22 Rx Glucose Test strips) tiotropium 2.5 mcg-olodaterol 2.5 2 puff inhalation QDAY #4 grams 09/29/22 Rx mcg/actuation mist for inhalation (Stiolto Respimat) lancets #200 ea 10/20/22 Rx insulin lispro 100 unit/mL 1 sliding scale dose subcut TID 10/22/22 Rx subcutaneous pen (Humalog KwikPen #24 mL (U-100) Insulin) Allergies Allergy/AdvReac Type Severity Reaction Status Date / Time hydrocodone AdvReac Mild Itching Verified 11/23/22 17:14 EXAM Constitutional Vitals: Temp Pulse Resp BP Pulse Ox O2 Del Method O2 Flow Rate 98.0 F 62 22 97/66 97 Nasal Cannula 3 11/23/22 16:11 11/23/22 16:31 11/23/22 19:16 11/23/22 19:16 11/23/22 16:31 11/23/22 16:15 11/23/22 16:15 DATA Data Completed and Pending Labs: Labs from last 24 hours 11/23/22 11/23/22 17:35 17:33 WBC 19.4 H RBC 3.39 L Hgb 10.2 L Hct 32.7 L POC Hct 30.0 L MCV 96.5 MCH 30.1 MCHC 31.2 RDW 15.4 H Plt Count 314 MPV 10.3 Immature Gran % (Auto) 0.7 H Neut % (Auto) 88.9 H Lymph % (Auto) 3.5 L [place] % (Auto) 5.9 Eos % (Auto) 0.9 Baso % (Auto) 0.1 Lymph # (Auto) 0.68 L [place] # (Auto) 1.15 H Eos # (Auto) 0.17 Baso # (Auto) 0.02 Immature Gran # 0.14 H Absolute Neutrophils 17.28 H POC Sodium 140 POC Potassium 4.8 POC Chloride 103 POC Total CO2 30.0 POC BUN 76 H POC Creatinine 2.5 H POC Glucose 198 H POC WB Ioniz Calcium 1.29 A/P Narrative A/P Narrative: A: *Pneumonia, possible aspiration(h/o aspiration pna): -LRV=468 *Sepsis: 2/2 above *Acute on chronic hypoxic respiratory failure: *COPD(2L O2@home) *PAMELA on CKD IIIb: Follows with Dr. 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: -no recurrence according to family after multiple years of surveillance *Chronic b/l LE diabetic wounds: Follows with wound care *Chronic lymphedema LE's: P: -Rocephin/Azithro, pending BC/SC -O2 supp, wean to baseline as able -IS/Acapella, prn nebs, RT -IVF, f/u renal function/UOP, monitor fluid balance -check pct/strep/lactate - -cont home -Home CPAP nightly -basal and ssi -cont home ASA, hold ARB for PAMELA -Home medication reconciliation -Wound care nurse -ST dejesus -PT/OT -ppx: Heparin Time Spent With Patient Time: Total time spent is greater than 50% in coordination of care (as documented) at patient's floor/unit and/or counseling patient: Initial: Total time with patient: 75 - 90 minutes
[2022-11-23] MEDS ORDERED: IPRATROPIUM/ALBUTEROL 3 ML AMPUL.NEB NEB PRN (21:29)
[2022-11-23] MEDS ORDERED: 0.9 % SODIUM CHLORIDE 1,000 ML IV SCH (21:29)
[2022-11-23] MEDS ORDERED: SENNOSIDES 1 TABLET PO PRN (21:29)
[2022-11-23] MEDS ORDERED: DEXTROSE 50% 50 ML VIAL IV PRN (21:29)
[2022-11-23] MEDS ORDERED: ONDANSETRON 4 MG/2 ML VIAL IV PRN (21:29)
[2022-11-23] MEDS ORDERED: ACETAMINOPHEN 325 MG TABLET PO PRN (21:29)
[2022-11-23] MEDS ORDERED: POLYETHYLENE GLYCOL 3350 17 GM PACKET PO PRN (21:29)
[2022-11-23] MEDS ORDERED: POTASSIUM CHLORIDE 40 MEQ in DEXTROSE 5% IN WATER 500 ML IV PRN (21:29)
[2022-11-23] MEDS ORDERED: POTASSIUM CHLORIDE 20 MEQ TABLET PO PRN ×2 (21:29)
[2022-11-23] MEDS ORDERED: DEXTROSE 31 GM ORAL.SUSP PO PRN (21:29)
[2022-11-23] MEDS ORDERED: MAGNESIUM SULFATE 2 GM/50 ML BAG IV PRN (21:29)
[2022-11-23] MEDS: HEPARIN 5,000 UNIT/ML VIAL SQ SCH (21:45)
[2022-11-23] MEDS: DOCUSATE SODIUM 100 MG CAPSULE PO SCH (21:45)
[2022-11-23] MEDS: 0.9 % SODIUM CHLORIDE 10 ML SYRINGE IV SCH (22:00)
[2022-11-23] MEDS: IPRATROPIUM/ALBUTEROL 3 ML AMPUL.NEB NEB SCH (22:20)
[2022-11-24] MEDS: INSULIN LISPRO 1 UNIT/0.01 ML UNIT SQ SCH ×5 (01:39→21:15)
[2022-11-24] MEDS: IPRATROPIUM/ALBUTEROL 3 ML AMPUL.NEB NEB SCH ×2 (04:53→13:51)
[2022-11-24] MEDS: 0.9 % SODIUM CHLORIDE 10 ML SYRINGE IV SCH ×3 (04:54→21:22)
[2022-11-24 06:51] LABS: Basophils # (Auto) 0.01 K/mcL (0.00-0.30); Basophils % (Auto) 0.1 % (0.0-2.0); Eosinophils # (Auto) 0.24 K/mcL (0.00-0.70); Eosinophils % (Auto) 1.8 % (0.0-7.0); Hematocrit 29.3 % (40.1-51.0); Hemoglobin 8.9 g/dL (13.7-17.5); Lymphocytes # (Auto) 0.58 K/mcL (1.50-4.80); Lymphocytes % (Auto) 4.5 % (15.5-49.0); Mean Cell Volume 97.7 fL (80.0-100.0); Mean Corpuscular HGB Conc 30.4 g/dL (31.0-36.0); Mean Platelet Volume 10.3 fL (8.8-12.5); Monocytes # (Auto) 0.94 K/mcL (0.10-0.90); Monocytes % (Auto) 7.2 % (1.0-12.0); Neutrophils % (Auto) 85.6 % (38.0-78.0); Platelet Count 254 K/mcL (140-440); Red Cell Distribution Width 15.1 % (11.5-14.5)
[2022-11-24 07:36] LABS: ALT/SGPT 14 U/L (<40); AST/SGOT 12 U/L (<40); Albumin 2.9 gm/dL (3.2-5.2); Albumin/Globulin Ratio 1.1 (1.0-2.3); Alkaline Phosphatase 71 U/L (39-117); Bilirubin,Direct < 0.2 mg/dL (0-0.3); Bilirubin,Total 0.3 mg/dL (0.1-1.0); Blood Urea Nitrogen 69 mg/dL (8-23); Calcium 9.6 mg/dL (8.6-10.4); Carbon Dioxide 27 mmol/L (22-30); Chloride 103 mmol/L (96-108); Globulin 2.6 gm/dL (2.2-3.7); Glomerular Filtration Rate 33; Glucose 161 mg/dL (70-105); Lactate Dehydrogenase 173 U/L (135-225); Triglycerides 133 mg/dL (<150); Uric Acid 9.3 mg/dL (2.5-8.0)
--- NOTE | 2022-11-24 07:55 | EKG ---
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 Measurements Intervals [place] Rate: 63 P: [place]: QRS: 28 QRSD: 90 T: 72 QT: 437 QTc: 448 Interpretive Statements Atrial fibrillation Abnormal R-wave progression, early transition Electronically Signed On 11-24-2022 7:55:18 PST by Rashi Caballero M.D. /store/M0/[id number]
[2022-11-24] MEDS: DOCUSATE SODIUM 100 MG CAPSULE PO SCH ×2 (08:26→21:13)
[2022-11-24] MEDS: HEPARIN 5,000 UNIT/ML VIAL SQ SCH (08:26)
--- NOTE | 2022-11-24 09:05 | Internal Med Progress Note ---
SUBJECTIVE Subjective Patient information: Note initiated : 11/24/22 at 8:56 am Service Date, if different from initiated Date: [] Patient: Daljit Quintanilla 76 y/o M admitted on 11/23/22 for Shortness of breath. Chief Complaint: [] Interval history: History of present illness: Mr. Quintanilla is a 76 year old M With a significant past medical history presents today with shortness of breath quite severe for the past 3 days. Weakness is also been quite severe for the past 3 days and the does not feel like she can take care of him at home. Vielak allen says has been a bit weaker over the past week as well. He has had increasing cough as well. He does have a history of aspiration pneumonia and his suspects may be he has been aspirating. He was seen by home health nurse today for his chronic lower extremity wounds and because of the shortness of breath and poor lung sounds with Rales it was felt that he should go to the ER. He denies fever chills. Has some nausea. Denies chest pain or stomach pain. Denies headache. He typically wears 2 L of oxygen day and night but is bumped up to 3 L for dyspnea. In the ED his vital signs were stable although the last blood pressure was low at 97/66. Evaluation in the ED showed a right-sided pneumonia. Laboratory revealed acute kidney injury on chronic kidney disease. He had a leukocytosis of 20,000. Patient started on IV antibiotics and given IV fluids. 11/24 Patient states poor sleep last night. Mild cough. No shortness of breath at rest. On 3 L nasal cannula. Leukocytosis. Anemia worsened. Creatinine elevated but improving. Procalcitonin still pending Review of Systems: denies headache/fever/chills/nausea/vomiting/chest or abdominal pain/cough/dyspnea/diarrhea. Otherwise see above. PHYSICAL EXAM: General: Alert, Awake, No acute Distress, obese Eyes/N/T: EOMI, no scleral icterus, Head/Neck: neck supple, full ROM, CV: irreg, No murmurs, Pulm: diminished and mild rales b/l, no wheezing, no respiratory distress Abd: soft, nontender, +BS x4 Ext: no clubbing/cyanosis, b/l LE Lymphedema, nontender Neuro: Alert, no focal deficits, moves all extremities, sensations intact b/l upper/lower Psychiatric: Skin: warm/dry, normal color Constitutional Vitals: Vital Signs Temp Pulse Resp BP Pulse Ox O2 Del Method O2 Flow Rate 97.9 F 55 L 22 143/53 100 Nasal Cannula 3 11/24/22 07:42 11/24/22 07:42 11/24/22 07:42 11/24/22 07:42 11/24/22 07:42 11/24/22 07:42 11/24/22 07:42 Period Temp Pulse Resp BP Sys/Pichardo Pulse Ox O2 Del Method O2 Flow Rate Last 24 Hr 97.6 F-98.0 F 54-75 14-22 97-150/43-110 88-100 Nasal Cannula- Room Air 3-3 Intake and Output 11/23/22 11/24/22 11/24/22 19:59 03:59 11:59 Intake Total 250 1110 60 Output Total 1 Balance 250 1110 59 Weight 145.15 kg 146.42 kg Intake & Output: Intake & Output 11/23/22 11/24/22 11/24/22 19:59 03:59 11:59 Intake Total 250 1110 60 Output Total 1 Balance 250 1110 59 Weight 145.15 kg 146.42 kg Intake: IV 250 1000 Sodium Chloride 0.9% 1,000 ml @ 1000 Wide Open IV BOLUS ONE Rx#: [id number] Zithromax 500 mg In Dextrose 5% 250 in Water 250 ml @ 250 mls/hr IV ONCE ONE Rx#:[id number] Oral 110 60 Output: # of times incontinent of urine 1 Other: Urine Appearance Clear Urine Color Yellow Urine Odor Normal OBJ DATA Labs 11/24/22 05:37 11/24/22 05:37 Labs: Abnormal Lab Results 11/24/22 11/24/22 11/23/22 05:37 05:37 17:35 WBC 13.0 H 19.4 H RBC 3.00 L 3.39 L Hgb 8.9 L 10.2 L Hct 29.3 L 32.7 L POC Hct MCHC 30.4 L RDW 15.1 H 15.4 H Immature Gran % (Auto) 0.8 H 0.7 H Neut % (Auto) 85.6 H 88.9 H Lymph % (Auto) 4.5 L 3.5 L Lymph # (Auto) 0.58 L 0.68 L [place] # (Auto) 0.94 H 1.15 H Immature Gran # 0.11 H 0.14 H Absolute Neutrophils 11.13 H 17.28 H POC BUN BUN 69 H Creatinine 1.9 H POC Creatinine Glucose 161 H POC Glucose Uric Acid 9.3 H Magnesium 2.6 H Total Protein 5.5 L Albumin 2.9 L 11/23/22 17:33 WBC RBC Hgb Hct POC Hct 30.0 L MCHC RDW Immature Gran % (Auto) Neut % (Auto) Lymph % (Auto) Lymph # (Auto) [place] # (Auto) Immature Gran # Absolute Neutrophils POC BUN 76 H BUN Creatinine POC Creatinine 2.5 H Glucose POC Glucose 198 H Uric Acid Magnesium Total Protein Albumin Meds: Medications Acetaminophen (Acetaminophen 325 Mg Tablet) 650 mg PO Q6HP PRN; Protocol PRN Reason: Per Pain Protocol/Fever > 101 Albuterol/Ipratropium (Ipratropium/Albuterol 3 Ml Ampul.Neb) 3 ml NEB Q4HP PRN PRN Reason: Shortness Of Breath Albuterol/Ipratropium (Ipratropium/Albuterol 3 Ml Ampul.Neb) 3 ml NEB Q8H [facility] Stop: 11/24/22 13:30 Last Admin: 11/24/22 04:53 Dose: Not Given Dextrose (Dextrose 50% 50 Ml Vial) 0 ml IV UD PRN PRN Reason: Per Sliding Scale Diagnostic Test (Pha) (Accu-Chek 1 Each Strip) 1 each FS ACHS [facility] Last Admin: 11/24/22 07:07 Dose: 1 each Docusate Sodium (Docusate Sodium 100 Mg Capsule) 100 mg PO BID [facility] Last Admin: 11/24/22 08:26 Dose: 100 mg Glucose (Dextrose 31 Gm Oral.Susp) 15 gm PO PRN PRN PRN Reason: Hypoglycemia Heparin Sodium (Porcine) (Heparin 5,000 Unit/Ml Vial) 5,000 unit SQ Q12 [facility] Last Admin: 11/24/22 08:26 Dose: 5,000 unit Potassium Chloride 40 meq/ (Dextrose) 520 mls @ 130 mls/hr IV UD PRN PRN Reason: Potassium < 3 Magnesium Sulfate (Magnesium Sulfate) 2 gm in 50 mls @ 50 mls/hr IV UD PRN PRN Reason: Magnesium </= 1.6 Sodium Chloride (Sodium Chloride 0.9%) 1,000 mls @ 75 mls/hr IV .[id number] [facility] Stop: 11/24/22 10:48 Last Admin: 11/23/22 21:45 Dose: 75 mls/hr Ceftriaxone Sodium 2 gm/ (Dextrose) 50 mls @ 100 mls/hr IV Q24H [facility]; Protocol Azithromycin 500 mg/ Dextrose 250 mls @ 250 mls/hr IV Q24H [facility]; Protocol Stop: 11/25/22 10:59 Insulin Human Lispro (Insulin Lispro 1 Unit/0.01 Ml Unit) 0 unit SQ ACHS [facility]; Protocol Last Admin: 11/24/22 07:12 Dose: 4 units Ondansetron HCl (Ondansetron 4 Mg/2 Ml Vial) 4 mg IV Q4HP PRN PRN Reason: Nausea And Vomiting Polyethylene Glycol (Polyethylene Glycol 3350 17 Gm Packet) 17 gm PO DAILYP PRN PRN Reason: Constipation Potassium Chloride (Potassium Chloride 20 Meq Tablet) 40 meq PO UD PRN PRN Reason: Potssium is 3-3.5 Potassium Chloride (Potassium Chloride 20 Meq Tablet) 40 meq PO UD PRN PRN Reason: Potassium < 3 Senna (Sennosides 1 Tablet) 2 tab PO DAILYP PRN PRN Reason: Constipation Sodium Chloride (0.9 % Sodium Chloride 10 Ml Syringe) 10 ml IV Q8 [facility] Last Admin: 11/24/22 04:54 Dose: Not Given A/P Narrative A/P Narrative: A: *Pneumonia, possible aspiration(h/o aspiration pna): -GYE=[id number] -strep/flu/rsv/covid *Sepsis: 2/2 above, leukocytosis improving *Acute on chronic hypoxic respiratory failure: -on 3L o2 *COPD(2L O2@home) *PAMELA on CKD IIIb: Follows with Dr. 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: *h/o Atrial fibrillation: -on eliquis/BB *h/o Bradycardia: commonly runs in 40's per pt, is on low-dose BB & follows with cardiology *DM type II: A1c 9.0 *HTN: *Chronic pain: *BPH: *JOELLEN: on CPAP *Morbid Obesity: BMI 41 *History of laryngeal cancer s/p multimodality treatment to cure: -no recurrence according to family after multiple years of surveillance *Chronic b/l LE diabetic wounds: Follows with wound care *Chronic lymphedema LE's: P: -Rocephin/Azithro, pending BC/SC -O2 supp, wean to baseline as able -IS/Acapella, prn nebs, RT -IVF, f/u renal function/UOP, monitor fluid balance -check pct/strep/lactate/ -monitor H&H -cont home -Home CPAP nightly -basal and ssi -cont home ASA, cont BB, hold ARB/Lasix/aldactone for PAMELA -Wound care nurse -ST dejesus -PT/OT -ppx: eliquis Time Spent With Patient Time: Total time spent is greater than 50% in coordination of care (as documented) at patient's floor/unit and/or counseling patient: Subsequent: Total time with patient: 50 - 65 Minutes QUALITY VTE Deep Vein Thrombosis/Pulmonary Embolism Present on Admission: No
[2022-11-24] MEDS: cefTRIAXone 2 GM in DEXTROSE 5% IN WATER 50 ML IV SCH (10:12)
[2022-11-24] MEDS: AZITHROMYCIN 500 MG in DEXTROSE 5% IN WATER 250 ML IV SCH (10:54)
[2022-11-24] MEDS: APIXABAN 5 MG TABLET PO SCH (21:13)
[2022-11-24] MEDS: INSULIN GLARGINE, HUMAN 1 UNIT/0.01 ML SQ SCH (21:16)
[2022-11-24] MEDS: NETARSUDIL LATANOPROST OU SCH (21:21)
[2022-11-24] MEDS: BRINZOLAMIDE BRIMONIDINE OU SCH (21:21)
[2022-11-24] MEDS: TIMOLOL 0.5% OPHTH DROPS BOTTLE 5ML OU SCH (21:21)
[2022-11-25] MEDS: 0.9 % SODIUM CHLORIDE 10 ML SYRINGE IV SCH ×3 (06:08→20:52)
[2022-11-25 06:55] LABS: Basophils # (Auto) 0.02 K/mcL (0.00-0.30); Basophils % (Auto) 0.2 % (0.0-2.0); Eosinophils # (Auto) 0.33 K/mcL (0.00-0.70); Eosinophils % (Auto) 3.3 % (0.0-7.0); Hematocrit 28.9 % (40.1-51.0); Hemoglobin 8.9 g/dL (13.7-17.5); Lymphocytes # (Auto) 0.53 K/mcL (1.50-4.80); Lymphocytes % (Auto) 5.2 % (15.5-49.0); Mean Cell Volume 97.3 fL (80.0-100.0); Mean Corpuscular HGB Conc 30.8 g/dL (31.0-36.0); Mean Platelet Volume 10.2 fL (8.8-12.5); Monocytes # (Auto) 0.81 K/mcL (0.10-0.90); Neutrophils % (Auto) 82.5 % (38.0-78.0); Platelet Count 248 K/mcL (140-440); RBC 2.97 M/mcL (4.63-6.08); Red Cell Distribution Width 15.4 % (11.5-14.5); WBC 10.2 K/mcL (4.5-11.0)
[2022-11-25] MEDS: INSULIN LISPRO 1 UNIT/0.01 ML UNIT SQ SCH ×4 (07:06→20:49)
[2022-11-25 07:21] LABS: ALT/SGPT 16 U/L (<40); AST/SGOT 12 U/L (<40); Albumin 3.4 gm/dL (3.2-5.2); Albumin/Globulin Ratio 1.4 (1.0-2.3); Alkaline Phosphatase 72 U/L (39-117); Bilirubin,Direct < 0.2 mg/dL (0-0.3); Bilirubin,Total 0.2 mg/dL (0.1-1.0); Blood Urea Nitrogen 56 mg/dL (8-23); Calcium 9.7 mg/dL (8.6-10.4); Carbon Dioxide 30 mmol/L (22-30); Chloride 104 mmol/L (96-108); Globulin 2.5 gm/dL (2.2-3.7); Glomerular Filtration Rate 44; Glucose 136 mg/dL (70-105); Lactate Dehydrogenase 182 U/L (135-225); Phosphorous 3.6 mg/dL (2.5-4.5); Triglycerides 134 mg/dL (<150); Uric Acid 9.5 mg/dL (2.5-8.0)
[2022-11-25] MEDS ORDERED: cloNIDine HCL 0.1 MG TABLET PO PRN (08:28)
[2022-11-25] MEDS ORDERED: hydrALAZINE 20 MG/ML VIAL IV PRN (08:28)
--- NOTE | 2022-11-25 08:29 | Internal Med Progress Note ---
SUBJECTIVE Subjective Patient information: Note initiated : 11/25/22 at 8:24 am Service Date, if different from initiated Date: [] Patient: Daljit Quintanilla a 76 y/o M admitted on 11/23/22 for Shortness of breath- PNA,Sepsis,PAMELA,Hypoxia. Chief Complaint: [] Interval history: History of present illness: Mr. Quintanilla is a 76 year old M With a significant past medical history presents today with shortness of breath quite severe for the past 3 days. Weakness is also been quite severe for the past 3 days and the does not feel like she can take care of him at home. says has been a bit weaker over the past week as well. He has had increasing cough as well. He does have a history of aspiration pneumonia and his suspects may be he has been aspirating. He was seen by home health nurse today for his chronic lower extremity wounds a nd because of the shortness of breath and poor lung sounds with Rales it was felt that he should go to the ER. He denies fever chills. Has some nausea. Denies chest pain or stomach pain. Denies headache. He typically wears 2 L of oxygen day and night but is bumped up to 3 L for dyspnea. In the ED his vital signs were stable although the last blood pressure was low at 97/66. Evaluation in the ED showed a right-sided pneumonia. Laboratory revealed acute kidney injury on chronic kidney disease. He had a leukocytosis of 20,000. Patient started on IV antibiotics and given IV fluids. 11/24 Patient states poor sleep last night. Mild cough. No shortness of breath at rest. On 3 L nasal cannula. Leukocytosis. Anemia worsened. Creatinine elevated but improving. Procalcitonin still pending 11/25 Patient states poor sleep. Mild cough but denies shortness of breath at rest. Weak. Leukocyte ptosis improving. Renal function improving but still elevated creatinine. Weaning down oxygen to baseline today attempt. Review of Systems: denies headache/fever/chills/nausea/vomiting/chest or abdominal pain/cough/dyspnea/diarrhea. Otherwise see above. PHYSICAL EXAM: General: Alert, Awake, No acute Distress, obese Eyes/N/T: EOMI, no scleral icterus, Head/Neck: neck supple, full ROM, CV: irreg, 2/6SM Pulm: diminished and mild rales b/l, no wheezing, no respiratory distress Abd: soft, nontender, +BS x4 Ext: no clubbing/cyanosis, b/l LE Lymphedema, nontender Neuro: Alert, no focal deficits, moves all extremities, sensations intact b/l upper/lower Psychiatric: Skin: warm/dry, normal color Constitutional Vitals: Vital Signs Temp Pulse Resp BP Pulse Ox O2 Del Method O2 Flow Rate 99 F 61 22 154/67 100 CPAP 2 11/25/22 07:16 11/25/22 07:16 11/25/22 07:16 11/25/22 07:16 11/25/22 07:16 11/25/22 07:16 11/25/22 07:16 Period Temp Pulse Resp BP Sys/Pichardo Pulse Ox O2 Del Method O2 Flow Rate Last 24 Hr 96.9 F-99 F 56-66 15-22 139-178/54-67 96-100 CPAP-Nasal Cannula 2-3 Intake and Output 11/24/22 11/25/22 11/25/22 19:59 03:59 11:59 Intake Total 2009 160 100 Output Total 3 1 1 Balance 2006 159 99 Weight 148.098 kg Intake & Output: Intake & Output 11/24/22 11/25/22 11/25/22 19:59 03:59 11:59 Intake Total 2009 160 100 Output Total 3 1 1 Balance 2006 159 99 Weight 148.098 kg Intake: IV 1250 Sodium Chloride 0.9% 1,000 ml @ 1000 75 mls/hr IV .[id number] NICKIE Rx#: [id number] Zithromax 500 mg In Dextrose 5% 250 in Water 250 ml @ 250 mls/hr IV Q24H NICKIE Rx#:[id number] Oral 760 160 100 Output: # of times incontinent of urine 3 1 1 Other: Meal Dinner Percent of Meal Consumed 25% Feeding Ability Independent OBJ DATA Labs 11/25/22 05:08 11/25/22 05:08 Labs: Abnormal Lab Results 11/25/22 11/25/22 11/25/22 05:08 05:08 05:06 WBC RBC 2.97 L Hgb 8.9 L Hct 28.9 L POC Hct MCHC 30.8 L RDW 15.4 H Immature Gran % (Auto) 0.8 H Neut % (Auto) 82.5 H Lymph % (Auto) 5.2 L Lymph # (Auto) 0.53 L [place] # (Auto) Immature Gran # 0.08 H Absolute Neutrophils 8.38 H POC VBG pO2 POC VBG HCO3 POC VBG Total CO2 POC Venous O2 Sat POC VBG Base Excess POC BUN BUN 56 H Creatinine 1.5 H POC Creatinine Glucose 136 H POC Glucose Uric Acid 9.5 H Magnesium Total Protein Albumin Procalcitonin 0.31 H 11/24/22 11/24/22 11/24/22 11:09 05:37 05:37 WBC 13.0 H RBC 3.00 L Hgb 8.9 L Hct 29.3 L POC Hct MCHC 30.4 L RDW 15.1 H Immature Gran % (Auto) 0.8 H Neut % (Auto) 85.6 H Lymph % (Auto) 4.5 L Lymph # (Auto) 0.58 L [place] # (Auto) 0.94 H Immature Gran # 0.11 H Absolute Neutrophils 11.13 H POC VBG pO2 51 H POC VBG HCO3 28.2 H POC VBG Total CO2 30.0 H POC Venous O2 Sat 84.0 H POC VBG Base Excess 3.0 H POC BUN BUN 69 H Creatinine 1.9 H POC Creatinine Glucose 161 H POC Glucose Uric Acid 9.3 H Magnesium 2.6 H Total Protein 5.5 L Albumin 2.9 L Procalcitonin 11/24/22 11/23/22 11/23/22 05:37 17:35 17:33 WBC 19.4 H RBC 3.39 L Hgb 10.2 L Hct 32.7 L POC Hct 30.0 L MCHC RDW 15.4 H Immature Gran % (Auto) 0.7 H Neut % (Auto) 88.9 H Lymph % (Auto) 3.5 L Lymph # (Auto) 0.68 L [place] # (Auto) 1.15 H Immature Gran # 0.14 H Absolute Neutrophils 17.28 H POC VBG pO2 POC VBG HCO3 POC VBG Total CO2 POC Venous O2 Sat POC VBG Base Excess POC BUN 76 H BUN Creatinine POC Creatinine 2.5 H Glucose POC Glucose 198 H Uric Acid Magnesium Total Protein Albumin Procalcitonin 0.75 H Meds: Medications Acetaminophen (Acetaminophen 325 Mg Tablet) 650 mg PO Q6HP PRN; Protocol PRN Reason: Per Pain Protocol/Fever > 101 Albuterol/Ipratropium (Ipratropium/Albuterol 3 Ml Ampul.Neb) 3 ml NEB Q4HP PRN PRN Reason: Shortness Of Breath Apixaban (Apixaban 5 Mg Tablet) 5 mg PO BID [facility] Last Admin: 11/24/22 21:13 Dose: 5 mg Atorvastatin Calcium (Atorvastatin 40 Mg Tablet) 40 mg PO QDAY NICKIE Bisoprolol Fumarate (Bisoprolol 5 Mg Tablet) 2.5 mg PO QDAY [facility] Dextrose (Dextrose 50% 50 Ml Vial) 0 ml IV UD PRN PRN Reason: Per Sliding Scale Diagnostic Test (Pha) (Accu-Chek 1 Each Strip) 1 each FS ACHS [facility] Last Admin: 11/25/22 07:03 Dose: 1 each Docusate Sodium (Docusate Sodium 100 Mg Capsule) 100 mg PO BID [facility] Last Admin: 11/24/22 21:13 Dose: 100 mg Glucose (Dextrose 31 Gm Oral.Susp) 15 gm PO PRN PRN PRN Reason: Hypoglycemia Potassium Chloride 40 meq/ (Dextrose) 520 mls @ 130 mls/hr IV UD PRN PRN Reason: Potassium < 3 Magnesium Sulfate (Magnesium Sulfate) 2 gm in 50 mls @ 50 mls/hr IV UD PRN PRN Reason: Magnesium </= 1.6 Ceftriaxone Sodium 2 gm/ (Dextrose) 50 mls @ 100 mls/hr IV Q24H [facility]; Protocol Last Infusion: 11/24/22 11:12 Dose: Infused Azithromycin 500 mg/ Dextrose 250 mls @ 250 mls/hr IV Q24H [facility]; Protocol Stop: 11/25/22 10:59 Last Infusion: 11/24/22 12:00 Dose: Infused Insulin Glargine (Insulin Glargine, Human 1 Unit/0.01 Ml) 62 unit SQ [facility] Last Admin: 11/24/22 21:16 Dose: 62 units Insulin Human Lispro (Insulin Lispro 1 Unit/0.01 Ml Unit) 0 unit SQ [facility]; Protocol Last Admin: 11/25/22 07:06 Dose: Not Given Ondansetron HCl (Ondansetron 4 Mg/2 Ml Vial) 4 mg IV Q4HP PRN PRN Reason: Nausea And Vomiting Netarsudil- Latanoprost [ Rocklatan] 0.02-0. 005 % Drops 1 dose OU QPM [facility] Last Admin: 11/24/22 21:21 Dose: Not Given Tiotropium- Olodaterol [Stiolto Respimat] 2.5-2.5 Mcg Inhaler 2 dose INH QDAY [facility] Brinzolamide- Brimonidine [ Simbrinza] 1-0.2 % Drops 1 dose OU BID [facility] Last Admin: 11/24/22 21:21 Dose: Not Given Polyethylene Glycol (Polyethylene Glycol 3350 17 Gm Packet) 17 gm PO DAILYP PRN PRN Reason: Constipation Potassium Chloride (Potassium Chloride 20 Meq Tablet) 40 meq PO UD PRN PRN Reason: Potssium is 3-3.5 Potassium Chloride (Potassium Chloride 20 Meq Tablet) 40 meq PO UD PRN PRN Reason: Potassium < 3 Senna (Sennosides 1 Tablet) 2 tab PO DAILYP PRN PRN Reason: Constipation Sodium Chloride (0.9 % Sodium Chloride 10 Ml Syringe) 10 ml IV Q8 [facility] Last Admin: 11/25/22 06:08 Dose: 10 ml Spironolactone (Spironolactone 25 Mg Tablet) 25 mg PO QDAY [facility] Timolol Maleate (Timolol 0.5% Ophth Drops Bottle 5ml) 1 gtt OU BID [facility] Last Admin: 11/24/22 21:21 Dose: Not Given A/P Narrative A/P Narrative: A: *Pneumonia, possible aspiration(h/o aspiration pna): -FBB=663 -strep/flu/rsv/covid *Sepsis: 2/2 above, leukocytosis improving *Acute on chronic hypoxic respiratory failure: -on 2-3L o2 *COPD(2L O2@home) *PAMELA on CKD IIIb: Follows with Dr. 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: -no recurrence according to family after multiple years of surveillance *Chronic b/l LE diabetic wounds: Follows with wound care *Chronic lymphedema LE's: *Oropharyngeal dysphagia: P: -Rocephin/Azithro, pending BC/SC -O2 supp, wean to baseline as able -IS/Acapella, prn nebs, RT -IVF, f/u renal function/UOP, monitor fluid balance -monitor H&H -Home CPAP nightly -basal and ssi -cont home ASA, cont BB and prn IV bp med -hold ARB/Lasix/aldactone for PAMELA -Wound care nurse -ST dejesus, Barium swallow study -PT/OT -ppx: eliquis Time Spent With Patient Time: Total time spent is greater than 50% in coordination of care (as documented) at patient's floor/unit and/or counseling patient: Subsequent: Total time with patient: 50 - 65 Minutes QUALITY VTE Deep Vein Thrombosis/Pulmonary Embolism Present on Admission: No
[2022-11-25] MEDS ORDERED: 0.9 % SODIUM CHLORIDE 1,000 ML IV SCH ×2 (08:30→10:54)
[2022-11-25] MEDS ORDERED: SPIRONOLACTONE 25 MG TABLET PO SCH (09:00)
[2022-11-25] MEDS: APIXABAN 5 MG TABLET PO SCH ×2 (09:23→20:49)
[2022-11-25] MEDS: ATORVASTATIN 40 MG TABLET PO SCH (09:23)
[2022-11-25] MEDS: BISOPROLOL 5 MG TABLET PO SCH (09:23)
[2022-11-25] MEDS: cefTRIAXone 2 GM in DEXTROSE 5% IN WATER 50 ML IV SCH (09:23)
[2022-11-25] MEDS: Tiotropium-Olodaterol [Stiolto Respimat] 2.5-2.5 mcg Inhaler INH SCH (09:24)
[2022-11-25] MEDS: BRINZOLAMIDE BRIMONIDINE OU SCH ×2 (09:24→20:51)
[2022-11-25] MEDS: DOCUSATE SODIUM 100 MG CAPSULE PO SCH ×2 (09:24→20:49)
[2022-11-25] MEDS: TIMOLOL 0.5% OPHTH DROPS BOTTLE 5ML OU SCH (09:24)
[2022-11-25] MEDS: AZITHROMYCIN 500 MG in DEXTROSE 5% IN WATER 250 ML IV SCH (11:35)
--- NOTE | 2022-11-25 12:33 | XRay Report ---
CLINICAL INFORMATION: COPD history of throat cancer. Evaluate for aspiration FINDINGS: Tongue elevation and palate depression are normal resulting in propulsion of the barium bolus in the pharynx. The nasopharyneus closes normally. Pharyngeal stripping, cricopharyngeal opening and initiation of primary peristalsis is normal. There is incomplete epiglottis and vocal cord closure allowing small amounts of descending aspiration into the laryngeal vestibule and trachea. This do not appear to elicit a cough reflex. IMPRESSION: Incomplete epiglottis and vocal cord closure allowing small amounts of descending aspiration which did not appear to elicit a cough reflex. Interpreted and Authenticated by: Rashi Laguna 11/25/22
--- NOTE | 2022-11-25 12:42 | Discharge Summary ---
Discharge Provider Provider IMPORTANT FOLLOW-UP INFORMATION FOR PCP: Patient information: Note initiated : 11/25/22 at 12:40 pm Service Date, if different from initiated Date: [] Patient: Daljit Quintanilla 76 y/o M admitted on 11/23/22 for Shortness of breath-PNA,Sepsis,PAMELA,Hypoxia. Chief Complaint: [] Date of admission: 11/23/22 21:27 Discharge date: 11/26/22 Primary care physician: Jacobo Guerra MD Consults: 11/23/22 Consult to Physician [CONS] Stat Comment: Consulting Provider: Gino Gaspar Reason For Exam: Physician to Consult COURSE Hospital Course Hospital course: History of present illness: Mr. Quintanilla is a 76 year old M With a significant past medical history presents today with shortness of breath quite severe for the past 3 days. Weakness is also been quite severe for the past 3 days and the does not feel like she can take care of him at home. says has been a bit weaker over the past week as well. He has had increasing cough as well. He does have a history of aspiration pneumonia and his suspects may be he has been aspirating. He was seen by home health nurse today for his chronic lower extremity wounds and because of the shortness of breath and poor lung sounds with Rales it was felt that he should go to the ER. He denies fever chills. Has some nausea. Denies chest pain or stomach pain. Denies headache. He typically wears 2 L of oxygen day and night but is bumped up to 3 L for dyspnea. In the ED his vital signs were stable although the last blood pressure was low at 97/66. Evaluation in the ED showed a right-sided pneumonia. Laboratory revealed acute kidney injury on chronic kidney disease. He had a leukocytosis of 20,000. Patient started on IV antibiotics and given IV fluids. 11/24 Patient states poor sleep last night. Mild cough. No shortness of breath at rest. On 3 L nasal cannula. Leukocytosis. Anemia worsened. Creatinine elevated but improving. Procalcitonin still pending 11/25 Patient states poor sleep. Mild cough but denies shortness of breath at rest. Weak. Leukocyte ptosis improving. Renal function improving but still elevated creatinine. Weaning down oxygen to baseline today attempt. 11/26 Patient showed penetration and aspiration with barium swallow yesterday. ST recommended mildly thickened liquids. was talking with patient about that this morning and he refuses thickened liquids. I discussed with him that nonadherence would result in recurrent aspiration pneumonia and likely demise. Patient was okay with that. Patient high risk for readmission given age and comorbidities and often noncompliance with dysphagia diet. A: *Pneumonia, Aspiration(h/o aspiration pna): *Oropharyngeal dysphagia, mod-sev: barium swallow with aspiration *Sepsis: 2/2 above, improved *Acute on chronic hypoxic respiratory failure: *COPD(2L O2@home) *PAMELA on CKD IIIb: Follows with Dr. 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: -no recurrence according to family after multiple years of surveillance *Chronic b/l LE diabetic wounds: Follows with wound care *Chronic lymphedema LE's: P: -augmentin -diet per ST Discharge diagnosis: Pneumonia sepsis acute on chronic hypoxic respite failure PAMELA Secondary discharge diagnosis: COPD CKD chronic anemia generalized weakness deconditioning history of heart failure A-fib bradycardia diabetes hypertension chronic pain BPH JOELLEN morbid obesity laryngeal cancer lower extremity diabetic wounds lymphedema oral pharyngeal dysphagia Time Spent with Patient Time attestation: Total time spent providing and/or coordinating discharge services: Time spent: Greater than 30 minutes EXAM Constitutional Vitals: Temp Pulse Resp BP Pulse Ox O2 Del Method O2 Flow Rate 99 F 61 22 154/67 100 CPAP 2 11/25/22 07:16 11/25/22 07:16 11/25/22 07:16 11/25/22 07:16 11/25/22 07:16 11/25/22 07:16 11/25/22 07:16 Discharge Data Data Completed and Pending Labs on day of discharge: Labs from last 24 hours 11/25/22 11/25/22 11/25/22 05:08 05:08 05:06 WBC 10.2 RBC 2.97 L Hgb 8.9 L Hct 28.9 L MCV 97.3 MCH 30.0 MCHC 30.8 L RDW 15.4 H Plt Count 248 MPV 10.2 Immature Gran % (Auto) 0.8 H Neut % (Auto) 82.5 H Lymph % (Auto) 5.2 L [place] % (Auto) 8.0 Eos % (Auto) 3.3 Baso % (Auto) 0.2 Lymph # (Auto) 0.53 L [place] # (Auto) 0.81 Eos # (Auto) 0.33 Baso # (Auto) 0.02 Immature Gran # 0.08 H Absolute Neutrophils 8.38 H Sodium 142 Potassium 4.3 Chloride 104 Carbon Dioxide 30 Anion Gap 8.0 BUN 56 H Creatinine 1.5 H GFR Calculation 44 Glucose 136 H Uric Acid 9.5 H Calcium 9.7 Phosphorus 3.6 Magnesium 2.5 Total Bilirubin 0.2 Direct Bilirubin < 0.2 GGT 31 AST 12 ALT 16 Alkaline Phosphatase 72 Lactate Dehydrogenase 182 Total Protein 5.9 Albumin 3.4 Globulin 2.5 Albumin/Globulin Ratio 1.4 Triglycerides 134 Procalcitonin 0.31 H Preliminary micro results at discharge 11/23/22 18:26 Blood Culture - Preliminary Blood 11/23/22 18:16 Blood Culture - Preliminary Blood Discharge Plan Patient/Caregiver Discharge Instructions Activity: increase activity as tolerated Diet: Consistent Carbohydrate Activity Restrictions/Additional Instructions: Diet with mildly thickened liquids. Prescriptions: New amoxicillin-pot clavulanate 875-125 mg Tablet 875 mg PO BIDCC Qty: 8 0RF Continued Lantus Solostar U-100 Insulin 100 unit/mL (3 mL) insulin pen 62 unit subcut QPM Qty: 55 3RF Rx Instructions: increased dose 10/14/21 losartan 100 mg tablet 100 mg PO DAILY Qty: 90 1RF Januvia 100 mg tablet 100 mg PO QDAY Qty: 90 1RF (DME) Blood Glucose Test Strip See Rx Instructions .Route Qty: 270 4RF Rx Instructions: use to test blood sugar three times daily Stiolto Respimat 2.5-2.5 mcg/actuation mist 2 puff INHALATION QDAY Qty: 4 3RF (DME) lancets Misc See Rx Instructions .ROUTE .MEDSUPPLY Qty: 200 3RF Rx Instructions: use to test blood sugar three times daily insulin lispro [Humalog KwikPen Insulin] 100 unit/mL insulin pen 1 sliding scale dose subcut TID Qty: 24 3RF Rx Instructions: sliding scale, max daily dose 24 units bisoprolol fumarate 5 mg tablet 2.5 mg PO QDAY lysine HCl 1,000 mg tablet 1,000 mg PO BID (DME) pen needles See Rx Instructions .Route .MEDSUPPLY Qty: 100 3RF Rx Instructions: use with insulin pen four times daily Eliquis 5 mg tablet 5 mg PO BID atorvastatin 40 mg tablet 40 mg PO QDAY fexofenadine [Allergy Relief (fexofenadine)] 180 mg tablet 180 mg PO QDAY fenugreek, saurabh, probiotics, magnesium 1 tab PO DAILY minocycline 100 mg capsule 100 mg PO QDAY saw palmetto 450 MG capsule 450 mg PO BID alpha lipoic acid 200 MG tablet 200 mg PO BID levocarnitine tartrate 500 MG capsule 500 mg PO BID Simbrinza 1-0.2 % Drops,Suspension 1 drp OPHTHALMIC (EYE) BID spironolactone 25 mg Tablet 25 mg PO QDAY timolol 0.5 % Drops 1 drp OPHTHALMIC (EYE) BID Rocklatan 0.02-0.005 % Drops 1 drp OPHTHALMIC (EYE) QPM furosemide [Lasix] 40 mg tablet 40 mg PO BID Follow Up Plan Follow up with: Jacobo Guerra MD [Primary Care Provider] - Patient Disposition: Home Health Service Prognosis: Undetermined Overall status at discharge: patient is progressing back to baseline Discharge Orders: Discharge Order (Routine); Ordered 11/26/22 [facility]/Pulmonary Embolism Present on Admission: No
[2022-11-25] MEDS: NETARSUDIL LATANOPROST OU SCH (20:50)
[2022-11-25] MEDS: INSULIN GLARGINE, HUMAN 1 UNIT/0.01 ML SQ SCH (20:50)
[2022-11-25] MEDS: TIMOLOL 0.25% OPHTH DROPS BOTTLE 5ML OU SCH (20:51)
[2022-11-26] MEDS: 0.9 % SODIUM CHLORIDE 10 ML SYRINGE IV SCH ×2 (06:48→14:23)
[2022-11-26] MEDS: INSULIN LISPRO 1 UNIT/0.01 ML UNIT SQ SCH ×2 (07:19→12:02)
[2022-11-26 07:32] LABS: Blood Urea Nitrogen 44 mg/dL (8-23); Calcium 9.5 mg/dL (8.6-10.4); Carbon Dioxide 31 mmol/L (22-30); Chloride 105 mmol/L (96-108); Glomerular Filtration Rate 40; Glucose 127 mg/dL (70-105)
--- NOTE | 2022-11-26 08:14 | Internal Med Progress Note ---
SUBJECTIVE Subjective Patient information: Note initiated : 11/26/22 at 8:11 am Service Date, if different from initiated Date: [] Patient: Daljit Quintanilla a 76 y/o M admitted on 11/23/22 for Shortness of breath- PNA,Sepsis,PAMELA,Hypoxia. Chief Complaint: [] Interval history: History of present illness: Mr. Quintanilla is a 76 year old M With a significant past medical history presents today with shortness of breath quite severe for the past 3 days. Weakness is also been quite severe for the past 3 days and the does not feel like she can take care of him at home. says has been a bit weaker over the past week as well. He has had increasing cough as well. He does have a history of aspiration pneumonia and his suspects may be he has been aspirating. He was seen by home health nurse today for his chronic lower extremity wounds a nd because of the shortness of breath and poor lung sounds with Rales it was felt that he should go to the ER. He denies fever chills. Has some nausea. Denies chest pain or stomach pain. Denies headache. He typically wears 2 L of oxygen day and night but is bumped up to 3 L for dyspnea. In the ED his vital signs were stable although the last blood pressure was low at 97/66. Evaluation in the ED showed a right-sided pneumonia. Laboratory revealed acute kidney injury on chronic kidney disease. He had a leukocytosis of 20,000. Patient started on IV antibiotics and given IV fluids. 11/24 Patient states poor sleep last night. Mild cough. No shortness of breath at rest. On 3 L nasal cannula. Leukocytosis. Anemia worsened. Creatinine elevated but improving. Procalcitonin still pending 11/25 Patient states poor sleep. Mild cough but denies shortness of breath at rest. Weak. Leukocyte ptosis improving. Renal function improving but still elevated creatinine. Weaning down oxygen to baseline today attempt. 11/26 Patient showed penetration and aspiration with barium swallow yesterday. ST recommended mildly thickened liquids. was talking with patient about that this morning and he refuses thickened liquids. I discussed with him that nonadherence would result in recurrent aspiration pneumonia and likely demise. Patient was okay with that. Review of Systems: denies headache/fever/chills/nausea/vomiting/chest or abdominal pain/cough/dyspnea/diarrhea. Otherwise see above. PHYSICAL EXAM: General: Alert, Awake, No acute Distress, obese Eyes/N/T: EOMI, no scleral icterus, Head/Neck: neck supple, full ROM, CV: irreg, 2/6SM Pulm: clear anteriorly, no wheezing, no respiratory distress Abd: soft, nontender, +BS x4 Ext: no clubbing/cyanosis, b/l LE Lymphedema, nontender Neuro: Alert, no focal deficits, moves all extremities, sensations intact b/l upper/lower Psychiatric: Skin: warm/dry, normal color Constitutional Vitals: Vital Signs Temp Pulse Resp BP Pulse Ox O2 Del Method O2 Flow Rate 98.8 F 67 20 149/56 100 Nasal Cannula 2 11/26/22 07:08 11/26/22 03:18 11/26/22 07:08 11/26/22 07:08 11/26/22 07:08 11/26/22 07:08 11/26/22 07:08 Period Temp Pulse Resp BP Sys/Pichardo Pulse Ox O2 Del Method O2 Flow Rate Last 24 Hr 97.7 F-98.8 F 61-75 18-22 145-155/56-92 95-100 CPAP-Room Air 2-2 Intake and Output 11/25/22 11/26/22 11/26/22 19:59 03:59 11:59 Intake Total 730 1900 480 Output Total 2 Balance 730 1900 478 Weight 150.321 kg Intake & Output: Intake & Output 11/25/22 11/26/22 11/26/22 19:59 03:59 11:59 Intake Total 730 1900 480 Output Total 2 Balance 730 1900 478 Weight 150.321 kg Intake: IV 250 1500 Sodium Chloride 0.9% 1,000 ml @ 1500 75 mls/hr IV .[id number] NICKIE Rx#: [id number] Zithromax 500 mg In Dextrose 5% 250 in Water 250 ml @ 250 mls/hr IV Q24H NICKIE Rx#:[id number] Oral 480 400 480 Output: # of times incontinent of urine 2 Other: Meal Breakfast Dinner Breakfast Percent of Meal Consumed 100% 75% 100% Feeding Ability Assist with Tray Set Up OBJ DATA Labs 11/25/22 05:08 11/26/22 06:03 Labs: Abnormal Lab Results 11/26/22 11/25/22 11/25/22 06:03 05:08 05:08 WBC RBC 2.97 L Hgb 8.9 L Hct 28.9 L POC Hct MCHC 30.8 L RDW 15.4 H Immature Gran % (Auto) 0.8 H Neut % (Auto) 82.5 H Lymph % (Auto) 5.2 L Lymph # (Auto) 0.[address] [place] # (Auto) Immature Gran # 0.08 H Absolute Neutrophils 8.38 H POC VBG pO2 POC VBG HCO3 POC VBG Total CO2 POC Venous O2 Sat POC VBG Base Excess Carbon Dioxide 31 H Anion Gap 4.0 L POC BUN BUN 44 H 56 H Creatinine 1.6 H 1.5 H POC Creatinine Glucose 127 H 136 H POC Glucose Uric Acid 9.5 H Magnesium Total Protein Albumin Procalcitonin 11/25/22 11/24/22 11/24/22 05:06 11:09 05:37 WBC RBC Hgb Hct POC Hct MCHC RDW Immature Gran % (Auto) Neut % (Auto) Lymph % (Auto) Lymph # (Auto) [place] # (Auto) Immature Gran # Absolute Neutrophils POC VBG pO2 51 H POC VBG HCO3 28.2 H POC VBG Total CO2 30.0 H POC Venous O2 Sat 84.0 H POC VBG Base Excess 3.0 H Carbon Dioxide Anion Gap POC BUN BUN 69 H Creatinine 1.9 H POC Creatinine Glucose 161 H POC Glucose Uric Acid 9.3 H Magnesium 2.6 H Total Protein 5.5 L Albumin 2.9 L Procalcitonin 0.31 H 11/24/22 11/24/22 11/23/22 05:37 05:37 17:35 WBC 13.0 H 19.4 H RBC 3.00 L 3.39 L Hgb 8.9 L 10.2 L Hct 29.3 L 32.7 L POC Hct MCHC 30.4 L RDW 15.1 H 15.4 H Immature Gran % (Auto) 0.8 H 0.7 H Neut % (Auto) 85.6 H 88.9 H Lymph % (Auto) 4.5 L 3.5 L Lymph # (Auto) 0.[address] [place] # (Auto) 0.94 H 1.15 H Immature Gran # 0.11 H 0.14 H Absolute Neutrophils 11.13 H 17.28 H POC VBG pO2 POC VBG HCO3 POC VBG Total CO2 POC Venous O2 Sat POC VBG Base Excess Carbon Dioxide Anion Gap POC BUN BUN Creatinine POC Creatinine Glucose POC Glucose Uric Acid Magnesium Total Protein Albumin Procalcitonin 0.75 H 11/23/22 17:33 WBC RBC Hgb Hct POC Hct 30.0 L MCHC RDW Immature Gran % (Auto) Neut % (Auto) Lymph % (Auto) Lymph # (Auto) [place] # (Auto) Immature Gran # Absolute Neutrophils POC VBG pO2 POC VBG HCO3 POC VBG Total CO2 POC Venous O2 Sat POC VBG Base Excess Carbon Dioxide Anion Gap POC BUN 76 H BUN Creatinine POC Creatinine 2.5 H Glucose POC Glucose 198 H Uric Acid Magnesium Total Protein Albumin Procalcitonin Meds: Medications Acetaminophen (Acetaminophen 325 Mg Tablet) 650 mg PO Q6HP PRN; Protocol PRN Reason: Per Pain Protocol/Fever > 101 Albuterol/Ipratropium (Ipratropium/Albuterol 3 Ml Ampul.Neb) 3 ml NEB Q4HP PRN PRN Reason: Shortness Of Breath Apixaban (Apixaban 5 Mg Tablet) 5 mg PO BID [facility] Last Admin: 11/25/22 20:49 Dose: 5 mg Atorvastatin Calcium (Atorvastatin 40 Mg Tablet) 40 mg PO QDAY [facility] Last Admin: 11/25/22 09:23 Dose: 40 mg Bisoprolol Fumarate (Bisoprolol 5 Mg Tablet) 2.5 mg PO QDAY [facility] Last Admin: 11/25/22 09:23 Dose: 2.5 mg Clonidine HCl (Clonidine Hcl 0.1 Mg Tablet) 0.1 mg PO Q4HP PRN PRN Reason: Hypertension sbp>150 Dextrose (Dextrose 50% 50 Ml Vial) 0 ml IV UD PRN PRN Reason: Per Sliding Scale Diagnostic Test (Pha) (Accu-Chek 1 Each Strip) 1 each FS ACHS [facility] Last Admin: 11/26/22 07:16 Dose: 1 each Docusate Sodium (Docusate Sodium 100 Mg Capsule) 100 mg PO BID [facility] Last Admin: 11/25/22 20:49 Dose: 100 mg Glucose (Dextrose 31 Gm Oral.Susp) 15 gm PO PRN PRN PRN Reason: Hypoglycemia Hydralazine HCl (Hydralazine 20 Mg/Ml Vial) 0 mg IV Q2HP PRN PRN Reason: Hypertension Potassium Chloride 40 meq/ (Dextrose) 520 mls @ 130 mls/hr IV UD PRN PRN Reason: Potassium < 3 Magnesium Sulfate (Magnesium Sulfate) 2 gm in 50 mls @ 50 mls/hr IV UD PRN PRN Reason: Magnesium </= 1.6 Ceftriaxone Sodium 2 gm/ (Dextrose) 50 mls @ 100 mls/hr IV Q24H [facility]; Protocol Last Infusion: 11/25/22 09:53 Dose: Infused Insulin Glargine (Insulin Glargine, Human 1 Unit/0.01 Ml) 62 unit SQ HS [facility] Last Admin: 11/25/22 20:50 Dose: 62 units Insulin Human Lispro (Insulin Lispro 1 Unit/0.01 Ml Unit) 0 unit SQ [facility]; Protocol Last Admin: 11/26/22 07:19 Dose: Not Given Ondansetron HCl (Ondansetron 4 Mg/2 Ml Vial) 4 mg IV Q4HP PRN PRN Reason: Nausea And Vomiting Netarsudil- Latanoprost [ Rocklatan] 0.02-0. 005 % Drops 1 dose OU QPM [facility] Last Admin: 11/25/22 20:50 Dose: 1 dose Tiotropium- Olodaterol [Stiolto Respimat] 2.5-2.5 Mcg Inhaler 2 dose INH QDAY [facility] Last Admin: 11/25/22 09:24 Dose: Not Given Brinzolamide- Brimonidine [ Simbrinza] 1-0.2 % Drops 1 dose OU BID [facility] Last Admin: 11/25/22 20:51 Dose: 1 dose Polyethylene Glycol (Polyethylene Glycol 3350 17 Gm Packet) 17 gm PO DAILYP PRN PRN Reason: Constipation Potassium Chloride (Potassium Chloride 20 Meq Tablet) 40 meq PO UD PRN PRN Reason: Potssium is 3-3.5 Potassium Chloride (Potassium Chloride 20 Meq Tablet) 40 meq PO UD PRN PRN Reason: Potassium < 3 Senna (Sennosides 1 Tablet) 2 tab PO DAILYP PRN PRN Reason: Constipation Sodium Chloride (0.9 % Sodium Chloride 10 Ml Syringe) 10 ml IV Q8 [facility] Last Admin: 11/26/22 06:48 Dose: 10 ml Timolol Maleate (Timolol 0.25% Ophth Drops Bottle 5ml) 1 gtt OU BID [facility] Last Admin: 11/25/22 20:51 Dose: 1 gtt A/P Narrative A/P Narrative: A: *Pneumonia, Aspiration(h/o aspiration pna): -[id number] -strep/flu/rsv/covid *Oropharyngeal dysphagia, mod-sev: barium swallow with aspiration *Sepsis: 2/2 above, improved *Acute on chronic hypoxic respiratory failure: -on 2L o2 *COPD(2L O2@home) *PAMELA on CKD IIIb: Follows with Dr. 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: -no recurrence according to family after multiple years of surveillance *Chronic b/l LE diabetic wounds: Follows with wound care *Chronic lymphedema LE's: P: -Rocephin/Azithro to augmentin, pending BC/SC -O2 supp -IS/Acapella, prn nebs, RT -IVF d/c, f/u renal function/UOP, monitor fluid balance -monitor H&H -Home CPAP nightly -basal and ssi -cont home ASA, cont BB and prn IV bp med -hold ARB/Lasix/aldactone for PAMELA -Wound care nurse - evtx, diet per ST -PT/OT -ppx: eliquis Time Spent With Patient Time: Total time spent is greater than 50% in coordination of care (as documented) at patient's floor/unit and/or counseling patient: Subsequent: Total time with patient: 35 - 49 minutes [facility] VTE Deep Vein Thrombosis/Pulmonary Embolism Present on Admission: No
[2022-11-26] MEDS: BRINZOLAMIDE BRIMONIDINE OU SCH (08:39)
[2022-11-26] MEDS: cefTRIAXone 2 GM in DEXTROSE 5% IN WATER 50 ML IV SCH (08:39)
[2022-11-26] MEDS: APIXABAN 5 MG TABLET PO SCH (08:40)
[2022-11-26] MEDS: BISOPROLOL 5 MG TABLET PO SCH (08:40)
[2022-11-26] MEDS: TIMOLOL 0.25% OPHTH DROPS BOTTLE 5ML OU SCH (08:40)
[2022-11-26] MEDS: Tiotropium-Olodaterol [Stiolto Respimat] 2.5-2.5 mcg Inhaler INH SCH (08:40)
[2022-11-26] MEDS: DOCUSATE SODIUM 100 MG CAPSULE PO SCH (08:40)
[2022-11-26] MEDS: ATORVASTATIN 40 MG TABLET PO SCH (08:40)
[2022-11-26] MEDS ORDERED: AMOXICILLIN/POTASSIUM CLAV 875 MG TABLET PO SCH (17:30)
== END 2022-11-26 14:50 | DRG 871 ==
LOC: ED 16:10 → MEDSUR 21:27
PROVIDERS: ADMIT Internal Medicine; ATTEND Internal Medicine

== ENCOUNTER 2023-03-19 07:15 | Inpatient (IN) ==
[2023-03-19] MEDS ORDERED: 0.9 % SODIUM CHLORIDE 500 ML IV ONE ×2 (07:27→09:52)
--- NOTE | 2023-03-19 07:27 | Emergency Department Note ---
HPI General Chief complaint: Altered Mental Status Stated complaint: altered Time Seen by Provider: 03/19/23 07:27 Source: patient and EMS Mode of arrival: wheelchair Limitations: no limitations History of Present Illness HPI Narrative: Narrative: Patient is a 77-year-old male who presents to the emergency department due to left foot pain and generalized weakness. Patient was brought in by ambulance. EMS states that they were called due to foot pain, but upon their arrival patient was found to have generalized weakness. They state that they were told this was not the case 3 days ago, and patient states that he became weak this morning. EMS states that patient had surgery a couple of weeks ago on his foot, and was diagnosed with pneumonia last week. Patient states that he is taking antibiotics currently. EMS found heart rates in the 40s to 60s and a blood pressure of 70s over 5. Patient endorses cough, weakness, and left foot pain, but denies any other symptoms at this time. Related Data Home Medications Medication Instructions Recorded Confirmed alpha lipoic acid 200 mg tablet 200 mg PO BID 08/29/15 03/19/23 saw palmetto 450 mg capsule 450 mg PO BID 08/29/15 03/19/23 brinzolamide 1 %-brimonidine 0.2 % 1 drp ophthalmic (eye) BID 02/16/21 03/19/23 eye drops,suspension (Simbrinza) spironolactone 25 mg tablet 25 mg PO QDAY 02/16/21 03/19/23 bisoprolol fumarate 5 mg tablet 2.5 mg PO QDAY 05/14/21 03/19/23 atorvastatin 40 mg tablet 40 mg PO QHS 12/22/21 03/19/23 fexofenadine 180 mg tablet 180 mg PO QDAY 04/21/22 03/19/23 (Allergy Relief (fexofenadine)) furosemide 40 mg tablet (Lasix) 40 mg PO BID 04/21/22 03/19/23 Lactobacillus acidophilus 1.5 mg 460 mg PO BID 01/05/23 03/19/23 (250 million cell) capsule (Probiotic Acidophilus) Scarecrow Visual Effectsies 1 tab PO BID 01/05/23 03/19/23 losartan 100 mg tablet 50 mg PO DAILY 01/05/23 03/19/23 magnesium oxide 250 mg PO BID 01/05/23 03/19/23 insulin glargine 100 unit/mL (3 64 unit subcut QPM 02/23/23 03/19/23 mL) subcutaneous pen (Lantus Solostar U-100 Insulin) latanoprost 0.005 % eye drops 1 drp ophthalmic (eye) QPM 02/23/23 03/19/23 apixaban 5 mg tablet (Eliquis) 2.5 mg PO BID 03/19/23 03/19/23 timolol maleate 0.25 % eye drops 1 drp ophthalmic (eye) BID 03/19/23 03/19/23 Previous Rx's Medication Instructions Recorded blood sugar diagnostic (Blood #270 ea 07/27/22 Glucose Test strips) lancets #200 ea 10/20/22 insulin lispro 100 unit/mL 1 sliding scale dose subcut TID 10/22/22 subcutaneous pen (Humalog KwikPen #24 mL (U-100) Insulin) pen needles #400 ea 12/09/22 Allergies Allergy/AdvReac Type Severity Reaction Status Date / Time Onion Allergy Mild Rash Verified 03/19/23 13:46 hydrocodone AdvReac Mild Itching Verified 03/19/23 13:46 oxycodone AdvReac Mild Itching Verified 03/19/23 13:46 Review of Systems ROS ROS Narrative: Narrative: Constitutional: Reports weakness (Generalized); Denies fever Eyes: Denies eye pain or vision change ENT ED: Denies throat pain, hearing loss or rhinorrhea Cardiovascular: Denies chest pain, dyspnea on exertion, orthopnea or edema Respiratory: Reports cough; Denies shortness of breath Gastrointestinal: Denies abdominal pain, nausea, vomiting, diarrhea, constipation, hematochezia or melena Genitourinary: Denies dysuria, frequency, hematuria or incontinence Musculoskeletal: Reports other (Left foot pain); Denies back pain or myalgia Integumentary: Denies rash or lesions Neurological: Reports weakness (Generalized); Denies headache, numbness, confusion, abnormal gait or dizziness [facility] Narrative Patient History Narrative: Narrative: Medical/Surgical/Family History All Active Problems (Updated 03/19/23 @ 19:05 by Farshad Soto MD) Bacteremia (Acute) Osteomyelitis (Acute) Diabetes (Acute) Chronic progressive renal failure (Acute) Anemia (Acute) Pneumonia (Acute) Osteomyelitis (Acute) Bradycardia (Acute) Hyperkalemia (Chronic) Diabetic ulcer of left foot (Acute) Cellulitis of foot, left (Acute) Abrasion of skin of left foot (Acute) Infected abrasion of skin of right forearm (Acute) Hx of total knee arthroplasty (Chronic) 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) Morbid obesity (Chronic) Hypertension (Chronic) Localized edema due to fluid overload (Chronic) Afib (Chronic) COPD (chronic obstructive pulmonary disease) (Chronic) Squamous cell carcinoma (Chronic) Throat cancer (Chronic) H/O right knee surgery (Chronic ~2020) History of left knee surgery (Chronic ~2017) Glaucoma (Chronic) Pulmonary hypertension (Chronic) Biventricular heart failure (Chronic) Sleep apnea (Chronic) 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) MSSA bacteremia (Chronic) Arthritis (Chronic) [place] (hard of hearing) (Chronic) Hyperlipidemia (Chronic) Range of motion deficit (Chronic) Wears dentures (Chronic) 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) Medicare annual wellness visit, subsequent (Acute) Hematuria (Acute) Cellulitis of foot, right (Acute) Chronic kidney disease (CKD) stage G3b/A2, moderately decreased glomerular filtration rate (GFR) between 30-44 mL/min/1.73 square meter and albuminuria creatinine ratio between 30-299 mg/g (Chronic) 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 chronic kidney disease (Chronic) Knee pain, right (Acute) Effusion of knee joint right (Acute) Laceration of ankle (Acute) Meningioma (Chronic) Left shoulder pain (Chronic) CAP (community acquired pneumonia) (Acute) Acute on chronic renal insufficiency (Acute) Acute exacerbation of chronic obstructive pulmonary disease (COPD) (Acute) Tinea cruris (Acute) CVA (cerebrovascular accident) (Acute) Medical History Afib Arthritis Aspiration pneumonia 2022: Dysphagia on swallow study, declined compliance with thickened liquids Bite by animal Biventricular heart failure Bladder infection (~02/14/21) Congestive heart failure COPD (chronic obstructive pulmonary disease) CVA (cerebrovascular accident) Diabetes mellitus with neuropathy Dog bite of multiple sites of hand and fingers Glaucoma Hematuria Hip sprain History of fracture of right ankle [place] (hard of hearing) Hyperlipidemia Hypertension Infection of prosthetic right knee joint Daljit is a 75-year-old morbidly obese diabetic with chronic kidney disease. He was admitted yesterday currently postop day one for right septic total knee arthroplasty with staph aureus. Polyexchange completed. He had 2 weeks of symptoms prior to admission of increasing right knee pain. No previous history of MRSA. Probable MSSA. Laceration of finger Laceration of lip Left shoulder pain Localized edema due to fluid overload 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 Medicare annual wellness visit, subsequent Meningioma Metabolic alkalosis Morbid obesity Comorbid risk factor. MSSA bacteremia Peripheral neuropathy due to chemotherapy PNA (pneumonia) Pulmonary hypertension Range of motion deficit left shoulder Rib fracture Sepsis Septic arthritis Sleep apnea Squamous cell carcinoma Head, Neck, Ears Staphylococcus aureus bacteremia Follow-up on sensitivities. I am expecting to transition to IV Ancef 2 g IV every 8 hours. This would be considered dose adjustment for his acute on chronic kidney disease and associated morbid obesity. Throat cancer Stage 4 Wears dentures Surgical History H/O right knee surgery (~2020) History of ankle surgery 03/1966fracture with screws right History of cardiac cath (09/26/20) History of cardioversion 09/2007; 12/26/2007 History of cataract surgery (~09/2019) History of colonoscopy (~2009) History of eye surgery 07/2020 bilateral to release pressure History of left knee surgery (~2016) History of umbilical hernia repair (~2001) with colon resection Hx of total knee arthroplasty Family History Brother Throat cancer Uncle Throat cancer Social History Smoking Status: Former smoker Alcohol Intake Frequency: does not drink Substance Use: does not use Exam Narrative Narrative: Narrative: General Limitations: no limitations General appearance: Present alert and in no apparent distress; Absent anxious, appears intoxicated or sleepy Head Head: Present atraumatic and normocephalic Eye Eye: Present EOMI; Absent scleral icterus or nystagmus ENT ENT: Present mucous membranes moist; Absent nasal congestion Neck Neck: Present full ROM and trachea midline Chest Chest: Present normal inspection and symmetric chest wall rise; Absent tenderness Respiratory Respiratory: Present normal lung sounds bilaterally; Absent respiratory distress, rales/crackles, wheezes, stridor or accessory muscle use Cardiovascular Cardiovascular: Present bradycardia, irregular rhythm and normal heart sounds Adbominal Abdominal: Absent distention Extremities Extremities: Present normal inspection, full ROM and tenderness (Left foot over wound) Back Back: Present normal inspection and full ROM Neurological Neurological: Present alert and oriented X3 Psychiatric Psychiatric: Present normal affect and normal mood Skin Skin: Present warm (WNL), dry and normal color Course Vital Signs Vital signs: Vital Signs Temperature 97.9 F 03/19/23 07:18 Pulse Rate 39 L 03/19/23 07:18 Respiratory Rate 18 03/19/23 07:18 Blood Pressure 86/46 03/19/23 07:18 Pulse Oximetry (%) 96 03/19/23 07:18 Oxygen Delivery Method Nasal Cannula 03/19/23 07:18 Oxygen Flow Rate (L/min) 2 03/19/23 07:18 Temperature 97 F 03/19/23 16:00 Pulse Rate 42 L 03/19/23 17:24 Respiratory Rate 10 L 03/19/23 17:24 Blood Pressure 122/47 03/19/23 16:00 Pulse Oximetry (%) 100 03/19/23 17:24 Oxygen Delivery Method Nasal Cannula 03/19/23 17:24 Oxygen Flow Rate (L/min) 4 03/19/23 17:24 MDM MDM Narrative Medical decision making narrative: Narrative: Patient is a 77-year-old male who presents to the emergency department due to left foot pain and generalized weakness. Differential diagnoses include worsening pneumonia with failure of outpatient therapy, infected foot wound, and osteomyelitis. Patient's labs demonstrate anemia with a hemoglobin at his baseline, elevated ESR and CRP, and an elevated creatinine that is at his baseline. Patient's CT scan of his foot demonstrates findings consistent with osteomyelitis. We at tempted to call Dr. Lott because Dr. Lott was last 1 who operated on patient. Unfortunately is not available. I did speak to Dr. Diaz who did recommend admission with IV antibiotics. I spoke to Dr. Dove who agreed to see and evaluate patient for admission. Lab Data 03/19/23 07:30 03/19/23 13:10 Labs: Lab Results 03/19/23 03/19/23 03/19/23 Range/Units 07:29 07:30 07:30 WBC 9.6 (4.5-11.0) K/mcL RBC 2.73 L (4.63-6.08) M/mcL Hgb 7.6 L (13.7-17.5) g/dL Hct 25.5 L (40.1-51.0) % POC Hct (41-55) MCV 93.4 (80.0-100.0) fL MCH 27.8 (26.0-34.0) pg MCHC 29.8 L (31.0-36.0) g/dL RDW 16.7 H (11.5-14.5) % Plt Count 263 (140-440) K/mcL MPV 9.6 (8.8-12.5) fL Immature Gran % (Auto) 0.6 H (0.0-0.5) % Neut % (Auto) 78.4 H (38.0-78.0) % Lymph % (Auto) 6.5 L (15.5-49.0) % [place] % (Auto) 10.9 (1.0-12.0) % Eos % (Auto) 3.5 (0.0-7.0) % Baso % (Auto) 0.1 (0.0-2.0) % Lymph # (Auto) 0.62 L (1.50-4.80) K/mcL [place] # (Auto) 1.05 H (0.10-0.90) K/mcL Eos # (Auto) 0.34 (0.00-0.70) K/mcL Baso # (Auto) 0.01 (0.00-0.30) K/mcL Immature Gran # 0.06 H (0.00-0.05) K/mcl Absolute Neutrophils 7.51 (1.80-8.00) K/mcL ESR 55 H (0-20) mm/hr POC VBG pH 7.40 (7.32-7.42) POC VBG pCO2 at Temp 47.1 (41-51) POC VBG pO2 52 H (25-40) POC VBG HCO3 29.5 H (24-28) POC VBG Total CO2 31.0 H (25-29) POC Venous O2 Sat 86.0 H (40-70) POC VBG Base Excess 5.0 H* (-2-2) VBG Lactic Acid 1.1 (0.5-2) POC Sodium (133-145) POC Potassium (3.3-5.1) POC Chloride (96-108) POC Total CO2 (22-30) POC Anion Gap (8.0-16.0) POC BUN (6-20) POC Creatinine (0.6-1.2) POC Glucose (70-105) POC WB Ioniz Calcium (1.16-1.32) C-Reactive Protein 8.40 H (0.03-0.80) mg/dL Procalcitonin (<0.10) ng/mL Urine Color Urine Appearance (Clear) Urine pH (5.0-9.0) Ur Specific [place] (1.000-1.035) Urine Protein (Negative) mg/dL Urine Glucose (UA) (Negative) mg/dL Urine Ketones (Negative) mg/dL Urine Occult Blood (Negative) mg/dL Urine Nitrate (Negative) Urine Bilirubin (Negative) mg/dL Urine Urobilinogen mg/dL Ur Leukocyte Esterase (Negative) /uL Urine RBC (0-3) /hpf Urine WBC (0-4) /hpf Ur Squamous Epith Cells (0-4) /hpf Ur Transition Epith Cell (0-2) /hpf Urine Bacteria (0) /hpf Hyaline Casts (0-2) /lph Ur Culture Indicated? POC Troponin I (0.00-0.08) 03/19/23 03/19/23 03/19/23 Range/Units 07:30 07:30 07:32 WBC (4.5-11.0) K/mcL RBC (4.63-6.08) M/mcL Hgb (13.7-17.5) g/dL Hct (40.1-51.0) % POC Hct 22.0 L (41-55) MCV (80.0-100.0) fL MCH (26.0-34.0) pg MCHC (31.0-36.0) g/dL RDW (11.5-14.5) % Plt Count (140-440) K/mcL MPV (8.8-12.5) fL Immature Gran % (Auto) (0.0-0.5) % Neut % (Auto) (38.0-78.0) % Lymph % (Auto) (15.5-49.0) % [place] % (Auto) (1.0-12.0) % Eos % (Auto) (0.0-7.0) % Baso % (Auto) (0.0-2.0) % Lymph # (Auto) (1.50-4.80) K/mcL [place] # (Auto) (0.10-0.90) K/mcL Eos # (Auto) (0.00-0.70) K/mcL Baso # (Auto) (0.00-0.30) K/mcL Immature Gran # (0.00-0.05) K/mcl Absolute Neutrophils (1.80-8.00) K/mcL ESR (0-20) mm/hr POC VBG pH (7.32-7.42) POC VBG pCO2 at Temp (41-51) POC VBG pO2 (25-40) POC VBG HCO3 (24-28) POC VBG Total CO2 (25-29) POC Venous O2 Sat (40-70) POC VBG Base Excess (-2-2) VBG Lactic Acid (0.5-2) POC Sodium 141 (133-145) POC Potassium 4.6 (3.3-5.1) POC Chloride 101 (96-108) POC Total CO2 26.0 (22-30) POC Anion Gap 19.0 H (8.0-16.0) POC BUN 79 H (6-20) POC Creatinine 2.7 H (0.6-1.2) POC Glucose 124 H (70-105) POC WB Ioniz Calcium 1.19 (1.16-1.32) C-Reactive Protein (0.03-0.80) mg/dL Procalcitonin 0.21 H (<0.10) ng/mL Urine Color Urine Appearance (Clear) Urine pH (5.0-9.0) Ur Specific [place] (1.000-1.035) Urine Protein (Negative) mg/dL Urine Glucose (UA) (Negative) mg/dL Urine Ketones (Negative) mg/dL Urine Occult Blood (Negative) mg/dL Urine Nitrate (Negative) Urine Bilirubin (Negative) mg/dL Urine Urobilinogen mg/dL Ur Leukocyte Esterase (Negative) /uL Urine RBC (0-3) /hpf Urine WBC (0-4) /hpf Ur Squamous Epith Cells (0-4) /hpf Ur Transition Epith Cell (0-2) /hpf Urine Bacteria (0) /hpf Hyaline Casts (0-2) /lph Ur Culture Indicated? POC Troponin I 0.04 (0.00-0.08) 03/19/23 Range/Units 09:57 WBC (4.5-11.0) K/mcL RBC (4.63-6.08) M/mcL Hgb (13.7-17.5) g/dL Hct (40.1-51.0) % POC Hct (41-55) MCV (80.0-100.0) fL MCH (26.0-34.0) pg MCHC (31.0-36.0) g/dL RDW (11.5-14.5) % Plt Count (140-440) K/mcL MPV (8.8-12.5) fL Immature Gran % (Auto) (0.0-0.5) % Neut % (Auto) (38.0-78.0) % Lymph % (Auto) (15.5-49.0) % [place] % (Auto) (1.0-12.0) % Eos % (Auto) (0.0-7.0) % Baso % (Auto) (0.0-2.0) % Lymph # (Auto) (1.50-4.80) K/mcL [place] # (Auto) (0.10-0.90) K/mcL Eos # (Auto) (0.00-0.70) K/mcL Baso # (Auto) (0.00-0.30) K/mcL Immature Gran # (0.00-0.05) K/mcl Absolute Neutrophils (1.80-8.00) K/mcL ESR (0-20) mm/hr POC VBG pH (7.32-7.42) POC VBG pCO2 at Temp (41-51) POC VBG pO2 (25-40) POC VBG HCO3 (24-28) POC VBG Total CO2 (25-29) POC Venous O2 Sat (40-70) POC VBG Base Excess (-2-2) VBG Lactic Acid (0.5-2) POC Sodium (133-145) POC Potassium (3.3-5.1) POC Chloride (96-108) POC Total CO2 (22-30) POC Anion Gap (8.0-16.0) POC BUN (6-20) POC Creatinine (0.6-1.2) POC Glucose (70-105) POC WB Ioniz Calcium (1.16-1.32) C-Reactive Protein (0.03-0.80) mg/dL Procalcitonin (<0.10) ng/mL Urine Color Yellow Urine Appearance Clear (Clear) Urine pH 5.0 (5.0-9.0) Ur Specific [place] 1.013 (1.000-1.035) Urine Protein Negative (Negative) mg/dL Urine Glucose (UA) Negative (Negative) mg/dL Urine Ketones Negative (Negative) mg/dL Urine Occult Blood Negative (Negative) mg/dL Urine Nitrate Negative (Negative) Urine Bilirubin Negative (Negative) mg/dL Urine Urobilinogen Negative mg/dL Ur Leukocyte Esterase Negative (Negative) /uL Urine RBC 3 (0-3) /hpf Urine WBC 1 (0-4) /hpf Ur Squamous Epith Cells < 1 (0-4) /hpf Ur Transition Epith Cell < 1 (0-2) /hpf Urine Bacteria None (0) /hpf Hyaline Casts 5 H (0-2) /lph Ur Culture Indicated? No POC Troponin I (0.00-0.08) EKG Data EKG #1: EKG attestation: Yes I reviewed and interpreted this EKG. EKG results narrative: Atrial fibrillation with a rate of 35, normal axis, QRS of 96, QTc of 426, T wave flattening in leads I and aVL, and absence of ST elevation or depression. Discharge Plan Patient/Caregiver Discharge Instructions Pt seen by OYSTER FISHERMAN/PA only: No Clinical Impression: Osteomyelitis, Bradycardia Patient Disposition: Xfer As Inpt ([facility]) Discharge Date/Time: 03/19/23 12:12
[2023-03-19 07:36] LABS: POC Calcium, Ionized 1.19 (1.16-1.32); POC Creatinine 2.7 (0.6-1.2); POC Potassium 4.6 (3.3-5.1)
[2023-03-19 08:03] LABS: Basophils # (Auto) 0.01 K/mcL (0.00-0.30); Basophils % (Auto) 0.1 % (0.0-2.0); Eosinophils # (Auto) 0.34 K/mcL (0.00-0.70); Eosinophils % (Auto) 3.5 % (0.0-7.0); Hematocrit 25.5 % (40.1-51.0); Hemoglobin 7.6 g/dL (13.7-17.5); Lymphocytes # (Auto) 0.62 K/mcL (1.50-4.80); Lymphocytes % (Auto) 6.5 % (15.5-49.0); Mean Cell Volume 93.4 fL (80.0-100.0); Mean Corpuscular HGB Conc 29.8 g/dL (31.0-36.0); Mean Platelet Volume 9.6 fL (8.8-12.5); Monocytes # (Auto) 1.05 K/mcL (0.10-0.90); Monocytes % (Auto) 10.9 % (1.0-12.0); Neutrophils % (Auto) 78.4 % (38.0-78.0); Platelet Count 263 K/mcL (140-440); RBC 2.73 M/mcL (4.63-6.08); Red Cell Distribution Width 16.7 % (11.5-14.5); WBC 9.6 K/mcL (4.5-11.0)
[2023-03-19 08:12] LABS: Erythrocyte Sedimentation Rate 55 mm/hr (0-20)
--- NOTE | 2023-03-19 08:40 | XRay Report ---
INDICATION: Cough TECHNIQUE: AP portable semiupright chest x-ray COMPARISON: Previous chest x-rays dated 03/17/2023, 11/23/2022 FINDINGS: Lungs:Focal parenchymal density at the right cardiophrenic angle. Appearance is consistent with pneumonia. No definite interval change. Follow-up PA and lateral radiographs recommended. No other focal abnormality or interval change Heart, vascular:No significant cardiomegaly. Pulmonary vascularity is normal. No pulmonary edema or pulmonary congestion Mediastinum, vini:No mediastinal widening. No hilar mass Pleura:No pleural fluid. No pleural-based mass or calcification Skeletal:Negative. IMPRESSION: 1. Right basilar infiltrate consistent with pneumonia 2. Follow-up recommended Interpreted and Authenticated by: Rashi Kirk 03/19/23
[2023-03-19] MEDS ORDERED: CEFEPIME 2 GM VIAL IV ONE ×2 (09:01→09:51)
[2023-03-19] MEDS ORDERED: VANCOMYCIN 2,000 MG in 0.9 % SODIUM CHLORIDE 500 ML IV ONE (09:01)
--- NOTE | 2023-03-19 09:02 | Cat Scan Report ---
INDICATION: Pain out of proportion, hx of osteomyelitis. History of surgery. TECHNIQUE: Axial images through the foot. Sagittal and coronal reformatted images. COMPARISON: Plain film examination dated 02/16/2023 FINDINGS: Apparently this patient was uncooperative. Examination was performed with typical anatomic positioning. We have no recent plain film studies for comparison. This patient apparently has a history of recent surgery. Probable surgical soft tissue defect overlying the base of the left fifth metatarsal. There is cortical destruction and some fragmentation. There is exposed bone. Appearance is consistent with osteomyelitis of the proximal left fifth metatarsal. No other focal areas of cortical destruction identified. There are no gas bubbles to indicate gas gangrene. IMPRESSION: 1. Probable surgery at the base of the left fifth metatarsal 2. There is exposed bone and cortical destruction in the proximal fifth metatarsal consistent with osteomyelitis Interpreted and Authenticated by: Rashi Kirk 03/19/23
[2023-03-19 10:45] LABS: Appearance,Urine CLEAR (Clear); Bilirubin,Urine Negative (Negative); Color,Urine YELLOW; Culture Indicated,Urine No; Glucose,Urine (UA) Negative (Negative); Ketones,Urine Negative (Negative); Leukocyte Esterase,Urine Negative /uL (Negative); Nitrate,Urine Negative (Negative); Protein,Urine Negative (Negative); Specific Gravity,Urine 1.013 (1.000-1.035); Urine Blood Negative (Negative); Urine Hyaline Cast 5 /lph (0-2); Urine RBC 3 /hpf (0-3); Urine Squamous Epithelial Cell < 1 /hpf (0-4); Urine Transitional Epi Cells < 1 /hpf (0-2); Urine WBC 1 /hpf (0-4); Urobilinogen,Urine Negative
--- NOTE | 2023-03-19 11:31 | Internal Med History&Physical ---
HPI History of Present Illness Patient information: Note initiated : 03/19/23 at 11:14 am Service Date, if different from initiated Date: [] Patient: Daljit Quintanilla 77 y/o M admitted on for altered. Chief Complaint: [] History of present illness: Mr. 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 Patient underwent left partial fifth metatarsal amputation on 02/[address] Elio Lott for osteomyelitis of left fifth metatarsal. He has been on pain medication including gabapentin and hydrocodone per for 10 days postoperatively and has been using intermittently Tylenol. Last night patient began having excruciating pain in the left foot, gave him her gabapentin and hydrocodone to control pain and brought her here. She also reports patient has been having some cough with some greenish sputum. Patient has been taking p.o. cefixime as prescribed. She also reported generalized weakness. In ED CBC showed WBC 9.6 down from 11,000 couple days ago, hemoglobin 7.6 patient has chronic anemia, platelets 263. Chemistry showed creatinine 2.7 close to baseline, potassium 4.6. Chest x-ray showed right basilar infiltrate consistent with pneumonia. CT of the foot showed cortical destruction in the proximal fifth metatarsal concerning for osteomyelitis. CRP 8.4, ESR 55, procalcitonin 0.21. EKG showed no acute ischemic changes, troponin was negative. ER attempted to get in touch with Dr. Lott however this was unsuccessful. They reached out to orthopedics who recommended patient would not need any procedure as of now and to be admitted for IV antibiotics. Review of system Constitutional: Denies fever or weakness Eyes: Denies eye pain or vision change ENT ED: Denies throat pain, hearing loss or rhinorrhea Cardiovascular: Denies chest pain, dyspnea on exertion, orthopnea or edema Respiratory: Denies some cough Gastrointestinal: Denies abdominal pain, nausea, vomiting, diarrhea, constipation, hematochezia or melena Genitourinary: Denies dysuria, frequency, hematuria or incontinence Musculoskeletal: Denies back pain or myalgia Integumentary: Denies rash or lesions Neurological: Denies headache, weakness, numbness, confusion, abnormal gait or dizziness Psychiatric: Denies anxiety, suicidal thoughts or homicidal thoughts Endocrine: Denies fatigue or polyuria Hematological/Lymphatic: Denies easy bleeding or easy bruising Physical examination General appearance: Present alert and awake, morbidly obese, in no acute distres s, intermittent cough, muffled speech due to his throat cancer Head Head: Present normocephalic; Absent atraumatic Eye Eye: Present PERRL, EOMI and visual mortensen intact; Absent scleral icterus or nystagmus ENT ENT: Present mucous membranes moist; Absent nasal congestion Neck Neck: Present full ROM; Absent tenderness Chest Chest: Present normal inspection, symmetric chest wall rise and tenderness Respiratory Respiratory: Present rhonchus breath sounds bilaterally, intermittent coughing, on 2 L nasal cannula oxygen Cardiovascular Cardiovascular: Present regular rate, normal rhythm and normal heart sounds Adbominal Abdominal: Present soft and normal bowel sounds; Absent distention or tenderness Extremities Extremities: Left foot lateral aspect Back Back: Present normal inspection and full ROM; Absent tenderness Neurological Neurological: Present alert, oriented X3, CN II-XII intact, normal gait and reflexes normal; Absent motor sensory deficit Psychiatric Psychiatric: Present normal affect and normal mood Skin Skin: Present warm (WNL), dry and normal color Assessment and plan Osteomyelitis of left fifth metatarsal s/p left partial fifth metatarsal amputation on 02/[address] Elio Lott. Unable to reach out to Dr. Lott. CT scan with evidence of surgery at base of left fifth metatarsal, there is exposed bone and cortical destruction in the proximal fifth metatarsal consistent with osteomyelitis. Likely there is residual osteomyelitis. Microbiology reviewed, no culture growth from surgical specimen. We will start patient on IV vancomycin and Zosyn. Podiatry consult. Follow inflammatory markers. Local dressing. Possible pneumonia Chest x-ray showed right basilar infiltrate consistent with pneumonia. Patient has intermittent cough with some sputum production. Vancomycin and Zosyn will cover. Obtain CT chest to further evaluate lung parenchyma. Send sputum culture. COPD exacerbation Will manage with DuoNebs, budesonide, pulmonary toileting, chest physio. He is on 2 L nasal cannula oxygen which is his baseline Paroxysmal atrial fibrillation Continue bisoprolol and Eliquis. Monitor on telemetry CAD, biventricular heart failure, continue home meds Diabetes mellitus 2 with neuropathy, continue home meds Essential hypertension, blood pressure is stable. Will monitor CKD stage III, appears stable Hyperlipidemia, continue statin Morbid obesity, BMI 43. Complicating all aspects of care. Counseled on weight reduction Stage IV throat cancer status postchemotherapy and radiation therapy. Did not require surgery. He has muffled voice secondary to that. 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 This may put him at risk of aspiration pneumonia Dysphagia probably due to esophageal dysmotility status post esophageal dilation DVT prophylaxis, on Eliquis CODE STATUS. Patient wishes to be full code Total time taken 55 minutes PFSH PFSH All Active Problems (Updated 03/17/23 @ 03:02 by Vlad Wallace MD) Bacteremia (Acute) Osteomyelitis (Acute) Diabetes (Acute) Chronic progressive renal failure (Acute) Anemia (Acute) Pneumonia (Acute) Hyperkalemia (Chronic) Diabetic ulcer of left foot (Acute) Cellulitis of foot, left (Acute) Abrasion of skin of left foot (Acute) Infected abrasion of skin of right forearm (Acute) Hx of total knee arthroplasty (Chronic) 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) Morbid obesity (Chronic) Hypertension (Chronic) Localized edema due to fluid overload (Chronic) Afib (Chronic) COPD (chronic obstructive pulmonary disease) (Chronic) Squamous cell carcinoma (Chronic) Throat cancer (Chronic) H/O right knee surgery (Chronic ~2020) History of left knee surgery (Chronic ~2017) Glaucoma (Chronic) Pulmonary hypertension (Chronic) Biventricular heart failure (Chronic) Sleep apnea (Chronic) 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) MSSA bacteremia (Chronic) Arthritis (Chronic) EYAK (hard of hearing) (Chronic) Hyperlipidemia (Chronic) Range of motion deficit (Chronic) Wears dentures (Chronic) 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) Medicare annual wellness visit, subsequent (Acute) Hematuria (Acute) Cellulitis of foot, right (Acute) Chronic kidney disease (CKD) stage G3b/A2, moderately decreased glomerular filtration rate (GFR) between 30-44 mL/min/1.73 square meter and albuminuria creatinine ratio between 30-299 mg/g (Chronic) 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 chronic kidney disease (Chronic) Knee pain, right (Acute) Effusion of knee joint right (Acute) Laceration of ankle (Acute) Meningioma (Chronic) Left shoulder pain (Chronic) CAP (community acquired pneumonia) (Acute) Acute on chronic renal insufficiency (Acute) Acute exacerbation of chronic obstructive pulmonary disease (COPD) (Acute) Tinea cruris (Acute) CVA (cerebrovascular accident) (Acute) Medical History Afib Arthritis Aspiration pneumonia 2022: Dysphagia on swallow study, declined compliance with thickened liquids Bite by animal Biventricular heart failure Bladder infection (~02/14/21) Congestive heart failure COPD (chronic obstructive pulmonary disease) CVA (cerebrovascular accident) Diabetes mellitus with neuropathy Dog bite of multiple sites of hand and fingers Glaucoma Hematuria Hip sprain History of fracture of right ankle EYAK (hard of hearing) Hyperlipidemia Hypertension Infection of prosthetic right knee joint Daljit is a 75-year-old morbidly obese diabetic with chronic kidney disease. He was admitted yesterday currently postop day one for right septic total knee arthroplasty with staph aureus. Polyexchange completed. He had 2 weeks of symptoms prior to admission of increasing right knee pain. No previous history of MRSA. Probable MSSA. Laceration of finger Laceration of lip Left shoulder pain Localized edema due to fluid overload 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 Medicare annual wellness visit, subsequent Meningioma Metabolic alkalosis Morbid obesity Comorbid risk factor. MSSA bacteremia Peripheral neuropathy due to chemotherapy PNA (pneumonia) Pulmonary hypertension Range of motion deficit left shoulder Rib fracture Sepsis Septic arthritis Sleep apnea Squamous cell carcinoma Head, Neck, Ears Staphylococcus aureus bacteremia Follow-up on sensitivities. I am expecting to transition to IV Ancef 2 g IV every 8 hours. This would be considered dose adjustment for his acute on chronic kidney disease and associated morbid obesity. Throat cancer Stage 4 Wears dentures Surgical History H/O right knee surgery (~2020) History of ankle surgery 03/1966fracture with screws right History of cardiac cath (09/26/20) History of cardioversion 09/2007; 12/26/2007 History of cataract surgery (~09/2019) History of colonoscopy (~2009) History of eye surgery 07/2020 bilateral to release pressure History of left knee surgery (~2016) History of umbilical hernia repair (~2001) with colon resection Hx of total knee arthroplasty Family History Brother Throat cancer Uncle Throat cancer Social History marital status: smoking status: Former smoker alcohol intake frequency: does not drink substance use type: does not use MEDS/ALLERGIES Home Medications and Allergies Home Medications Medication Instructions Recorded Confirmed Type alpha lipoic acid 200 mg tablet 200 mg PO BID 08/29/15 03/19/23 History saw palmetto 450 mg capsule 450 mg PO BID 08/29/15 03/19/23 History brinzolamide 1 %-brimonidine 0.2 % 1 drp ophthalmic (eye) BID 02/16/21 03/19/23 History eye drops,suspension (Simbrinza) spironolactone 25 mg tablet 25 mg PO QDAY 02/16/21 03/19/23 History bisoprolol fumarate 5 mg tablet 2.5 mg PO QDAY 05/14/21 03/19/23 History atorvastatin 40 mg tablet 40 mg PO QHS 12/22/21 03/19/23 History fexofenadine 180 mg tablet 180 mg PO QDAY 04/21/22 03/19/23 History (Allergy Relief (fexofenadine)) furosemide 40 mg tablet (Lasix) 40 mg PO BID 04/21/22 03/19/23 History blood sugar diagnostic (Blood #270 ea 07/27/22 03/19/23 Rx Glucose Test strips) lancets #200 ea 10/20/22 03/19/23 Rx insulin lispro 100 unit/mL 1 sliding scale dose subcut TID 10/22/22 03/19/23 Rx subcutaneous pen (Humalog KwikPen #24 mL (U-100) Insulin) pen needles #400 ea 12/09/22 03/19/23 Rx Lactobacillus acidophilus 1.5 mg 460 mg PO BID 01/05/23 03/19/23 History (250 million cell) capsule (Probiotic Acidophilus) saurabh berries 1 tab PO BID 01/05/23 03/19/23 History losartan 100 mg tablet 50 mg PO DAILY 01/05/23 03/19/23 History magnesium oxide 250 mg PO BID 01/05/23 03/19/23 History insulin glargine 100 unit/mL (3 64 unit subcut QPM 02/23/23 03/19/23 History mL) subcutaneous pen (Lantus Solostar U-100 Insulin) latanoprost 0.005 % eye drops 1 drp ophthalmic (eye) QPM 02/23/23 03/19/23 History apixaban 5 mg tablet (Eliquis) 2.5 mg PO BID 03/19/23 03/19/23 History timolol maleate 0.25 % eye drops 1 drp ophthalmic (eye) BID 03/19/23 03/19/23 History Allergies Allergy/AdvReac Type Severity Reaction Status Date / Time Onion Allergy Mild Rash Verified 03/19/23 13:46 hydrocodone AdvReac Mild Itching Verified 03/19/23 13:46 oxycodone AdvReac Mild Itching Verified 03/19/23 13:46 EXAM Constitutional Vitals: Temp Pulse Resp BP Pulse Ox O2 Del Method O2 Flow Rate 97.9 F 25 L 14 96/67 92 Nasal Cannula 2 03/19/23 07:18 03/19/23 10:47 03/19/23 10:47 03/19/23 10:47 03/19/23 10:47 03/19/23 07:50 03/19/23 07:50 DATA Data Completed and Pending Labs: Labs from last 24 hours 03/19/23 03/19/23 03/19/23 09:57 07:32 07:30 WBC RBC Hgb Hct POC Hct 22.0 L MCV MCH MCHC RDW Plt Count MPV Immature Gran % (Auto) Neut % (Auto) Lymph % (Auto) [place] % (Auto) Eos % (Auto) Baso % (Auto) Lymph # (Auto) [place] # (Auto) Eos # (Auto) Baso # (Auto) Immature Gran # Absolute Neutrophils ESR POC VBG pH POC VBG pCO2 at Temp POC VBG pO2 POC VBG HCO3 POC VBG Total CO2 POC Venous O2 Sat POC VBG Base Excess VBG Lactic Acid POC Sodium 141 POC Potassium 4.6 POC Chloride 101 POC Total CO2 26.0 POC Anion Gap 19.0 H POC BUN 79 H POC Creatinine 2.7 H POC Glucose 124 H POC WB Ioniz Calcium 1.19 C-Reactive Protein Procalcitonin Urine Color Yellow Urine Appearance Clear Urine pH 5.0 Ur Specific [place] 1.013 Urine Protein Negative Urine Glucose (UA) Negative Urine Ketones Negative Urine Occult Blood Negative Urine Nitrate Negative Urine Bilirubin Negative Urine Urobilinogen Negative Ur Leukocyte Esterase Negative Urine RBC 3 Urine WBC 1 Ur Squamous Epith Cells < 1 Ur Transition Epith Cell < 1 Urine Bacteria None Hyaline Casts 5 H Ur Culture Indicated? No POC Troponin I 0.04 03/19/23 03/19/23 03/19/23 07:30 07:30 07:30 WBC 9.6 RBC 2.73 L Hgb 7.6 L Hct 25.5 L POC Hct MCV 93.4 MCH 27.8 MCHC 29.8 L RDW 16.7 H Plt Count 263 MPV 9.6 Immature Gran % (Auto) 0.6 H Neut % (Auto) 78.4 H Lymph % (Auto) 6.5 L [place] % (Auto) 10.9 Eos % (Auto) 3.5 Baso % (Auto) 0.1 Lymph # (Auto) 0.62 L [place] # (Auto) 1.05 H Eos # (Auto) 0.34 Baso # (Auto) 0.01 Immature Gran # 0.06 H Absolute Neutrophils 7.51 ESR 55 H POC VBG pH POC VBG pCO2 at Temp POC VBG pO2 POC VBG HCO3 POC VBG Total CO2 POC Venous O2 Sat POC VBG Base Excess VBG Lactic Acid POC Sodium POC Potassium POC Chloride POC Total CO2 POC Anion Gap POC BUN POC Creatinine POC Glucose POC WB Ioniz Calcium C-Reactive Protein 8.40 H Procalcitonin 0.21 H Urine Color Urine Appearance Urine pH Ur Specific [place] Urine Protein Urine Glucose (UA) Urine Ketones Urine Occult Blood Urine Nitrate Urine Bilirubin Urine Urobilinogen Ur Leukocyte Esterase Urine RBC Urine WBC Ur Squamous Epith Cells Ur Transition Epith Cell Urine Bacteria Hyaline Casts Ur Culture Indicated? POC Troponin I 03/19/23 07:29 WBC RBC Hgb Hct POC Hct MCV MCH MCHC RDW Plt Count MPV Immature Gran % (Auto) Neut % (Auto) Lymph % (Auto) [place] % (Auto) Eos % (Auto) Baso % (Auto) Lymph # (Auto) [place] # (Auto) Eos # (Auto) Baso # (Auto) Immature Gran # Absolute Neutrophils ESR POC VBG pH 7.40 POC VBG pCO2 at Temp 47.1 POC VBG pO2 52 H POC VBG HCO3 29.5 H POC VBG Total CO2 31.0 H POC Venous O2 Sat 86.0 H POC VBG Base Excess 5.0 H* VBG Lactic Acid 1.1 POC Sodium POC Potassium POC Chloride POC Total CO2 POC Anion Gap POC BUN POC Creatinine POC Glucose POC WB Ioniz Calcium C-Reactive Protein Procalcitonin Urine Color Urine Appearance Urine pH Ur Specific [place] Urine Protein Urine Glucose (UA) Urine Ketones Urine Occult Blood Urine Nitrate Urine Bilirubin Urine Urobilinogen Ur Leukocyte Esterase Urine RBC Urine WBC Ur Squamous Epith Cells Ur Transition Epith Cell Urine Bacteria Hyaline Casts Ur Culture Indicated? POC Troponin I A/P Time Spent With Patient Time: Total time spent is greater than 50% in coordination of care (as documented) at patient's floor/unit and/or counseling patient:
[2023-03-19] MEDS ORDERED: SENNOSIDES 1 TABLET PO PRN (12:30)
[2023-03-19] MEDS ORDERED: ACETAMINOPHEN 325 MG TABLET PO PRN (12:30)
[2023-03-19] MEDS ORDERED: oxyCODONE/APAP 5/325MG TABLET PO PRN (12:30)
[2023-03-19] MEDS ORDERED: LACTULOSE 20 GM/30 ML ORAL.SOL PO PRN (12:30)
[2023-03-19] MEDS ORDERED: MAGNESIUM HYDROXIDE 30 ML ORAL.SUSP PO PRN (12:30)
[2023-03-19] MEDS ORDERED: ONDANSETRON 4 MG/2 ML VIAL IV PRN (12:30)
[2023-03-19] MEDS ORDERED: BISACODYL 5 MG TABLET PO PRN (12:30)
[2023-03-19] MEDS ORDERED: PIPERACILLIN SODIUM/TAZOBACTAM 3.375 GM in DEXTROSE 5% IN WATER 50 ML IV SCH (12:30)
--- NOTE | 2023-03-19 12:36 | Cat Scan Report ---
INDICATION: Confirm pneumonia COMPARISON: Previous AP portable semiupright chest x-rays dated 03/19/2023, 03/17/2023 TECHNIQUE: Axial noncontrast enhanced images through the chest. Sagittally and coronally reformatted images. MIP reformatted images. FINDINGS: Lungs:Suboptimal evaluation. This patient could not suspend respiration There is no focal pulmonary parenchymal consolidation. Appearance on previous radiographs was probably secondary to crowding and atelectasis on AP, semiupright studies. No evidence for bacterial pneumonia present examination. There is no discrete parenchymal mass. There is no centrilobular or paraseptal emphysema. Appearance is consistent with tracheomalacia. The trachea is a crescentic-shaped and almost collapsed. Presumably these images were obtained during expiration Mediastinum, vascular:No pathologic mediastinal or hilar adenopathy Thoracic aorta is negative. No aneurysmal dilatation. Main pulmonary artery measures 3.1 cm in cross-sectional diameter. Pulmonary arterial hypertension is possible Heart:No significant cardiomegaly. No pericardial effusion There is prominent coronary artery calcification. Coronary vessels appear small in caliber Pleura:No pleural effusion. No pleural-based mass. No pleural calcification Axilla, supraclavicular regions, chest wall:Axial and negative. There is no pathologic adenopathy Thyroid is abnormal. There is calcification of both lobes. There is marked enlargement of the right lobe with an appearance consistent with substernal goiter. The trachea is displaced toward the left. There is markedly prominent breast tissue bilaterally consistent with gynecomastia Musculoskeletal:No thoracic compression fractures. No lytic lesions. No sternal or rib lesions Upper Abdomen:There are stones in the dependent portion of the gallbladder IMPRESSION: 1. Poor quality evaluation of the lungs due to inability to suspend respiration. No parenchymal consolidation 2. Enlarged thyroid consistent with right-sided greater and substernal goiter. Trachea is displaced to the left 3. Tracheomalacia with crescentic shaped collapsed trachea 4. Prominent gynecomastia 5. Cholelithiasis 6. Small-caliber coronary arteries with coronary artery calcification 7. Mildly enlarged main pulmonary artery The exam was performed using radiation dose optimization techniques including, but not limited to, automated exposure control, adjustment of the mA and/or kV according to patient size and use of iterative reconstruction technique. Interpreted and Authenticated by: Rashi Kirk 03/19/23
[2023-03-19] MEDS: IPRATROPIUM/ALBUTEROL 3 ML AMPUL.NEB NEB SCH ×3 (13:13→21:48)
[2023-03-19] MEDS: 0.9 % SODIUM CHLORIDE 10 ML SYRINGE IV SCH ×2 (13:55→22:00)
[2023-03-19] MEDS: PIPERACILLIN SODIUM/TAZOBACTAM 2.25 GM in DEXTROSE 5% IN WATER 50 ML IV SCH ×2 (13:55→18:01)
[2023-03-19 14:15] LABS: ALT/SGPT 21 U/L (<40); AST/SGOT 11 U/L (<40); Albumin 3.1 gm/dL (3.2-5.2); Albumin/Globulin Ratio 1.1 (1.0-2.3); Alkaline Phosphatase 94 U/L (39-117); Bilirubin,Total 0.2 mg/dL (0.1-1.0); Blood Urea Nitrogen 72 mg/dL (8-23); Calcium 8.9 mg/dL (8.6-10.4); Carbon Dioxide 27 mmol/L (22-30); Chloride 102 mmol/L (96-108); Globulin 2.8 gm/dL (2.2-3.7); Glomerular Filtration Rate 27; Glucose 157 mg/dL (70-105)
[2023-03-19] MEDS ORDERED: NON FORMULARY MEDICATION 1 DOSE MISCELL (Insulin Lispro [Humalog Kwikpen Insulin] 100 unit SUB-Q SCH (15:00)
[2023-03-19] MEDS: INSULIN LISPRO 1 UNIT/0.01 ML UNIT SQ SCH ×2 (17:42→22:06)
[2023-03-19] MEDS ORDERED: SAW PALMETTO 450 MG PO SCH (21:00)
[2023-03-19] MEDS ORDERED: LEVOCARNITINE TARTRATE 500 MG PO SCH (21:00)
[2023-03-19] MEDS ORDERED: ALPHA LIPOIC ACID 200 MG PO SCH (21:00)
[2023-03-19] MEDS: APIXABAN 5 MG TABLET PO SCH (21:57)
[2023-03-19] MEDS: BRINZOLAMIDE BRIMONIDINE OD SCH (21:57)
[2023-03-19] MEDS: FUROSEMIDE 40 MG TABLET PO SCH (21:57)
[2023-03-19] MEDS: TIMOLOL 0.25% OPHTH DROPS BOTTLE 5ML OD SCH (21:57)
[2023-03-19] MEDS: DOCUSATE SODIUM 100 MG CAPSULE PO SCH (21:57)
[2023-03-19] MEDS: MAGNESIUM OXIDE 400 MG TABLET PO SCH (21:57)
[2023-03-19] MEDS: NETARSUDIL LATANOPROST OD SCH (21:57)
--- NOTE | 2023-03-19 22:01 | Internal Med Progress Note ---
SUBJECTIVE Subjective Patient information: Note initiated : 03/19/23 at 10:01 pm Service Date, if different from initiated Date: [] Patient: Daljit Quintanilla a 77 y/o M admitted on 03/19/23 for altered, change in level of care. Chief Complaint: [] Additional PMFSH (Level 3 Only): Mr. 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 Patient underwent left partial fifth metatarsal amputation on 02/[address] Elio Lott for osteomyelitis of left fifth metatarsal. He has been on pain medication including gabapentin and hydrocodone per for 10 days postoperatively and has been using intermittently Tylenol. Last night patient began having excruciating pain in the left foot, gave him her gabapentin and hydrocodone to control pain and brought her here. She also reports patient has been having some cough with some greenish sputum. Patient has been taking p.o. cefixime as prescribed. She also reported generalized weakness. In ED CBC showed WBC 9.6 down from 11,000 couple days ago, hemoglobin 7.6 patient has chronic anemia, platelets 263. Chemistry showed creatinine 2.7 close to baseline, potassium 4.6. Chest x-ray showed right basilar infiltrate consistent with pneumonia. CT of the foot showed cortical destruction in the proximal fifth metatarsal concerning for osteomyelitis. CRP 8.4, ESR 55, procalcitonin 0.21. EKG showed no acute ischemic changes, troponin was negative. ER attempted to get in touch with Dr. Lott however this was unsuccessful. They reached out to orthopedics who recommended patient would not need any procedure as of now and to be admitted for IV antibiotics. 03/20. No fever overnight. WBC 14,000 today. Hemoglobin improved to 8.9 from 7.6, creatinine 2.2 unchanged. reported left foot pain is controlled. MRSA screen pending Review of system Constitutional: Denies fever or weakness Eyes: Denies eye pain or vision change ENT ED: Denies throat pain, hearing loss or rhinorrhea Cardiovascular: Denies chest pain, dyspnea on exertion, orthopnea or edema Respiratory: Denies any cough Gastrointestinal: Denies abdominal pain, nausea, vomiting, diarrhea, constipation, hematochezia or melena Genitourinary: Denies dysuria, frequency, hematuria or incontinence Musculoskeletal: Denies back pain or myalgia Integumentary: Denies rash or lesions Neurological: Denies headache, weakness, numbness, confusion, abnormal gait or dizziness Psychiatric: Denies anxiety, suicidal thoughts or homicidal thoughts Endocrine: Denies fatigue or polyuria Hematological/Lymphatic: Denies easy bleeding or easy bruising Physical examination General appearance: Present alert and awake, morbidly obese, speech somewhat bet ter than before however still muffled due to history of throat cancer Head Head: Present normocephalic; Absent atraumatic Eye Eye: Present PERRL, EOMI and visual mortensen intact; Absent scleral icterus or nystagmus ENT ENT: Present mucous membranes moist; Absent nasal congestion Neck Neck: Present full ROM; Absent tenderness Chest Chest: Present normal inspection, symmetric chest wall rise and tenderness Respiratory Respiratory: Present less rhonchi, no respiratory distress, less cough, on 2 L nasal cannula oxygen Cardiovascular Cardiovascular: Present regular rate, normal rhythm and normal heart sounds Adbominal Abdominal: Present soft and normal bowel sounds; Absent distention or tenderness Extremities Extremities: Left foot lateral aspect Back Back: Present normal inspection and full ROM; Absent tenderness Neurological Neurological: Present alert, oriented X3, CN II-XII intact, no focal deficits Psychiatric Psychiatric: Present normal affect and normal mood Skin Skin: Present warm (WNL), dry and normal color Assessment and plan Osteomyelitis of left fifth metatarsal s/p left partial fifth metatarsal amputation on 02/[address] Elio Lott. Unable to reach out to Dr. Lott. CT scan with evidence of surgery at base of left fifth metatarsal, there is ex posed bone and cortical destruction in the proximal fifth metatarsal consistent with osteomyelitis. Likely there is residual osteomyelitis. Microbiology reviewed, no culture growth from surgical specimen.On IV vancomycin and Zosyn. Podiatry consult. Follow inflammatory markers. Local dressing. Possible pneumonia Chest x-ray showed right basilar infiltrate consistent with pneumonia. Patient has intermittent cough with some sputum production. Vancomycin and Zosyn will cover. CT scan, no consolidation. COPD exacerbation DuoNebs, budesonide, pulmonary toileting, chest physio. He is on 2 L nasal cannula oxygen which is his baseline Paroxysmal atrial fibrillation Continue bisoprolol and Eliquis. Monitor on telemetry CAD, biventricular heart failure, continue home meds Diabetes mellitus 2 with neuropathy, continue home meds Essential hypertension, blood pressure is stable. Will monitor CKD stage III, appears stable Hyperlipidemia, continue statin Morbid obesity, BMI 43. Complicating all aspects of care. Counseled on weight reduction Stage IV throat cancer status postchemotherapy and radiation therapy. Did not require surgery. He has muffled voice secondary to that. 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 This may put him at risk of aspiration pneumonia Dysphagia probably due to esophageal dysmotility status post esophageal dilation DVT prophylaxis, on Eliquis CODE STATUS. Patient wishes to be full code Total time taken 45 minutes Constitutional Vitals: Vital Signs Temp Pulse Resp BP Pulse Ox O2 Del Method O2 Flow Rate 97.3 F 56 L 16 144/42 97 CPAP 4 03/19/23 21:51 03/19/23 21:51 03/19/23 21:51 03/19/23 21:51 03/19/23 21:51 03/19/23 21:51 03/19/23 17:24 Period Temp Pulse Resp BP Sys/Pichardo Pulse Ox O2 Del Method O2 Flow Rate Last 24 Hr 97 F-97.9 F 25-73 10-28 81-161/36-98 92-100 CPAP-Nasal Cannula 1-4 Intake and Output 03/19/23 03/19/23 03/20/23 11:59 19:59 03:59 Intake Total 1000 1000 Output Total 1380 Balance 1000 -380 Weight 116.12 kg 144.809 kg 142.519 kg Patient Weight 03/20/23 03:59 Weight 142.519 kg Intake & Output: Intake & Output 03/19/23 03/19/23 03/20/23 11:59 19:59 03:59 Intake Total 1000 1000 Output Total 1380 Balance 1000 -380 Weight 116.12 kg 144.809 kg 142.519 kg Intake: IV 1000 600 Sodium Chloride 0.9% 500 ml @ 1000 Wide Open IV [facility] Rx#: [id number] Zosyn 2.25 gm In Dextrose 5% in 100 Water 50 ml @ 100 mls/hr IV Q6H [facility] Rx#:[id number] Vancomycin 2,000 mg In Sodium 500 Chloride 0.9% 500 ml @ 250 mls/ hr IV ONCE ONE Rx#:[id number] Oral 400 Output: Urine Catheter Amount 1380 Other: Meal Dinner Percent of Meal Consumed 100% Feeding Ability Assist with Tray Set Up Urine Appearance Clear Uretheral (Dobbs) Clear Urine Color Yellow Uretheral (Dobbs) Dark Yellow OBJ DATA Labs 03/20/23 05:54 03/20/23 05:54 Labs: Abnormal Lab Results 03/19/23 03/19/23 03/19/23 13:10 09:57 07:30 RBC Hgb Hct POC Hct 22.0 L MCHC RDW Immature Gran % (Auto) Neut % (Auto) Lymph % (Auto) Lymph # (Auto) [place] # (Auto) Immature Gran # ESR POC VBG pO2 POC VBG HCO3 POC VBG Total CO2 POC Venous O2 Sat POC VBG Base Excess POC Anion Gap 19.0 H POC BUN 79 H BUN 72 H Creatinine 2.2 H POC Creatinine 2.7 H Glucose 157 H POC Glucose 124 H C-Reactive Protein Albumin 3.1 L Procalcitonin Hyaline Casts 5 H 03/19/23 03/19/23 03/19/23 07:30 07:30 07:30 RBC 2.73 L Hgb 7.6 L Hct 25.5 L POC Hct MCHC 29.8 L RDW 16.7 H Immature Gran % (Auto) 0.6 H Neut % (Auto) 78.4 H Lymph % (Auto) 6.5 L Lymph # (Auto) 0.62 L [place] # (Auto) 1.05 H Immature Gran # 0.06 H ESR 55 H POC VBG pO2 POC VBG HCO3 POC VBG Total CO2 POC Venous O2 Sat POC VBG Base Excess POC Anion Gap POC BUN BUN Creatinine POC Creatinine Glucose POC Glucose C-Reactive Protein 8.40 H Albumin Procalcitonin 0.21 H Hyaline Casts 03/19/23 07:29 RBC Hgb Hct POC Hct MCHC RDW Immature Gran % (Auto) Neut % (Auto) Lymph % (Auto) Lymph # (Auto) [place] # (Auto) Immature Gran # ESR POC VBG pO2 52 H POC VBG HCO3 29.5 H POC VBG Total CO2 31.0 H POC Venous O2 Sat 86.0 H POC VBG Base Excess 5.0 H* POC Anion Gap POC BUN BUN Creatinine POC Creatinine Glucose POC Glucose C-Reactive Protein Albumin Procalcitonin Hyaline Casts Meds: Medications Acetaminophen (Acetaminophen 325 Mg Tablet) 650 mg PO Q6HP PRN; Protocol PRN Reason: Per Pain Protocol/Fever > 101 Albuterol/Ipratropium (Ipratropium/Albuterol 3 Ml Ampul.Neb) 3 ml NEB QID [facility] Last Admin: 03/19/23 21:48 Dose: Not Given Apixaban (Apixaban 5 Mg Tablet) 5 mg PO BID [facility] Last Admin: 03/19/23 21:57 Dose: 5 mg Atorvastatin Calcium (Atorvastatin 40 Mg Tablet) 40 mg PO QDAY [facility] Bisacodyl (Bisacodyl 5 Mg Tablet) 10 mg PO DAILYP PRN PRN Reason: Constipation Bisoprolol Fumarate (Bisoprolol 5 Mg Tablet) 2.5 mg PO QDAY [facility] Diagnostic Test (Pha) (Accu-Chek 1 Each Strip) 1 each FS [facility] Last Admin: 03/19/23 17:28 Dose: 1 each Docusate Sodium (Docusate Sodium 100 Mg Capsule) 100 mg PO BID [facility] Last Admin: 03/19/23 21:57 Dose: 100 mg Furosemide (Furosemide 40 Mg Tablet) 40 mg PO BID [facility] Last Admin: 03/19/23 21:57 Dose: 40 mg Piperacillin Sod/Tazobactam (Sod 2.25 gm/ Dextrose) 50 mls @ 100 mls/hr IV Q6H [facility] Last Infusion: 03/19/23 18:50 Dose: Infused Insulin Glargine (Insulin Glargine, Human 1 Unit/0.01 Ml) 64 unit SQ HS [facility] Insulin Human Lispro (Insulin Lispro 1 Unit/0.01 Ml Unit) 0 unit SQ [facility]; Protocol Last Admin: 03/19/23 17:42 Dose: 3 units Lactobacillus Rhamnosus (Lactobacillus 1 Capsule) 1 cap PO BID [facility] Lactulose (Lactulose 20 Gm/30 Ml Oral.Karine) 10 gm PO DAILYP PRN PRN Reason: Constipation Latanoprost (Latanoprost Ophth Drops 2.5ml Bottle) 1 gtt OD HS [facility] Magnesium Hydroxide (Magnesium Hydroxide 30 Ml Oral.Susp) 30 ml PO DAILYP PRN PRN Reason: Constipation Magnesium Oxide (Magnesium Oxide 400 Mg Tablet) 400 mg PO BID [facility] Last Admin: 03/19/23 21:57 Dose: 400 mg Ondansetron HCl (Ondansetron 4 Mg/2 Ml Vial) 4 mg IV Q4HP PRN; Protocol PRN Reason: Nausea And Vomiting Oxycodone/Acetaminophen (Oxycodone/Apap 5/325mg Tablet) 1 tab PO Q4HP PRN; Protocol PRN Reason: Per Pain Protocol Brinzolamide- Brimonidine [ Simbrinza] 1-0.2 % Drop 1 dose OD BID [facility] Last Admin: 03/19/23 21:57 Dose: 1 dose Netarsudil- Latanoprost [ Rocklatan] 0.02-0. 005 % Drops 1 dose OD HS [facility] Last Admin: 03/19/23 21:57 Dose: 1 dose Senna (Sennosides 1 Tablet) 2 tab PO HSP PRN PRN Reason: Constipation Sitagliptin Phosphate (Sitagliptin 50 Mg Tablet) 50 mg PO DAILY NICKIE Sodium Chloride (0.9 % Sodium Chloride 10 Ml Syringe) 10 ml IV Q8 [facility] Last Admin: 03/19/23 13:55 Dose: 10 ml Spironolactone (Spironolactone 25 Mg Tablet) 25 mg PO QDAY [facility] Timolol Maleate (Timolol 0.25% Ophth Drops Bottle 5ml) 1 gtt OD BID [facility] Last Admin: 03/19/23 21:57 Dose: 1 drop Vancomycin HCl (Vancomycin Per Pharmacy) 1 order IV UD [facility]; Protocol A/P Time Spent With Patient Time: Total time spent is greater than 50% in coordination of care (as documented) at patient's floor/unit and/or counseling patient:
[2023-03-19] MEDS: LATANOPROST OPHTH DROPS 2.5ML BOTTLE OD SCH (22:04)
[2023-03-19] MEDS: INSULIN GLARGINE, HUMAN 1 UNIT/0.01 ML SQ SCH (22:05)
[2023-03-19] MEDS: LACTOBACILLUS 1 CAPSULE PO SCH (22:17)
[2023-03-20] MEDS: PIPERACILLIN SODIUM/TAZOBACTAM 2.25 GM in DEXTROSE 5% IN WATER 50 ML IV SCH ×4 (00:30→17:09)
[2023-03-20] MEDS: 0.9 % SODIUM CHLORIDE 10 ML SYRINGE IV SCH ×3 (05:34→21:24)
[2023-03-20 07:25] LABS: Basophils # (Auto) 0.01 K/mcL (0.00-0.30); Basophils % (Auto) 0.1 % (0.0-2.0); Eosinophils # (Auto) 0.25 K/mcL (0.00-0.70); Eosinophils % (Auto) 1.7 % (0.0-7.0); Hematocrit 30.5 % (40.1-51.0); Hemoglobin 8.9 g/dL (13.7-17.5); Lymphocytes # (Auto) 0.35 K/mcL (1.50-4.80); Lymphocytes % (Auto) 2.4 % (15.5-49.0); Mean Cell Volume 93.8 fL (80.0-100.0); Mean Corpuscular HGB Conc 29.2 g/dL (31.0-36.0); Mean Platelet Volume 9.7 fL (8.8-12.5); Monocytes # (Auto) 0.78 K/mcL (0.10-0.90); Monocytes % (Auto) 5.3 % (1.0-12.0); Platelet Count 304 K/mcL (140-440); RBC 3.25 M/mcL (4.63-6.08); Red Cell Distribution Width 16.7 % (11.5-14.5); WBC 14.6 K/mcL (4.5-11.0)
[2023-03-20 07:44] LABS: Vancomycin,Random 14.2 ug/mL
[2023-03-20 08:07] LABS: ALT/SGPT 19 U/L (<40); AST/SGOT 11 U/L (<40); Albumin/Globulin Ratio 0.9 (1.0-2.3); Alkaline Phosphatase 97 U/L (39-117); Bilirubin,Total 0.4 mg/dL (0.1-1.0); Blood Urea Nitrogen 66 mg/dL (8-23); Calcium 9.2 mg/dL (8.6-10.4); Carbon Dioxide 27 mmol/L (22-30); Chloride 101 mmol/L (96-108); Globulin 3.3 gm/dL (2.2-3.7); Glomerular Filtration Rate 27; Glucose 144 mg/dL (70-105)
[2023-03-20] MEDS ORDERED: VANCOMYCIN PER PHARMACY IV SCH (09:00)
[2023-03-20] MEDS ORDERED: VANCOMYCIN 2,000 MG in 0.9 % SODIUM CHLORIDE 500 ML IV SCH (09:00)
[2023-03-20] MEDS: APIXABAN 5 MG TABLET PO SCH ×2 (09:42→21:23)
[2023-03-20] MEDS: SPIRONOLACTONE 25 MG TABLET PO SCH (09:42)
[2023-03-20] MEDS: LACTOBACILLUS 1 CAPSULE PO SCH ×2 (09:42→21:23)
[2023-03-20] MEDS: DOCUSATE SODIUM 100 MG CAPSULE PO SCH ×2 (09:42→21:24)
[2023-03-20] MEDS: FUROSEMIDE 40 MG TABLET PO SCH ×2 (09:42→21:24)
[2023-03-20] MEDS: BISOPROLOL 5 MG TABLET PO SCH (09:43)
[2023-03-20] MEDS: MAGNESIUM OXIDE 400 MG TABLET PO SCH ×2 (09:43→21:23)
[2023-03-20] MEDS: INSULIN LISPRO 1 UNIT/0.01 ML UNIT SQ SCH ×4 (09:44→21:33)
[2023-03-20] MEDS: ATORVASTATIN 40 MG TABLET PO SCH (09:44)
[2023-03-20] MEDS: sitaGLIPtin 50 MG TABLET PO SCH (09:44)
[2023-03-20] MEDS: IPRATROPIUM/ALBUTEROL 3 ML AMPUL.NEB NEB SCH ×5 (10:05→21:33)
[2023-03-20] MEDS: TIMOLOL 0.25% OPHTH DROPS BOTTLE 5ML OD SCH ×2 (11:35→22:15)
[2023-03-20] MEDS: BRINZOLAMIDE BRIMONIDINE OD SCH ×2 (11:35→22:15)
--- NOTE | 2023-03-20 12:51 | Internal Med Progress Note ---
SUBJECTIVE Subjective Patient information: Note initiated : 03/20/23 at 12:44 pm Service Date, if different from initiated Date: [] Patient: Daljit Quintanilla 77 y/o M admitted on 03/19/23 for altered, change in level of care. Chief Complaint: [] Interval history: Mr. 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 Patient underwent left partial fifth metatarsal amputation on 02/[address] Elio Lott for osteomyelitis of left fifth metatarsal. He has been on pain medication including gabapentin and hydrocodone per for 10 days postoperatively and has been using intermittently Tylenol. Last night patient began having excruciating pain in the left foot, gave him her gabapentin and hydrocodone to control pain and brought her here. She also reports patient has been having some cough with some greenish sputum. Patient has been taking p.o. cefixime as prescribed. She also reported generalized weakness. In ED CBC showed WBC 9.6 down from 11,000 couple days ago, hemoglobin 7.6 patient has chronic anemia, platelets 263. Chemistry showed creatinine 2.7 close to baseline, potassium 4.6. Chest x-ray showed right basilar infiltrate consistent with pneumonia. CT of the foot showed cortical destruction in the proximal fifth metatarsal concerning for osteomyelitis. CRP 8.4, ESR 55, procalcitonin 0.21. EKG showed no acute ischemic changes, troponin was negative. ER attempted to get in touch with Dr. Lott however this was unsuccessful. They reached out to orthopedics who recommended patient would not need any procedure as of now and to be admitted for IV antibiotics. 03/20. No fever overnight. WBC 14,000 today. Hemoglobin improved to 8.9 from 7.6, creatinine 2.2 unchanged. reported left foot pain is controlled. MRSA screen pending Review of Systems: denies headache/fever/chills/nausea/vomiting/chest or abdominal pain/cough/dyspnea/diarrhea. Otherwise see above. PHYSICAL EXAM General: Alert, Awake, No acute Distress, obese Eyes/N/T: EOMI, no scleral icterus, Head/Neck: neck supple, full ROM, CV: RRR, No murmurs, Pulm: occ rhonci b/l, no wheezing, no respiratory distress Abd: soft, nontender, +BS x4 Ext: no clubbing/cyanosis/edema, left foot in dressings Neuro: Alert, no focal deficits, moves all extremities, , sensations intact b/l upper/lower Psychiatric: Skin: warm/dry, normal color Constitutional Vitals: Vital Signs Temp Pulse Resp BP Pulse Ox O2 Del Method O2 Flow Rate 97.8 F 52 L 12 110/70 97 CPAP 2 03/20/23 04:01 03/20/23 10:05 03/20/23 10:05 03/20/23 06:02 03/20/23 10:05 03/20/23 10:05 03/20/23 10:05 Period Temp Pulse Resp BP Sys/Pichardo Pulse Ox O2 Del Method O2 Flow Rate Last 24 Hr 97 F-97.8 F 42-70 10- 110-156/36-145 92-100 CPAP-Nasal Cannula 1-4 Intake and Output 03/20/23 03/20/23 03/20/23 03:59 11:59 19:59 Intake Total 150 650 Output Total 555 550 Balance -405 100 Weight 142.519 kg Intake & Output: Intake & Output 03/20/23 03/20/23 03/20/23 03:59 11:59 19:59 Intake Total 150 650 Output Total 555 550 Balance -405 100 Weight 142.519 kg Intake: IV 50 50 Zosyn 2.25 gm In Dextrose 5% in 50 50 Water 50 ml @ 100 mls/hr IV Q6H [facility] Rx#:[id number] Oral 100 600 Output: Urine Catheter Amount 555 550 Other: Meal Breakfast Percent of Meal Consumed 75% Feeding Ability Assist with Tray Set Up Urine Appearance Clear Clear Uretheral (Dobbs) Clear Urine Color Yellow Yellow Uretheral (Dobbs) Yellow OBJ DATA Labs 03/20/23 05:54 03/20/23 05:54 Labs: Abnormal Lab Results 03/20/23 03/20/23 03/19/23 05:54 05:54 13:10 WBC 14.6 H RBC 3.25 L Hgb 8.9 L Hct 30.5 L POC Hct MCHC 29.2 L RDW 16.7 H Immature Gran % (Auto) Neut % (Auto) 90.0 H Lymph % (Auto) 2.4 L Lymph # (Auto) 0.35 L [place] # (Auto) Immature Gran # 0.07 H Absolute Neutrophils 13.18 H ESR POC VBG pO2 POC VBG HCO3 POC VBG Total CO2 POC Venous O2 Sat POC VBG Base Excess POC Anion Gap POC BUN BUN 66 H 72 H Creatinine 2.2 H 2.2 H POC Creatinine Glucose 144 H 157 H POC Glucose C-Reactive Protein Albumin 3.0 L 3.1 L Albumin/Globulin Ratio 0.9 L Procalcitonin Hyaline Casts 03/19/23 03/19/23 03/19/23 09:57 07:30 07:30 WBC RBC Hgb Hct POC Hct 22.0 L MCHC RDW Immature Gran % (Auto) Neut % (Auto) Lymph % (Auto) Lymph # (Auto) [place] # (Auto) Immature Gran # Absolute Neutrophils ESR POC VBG pO2 POC VBG HCO3 POC VBG Total CO2 POC Venous O2 Sat POC VBG Base Excess POC Anion Gap 19.0 H POC BUN 79 H BUN Creatinine POC Creatinine 2.7 H Glucose POC Glucose 124 H C-Reactive Protein Albumin Albumin/Globulin Ratio Procalcitonin 0.21 H Hyaline Casts 5 H 03/19/23 03/19/23 03/19/23 07:30 07:30 07:29 WBC RBC 2.73 L Hgb 7.6 L Hct 25.5 L POC Hct MCHC 29.8 L RDW 16.7 H Immature Gran % (Auto) 0.6 H Neut % (Auto) 78.4 H Lymph % (Auto) 6.5 L Lymph # (Auto) 0.62 L [place] # (Auto) 1.05 H Immature Gran # 0.06 H Absolute Neutrophils ESR 55 H POC VBG pO2 52 H POC VBG HCO3 29.5 H POC VBG Total CO2 31.0 H POC Venous O2 Sat 86.0 H POC VBG Base Excess 5.0 H* POC Anion Gap POC BUN BUN Creatinine POC Creatinine Glucose POC Glucose C-Reactive Protein 8.40 H Albumin Albumin/Globulin Ratio Procalcitonin Hyaline Casts Meds: Medications Acetaminophen (Acetaminophen 325 Mg Tablet) 650 mg PO Q6HP PRN; Protocol PRN Reason: Per Pain Protocol/Fever > 101 Albuterol/Ipratropium (Ipratropium/Albuterol 3 Ml Ampul.Neb) 3 ml NEB QID [facility] Last Admin: 03/20/23 10:05 Dose: 3 ml Apixaban (Apixaban 5 Mg Tablet) 5 mg PO BID [facility] Last Admin: 03/20/23 09:42 Dose: 5 mg Atorvastatin Calcium (Atorvastatin 40 Mg Tablet) 40 mg PO QDAY [facility] Last Admin: 03/20/23 09:44 Dose: 40 mg Bisacodyl (Bisacodyl 5 Mg Tablet) 10 mg PO DAILYP PRN PRN Reason: Constipation Bisoprolol Fumarate (Bisoprolol 5 Mg Tablet) 2.5 mg PO QDAY [facility] Last Admin: 03/20/23 09:43 Dose: Not Given Diagnostic Test (Pha) (Accu-Chek 1 Each Strip) 1 each FS [facility] Last Admin: 03/20/23 11:59 Dose: 1 each Docusate Sodium (Docusate Sodium 100 Mg Capsule) 100 mg PO BID [facility] Last Admin: 03/20/23 09:42 Dose: 100 mg Furosemide (Furosemide 40 Mg Tablet) 40 mg PO BID [facility] Last Admin: 03/20/23 09:42 Dose: 40 mg Piperacillin Sod/Tazobactam (Sod 2.25 gm/ Dextrose) 50 mls @ 100 mls/hr IV Q6H [facility] Last Admin: 03/20/23 11:35 Dose: 50 mls/hr Vancomycin HCl 2,000 mg/ (Sodium Chloride) 500 mls @ 250 mls/hr IV ONCE [facility] Stop: 03/20/23 13:00 Last Admin: 03/20/23 09:45 Dose: 250 mls/hr Insulin Glargine (Insulin Glargine, Human 1 Unit/0.01 Ml) 64 unit SQ [facility] Last Admin: 03/19/23 22:05 Dose: 64 units Insulin Human Lispro (Insulin Lispro 1 Unit/0.01 Ml Unit) 0 unit SQ [facility]; Protocol Last Admin: 03/20/23 11:58 Dose: 3 units Lactobacillus Rhamnosus (Lactobacillus 1 Capsule) 1 cap PO BID [facility] Last Admin: 03/20/23 09:42 Dose: 1 cap Lactulose (Lactulose 20 Gm/30 Ml Oral.Karine) 10 gm PO DAILYP PRN PRN Reason: Constipation Latanoprost (Latanoprost Ophth Drops 2.5ml Bottle) 1 gtt OD [facility] Last Admin: 03/19/23 22:04 Dose: 1 drop Magnesium Hydroxide (Magnesium Hydroxide 30 Ml Oral.Susp) 30 ml PO DAILYP PRN PRN Reason: Constipation Magnesium Oxide (Magnesium Oxide 400 Mg Tablet) 400 mg PO BID [facility] Last Admin: 03/20/23 09:43 Dose: 400 mg Ondansetron HCl (Ondansetron 4 Mg/2 Ml Vial) 4 mg IV Q4HP PRN; Protocol PRN Reason: Nausea And Vomiting Oxycodone/Acetaminophen (Oxycodone/Apap 5/325mg Tablet) 1 tab PO Q4HP PRN; Protocol PRN Reason: Per Pain Protocol Brinzolamide- Brimonidine [ Simbrinza] 1-0.2 % Drop 1 dose OD BID [facility] Last Admin: 03/20/23 11:35 Dose: 1 dose Netarsudil- Latanoprost [ Rocklatan] 0.02-0. 005 % Drops 1 dose OD [facility] Last Admin: 03/19/23 21:57 Dose: 1 dose Senna (Sennosides 1 Tablet) 2 tab PO HSP PRN PRN Reason: Constipation Sitagliptin Phosphate (Sitagliptin 50 Mg Tablet) 50 mg PO DAILY [facility] Last Admin: 03/20/23 09:44 Dose: 50 mg Sodium Chloride (0.9 % Sodium Chloride 10 Ml Syringe) 10 ml IV Q8 [facility] Last Admin: 03/20/23 05:34 Dose: 10 ml Spironolactone (Spironolactone 25 Mg Tablet) 25 mg PO QDAY [facility] Last Admin: 03/20/23 09:42 Dose: 25 mg Timolol Maleate (Timolol 0.25% Ophth Drops Bottle 5ml) 1 gtt OD BID [facility] Last Admin: 03/20/23 11:35 Dose: 1 drop Vancomycin HCl (Vancomycin Per Pharmacy) 1 order IV UD [facility]; Protocol A/P Narrative A/P Narrative: Assessment and plan *Osteomyelitis of left fifth metatarsal s/p left partial fifth metatarsal amputation on 02/[address] Elio Lott -CT scan with evidence of surgery at base of left fifth metatarsal, there is exposed bone and cortical destruction in the proximal fifth metatarsal cons istent with osteomyelitis. Likely there is residual osteomyelitis -Microbiology reviewed, no culture growth from surgical specimen -On IV vancomycin and Zosyn. -Follow inflammatory markers. Local dressing. -Podiatry consult mon *Possible pneumonia(h/o aspiration pna): -Chest x-ray showed right basilar infiltrate consistent with pneumonia. Patient has intermittent cough some sputum -Vancomycin and Zosyn will cover. CT scan, no consolidation. *COPD exacerbation(2L@home): -DuoNebs, budesonide, pulmonary toileting, chest physio -He is on 2 L nasal cannula oxygen which is his baseline *Paroxysmal atrial fibrillation: -Continue bisoprolol and Eliquis. Monitor on telemetry *h/o CAD/biventricular systolic/diastolic heart failure: continue home meds BB/lasix/aldactone *h/o Bradycardia: commonly runs in 40's per pt, is on low-dose BB & follows with cardiology *Diabetes mellitus 2 w/neuropathy: continue home meds *HTN/HLD: blood pressure is stable. Will monitor. cont statin *CKD stage IV: appears stable *Anemia,chonic: *Morbid obesity, BMI 43: Complicating all aspects of care. 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
[2023-03-20] MEDS: INSULIN GLARGINE, HUMAN 1 UNIT/0.01 ML SQ SCH (21:33)
[2023-03-20] MEDS: NETARSUDIL LATANOPROST OD SCH (22:15)
[2023-03-20] MEDS: LATANOPROST OPHTH DROPS 2.5ML BOTTLE OD SCH (22:28)
[2023-03-21] MEDS: PIPERACILLIN SODIUM/TAZOBACTAM 2.25 GM in DEXTROSE 5% IN WATER 50 ML IV SCH ×5 (00:03→23:26)
[2023-03-21] MEDS: 0.9 % SODIUM CHLORIDE 10 ML SYRINGE IV SCH ×3 (05:50→21:12)
[2023-03-21 06:49] LABS: Basophils # (Auto) 0.01 K/mcL (0.00-0.30); Basophils % (Auto) 0.1 % (0.0-2.0); Eosinophils # (Auto) 0.35 K/mcL (0.00-0.70); Eosinophils % (Auto) 3.4 % (0.0-7.0); Hemoglobin 8.3 g/dL (13.7-17.5); Lymphocytes % (Auto) 3.9 % (15.5-49.0); Mean Cell Volume 92.4 fL (80.0-100.0); Mean Corpuscular HGB Conc 29.6 g/dL (31.0-36.0); Mean Platelet Volume 9.8 fL (8.8-12.5); Monocytes # (Auto) 0.79 K/mcL (0.10-0.90); Monocytes % (Auto) 7.6 % (1.0-12.0); Neutrophils % (Auto) 84.5 % (38.0-78.0); Platelet Count 280 K/mcL (140-440); RBC 3.03 M/mcL (4.63-6.08); Red Cell Distribution Width 16.7 % (11.5-14.5); WBC 10.3 K/mcL (4.5-11.0)
--- NOTE | 2023-03-21 07:39 | Internal Med Progress Note ---
SUBJECTIVE Subjective Patient information: Note initiated : 03/21/23 at 7:36 am Service Date, if different from initiated Date: [] Patient: Daljit Quintanilla 77 y/o M admitted on 03/19/23 for altered, change in level of care. Chief Complaint: [] Interval history: Mr. 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 Patient underwent left partial fifth metatarsal amputation on 02/[address] Elio Lott for osteomyelitis of left fifth metatarsal. He has been on pain medication including gabapentin and hydrocodone per for 10 days postoperatively and has been using intermittently Tylenol. Last night patient began having excruciating pain in the left foot, gave him her gabapentin and hydrocodone to control pain and brought her here. She also reports patient has been having some cough with some greenish sputum. Patient has been taking p.o. cefixime as prescribed. She also reported generalized w eakness. In ED CBC showed WBC 9.6 down from 11,000 couple days ago, hemoglobin 7.6 patient has chronic anemia, platelets 263. Chemistry showed creatinine 2.7 close to baseline, potassium 4.6. Chest x-ray showed right basilar infiltrate consistent with pneumonia. CT of the foot showed cortical destruction in the proximal fifth metatarsal concerning for osteomyelitis. CRP 8.4, ESR 55, procalcitonin 0.21. EKG showed no acute ischemic changes, troponin was negative. ER attempted to get in touch with Dr. Lott however this was unsuccessful. They reached out to orthopedics who recommended patient would not need any procedure as of now and to be admitted for IV antibiotics. 03/20. No fever overnight. WBC 14,000 today. Hemoglobin improved to 8.9 from 7.6, creatinine 2.2 unchanged. reported left foot pain is controlled. MRSA screen pending 03/21 No overnight event or new complaints. Leukocytosis improving. Hemoglobin low but relatively stable. Awaiting evaluation by podiatry. Poor renal function but appears stable, follow-up in morning. Occasional dry cough no shortness of breath. Review of Systems: denies headache/fever/chills/nausea/vomiting/chest or abdominal pain/diarrhea. Otherwise see above. PHYSICAL EXAM General: Alert, Awake, No acute Distress, obese Eyes/N/T: EOMI, no scleral icterus, Head/Neck: neck supple, full ROM, CV: RRR, No murmurs, Pulm: occ rhonchii b/l, no wheezing, no respiratory distress Abd: soft, nontender, +BS x4 Ext: no clubbing/cyanosis, mild b/l LE edema, left foot in dressings Neuro: Alert, no focal deficits, moves all extremities, , sensations intact b/l upper/lower Psychiatric: Skin: warm/dry, normal color Constitutional Vitals: Vital Signs Temp Pulse Resp BP Pulse Ox O2 Del Method O2 Flow Rate 97.9 F 53 L 11 L 134/54 97 CPAP 32 03/21/23 04:00 03/21/23 06:03 03/21/23 06:03 03/21/23 06:03 03/21/23 06:03 03/21/23 05:01 03/21/23 05:01 Period Temp Pulse Resp BP Sys/Pichardo Pulse Ox O2 Del Method O2 Flow Rate Last 24 Hr 97.0 F-98.5 F 45-161 11-29 90-161/41-100 82-100 CPAP-Room Air 2-32 Intake and Output 03/20/23 03/21/23 03/21/23 19:59 03:59 11:59 Intake Total 2121 150 50 Output Total 2270 995 1000 Balance -148 -845 -950 Weight 142.02 kg Intake & Output: Intake & Output 03/20/23 03/21/23 03/21/23 19:59 03:59 11:59 Intake Total 2122 150 50 Output Total 2270 995 1000 Balance -148 -845 -950 Weight 142.02 kg Intake: IV 600 50 50 Zosyn 2.25 gm In Dextrose 5% in 100 50 50 Water 50 ml @ 100 mls/hr IV Q6H [facility] Rx#:[id number] Vancomycin 2,000 mg In Sodium 500 Chloride 0.9% 500 ml @ 250 mls/ hr IV ONCE [facility] Rx#:[id number] Oral 1522 100 Output: Urine Catheter Amount 2270 995 1000 Other: Meal Dinner Percent of Meal Consumed 100% Feeding Ability Assist with Tray Set Up Urine Appearance Clear Clear Clear Uretheral (Dobbs) Clear Urine Color Yellow Yellow Yellow Uretheral (Dobbs) Yellow Urine Odor Normal Normal OBJ DATA Labs 03/21/23 05:24 03/20/23 05:54 Labs: Abnormal Lab Results 03/21/23 03/20/23 03/20/23 05:24 05:54 05:54 WBC 14.6 H RBC 3.03 L 3.25 L Hgb 8.3 L 8.9 L Hct 28.0 L 30.5 L POC Hct MCHC 29.6 L 29.2 L RDW 16.7 H 16.7 H Immature Gran % (Auto) Neut % (Auto) 84.5 H 90.0 H Lymph % (Auto) 3.9 L 2.4 L Lymph # (Auto) 0.40 L 0.35 L [place] # (Auto) Immature Gran # 0.07 H Absolute Neutrophils 8.74 H 13.18 H ESR POC VBG pO2 POC VBG HCO3 POC VBG Total CO2 POC Venous O2 Sat POC VBG Base Excess POC Anion Gap POC BUN BUN 66 H Creatinine 2.2 H POC Creatinine Glucose 144 H POC Glucose C-Reactive Protein Albumin 3.0 L Albumin/Globulin Ratio 0.9 L Procalcitonin Hyaline Casts 03/19/23 03/19/23 03/19/23 13:10 09:57 07:30 WBC RBC Hgb Hct POC Hct 22.0 L MCHC RDW Immature Gran % (Auto) Neut % (Auto) Lymph % (Auto) Lymph # (Auto) [place] # (Auto) Immature Gran # Absolute Neutrophils ESR POC VBG pO2 POC VBG HCO3 POC VBG Total CO2 POC Venous O2 Sat POC VBG Base Excess POC Anion Gap 19.0 H POC BUN 79 H BUN 72 H Creatinine 2.2 H POC Creatinine 2.7 H Glucose 157 H POC Glucose 124 H C-Reactive Protein Albumin 3.1 L Albumin/Globulin Ratio Procalcitonin Hyaline Casts 5 H 03/19/23 03/19/23 03/19/23 07:30 07:30 07:30 WBC RBC 2.73 L Hgb 7.6 L Hct 25.5 L POC Hct MCHC 29.8 L RDW 16.7 H Immature Gran % (Auto) 0.6 H Neut % (Auto) 78.4 H Lymph % (Auto) 6.5 L Lymph # (Auto) 0.62 L [place] # (Auto) 1.05 H Immature Gran # 0.06 H Absolute Neutrophils ESR 55 H POC VBG pO2 POC VBG HCO3 POC VBG Total CO2 POC Venous O2 Sat POC VBG Base Excess POC Anion Gap POC BUN BUN Creatinine POC Creatinine Glucose POC Glucose C-Reactive Protein 8.40 H Albumin Albumin/Globulin Ratio Procalcitonin 0.21 H Hyaline Casts 03/19/23 07:29 WBC RBC Hgb Hct POC Hct MCHC RDW Immature Gran % (Auto) Neut % (Auto) Lymph % (Auto) Lymph # (Auto) [place] # (Auto) Immature Gran # Absolute Neutrophils ESR POC VBG pO2 52 H POC VBG HCO3 29.5 H POC VBG Total CO2 31.0 H POC Venous O2 Sat 86.0 H POC VBG Base Excess 5.0 H* POC Anion Gap POC BUN BUN Creatinine POC Creatinine Glucose POC Glucose C-Reactive Protein Albumin Albumin/Globulin Ratio Procalcitonin Hyaline Casts Meds: Medications Acetaminophen (Acetaminophen 325 Mg Tablet) 650 mg PO Q6HP PRN; Protocol PRN Reason: Per Pain Protocol/Fever > 101 Albuterol/Ipratropium (Ipratropium/Albuterol 3 Ml Ampul.Neb) 3 ml NEB QID [facility] Last Admin: 03/20/23 21:33 Dose: 3 ml Apixaban (Apixaban 5 Mg Tablet) 5 mg PO BID [facility] Last Admin: 03/20/23 21:23 Dose: 5 mg Atorvastatin Calcium (Atorvastatin 40 Mg Tablet) 40 mg PO QDAY [facility] Last Admin: 03/20/23 09:44 Dose: 40 mg Bisacodyl (Bisacodyl 5 Mg Tablet) 10 mg PO DAILYP PRN PRN Reason: Constipation Bisoprolol Fumarate (Bisoprolol 5 Mg Tablet) 2.5 mg PO QDAY [facility] Last Admin: 03/20/23 09:43 Dose: Not Given Diagnostic Test (Pha) (Accu-Chek 1 Each Strip) 1 each FS ACHS [facility] Last Admin: 03/20/23 21:32 Dose: 1 each Docusate Sodium (Docusate Sodium 100 Mg Capsule) 100 mg PO BID [facility] Last Admin: 03/20/23 21:24 Dose: 100 mg Furosemide (Furosemide 40 Mg Tablet) 40 mg PO BID [facility] Last Admin: 03/20/23 21:24 Dose: 40 mg Piperacillin Sod/Tazobactam (Sod 2.25 gm/ Dextrose) 50 mls @ 100 mls/hr IV Q6H [facility] Last Infusion: 03/21/23 05:45 Dose: Infused Insulin Glargine (Insulin Glargine, Human 1 Unit/0.01 Ml) 64 unit SQ [facility] Last Admin: 03/20/23 21:33 Dose: 64 units Insulin Human Lispro (Insulin Lispro 1 Unit/0.01 Ml Unit) 0 unit SQ [facility]; Protocol Last Admin: 03/20/23 21:33 Dose: 3 units Lactobacillus Rhamnosus (Lactobacillus 1 Capsule) 1 cap PO BID [facility] Last Admin: 03/20/23 21:23 Dose: 1 cap Lactulose (Lactulose 20 Gm/30 Ml Oral.Karine) 10 gm PO DAILYP PRN PRN Reason: Constipation Latanoprost (Latanoprost Ophth Drops 2.5ml Bottle) 1 gtt OD [facility] Last Admin: 03/20/23 22:28 Dose: Not Given Magnesium Hydroxide (Magnesium Hydroxide 30 Ml Oral.Susp) 30 ml PO DAILYP PRN PRN Reason: Constipation Magnesium Oxide (Magnesium Oxide 400 Mg Tablet) 400 mg PO BID [facility] Last Admin: 03/20/23 21:23 Dose: 400 mg Ondansetron HCl (Ondansetron 4 Mg/2 Ml Vial) 4 mg IV Q4HP PRN; Protocol PRN Reason: Nausea And Vomiting Oxycodone/Acetaminophen (Oxycodone/Apap 5/325mg Tablet) 1 tab PO Q4HP PRN; Protocol PRN Reason: Per Pain Protocol Brinzolamide- Brimonidine [ Simbrinza] 1-0.2 % Drop 1 dose OD BID [facility] Last Admin: 03/20/23 22:15 Dose: 1 dose Netarsudil- Latanoprost [ Rocklatan] 0.02-0. 005 % Drops 1 dose OD [facility] Last Admin: 03/20/23 22:15 Dose: 1 dose Senna (Sennosides 1 Tablet) 2 tab PO HSP PRN PRN Reason: Constipation Sitagliptin Phosphate (Sitagliptin 50 Mg Tablet) 50 mg PO DAILY [facility] Last Admin: 03/20/23 09:44 Dose: 50 mg Sodium Chloride (0.9 % Sodium Chloride 10 Ml Syringe) 10 ml IV Q8 [facility] Last Admin: 03/21/23 05:50 Dose: 10 ml Spironolactone (Spironolactone 25 Mg Tablet) 25 mg PO QDAY [facility] Last Admin: 03/20/23 09:42 Dose: 25 mg Timolol Maleate (Timolol 0.25% Ophth Drops Bottle 5ml) 1 gtt OD BID [facility] Last Admin: 03/20/23 22:15 Dose: 1 drop Vancomycin HCl (Vancomycin Per Pharmacy) 1 order IV UD [facility]; Protocol A/P Narrative A/P Narrative: Assessment and plan *Osteomyelitis of left fifth metatarsal s/p left partial fifth metatarsal amputation on 02/25 -CT scan with evidence OM of proximal 5th MT -Microbiology reviewed, no culture growth from surgical specimen -On IV vancomycin and Zosyn. -Follow inflammatory markers. Leukocytosis improving. -Podiatry consult -ID consult *Possible pneumonia(h/o aspiration pna): -Chest x-ray showed right basilar infiltrate consistent with pneumonia. Patient has intermittent cough some sputum -Vancomycin and Zosyn will cover. CT scan, no consolidation. *COPD exacerbation(2L@home): -DuoNebs, budesonide, pulmonary toileting, chest physio -He is on 2 L nasal cannula oxygen which is his baseline *Paroxysmal atrial fibrillation: -Continue bisoprolol and lovenox (Eliquis held for potential surgery). Monitor on telemetry *h/o CAD/biventricular systolic/diastolic heart failure: continue home meds B B/lasix/aldactone *h/o Bradycardia: commonly runs in 40's per pt, is on low-dose BB & follows with cardiology *DM2 w/neuropathy: continue home meds *HTN/HLD: blood pressure is stable. Will monitor. cont statin *CKD stage IV: appears stable *Anemia,chonic: *Morbid obesity, BMI 43: Complicating all aspects of care. 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
[2023-03-21] MEDS: INSULIN LISPRO 1 UNIT/0.01 ML UNIT SQ SCH ×4 (07:47→21:21)
[2023-03-21] MEDS: IPRATROPIUM/ALBUTEROL 3 ML AMPUL.NEB NEB SCH ×4 (08:03→20:57)
--- NOTE | 2023-03-21 08:05 | EKG ---
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 Measurements Intervals [place] Rate: 42 P: [place]: QRS: 51 QRSD: 107 T: 53 QT: 563 QTc: 473 Interpretive Statements Atrial fibrillation Electronically Signed On 03-21-2023 8:05:06 PDT by Rashi Caballero M.D. /store/sh/titoing/ecg/[id number]
[2023-03-21 08:46] LABS: Vancomycin,Random 22.2 ug/mL
[2023-03-21] MEDS: BRINZOLAMIDE BRIMONIDINE OD SCH ×2 (09:58→21:12)
[2023-03-21] MEDS: SPIRONOLACTONE 25 MG TABLET PO SCH (09:59)
[2023-03-21] MEDS: MAGNESIUM OXIDE 400 MG TABLET PO SCH ×2 (09:59→21:11)
[2023-03-21] MEDS: FUROSEMIDE 40 MG TABLET PO SCH ×2 (09:59→21:11)
[2023-03-21] MEDS: DOCUSATE SODIUM 100 MG CAPSULE PO SCH ×2 (09:59→21:13)
[2023-03-21] MEDS: ATORVASTATIN 40 MG TABLET PO SCH (09:59)
[2023-03-21] MEDS: TIMOLOL 0.25% OPHTH DROPS BOTTLE 5ML OD SCH ×2 (09:59→21:12)
[2023-03-21] MEDS: BISOPROLOL 5 MG TABLET PO SCH (10:00)
[2023-03-21] MEDS: sitaGLIPtin 50 MG TABLET PO SCH (10:20)
[2023-03-21] MEDS: LACTOBACILLUS 1 CAPSULE PO SCH ×2 (10:20→21:11)
--- NOTE | 2023-03-21 13:19 | Infectious Disease Consult ---
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 As per chart, pt had partial 5th left metatarsal amputation back in 02/25 for osteomyelitis. Pt does have a history of right septic total kne e arthroplasty duet o MSSA for which he takes minocycline. Upon admission, pt had bradycardia and hypotension, on labs with leukocytosis (14.6k), increased creatinine 2.7, increased infl markers (CRP 8.4, ESR 55, procalcitonin 0.21). On imaging, CXR +Right basilar infiltrate consistent with pneumonia and Left foot CT c/w cortical destruction in the proximal fifth metatarsal concerning for OM. Pt now started on IV Vancomycin + Zosyn, consulted to ID service for further recommendations. Reason for consult: osteomyelitis, antibiotic management Constitutional Constitutional: Present as per HPI Respiratory Respiratory: Present cough and other (green sputum ) Integumentary Integumentary: Present wounds (left foot with associated pain ) PFSH PFSH All Active Problems (Updated 03/21/23 @ 15:52 by Yazmin Jasmine MD) Right lower lobe pneumonia (Acute) Osteomyelitis of left foot (Acute) Bacteremia (Acute) Osteomyelitis (Acute) Diabetes (Acute) Chronic progressive renal failure (Acute) Anemia (Acute) Pneumonia (Acute) Osteomyelitis (Acute) Bradycardia (Acute) Hyperkalemia (Chronic) Diabetic ulcer of left foot (Acute) Cellulitis of foot, left (Acute) Abrasion of skin of left foot (Acute) Infected abrasion of skin of right forearm (Acute) Hx of total knee arthroplasty (Chronic) 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) Morbid obesity (Chronic) Hypertension (Chronic) Localized edema due to fluid overload (Chronic) Afib (Chronic) COPD (chronic obstructive pulmonary disease) (Chronic) Squamous cell carcinoma (Chronic) Throat cancer (Chronic) H/O right knee surgery (Chronic ~2020) History of left knee surgery (Chronic ~2017) Glaucoma (Chronic) Pulmonary hypertension (Chronic) Biventricular heart failure (Chronic) Sleep apnea (Chronic) 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) MSSA bacteremia (Chronic) Arthritis (Chronic) [place] (hard of hearing) (Chronic) Hyperlipidemia (Chronic) Range of motion deficit (Chronic) Wears dentures (Chronic) 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) Medicare annual wellness visit, subsequent (Acute) Hematuria (Acute) Cellulitis of foot, right (Acute) Chronic kidney disease (CKD) stage G3b/A2, moderately decreased glomerular filtration rate (GFR) between 30-44 mL/min/1.73 square meter and albuminuria creatinine ratio between 30-299 mg/g (Chronic) 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 chronic kidney disease (Chronic) Knee pain, right (Acute) Effusion of knee joint right (Acute) Laceration of ankle (Acute) Meningioma (Chronic) Left shoulder pain (Chronic) CAP (community acquired pneumonia) (Acute) Acute on chronic renal insufficiency (Acute) Acute exacerbation of chronic obstructive pulmonary disease (COPD) (Acute) Tinea cruris (Acute) CVA (cerebrovascular accident) (Acute) Medical History (Updated 03/21/23 @ 15:52 by Yazmin Jasmine MD) Afib Arthritis Aspiration pneumonia 2022: Dysphagia on swallow study, declined compliance with thickened liquids Bite by animal Biventricular heart failure Bladder infection (~02/14/21) Congestive heart failure COPD (chronic obstructive pulmonary disease) CVA (cerebrovascular accident) Diabetes mellitus with neuropathy Dog bite of multiple sites of hand and fingers Glaucoma Hematuria Hip sprain History of fracture of right ankle [place] (hard of hearing) Hyperlipidemia Hypertension Infection of prosthetic right knee joint Daljit is a 75-year-old morbidly obese diabetic with chronic kidney disease. He was admitted yesterday currently postop day one for right septic total knee arthroplasty with staph aureus. Polyexchange completed. He had 2 weeks of symptoms prior to admission of increasing right knee pain. No previous history of MRSA. Probable MSSA. Laceration of finger Laceration of lip Left shoulder pain Localized edema due to fluid overload 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 Medicare annual wellness visit, subsequent Meningioma Metabolic alkalosis Morbid obesity Comorbid risk factor. MSSA bacteremia Peripheral neuropathy due to chemotherapy PNA (pneumonia) Pulmonary hypertension Range of motion deficit left shoulder Rib fracture Sepsis Septic arthritis Septic arthritis of knee, right Sleep apnea Squamous cell carcinoma Head, Neck, Ears Staphylococcus aureus bacteremia Follow-up on sensitivities. I am expecting to transition to IV Ancef 2 g IV every 8 hours. This would be considered dose adjustment for his acute on chronic kidney disease and associated morbid obesity. Throat cancer Stage 4 Wears dentures Surgical History H/O right knee surgery (~2020) History of ankle surgery 03/1966fracture with screws right History of cardiac cath (09/26/20) History of cardioversion 09/2007; 12/26/2007 History of cataract surgery (~09/2019) History of colonoscopy (~2009) History of eye surgery 07/2020 bilateral to release pressure History of left knee surgery (~2016) History of umbilical hernia repair (~2001) with colon resection Hx of total knee arthroplasty Family History Brother Throat cancer Uncle Throat cancer Social History marital status: smoking status: Former smoker alcohol intake frequency: does not drink substance use type: does not use MEDS/ALLERGIES Home Medications and Allergies Home Medications Medication Instructions Recorded Confirmed Type alpha lipoic acid 200 mg tablet 200 mg PO BID 08/29/15 03/19/23 History saw palmetto 450 mg capsule 450 mg PO BID 08/29/15 03/19/23 History brinzolamide 1 %-brimonidine 0.2 % 1 drp ophthalmic (eye) BID 02/16/21 03/19/23 History eye drops,suspension (Simbrinza) spironolactone 25 mg tablet 25 mg PO QDAY 02/16/21 03/19/23 History bisoprolol fumarate 5 mg tablet 2.5 mg PO QDAY 05/14/21 03/19/23 History atorvastatin 40 mg tablet 40 mg PO QHS 12/22/21 03/19/23 History fexofenadine 180 mg tablet 180 mg PO QDAY 04/21/22 03/19/23 History (Allergy Relief (fexofenadine)) furosemide 40 mg tablet (Lasix) 40 mg PO BID 04/21/22 03/19/23 History blood sugar diagnostic (Blood #270 ea 07/27/22 03/19/23 Rx Glucose Test strips) lancets #200 ea 10/20/22 03/19/23 Rx insulin lispro 100 unit/mL 1 sliding scale dose subcut TID 10/22/22 03/19/23 Rx subcutaneous pen (Humalog KwikPen #24 mL (U-100) Insulin) pen needles #400 ea 12/09/22 03/19/23 Rx Lactobacillus acidophilus 1.5 mg 460 mg PO BID 01/05/23 03/19/23 History (250 million cell) capsule (Probiotic Acidophilus) saurabh MyEveTab 1 tab PO BID 01/05/23 03/19/23 History losartan 100 mg tablet 50 mg PO DAILY 01/05/23 03/19/23 History magnesium oxide 250 mg PO BID 01/05/23 03/19/23 History insulin glargine 100 unit/mL (3 64 unit subcut QPM 02/23/23 03/19/23 History mL) subcutaneous pen (Lantus Solostar U-100 Insulin) latanoprost 0.005 % eye drops 1 drp ophthalmic (eye) QPM 02/23/23 03/19/23 History apixaban 5 mg tablet (Eliquis) 2.5 mg PO BID 03/19/23 03/19/23 History timolol maleate 0.25 % eye drops 1 drp ophthalmic (eye) BID 03/19/23 03/19/23 History Allergies Allergy/AdvReac Type Severity Reaction Status Date / Time hydrocodone AdvReac Mild Itching Verified 03/19/23 13:46 oxycodone AdvReac Mild Itching Verified 03/19/23 13:46 raw onion Allergy Mild Rash Uncoded 03/21/23 08:15 Physical Examination Vital Signs Vital signs: Temp Pulse Resp BP Pulse Ox O2 Del Method O2 Flow Rate 97.9 F 67 19 134/58 96 Room Air 2 03/21/23 12:20 03/21/23 12:14 03/21/23 12:20 03/21/23 12:20 03/21/23 12:38 03/21/23 12:38 03/21/23 12:20 Constitutional General appearance: alert (chronically ill) EENT Eyes pulmonary: nonicteric Respiratory Effort: normal Integumentary Integumentary: other (left foot lateral ulcer) Extremities Extremities: other (hyperpigmented skin changes in lower extremities ) Neurologic Neurological: normal mental status Results Laboratory Findings 03/21/23 05:24 03/20/23 05:54 Abnormal lab findings: Abnormal Labs 03/19/23 03/19/23 03/19/23 07:29 07:30 07:30 WBC RBC 2.73 L Hgb 7.6 L Hct 25.5 L POC Hct MCHC 29.8 L RDW 16.7 H Immature Gran % (Auto) 0.6 H Neut % (Auto) 78.4 H Lymph % (Auto) 6.5 L Lymph # (Auto) 0.62 L [place] # (Auto) 1.05 H Immature Gran # 0.06 H Absolute Neutrophils ESR 55 H POC VBG pO2 52 H POC VBG HCO3 29.5 H POC VBG Total CO2 31.0 H POC Venous O2 Sat 86.0 H POC VBG Base Excess 5.0 H* POC Anion Gap POC BUN BUN Creatinine POC Creatinine Glucose POC Glucose C-Reactive Protein 8.40 H Albumin Albumin/Globulin Ratio Procalcitonin Hyaline Casts 03/19/23 03/19/23 03/19/23 07:30 07:30 09:57 WBC RBC Hgb Hct POC Hct 22.0 L MCHC RDW Immature Gran % (Auto) Neut % (Auto) Lymph % (Auto) Lymph # (Auto) [place] # (Auto) Immature Gran # Absolute Neutrophils ESR POC VBG pO2 POC VBG HCO3 POC VBG Total CO2 POC Venous O2 Sat POC VBG Base Excess POC Anion Gap 19.0 H POC BUN 79 H BUN Creatinine POC Creatinine 2.7 H Glucose POC Glucose 124 H C-Reactive Protein Albumin Albumin/Globulin Ratio Procalcitonin 0.21 H Hyaline Casts 5 H 03/19/23 03/20/23 03/20/23 13:10 05:54 05:54 WBC 14.6 H RBC 3.25 L Hgb 8.9 L Hct 30.5 L POC Hct MCHC 29.2 L RDW 16.7 H Immature Gran % (Auto) Neut % (Auto) 90.0 H Lymph % (Auto) 2.4 L Lymph # (Auto) 0.35 L [place] # (Auto) Immature Gran # 0.07 H Absolute Neutrophils 13.18 H ESR POC VBG pO2 POC VBG HCO3 POC VBG Total CO2 POC Venous O2 Sat POC VBG Base Excess POC Anion Gap POC BUN BUN 72 H 66 H Creatinine 2.2 H 2.2 H POC Creatinine Glucose 157 H 144 H POC Glucose C-Reactive Protein Albumin 3.1 L 3.0 L Albumin/Globulin Ratio 0.9 L Procalcitonin Hyaline Casts 03/21/23 05:24 WBC RBC 3.03 L Hgb 8.3 L Hct 28.0 L POC Hct MCHC 29.6 L RDW 16.7 H Immature Gran % (Auto) Neut % (Auto) 84.5 H Lymph % (Auto) 3.9 L Lymph # (Auto) 0.40 L [place] # (Auto) Immature Gran # Absolute Neutrophils 8.74 H ESR POC VBG pO2 POC VBG HCO3 POC VBG Total CO2 POC Venous O2 Sat POC VBG Base Excess POC Anion Gap POC BUN BUN Creatinine POC Creatinine Glucose POC Glucose C-Reactive Protein Albumin Albumin/Globulin Ratio Procalcitonin Hyaline Casts Microbiology: Microbiology 03/19/23 09:36 Blood Blood Culture - Preliminary 03/19/23 09:30 Blood Blood Culture - Preliminary 03/20/23 10:00 Nose - Both Right and Left MRSA (PCR) - Final Diagnostic Findings Chest x-ray: report reviewed Additional studies: Left foot CT scan A/P Assessment and plan (1) Osteomyelitis of left foot: Assessment and plan: This is a 77 y/o morbidly obese male pmhx CAD, biventricular heart failure, bradycardia, AFib on AC, COPD, pulmonary HTN, DMT2, HTN, 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 Wound cx gram stain with gpc and gpb resembling diphteroids. Plan: - discontinue Vancomycin IV (MRSA nares negative) no prior hx of MRSA - continue IV Zosyn 2.25g IV q6hrs while admitted - follow up Podiatry service; if planned procedure, obtain left foot bone culture - if no planned procedure, patient will need minimum 6 week course treatment with IV antibiotics; based on recent wound cultures options include Cefazolin 2g IV q12hrs via PICC line (alternative option Daptomycin 8mg/kg IV q48hrs) starting from 03/17 with tentative end date 04/28 - will need baseline cpk levels if Daptomycin - need weekly cbc+diff, cmp, esr, crp levels while on IV antibiotics - will need outpatient follow up at ID clinics while on IV antibiotics - hold minocycline while on IV antibiotics, will reassess in ID clinics to resume as soon as IV antibiotics are completed Status: Acute (2) Right lower lobe pneumonia: Status: Acute Time Spent With Patient Time: Total time spent is greater than 50% in coordination of care (as documented) at patient's floor/unit and/or counseling patient: Initial: Total time with patient: 55 - 74 minutes Attestation: Yazmin Jasmine MD Infectious Diseases [phone]
[2023-03-21] MEDS: NETARSUDIL LATANOPROST OD SCH (21:12)
[2023-03-21] MEDS: LATANOPROST OPHTH DROPS 2.5ML BOTTLE OD SCH (21:12)
[2023-03-21] MEDS: INSULIN GLARGINE, HUMAN 1 UNIT/0.01 ML SQ SCH (21:21)
[2023-03-22] MEDS: PIPERACILLIN SODIUM/TAZOBACTAM 2.25 GM in DEXTROSE 5% IN WATER 50 ML IV SCH ×2 (05:13→11:58)
[2023-03-22] MEDS: 0.9 % SODIUM CHLORIDE 10 ML SYRINGE IV SCH ×2 (05:13→15:12)
[2023-03-22 06:39] LABS: Basophils # (Auto) 0.01 K/mcL (0.00-0.30); Basophils % (Auto) 0.1 % (0.0-2.0); Eosinophils # (Auto) 0.31 K/mcL (0.00-0.70); Eosinophils % (Auto) 3.6 % (0.0-7.0); Hematocrit 25.9 % (40.1-51.0); Hemoglobin 7.7 g/dL (13.7-17.5); Lymphocytes # (Auto) 0.51 K/mcL (1.50-4.80); Lymphocytes % (Auto) 5.9 % (15.5-49.0); Mean Cell Volume 91.8 fL (80.0-100.0); Mean Corpuscular HGB Conc 29.7 g/dL (31.0-36.0); Mean Platelet Volume 9.7 fL (8.8-12.5); Monocytes # (Auto) 0.69 K/mcL (0.10-0.90); Monocytes % (Auto) 7.9 % (1.0-12.0); Neutrophils % (Auto) 81.8 % (38.0-78.0); Platelet Count 280 K/mcL (140-440); RBC 2.82 M/mcL (4.63-6.08); Red Cell Distribution Width 16.3 % (11.5-14.5); WBC 8.7 K/mcL (4.5-11.0)
[2023-03-22 07:13] LABS: Vancomycin,Random 16.7 ug/mL
[2023-03-22 07:14] LABS: ALT/SGPT 15 U/L (<40); AST/SGOT 9 U/L (<40); Alkaline Phosphatase 90 U/L (39-117); Bilirubin,Direct < 0.2 mg/dL (0-0.3); Bilirubin,Total 0.4 mg/dL (0.1-1.0); Blood Urea Nitrogen 53 mg/dL (8-23); Calcium 9.5 mg/dL (8.6-10.4); Carbon Dioxide 33 mmol/L (22-30); Chloride 99 mmol/L (96-108); Glomerular Filtration Rate 33; Glucose 153 mg/dL (70-105); Lactate Dehydrogenase 136 U/L (135-225); Phosphorous 3.6 mg/dL (2.5-4.5); Triglycerides 90 mg/dL (<150); Uric Acid 8.6 mg/dL (2.5-8.0)
[2023-03-22] MEDS: INSULIN LISPRO 1 UNIT/0.01 ML UNIT SQ SCH ×2 (07:38→11:58)
--- NOTE | 2023-03-22 07:41 | Internal Med Progress Note ---
SUBJECTIVE Subjective Patient information: Note initiated : 03/22/23 at 7:35 am Service Date, if different from initiated Date: [] Patient: Daljit Quintanilla 77 y/o M admitted on 03/19/23 for altered, change in level of care. Chief Complaint: [] Interval history: Mr. 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 Patient underwent left partial fifth metatarsal amputation on 02/[address] Elio Lott for osteomyelitis of left fifth metatarsal. He has been on pain medication including gabapentin and hydrocodone per for 10 days postoperatively and has been using intermittently Tylenol. Last night patient began having excruciating pain in the left foot, gave him her gabapentin and hydrocodone to control pain and brought her here. She also reports patient has been having some cough with some greenish sputum. Patient has been taking p.o. cefixime as prescribed. She also reported generalized w eakness. In ED CBC showed WBC 9.6 down from 11,000 couple days ago, hemoglobin 7.6 patient has chronic anemia, platelets 263. Chemistry showed creatinine 2.7 close to baseline, potassium 4.6. Chest x-ray showed right basilar infiltrate consistent with pneumonia. CT of the foot showed cortical destruction in the proximal fifth metatarsal concerning for osteomyelitis. CRP 8.4, ESR 55, procalcitonin 0.21. EKG showed no acute ischemic changes, troponin was negative. ER attempted to get in touch with Dr. Lott however this was unsuccessful. They reached out to orthopedics who recommended patient would not need any procedure as of now and to be admitted for IV antibiotics. 03/20. No fever overnight. WBC 14,000 today. Hemoglobin improved to 8.9 from 7.6, creatinine 2.2 unchanged. reported left foot pain is controlled. MRSA screen pending 03/21 No overnight event or new complaints. Leukocytosis improving. Hemoglobin low but relatively stable. Awaiting evaluation by podiatry. Poor renal function but appears stable, follow-up in morning. Occasional dry cough no shortness of breath. 03/22 No overnight event or new complaints. Patient seen by wound care team and the plan is for continued IV antibiotics but no surgical I&D at this time. Hemoglobin dropped to 7.7. no gross bleeding, monitor. patient will need PICC line and 6 weeks of IV antibiotics. infectious disease consulted Review of Systems: denies headache/fever/chills/nausea/vomiting/chest or abdominal pain/diarrhea. Otherwise see above. PHYSICAL EXAM General: Alert, Awake, No acute Distress, obese Eyes/N/T: EOMI, no scleral icterus, Head/Neck: neck supple, full ROM, CV: RRR, No murmurs, Pulm: occ rhonchi b/l, no wheezing, no respiratory distress Abd: soft, nontender, +BS x4 Ext: no clubbing/cyanosis, mild b/l LE edema, left foot in dressings Neuro: Alert, no focal deficits, moves all extremities, , sensations intact b/l upper/lower Psychiatric: Skin: warm/dry, normal color Constitutional Vitals: Vital Signs Temp Pulse Resp BP Pulse Ox O2 Del Method O2 Flow Rate 97.9 F 55 L 11 L 136/48 97 CPAP 2 03/22/23 04:01 03/22/23 06:04 03/22/23 06:04 03/22/23 06:04 03/22/23 06:05 03/22/23 06:05 03/22/23 06:05 Period Temp Pulse Resp BP Sys/Pichardo Pulse Ox O2 Del Method O2 Flow Rate Last 24 Hr 97.4 F-98.2 F 53-68 10-24 95-163/43-74 92-100 CPAP-Room Air 2-2 Intake and Output 03/21/23 03/22/23 03/22/23 19:59 03:59 11:59 Intake Total 400 150 150 Output Total 1250 700 Balance -850 -550 150 Weight 142.02 kg 141.612 kg Intake & Output: Intake & Output 03/21/23 03/22/2303/22/23 19:59 03:59 11:59 Intake Total 400 150 150 Output Total 1250 700 Balance -850 -550 150 Weight 142.02 kg 141.612 kg Intake: IV 100 50 50 Zosyn 2.25 gm In Dextrose 5% in 100 50 50 Water 50 ml @ 100 mls/hr IV Q6H [facility] Rx#:[id number] Oral 300 100 100 Output: Urine Catheter Amount 1250 700 Other: Meal Lunch Percent of Meal Consumed 50% Urine Appearance Clear Uretheral (Dobbs) Clear Clear Urine Color Pale Uretheral (Dobbs) Yellow Yellow OBJ DATA Labs 03/22/23 12:58 03/22/23 05:46 Labs: Abnormal Lab Results 03/22/23 03/22/23 03/21/23 05:46 05:45 05:24 WBC RBC 2.82 L 3.03 L Hgb 7.7 L 8.3 L Hct 25.9 L 28.0 L POC Hct MCHC 29.7 L 29.6 L RDW 16.3 H 16.7 H Immature Gran % (Auto) 0.7 H Neut % (Auto) 81.8 H 84.5 H Lymph % (Auto) 5.9 L 3.9 L Lymph # (Auto) 0.51 L 0.40 L [place] # (Auto) Immature Gran # 0.06 H Absolute Neutrophils 8.74 H ESR POC VBG pO2 POC VBG HCO3 POC VBG Total CO2 POC Venous O2 Sat POC VBG Base Excess Carbon Dioxide 33 H POC Anion Gap POC BUN BUN 53 H Creatinine 1.9 H POC Creatinine Glucose 153 H POC Glucose Uric Acid 8.6 H C-Reactive Protein Albumin 3.0 L Albumin/Globulin Ratio Procalcitonin Hyaline Casts 03/20/23 03/20/23 03/19/23 05:54 05:54 13:10 WBC 14.6 H RBC 3.25 L Hgb 8.9 L Hct 30.5 L POC Hct MCHC 29.2 L RDW 16.7 H Immature Gran % (Auto) Neut % (Auto) 90.0 H Lymph % (Auto) 2.4 L Lymph # (Auto) 0.35 L [place] # (Auto) Immature Gran # 0.07 H Absolute Neutrophils 13.18 H ESR POC VBG pO2 POC VBG HCO3 POC VBG Total CO2 POC Venous O2 Sat POC VBG Base Excess Carbon Dioxide POC Anion Gap POC BUN BUN 66 H 72 H Creatinine 2.2 H 2.2 H POC Creatinine Glucose 144 H 157 H POC Glucose Uric Acid C-Reactive Protein Albumin 3.0 L 3.1 L Albumin/Globulin Ratio 0.9 L Procalcitonin Hyaline Casts 03/19/23 03/19/23 03/19/23 09:57 07:30 07:30 WBC RBC Hgb Hct POC Hct 22.0 L MCHC RDW Immature Gran % (Auto) Neut % (Auto) Lymph % (Auto) Lymph # (Auto) [place] # (Auto) Immature Gran # Absolute Neutrophils ESR POC VBG pO2 POC VBG HCO3 POC VBG Total CO2 POC Venous O2 Sat POC VBG Base Excess Carbon Dioxide POC Anion Gap 19.0 H POC BUN 79 H BUN Creatinine POC Creatinine 2.7 H Glucose POC Glucose 124 H Uric Acid C-Reactive Protein Albumin Albumin/Globulin Ratio Procalcitonin 0.21 H Hyaline Casts 5 H 03/19/23 03/19/23 03/19/23 07:30 07:30 07:29 WBC RBC 2.73 L Hgb 7.6 L Hct 25.5 L POC Hct MCHC 29.8 L RDW 16.7 H Immature Gran % (Auto) 0.6 H Neut % (Auto) 78.4 H Lymph % (Auto) 6.5 L Lymph # (Auto) 0.62 L [place] # (Auto) 1.05 H Immature Gran # 0.06 H Absolute Neutrophils ESR 55 H POC VBG pO2 52 H POC VBG HCO3 29.5 H POC VBG Total CO2 31.0 H POC Venous O2 Sat 86.0 H POC VBG Base Excess 5.0 H* Carbon Dioxide POC Anion Gap POC BUN BUN Creatinine POC Creatinine Glucose POC Glucose Uric Acid C-Reactive Protein 8.40 H Albumin Albumin/Globulin Ratio Procalcitonin Hyaline Casts Meds: Medications Acetaminophen (Acetaminophen 325 Mg Tablet) 650 mg PO Q6HP PRN; Protocol PRN Reason: Per Pain Protocol/Fever > 101 Albuterol/Ipratropium (Ipratropium/Albuterol 3 Ml Ampul.Neb) 3 ml NEB QID [facility] Last Admin: 03/21/23 20:57 Dose: 3 ml Atorvastatin Calcium (Atorvastatin 40 Mg Tablet) 40 mg PO QDAY [facility] Last Admin: 03/21/23 09:59 Dose: 40 mg Bisacodyl (Bisacodyl 5 Mg Tablet) 10 mg PO DAILYP PRN PRN Reason: Constipation Bisoprolol Fumarate (Bisoprolol 5 Mg Tablet) 2.5 mg PO QDAY [facility] Last Admin: 03/21/23 10:00 Dose: Not Given Diagnostic Test (Pha) (Accu-Chek 1 Each Strip) 1 each FS [facility] Last Admin: 03/22/23 07:27 Dose: 1 each Docusate Sodium (Docusate Sodium 100 Mg Capsule) 100 mg PO BID [facility] Last Admin: 03/21/23 21:13 Dose: Not Given Furosemide (Furosemide 40 Mg Tablet) 40 mg PO BID [facility] Last Admin: 03/21/23 21:11 Dose: 40 mg Piperacillin Sod/Tazobactam (Sod 2.25 gm/ Dextrose) 50 mls @ 100 mls/hr IV Q6H [facility] Last Infusion: 03/22/23 07:05 Dose: Infused Insulin Glargine (Insulin Glargine, Human 1 Unit/0.01 Ml) 64 unit SQ [facility] Last Admin: 03/21/23 21:21 Dose: 64 units Insulin Human Lispro (Insulin Lispro 1 Unit/0.01 Ml Unit) 0 unit SQ [facility]; Protocol Last Admin: 03/21/23 21:21 Dose: 3 units Lactobacillus Rhamnosus (Lactobacillus 1 Capsule) 1 cap PO BID [facility] Last Admin: 03/21/23 21:11 Dose: 1 cap Lactulose (Lactulose 20 Gm/30 Ml Oral.Karine) 10 gm PO DAILYP PRN PRN Reason: Constipation Latanoprost (Latanoprost Ophth Drops 2.5ml Bottle) 1 gtt OD [facility] Last Admin: 03/21/23 21:12 Dose: Not Given Magnesium Hydroxide (Magnesium Hydroxide 30 Ml Oral.Susp) 30 ml PO DAILYP PRN PRN Reason: Constipation Magnesium Oxide (Magnesium Oxide 400 Mg Tablet) 400 mg PO BID [facility] Last Admin: 03/21/23 21:11 Dose: 400 mg Ondansetron HCl (Ondansetron 4 Mg/2 Ml Vial) 4 mg IV Q4HP PRN; Protocol PRN Reason: Nausea And Vomiting Oxycodone/Acetaminophen (Oxycodone/Apap 5/325mg Tablet) 1 tab PO Q4HP PRN; Protocol PRN Reason: Per Pain Protocol Brinzolamide- Brimonidine [ Simbrinza] 1-0.2 % Drop 1 dose OD BID [facility] Last Admin: 03/21/23 21:12 Dose: 1 dose Netarsudil- Latanoprost [ Rocklatan] 0.02-0. 005 % Drops 1 dose OD HS [facility] Last Admin: 03/21/23 21:12 Dose: 1 dose Senna (Sennosides 1 Tablet) 2 tab PO HSP PRN PRN Reason: Constipation Sitagliptin Phosphate (Sitagliptin 50 Mg Tablet) 50 mg PO DAILY [facility] Last Admin: 03/21/23 10:20 Dose: 50 mg Sodium Chloride (0.9 % Sodium Chloride 10 Ml Syringe) 10 ml IV Q8 [facility] Last Admin: 03/22/23 05:13 Dose: 10 ml Spironolactone (Spironolactone 25 Mg Tablet) 25 mg PO QDAY [facility] Last Admin: 03/21/23 09:59 Dose: 25 mg Timolol Maleate (Timolol 0.25% Ophth Drops Bottle 5ml) 1 gtt OD BID [facility] Last Admin: 03/21/23 21:12 Dose: 1 drop Vancomycin HCl (Vancomycin Per Pharmacy) 1 order IV UD [facility]; Protocol A/P Narrative A/P Narrative: Assessment and plan *Osteomyelitis of left fifth metatarsal s/p left partial fifth metatarsal amputation on 02/25 -CT scan with evidence OM of proximal 5th MT -Follow inflammatory markers. Leukocytosis improved -Podiatry following, no surgical I&D but to continue abx -ID following > cont zosyn, 6wks therapy to end on 04/28, Daptomycin 8mg/kg q48hr with baseline cpk ->>weekly cbc+diff/cmp/esr/crp, f/u ID clinic -need PICC line *Possible pneumonia(h/o aspiration pna): -Patient has intermittent cough some sputum -on abx as above *COPD exacerbation(2L@home): -DuoNebs, budesonide, pulmonary toileting, chest physio -He is on 2 L nasal cannula oxygen which is his baseline *Paroxysmal atrial fibrillation: -Continue bisoprolol and lovenox (Eliquis held for potential surgery). Monitor on telemetry *h/o CAD/biventricular systolic/diastolic heart failure: continue home meds BB/lasix/aldactone *h/o Bradycardia: commonly runs in 40's per pt, is on low-dose BB & follows with cardiology *DM2 w/neuropathy: continue home meds *HTN/HLD: blood pressure is stable. Will monitor. cont statin *CKD stage IV: appears stable *Anemia,chonic: transfuse for hgb <8 given CAD, recheck hgb is 8.6 *Morbid obesity, BMI 43: Complicating all aspects of care. 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 This may put him at risk of aspiration pneumonia *Oropharyngeal Dysphagia: probably due to esophageal dysmotility status post esophageal dilation -ST eval pending *Chronic pain: *Chronic lymphedema LE's: *Generalized weakness/deconditioning/debility: Patient uses wheelchair at baseline and is able to transfer with walker *ppx: lovenox (Eliquis held until surgery eval) CODE STATUS: full Plan of Treatment: Wound care while in hospital as ordered and F/U with wound care clinic upon discharge Time Spent With Patient Time: Total time spent is greater than 50% in coordination of care (as documented) at patient's floor/unit and/or counseling patient: Subsequent: Total time with patient: 35 - 49 minutes
--- NOTE | 2023-03-22 08:04 | Wound Care Consultation ---
HPI Date of Consult Consult Date: 03/21/23 Primary Care Provider: Jacobo Guerra MD Consult Narrative Patient Information: Note initiated : 03/22/23 at 7:59 am Service Date, if different from initiated Date: [] Patient: Daljit Quintanilla 77 y/o M admitted on 03/19/23 for altered, change in level of care. Chief Complaint: [] Chief complaint: Wound to left foot Reason for consult: Surgical wound to left foot cc:: CC: Sebastián Dove MD Review of Systems All systems: reviewed and no additional remarkable complaints except as stated Integumentary Integumentary: Present wounds Additional comments: Painful wound to left foot area PFSH PFSH All Active Problems (Updated 03/21/23 @ 15:52 by Yazmin Jasmine MD) Right lower lobe pneumonia (Acute) Osteomyelitis of left foot (Acute) Bacteremia (Acute) Osteomyelitis (Acute) Diabetes (Acute) Chronic progressive renal failure (Acute) Anemia (Acute) Pneumonia (Acute) Osteomyelitis (Acute) Bradycardia (Acute) Hyperkalemia (Chronic) Diabetic ulcer of left foot (Acute) Cellulitis of foot, left (Acute) Abrasion of skin of left foot (Acute) Infected abrasion of skin of right forearm (Acute) Hx of total knee arthroplasty (Chronic) 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) Morbid obesity (Chronic) Hypertension (Chronic) Localized edema due to fluid overload (Chronic) Afib (Chronic) COPD (chronic obstructive pulmonary disease) (Chronic) Squamous cell carcinoma (Chronic) Throat cancer (Chronic) H/O right knee surgery (Chronic ~2020) History of left knee surgery (Chronic ~2017) Glaucoma (Chronic) Pulmonary hypertension (Chronic) Biventricular heart failure (Chronic) Sleep apnea (Chronic) 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) MSSA bacteremia (Chronic) Arthritis (Chronic) [place] (hard of hearing) (Chronic) Hyperlipidemia (Chronic) Range of motion deficit (Chronic) Wears dentures (Chronic) 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) Medicare annual wellness visit, subsequent (Acute) Hematuria (Acute) Cellulitis of foot, right (Acute) Chronic kidney disease (CKD) stage G3b/A2, moderately decreased glomerular filtration rate (GFR) between 30-44 mL/min/1.73 square meter and albuminuria creatinine ratio between 30-299 mg/g (Chronic) 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 chronic kidney disease (Chronic) Knee pain, right (Acute) Effusion of knee joint right (Acute) Laceration of ankle (Acute) Meningioma (Chronic) Left shoulder pain (Chronic) CAP (community acquired pneumonia) (Acute) Acute on chronic renal insufficiency (Acute) Acute exacerbation of chronic obstructive pulmonary disease (COPD) (Acute) Tinea cruris (Acute) CVA (cerebrovascular accident) (Acute) Medical History (Updated 03/21/23 @ 15:52 by Yazmin Jasmine MD) Afib Arthritis Aspiration pneumonia 2022: Dysphagia on swallow study, declined compliance with thickened liquids Bite by animal Biventricular heart failure Bladder infection (~02/14/21) Congestive heart failure COPD (chronic obstructive pulmonary disease) CVA (cerebrovascular accident) Diabetes mellitus with neuropathy Dog bite of multiple sites of hand and fingers Glaucoma Hematuria Hip sprain History of fracture of right ankle [place] (hard of hearing) Hyperlipidemia Hypertension Infection of prosthetic right knee joint Daljit is a 75-year-old morbidly obese diabetic with chronic kidney disease. He was admitted yesterday currently postop day one for right septic total knee arthroplasty with staph aureus. Polyexchange completed. He had 2 weeks of symptoms prior to admission of increasing right knee pain. No previous history of MRSA. Probable MSSA. Laceration of finger Laceration of lip Left shoulder pain Localized edema due to fluid overload 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 Medicare annual wellness visit, subsequent Meningioma Metabolic alkalosis Morbid obesity Comorbid risk factor. MSSA bacteremia Peripheral neuropathy due to chemotherapy PNA (pneumonia) Pulmonary hypertension Range of motion deficit left shoulder Rib fracture Sepsis Septic arthritis Septic arthritis of knee, right Sleep apnea Squamous cell carcinoma Head, Neck, Ears Staphylococcus aureus bacteremia Follow-up on sensitivities. I am expecting to transition to IV Ancef 2 g IV every 8 hours. This would be considered dose adjustment for his acute on chronic kidney disease and associated morbid obesity. Throat cancer Stage 4 Wears dentures Surgical History H/O right knee surgery (~2020) History of ankle surgery 03/1966fracture with screws right History of cardiac cath (09/26/20) History of cardioversion 09/2007; 12/26/2007 History of cataract surgery (~09/2019) History of colonoscopy (~2009) History of eye surgery 07/2020 bilateral to release pressure History of left knee surgery (~2016) History of umbilical hernia repair (~2001) with colon resection Hx of total knee arthroplasty Family History Brother Throat cancer Uncle Throat cancer Social History marital status: smoking status: Former smoker alcohol intake frequency: does not drink substance use type: does not use MEDS/ALLERGIES Home Medications and Allergies Home Medications Medication Instructions Recorded Confirmed Type alpha lipoic acid 200 mg tablet 200 mg PO BID 08/29/15 03/19/23 History saw palmetto 450 mg capsule 450 mg PO BID 08/29/15 03/19/23 History brinzolamide 1 %-brimonidine 0.2 % 1 drp ophthalmic (eye) BID 02/16/21 03/19/23 History eye drops,suspension (Simbrinza) spironolactone 25 mg tablet 25 mg PO QDAY 02/16/21 03/19/23 History bisoprolol fumarate 5 mg tablet 2.5 mg PO QDAY 05/14/21 03/19/23 History atorvastatin 40 mg tablet 40 mg PO QHS 12/22/21 03/19/23 History fexofenadine 180 mg tablet 180 mg PO QDAY 04/21/22 03/19/23 History (Allergy Relief (fexofenadine)) furosemide 40 mg tablet (Lasix) 40 mg PO BID 04/21/22 03/19/23 History blood sugar diagnostic (Blood #270 ea 07/27/22 03/19/23 Rx Glucose Test strips) lancets #200 ea 10/20/22 03/19/23 Rx insulin lispro 100 unit/mL 1 sliding scale dose subcut TID 10/22/22 03/19/23 Rx subcutaneous pen (Humalog KwikPen #24 mL (U-100) Insulin) pen needles #400 ea 12/09/22 03/19/23 Rx Lactobacillus acidophilus 1.5 mg 460 mg PO BID 01/05/23 03/19/23 History (250 million cell) capsule (Probiotic Acidophilus) Vita Cocoies 1 tab PO BID 01/05/23 03/19/23 History losartan 100 mg tablet 50 mg PO DAILY 01/05/23 03/19/23 History magnesium oxide 250 mg PO BID 01/05/23 03/19/23 History insulin glargine 100 unit/mL (3 64 unit subcut QPM 02/23/23 03/19/23 History mL) subcutaneous pen (Lantus Solostar U-100 Insulin) latanoprost 0.005 % eye drops 1 drp ophthalmic (eye) QPM 02/23/23 03/19/23 History apixaban 5 mg tablet (Eliquis) 2.5 mg PO BID 03/19/23 03/19/23 History timolol maleate 0.25 % eye drops 1 drp ophthalmic (eye) BID 03/19/23 03/19/23 History Allergies Allergy/AdvReac Type Severity Reaction Status Date / Time hydrocodone AdvReac Mild Itching Verified 03/19/23 13:46 oxycodone AdvReac Mild Itching Verified 03/19/23 13:46 raw onion Allergy Mild Rash Uncoded 03/21/23 08:15 Physical Examination Vital Signs Vital signs: Temp Pulse Resp BP Pulse Ox O2 Del Method O2 Flow Rate 97.9 F 55 L 11 L 136/48 97 CPAP 2 03/22/23 04:01 03/22/23 06:04 03/22/23 06:04 03/22/23 06:04 03/22/23 06:05 03/22/23 06:05 03/22/23 06:05 Results Labs 03/22/23 05:45 03/22/23 05:46 Labs: Abnormal lab results 03/22/23 03/22/23 Range/Units 05:45 05:46 RBC 2.82 L (4.63-6.08) M/mcL Hgb 7.7 L (13.7-17.5) g/dL Hct 25.9 L (40.1-51.0) % MCHC 29.7 L (31.0-36.0) g/dL RDW 16.3 H (11.5-14.5) % Immature Gran % (Auto) 0.7 H (0.0-0.5) % Neut % (Auto) 81.8 H (38.0-78.0) % Lymph % (Auto) 5.9 L (15.5-49.0) % Lymph # (Auto) 0.51 L (1.50-4.80) K/mcL Immature Gran # 0.06 H (0.00-0.05) K/mcl Carbon Dioxide 33 H (22-30) mmol/L BUN 53 H (8-23) mg/dL Creatinine 1.9 H (0.7-1.2) mg/dL Glucose 153 H (70-105) mg/dL Uric Acid 8.6 H (2.5-8.0) mg/dL Albumin 3.0 L (3.2-5.2) gm/dL Diabetes panel 03/22/23 Range/Units 05:46 Sodium 142 (133-145) mmol/L Potassium 3.8 (3.3-5.1) mmol/L Chloride 99 (96-108) mmol/L Carbon Dioxide 33 H (22-30) mmol/L BUN 53 H (8-23) mg/dL Creatinine 1.9 H (0.7-1.2) mg/dL Glucose 153 H (70-105) mg/dL Calcium 9.5 (8.6-10.4) mg/dL AST 9 (<40) U/L ALT 15 (<40) U/L Alkaline Phosphatase 90 (39-117) U/L Total Protein 6.0 (5.9-8.4) gm/dL Albumin 3.0 L (3.2-5.2) gm/dL Triglycerides 90 (<150) mg/dL Calcium panel 03/22/23 Range/Units 05:46 Calcium 9.5 (8.6-10.4) mg/dL Phosphorus 3.6 (2.5-4.5) mg/dL Albumin 3.0 L (3.2-5.2) gm/dL Pituitary panel 03/22/23 Range/Units 05:46 Sodium 142 (133-145) mmol/L Potassium 3.8 (3.3-5.1) mmol/L Chloride 99 (96-108) mmol/L Carbon Dioxide 33 H (22-30) mmol/L BUN 53 H (8-23) mg/dL Creatinine 1.9 H (0.7-1.2) mg/dL Glucose 153 H (70-105) mg/dL Calcium 9.5 (8.6-10.4) mg/dL Adrenal panel 03/22/23 Range/Units 05:46 Sodium 142 (133-145) mmol/L Potassium 3.8 (3.3-5.1) mmol/L Chloride 99 (96-108) mmol/L Carbon Dioxide 33 H (22-30) mmol/L BUN 53 H (8-23) mg/dL Creatinine 1.9 H (0.7-1.2) mg/dL Glucose 153 H (70-105) mg/dL Calcium 9.5 (8.6-10.4) mg/dL Total Bilirubin 0.4 (0.1-1.0) mg/dL AST 9 (<40) U/L ALT 15 (<40) U/L Alkaline Phosphatase 90 (39-117) U/L Total Protein 6.0 (5.9-8.4) gm/dL Albumin 3.0 L (3.2-5.2) gm/dL All other labs normal. A/P Assessment and plan (1) Osteomyelitis: Assessment and plan: Patient to be followed by infectious disease Plan: as above Status: Acute (2) Diabetic ulcer of left foot: Assessment and plan: Cover area with hydrofera blue and cover with meplix border dressing and football dressing to left foot Status: Acute Qualifiers: Diabetes mellitus type: type 2 Diabetic foot ulcer location: midfoot N on-pressure ulcer stage: unspecified non-pressure ulcer stage Qualified Co de(s): E11.621 - Type 2 diabetes mellitus with foot ulcer; L97.429 - Non- pressure chronic ulcer of left heel and midfoot with unspecified severity (3) Cellulitis of foot, left: Assessment and plan: per infectious disease Status: Acute Plan Start wound care treatment as ordered Sepsis Sepsis Identified: No Narrative A/P Narrative: Patient is a long standing wound care patient due to a non healing surgical wound to his left foot Plan of Treatment: Wound care while in hospital as ordered and F/U with wound care clinic upon discharge Time Spent With Patient Time: Total time spent is greater than 50% in coordination of care (as documented) at patient's floor/unit and/or counseling patient: Initial: Total time with patient: 40 - 54 minutes
[2023-03-22] MEDS: DOCUSATE SODIUM 100 MG CAPSULE PO SCH (09:06)
[2023-03-22] MEDS: MAGNESIUM OXIDE 400 MG TABLET PO SCH (09:07)
[2023-03-22] MEDS: ATORVASTATIN 40 MG TABLET PO SCH (09:08)
[2023-03-22] MEDS: TIMOLOL 0.25% OPHTH DROPS BOTTLE 5ML OD SCH (09:08)
[2023-03-22] MEDS: SPIRONOLACTONE 25 MG TABLET PO SCH (09:08)
[2023-03-22] MEDS: BRINZOLAMIDE BRIMONIDINE OD SCH (09:08)
[2023-03-22] MEDS: LACTOBACILLUS 1 CAPSULE PO SCH (09:11)
[2023-03-22] MEDS: FUROSEMIDE 40 MG TABLET PO SCH (09:11)
[2023-03-22] MEDS: BISOPROLOL 5 MG TABLET PO SCH (09:11)
[2023-03-22] MEDS: sitaGLIPtin 50 MG TABLET PO SCH (09:11)
[2023-03-22] MEDS ORDERED: 0.9 % SODIUM CHLORIDE 10 ML SYRINGE IV PRN (09:55)
--- NOTE | 2023-03-22 10:04 | Discharge Summary ---
Discharge Provider Provider IMPORTANT FOLLOW-UP INFORMATION FOR PCP: Patient information: Note initiated : 03/22/23 at 9:59 am Service Date, if different from initiated Date: [] Patient: Daljit Quintanilla 77 y/o M admitted on 03/19/23 for altered, change in level of care. Chief Complaint: [] Date of admission: 03/19/23 12:12 Discharge date: 03/22/23 Primary care physician: Jacobo Guerra MD Consults: 03/19/23 09:53 Consult to Physician [CONS] Stat Comment: Consulting Provider: Sebastián Dove Reason For Exam: Physician to Consult 03/19/23 12:30 Consult to Physician [CONS] Stat Comment: Consulting Provider: Elio Lott Reason For Exam: Physician to Consult 03/21/23 11:00 Consult to Physician [CONS] Routine Comment: Osteo of 5th MT left foot Consulting Provider: Juan Jose SAPP Reason For Exam: Physician to Consult COURSE Hospital Course Hospital course: Chief Complaint: [] Interval history: Mr. 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 Patient underwent left partial fifth metatarsal amputation on 02/[address] Elio Lott for osteomyelitis of left fifth metatarsal. He has been on pain medication including gabapentin and hydrocodone per for 10 days postoperatively and has been using intermittently Tylenol. Last night patient began having excruciating pain in the left foot, gave him her gabapentin and hydrocodone to control pain and brought her here. She also reports patient has been having some cough with some greenish sputum. Patient has been taking p.o. cefixime as prescribed. She also reported generalized weakness. In ED CBC showed WBC 9.6 down from 11,000 couple days ago, hemoglobin 7.6 patient has chronic anemia, platelets 263. Chemistry showed creatinine 2.7 close to baseline, potassium 4.6. Chest x-ray showed right basilar infiltrate consistent with pneumonia. CT of the foot showed cortical destruction in the proximal fifth metatarsal concerning for osteomyelitis. CRP 8.4, ESR 55, procalcitonin 0.21. EKG showed no acute ischemic changes, troponin was negat tiffany. ER attempted to get in touch with Dr. Lott however this was unsuccessful. They reached out to orthopedics who recommended patient would not need any procedure as of now and to be admitted for IV antibiotics. 03/20. No fever overnight. WBC 14,000 today. Hemoglobin improved to 8.9 from 7.6, creatinine 2.2 unchanged. reported left foot pain is controlled. MRSA screen pending 03/21 No overnight event or new complaints. Leukocytosis improving. Hemoglobin low but relatively stable. Awaiting evaluation by podiatry. Poor renal function but appears stable, follow-up in morning. Occasional dry cough no shortness of breath. 03/22 No overnight event or new complaints. Patient seen by wound care team and the plan is for continued IV antibiotics but no surgical I&D at this time. He moglobin dropped to 7.7. no gross bleeding, monitor. patient will need PICC line and 6 weeks of IV antibiotics. infectious disease consulted. Hgb recheck and is 8.6 Assessment and plan *Osteomyelitis of left fifth metatarsal s/p left partial fifth metatarsal amputation on 02/25 -Podiatry following, no surgical I&D at this time but to continue abx, f/u in clinic -ID following > 6wks therapy to end on 04/28, Daptomycin 8mg/kg q48hr with baseline cpk ->>weekly cbc+diff/cmp/esr/crp, f/u ID clinic -PICC line ordered *Possible pneumonia(h/o aspiration pna): *COPD exacerbation(2L@home): *Paroxysmal atrial fibrillation: *h/o CAD/biventricular systolic/diastolic heart failure: *h/o Bradycardia: commonly runs in 40's per pt, is on low-dose BB & follows with cardiology *DM2 w/neuropathy: *HTN/HLD: *CKD stage IV: *Anemia,chonic: *Morbid obesity, BMI 43: *JOELLEN: on cpap *Stage IV throat cancer s/p chemotherapy/radiation therapy: *Oropharyngeal Dysphagia: *Chronic pain: *Chronic lymphedema LE's: *Generalized weakness/deconditioning/debility: Patient uses wheelchair at baseline and is able to transfer with walker Discharge diagnosis: Osteomyelitis left fifth metatarsal Secondary discharge diagnosis: Possible aspiration COPD paroxysmal A-fib CAD history of failure bradycardia diabetes hypertension chronic kidney stage IV chronic anemia obesity obstructive sleep apnea throat cancer oropharyngeal dysphagia chronic pain lymphedema generalized weakness deconditioning debility Time Spent with Patient Time attestation: Total time spent providing and/or coordinating discharge services: Time spent: Greater than 30 minutes EXAM Constitutional Vitals: Temp Pulse Resp BP Pulse Ox O2 Del Method O2 Flow Rate 97.3 F 62 12 121/45 97 Room Air 2 03/22/23 08:02 03/22/23 09:15 03/22/23 09:15 03/22/23 09:15 03/22/23 09:15 03/22/23 08:20 03/22/23 06:05 Discharge Data Data Completed and Pending Labs on day of discharge: Labs from last 24 hours 03/22/23 03/22/23 03/22/23 05:46 05:45 05:45 WBC 8.7 RBC 2.82 L Hgb 7.7 L Hct 25.9 L MCV 91.8 MCH 27.3 MCHC 29.7 L RDW 16.3 H Plt Count 280 MPV 9.7 Immature Gran % (Auto) 0.7 H Neut % (Auto) 81.8 H Lymph % (Auto) 5.9 L [place] % (Auto) 7.9 Eos % (Auto) 3.6 Baso % (Auto) 0.1 Lymph # (Auto) 0.51 L [place] # (Auto) 0.69 Eos # (Auto) 0.31 Baso # (Auto) 0.01 Immature Gran # 0.06 H Absolute Neutrophils 7.11 Sodium 142 Potassium 3.8 Chloride 99 Carbon Dioxide 33 H Anion Gap 10.0 BUN 53 H Creatinine 1.9 H GFR Calculation 33 Glucose 153 H Uric Acid 8.6 H Calcium 9.5 Phosphorus 3.6 Magnesium 2.4 Total Bilirubin 0.4 Direct Bilirubin < 0.2 GGT 41 AST 9 ALT 15 Alkaline Phosphatase 90 Lactate Dehydrogenase 136 Total Protein 6.0 Albumin 3.0 L Globulin 3.0 Albumin/Globulin Ratio 1.0 Triglycerides 90 Random Vancomycin 16.7 Preliminary micro results at discharge 03/19/23 09:36 Blood Culture - Preliminary Blood 03/19/23 09:30 Blood Culture - Preliminary Blood Discharge Plan Patient/Caregiver Discharge Instructions Activity: increase activity as tolerated Diet: Dysphagia Level 5 Minced & Moist Foods and Thickened Liquids Instructions: Daptomycin (By injection), Osteomyelitis (GEN), Sepsis (GEN), How to Care for Your PICC (Peripherally Inserted Central Catheter) (DC) Activity Restrictions/Additional Instructions: You have been scheduled for Out Patient IV antibiotics beginning @ 1:00 PM at [facility]. Please bring the hard copy prescription with the laboratory draws with you to the clinic to be drawn weekly. Follow up with Infectious Disease, Podiatry and your PCP after discharge. They will contact you to schedule an appointment. If you do not hear from then within 1 week, please call to schedule an appointment. [facility] will contact you to schedule an appointment. Increase activity as tolerated, continue with a Dysphasia Level 5 Diet with Thickend Liquids. See information in your discharge packet. This discharge packet is provided to you to help keep you informed about your care. We want to ensure you get everything you need when you go home. You will also be receiving a call from us in a few days to follow up with you and see how you are doing since your discharge. This gives us a chance to listen to any concerns you maybe experiencing since you were discharged or any additional needs you may have, as well as providing us feedback on your care experience. We strive to always provide excellent care and thank you for your feedback and for choosing [facility]. Prescriptions: New daptomycin 500 mg recon soln 1,133 mg IV Q48 Qty: 1 0RF Rx Instructions: administer over 30 mins Continued (DME) Blood Glucose Test Strip See Rx Instructions .Route Qty: 270 4RF Rx Instructions: use to test blood sugar three times daily (DME) lancets Misc See Rx Instructions .ROUTE .MEDSUPPLY Qty: 200 3RF Rx Instructions: use to test blood sugar three times daily insulin lispro [Humalog KwikPen Insulin] 100 unit/mL insulin pen 1 sliding scale dose subcut TID Qty: 24 3RF Rx Instructions: sliding scale, max daily dose 24 units (DME) pen needles See Rx Instructions .Route .MEDSUPPLY Qty: 400 3RF Rx Instructions: use with insulin pen four times daily bisoprolol fumarate 5 mg tablet 2.5 mg PO QDAY atorvastatin 40 mg tablet 40 mg PO QHS fexofenadine [Allergy Relief (fexofenadine)] 180 mg tablet 180 mg PO QDAY losartan 100 mg tablet 50 mg PO DAILY saurabh espinal 1 tab PO BID magnesium oxide 250 mg magnesium tablet 250 mg PO BID Probiotic Acidophilus 1.5 mg (250 million cell) capsule 460 mg PO BID saw palmetto 450 MG capsule 450 mg PO BID Patient Comments: for prostate alpha lipoic acid 200 MG tablet 200 mg PO BID Patient Comments: for blood glucose control Simbrinza 1-0.2 % Drops,Suspension 1 drp OPHTHALMIC (EYE) BID Patient Comments: has had his am dose today, will need to have pm dose tonight spironolactone 25 mg Tablet 25 mg PO QDAY furosemide [Lasix] 40 mg tablet 40 mg PO BID Patient Comments: had one dose at 6 am, did not take his second 40 mg which he usually takes ay 10 am in the morning. latanoprost 0.005 % Drops 1 drp OPHTHALMIC (EYE) QPM Patient Comments: one drop to each eye insulin glargine [Lantus Solostar U-100 Insulin] 100 unit/mL (3 mL) insulin pen 64 unit subcut QPM Rx Instructions: increased dose 10/14/21 timolol maleate 0.25 % drops 1 drp OPHTHALMIC (EYE) BID Eliquis 5 mg tablet 2.5 mg PO BID Other Ambulatory Orders: Complete Blood Count Man Dif (Routine) Facility: [facility] - Location: Laboratory Ordered By: Gino Gaspar Comprehensive Metabolic Panel (Routine) Facility: [facility] - Location: Laboratory Ordered By: Gino Gaspar C-Reactive Protein (Routine) Facility: [facility] - Location: Laboratory Ordered By: Gino Gaspar Erythrocyte Sedimentation Rate (Routine) Facility: [facility] - Location: Laboratory Ordered By: Gino Gaspar Outpatient PICC Placement (ONCE) Timeframe: [id number] Location: None Selected Ordered By: Gino Gaspar Follow Up Plan Follow up with: Juan Jose Zuleta - ID [Provider Group] Wyatt,Jm Chaitanya, [employer]LECT[employer]IC METER TECHNICIAN [Adv Reg Nurse Practitioner] - Elio Lott DPM [Physician] - (Follow up Amputation 02/25 They will contact you to schedule an appointment.) Jacobo Guerra MD [Primary Care Provider] - (They will contact you to schedule an appointment) Patient Disposition: Home Health Service Plan of Treatment: Wound care while in hospital as ordered and F/U with wound care clinic upon discharge Overall status at discharge: patient is progressing back to baseline Discharge Orders: Discharge Order (Routine); Ordered 03/22/23 Ordered By: Gino Gaspar
[2023-03-22] MEDS ORDERED: APIXABAN 5 MG TABLET PO SCH (10:05)
[2023-03-22] MEDS: IPRATROPIUM/ALBUTEROL 3 ML AMPUL.NEB NEB SCH ×2 (11:37→12:22)
--- NOTE | 2023-03-22 13:45 | EKG ---
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
[2023-03-22 13:55] LABS: Hematocrit 29.2 % (40.1-51.0); Hemoglobin 8.6 g/dL (13.7-17.5)
[2023-03-22] MEDS ORDERED: 0.9 % SODIUM CHLORIDE 10 ML SYRINGE IV SCH (21:00)
== END 2023-03-22 16:00 | disposition home health service (06) | DRG 539 ==
LOC: ED 07:15 → ICU 12:12
PROVIDERS: ADMIT Internal Medicine; ATTEND Internal Medicine